=== PATIENT | female | born 1940 | race Caucasian/White ===

== ENCOUNTER 2020-02-15 17:56 | Inpatient (IN) | payer MEDICARE, MEDICAID, SELFPAY ==
[2020-02-15] VITALS (17 sets, daily range): BP systolic 116–162; BP diastolic 44–75; PULSE 77–97; RESP 18–40; TEMP 36.4–37.3; O2SAT 84–96; BMI 25.7
--- NOTE | 2020-02-15 18:12 | XRR_ITS ---
PROCEDURE INFORMATION: Exam: XR Chest, 1 View Exam date and time: 02/15/2020 7:41 PM Age: 79 years old Clinical indication: Dyspnea and shortness of breath; Additional info: Dyspnea, SOB TECHNIQUE: Imaging protocol: XR of the chest Views: 1 view. COMPARISON: CR Chest 1 [place] [id number] 04/18/2019 6:12 PM FINDINGS: Lungs: No pneumonia or pulmonary edema. Architectural changes in both lungs compatible with emphysema. Pleural space: No pleural effusion or pneumothorax. Heart/Mediastinum: The cardiac silhouette is not enlarged. The superior mediastinal contours are normal. Possible hiatal hernia. Bones/joints: Curvature of the thoracic spine convex to the right. Soft tissues: Bilateral epicardial fat pads. XR/XR chest 1V portable [id number] IMPRESSION: No acute abnormality.
--- NOTE | 2020-02-15 18:13 | ECG_ITS ---
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 Measurements Intervals [place] Rate: 81 P: 81 ID: [id number] QRS: -24 QRSD: 94 T: 50 QT: 367 QTc: 428 Interpretive Statements SINUS RHYTHM BORDERLINE LEFT AXIS DEVIATION [QRS AXIS < -20] Compared to ECG 04/18/2019 18:16:16 Right bundle-branch block no longer present Electronically Signed On 02-15-2020 22:38:02 CDT by Shea Garland M.D. [id number]
--- NOTE | 2020-02-15 18:21 | ED_ITS ---
HPI - SOB/Dyspnea General: Chief Complaint: Shortness of Breath/Dyspnea Stated Complaint: covid symptoms Time Seen by Provider: 02/15/20 18:05 Source: patient History of Present Illness: HPI Narrative: Mehnaz is a nice 79-year-old female brought in by EMS with report of worsening shortness of breath. Patient was recently seen at [facility] ER and told she had the flu. Patient states that she is having a productive cough, subjective fevers and has been chilled. In route EMS stated the patient had an 84% pulse ox on her typical 3-1/2 L nasal cannula oxygen. The patient was placed on a nonrebreather and arrives here with a pulse ox of 100%. She is tachypneic, wheezing and slightly tachycardic. She is alert and oriented but has a difficult time answering questions secondary to her shortness of breath. Review of Systems General: Reports: ROS unobtainable due to medical condition (Mild respiratory distress) [facility], [facility] PFSH: Medical History Atrial fibrillation Bifascicular block COPD (chronic obstructive pulmonary disease) Hyperlipidemia Hypothyroidism Status post placement of implantable loop recorder (~05/12/19) Family History Other Alzheimer disease Cancer Parkinson disease Social History Smoking and tobacco status: former smoker Quit status (tobacco): has quit using tobacco Year quit tobacco: 1994 Alcohol intake: never Physical Exam Const: COMMON NORMALS: no acute distress, patient oriented x3, no limitations, healthy appearing and well nourished GENERAL APPEARANCE: cooperative, well kempt and well developed HENMT: COMMON NORMALS: normocephalic, atraumatic, external ears normal, EAC's normal and Normal external nose present HEAD & SCALP: normal to inspection, normocephalic and atraumatic FACE & SINUS: normal facial exam and face symmetric NOSE: Normal external nose present and Normal nares present EXTERNAL EAR: Yes external ears normal EXTERNAL AUDITORY CANAL: EAC's normal MOUTH: Normal oral and palatal mucosa present, lip normal and tongue normal Eye: COMMON NORMALS: Equal, round and reactive pupils present and conjunctivae normal GENERAL EYE: appearance normal, both eyes and all related structures ALIGNMENT: Yes alignment normal PERIORBITAL: periorbital findings normal EYELID: eyelids normal CONJUNCTIVA: Yes conjunctivae normal SCLERA: sclerae normal PUPIL: Yes Equal, round and reactive pupils present Neck/C-Spine: COMMON NORMALS: full ROM, no lymphadenopathy, supple, no meningeal signs and no JVD GENERAL: Yes normal visual inspection and Yes trachea midline Chest: COMMONS NORMALS: normal inspection of the chest and normal palpation of entire chest wall Resp: EFFORT & INSPECTION: Yes able to speak in complete sentences, Yes sy mmetric chest movement, Yes Actively coughing, Yes retractions and Yes uses accessory muscles AUSCULTATION: no crackles, no rales, rhonchi, wheezes and diminished lung sounds Cardio: COMMON NORMALS: no JVD, regular rate, regular rhythm, S1 normal heart sound present and S2 normal heart sound present RATE: regular rate RHYTHM: regular rhythm HEART SOUNDS: S1 normal heart sound present, S2 normal heart sound present, no click, no gallops, no murmurs, no rubs and abnormal split S2 GI: COMMON NORMALS: Soft to palpation and No hepatosplenomegaly present PALPATION: Yes Soft to palpation, No Tenderness to palpation present (GI), No Guarding due to palpation present (GI), No Rigid due to palpation, Yes No hepatosplenomegaly present, No Hernia present, No Palpable mass present and No Pulsatile mass present : COMMON NORMALS: Yes no CVA tenderness BLADDER/KIDNEY EXAM: Yes no CVA tenderness EXTERNAL FEMALE EXAM: No Hernia present Back/Pelvis: COMMON NORMALS: no CVA tenderness, thoracic and lumbar spine normal to inspection, no thoracic nor lumbar tenderness and thoraco-lumbar ROM normal Extremity: COMMON NORMALS: normal to inspection, full ROM, capillary refill normal, no joint enlargement, no clubbing, cyanosis or edema and no calf tenderness Neuro: COMMON NORMALS: patient oriented x3, CN's II-XII intact bilaterally, moves all extremities, no focal motor deficits and no sensory deficits noted MENINGEAL SIGNS: Yes no meningeal signs SPEECH: speech normal Psych: COMMON NORMALS: mental status grossly normal, Normal thought process present, cooperative, normal affect, speech normal and activity/motor behavior normal APPEARANCE: Yes well kempt SPEECH: Yes normal speech THOUGHT PROCESS: Normal thought process present Skin: COMMON NORMALS: no rashes or lesions noted, turgor normal, no jaundice, no petechiae and no mottling GENERAL SKIN EXAM: no rashes or lesions noted and turgor normal Course Vital Signs: Vital signs: Vital Signs Temperature 97.6 F 02/15/20 18:08 Pulse Rate 85 02/15/20 20:04 Respiratory Rate 28 H 02/15/20 20:04 Blood Pressure 162/75 02/15/20 19:04 Pulse Oximetry 93 02/15/20 20:04 MDM - SOB/Dyspnea MDM Narrative: Medical decision making narrative: The case was reviewed with Dr. Ely. Patient is back to her baseline oxygen needs but is more tachypneic than normal. Vital signs are stable. She agrees to go ahead and keep the patient here as the patient does not want intubation or life-saving therapy. We will keep the patient here start regimen severe and continue Decadron. Lab Data: Labs: Lab Results 02/15/20 02/15/20 02/15/20 Range/Units 18:20 18:20 18:20 WBC 6.7 (4.0-10.0) 10^3/ uL RBC 4.35 (4.1-5.3) 10^6/u L Hgb 12.8 (11.5-15.3) g/dL Hct 39.9 (37.0-47.0) % MCV 91.7 (81-99) fL MCH 29.4 (28.0-34.0) pg MCHC 32.1 (30.0-36.0) g/dL RDW 13.0 (12.1-15.1) % Plt Count 260 (130-400) 10^3/c mm MPV 10.1 (7.4-10.4) fL Neut % (Auto) 85.2 % Lymph % (Auto) 5.7 % Chester % (Auto) 8.4 % Eos % (Auto) 0.0 % Baso % (Auto) 0.2 % Neut # (Auto) 5.68 (1.8-7.7) 10^3/u L Lymph # (Auto) 0.4 L (0.8-4.8) 10^3/u L Chester # (Auto) 0.6 (0.2-0.9) 10^3/u L Eos # (Auto) 0.0 (0.0-0.8) 10^3/u L Baso # (Auto) 0.0 (0.0-0.1) 10^3/u L Nucleated RBC % (a uto) 0 % Nucleated RBCs # 0.0 /100WBC PT 13.70 (12.1-14.9) SECO NDS INR 1.02 (0.8-1.2) Specimen Type Sample Site ABG pH (7.35-7.45) ABG pCO2 (35-45) mmHg ABG pO2 (80.0-100.0) mmH g ABG HCO3 (22-26) mmol/L ABG Base Excess (-2.0-2.0) mmol/ L Carlos Test Hematocrit (37-47) % O2 Delivery Device O2 Liters/Min % FiO2 % Color Blender ID Sodium 137 (136-145) mmol/L Potassium 3.0 L (3.5-5.1) mmol/L Chloride 95 L (98-107) mmol/L Carbon Dioxide 28 (22-29) mmol/L Anion Gap 17.0 (5-19) BUN 11 (8-23) mg/dL Creatinine 0.6 (0.5-0.9) mg/dL GFR Calculation Not Reportable Glucose 124 H (65-115) mg/dL Calculated Osmolal ity 281 L (285-295) mOsm/k g Lactic Acid (0.5-2.2) mmol/L Calcium 8.7 (8.5-10.5) mg/dL Magnesium 1.9 (1.7-2.3) mg/dL Total Bilirubin 0.5 (0.15-1.2) mg/dL AST 57 H (0-32) U/L ALT 40 H (0-33) U/L Alkaline Phosphata se 70 (35-105) IU/L Troponin T Baselin e (0-10) ng/L NT-Pro-B Natriuret Pep 156 (0-450) pg/mL Total Protein 6.6 (6.6-8.7) g/dL Albumin 3.4 L (3.5-5.2) g/dL Globulin 3.2 (1.3-4.6) g/dL Influenza Type A A g (Negative) Influenza Type B A g (Negative) SARS-CoV-2 Ag (Rap id) (Negative) 02/15/20 02/15/20 02/15/20 Range/Units 18:20 18:20 18:35 WBC (4.0-10.0) 10^3/ uL RBC (4.1-5.3) 10^6/u L Hgb (11.5-15.3) g/dL Hct (37.0-47.0) % MCV (81-99) fL MCH (28.0-34.0) pg MCHC (30.0-36.0) g/dL RDW (12.1-15.1) % Plt Count (130-400) 10^3/c mm MPV (7.4-10.4) fL Neut % (Auto) % Lymph % (Auto) % Chester % (Auto) % Eos % (Auto) % Baso % (Auto) % Neut # (Auto) (1.8-7.7) 10^3/u L Lymph # (Auto) (0.8-4.8) 10^3/u L Chester # (Auto) (0.2-0.9) 10^3/u L Eos # (Auto) (0.0-0.8) 10^3/u L Baso # (Auto) (0.0-0.1) 10^3/u L Nucleated RBC % (a uto) % Nucleated RBCs # /100WBC PT (12.1-14.9) SECO NDS INR (0.8-1.2) Specimen Type Arterial Sample Site Radial, left ABG pH 7.50 H (7.35-7.45) ABG pCO2 38.3 (35-45) mmHg ABG pO2 81.2 (80.0-100.0) mmH g ABG HCO3 29.9 H (22-26) mmol/L ABG Base Excess 6.3 H (-2.0-2.0) mmol/ L Carlos Test Pos Hematocrit 39.7 (37-47) % O2 Delivery Device Nc O2 Liters/Min 3.0 % FiO2 32.0 % Color Blender ID Cak Sodium (136-145) mmol/L Potassium (3.5-5.1) mmol/L Chloride (98-107) mmol/L Carbon Dioxide (22-29) mmol/L Anion Gap (5-19) BUN (8-23) mg/dL Creatinine (0.5-0.9) mg/dL GFR Calculation Glucose (65-115) mg/dL Calculated Osmolal ity (285-295) mOsm/k g Lactic Acid 1.4 (0.5-2.2) mmol/L Calcium (8.5-10.5) mg/dL Magnesium (1.7-2.3) mg/dL Total Bilirubin (0.15-1.2) mg/dL AST (0-32) U/L ALT (0-33) U/L Alkaline Phosphata se (35-105) IU/L Troponin T Baselin e 33 H (0-10) ng/L NT-Pro-B Natriuret Pep (0-450) pg/mL Total Protein (6.6-8.7) g/dL Albumin (3.5-5.2) g/dL Globulin (1.3-4.6) g/dL Influenza Type A A g (Negative) Influenza Type B A g (Negative) SARS-CoV-2 Ag (Rap id) (Negative) 02/15/20 02/15/20 Range/Units 18:40 18:40 WBC (4.0-10.0) 10^3/ uL RBC (4.1-5.3) 10^6/u L Hgb (11.5-15.3) g/dL Hct (37.0-47.0) % MCV (81-99) fL MCH (28.0-34.0) pg MCHC (30.0-36.0) g/dL RDW (12.1-15.1) % Plt Count (130-400) 10^3/c mm MPV (7.4-10.4) fL Neut % (Auto) % Lymph % (Auto) % Chester % (Auto) % Eos % (Auto) % Baso % (Auto) % Neut # (Auto) (1.8-7.7) 10^3/u L Lymph # (Auto) (0.8-4.8) 10^3/u L Chester # (Auto) (0.2-0.9) 10^3/u L Eos # (Auto) (0.0-0.8) 10^3/u L Baso # (Auto) (0.0-0.1) 10^3/u L Nucleated RBC % (a uto) % Nucleated RBCs # /100WBC PT (12.1-14.9) SECO NDS INR (0.8-1.2) Specimen Type Sample Site ABG pH (7.35-7.45) ABG pCO2 (35-45) mmHg ABG pO2 (80.0-100.0) mmH g ABG HCO3 (22-26) mmol/L ABG Base Excess (-2.0-2.0) mmol/ L Carlos Test Hematocrit (37-47) % O2 Delivery Device O2 Liters/Min % FiO2 % Color Blender ID Sodium (136-145) mmol/L Potassium (3.5-5.1) mmol/L Chloride (98-107) mmol/L Carbon Dioxide (22-29) mmol/L Anion Gap (5-19) BUN (8-23) mg/dL Creatinine (0.5-0.9) mg/dL GFR Calculation Glucose (65-115) mg/dL Calculated Osmolal ity (285-295) mOsm/k g Lactic Acid (0.5-2.2) mmol/L Calcium (8.5-10.5) mg/dL Magnesium (1.7-2.3) mg/dL Total Bilirubin (0.15-1.2) mg/dL AST (0-32) U/L ALT (0-33) U/L Alkaline Phosphata se (35-105) IU/L Troponin T Baselin e (0-10) ng/L NT-Pro-B Natriuret Pep (0-450) pg/mL Total Protein (6.6-8.7) g/dL Albumin (3.5-5.2) g/dL Globulin (1.3-4.6) g/dL Influenza Type A A g Negative (Negative) Influenza Type B A g Negative (Negative) SARS-CoV-2 Ag (Rap id) Positive H (Negative) EKG Data^: EKG 1: Attestation: I personally reviewed and interpreted this EKG as follows: EKG Interpretation Date: 02/15/20 EKG interpretation time: 18:55 Interpretation: Atrial fibrillation with a ventricular rate of 85 beats a minute, significant baseline artifact, no obvious acute ST segment changes. Discharge Plan Discharge Patient Disposition: Admitted As Inpatient Clinical Impression: Acute exacerbation of chronic obstructive airways disease, Viral pneumonitis, COVID-19 virus infection Condition: Stable Prescriptions: No Action docusate sodium [Colace] 100 mg capsule 100 mg PO DAILY RF: 0 aspirin [Adult Aspirin Regimen] 81 mg tablet,delayed release (DR/EC) 81 mg PO DAILY RF: 0 Eliquis 2.5 mg tablet 2.5 mg PO BID Qty: 90 RF: 3 albuterol sulfate 2.5 mg /3 mL (0.083 %) solution for nebulization 2.5 mg INHALATION Q6H RF: 0 alprazolam 0.5 mg tablet 0.5 mg PO DAILY RF: 0 budesonide 0.5 mg/2 mL suspension for nebulization 0.5 mg INHALATION BID RF: 0 ergocalciferol (vitamin D2) 1,250 mcg (50,000 unit) capsule 1,250 mcg PO DAILY RF: 0 fluticasone propionate [Flonase Allergy Relief] 50 mcg/actuation spray,suspension 2 spray INTRANASAL DAILY RF: 0 levothyroxine 25 mcg capsule 25 mcg PO DAILY RF: 0 lovastatin 20 mg tablet 20 mg PO DAILY RF: 0 montelukast 10 mg tablet 10 mg PO DAILY RF: 0 diltiazem HCl 300 mg capsule,extended release 24hr 300 mg PO DAILY Qty: 30 RF: 11 Bevespi Aerosphere 9-4.8 mcg HFA aerosol inhaler See Rx Instructions .ROUTE .COMPLEX RF: 0 Referrals: Rosie Barnes DO [Primary Care Provider] - Coding Level of Care Code ED Electrical And Instrumentation Mechanic for lilian Fwd Exam Comprehensive
[2020-02-15 18:27] LABS: Basophils % 0.2 %; Hematocrit 39.9 % (37.0-47.0); Hemoglobin 12.8 g/dL (11.5-15.3); Lymphocytes # 0.4 10^3/uL (0.8-4.8); Lymphocytes % 5.7 %; Mean Corpuscular HGB Conc 32.1 g/dL (30.0-36.0); Mean Corpuscular Hemoglobin 29.4 pg (28.0-34.0); Mean Corpuscular Volume 91.7 fL (81-99); Mean Platelet Volume 10.1 fL (7.4-10.4); Monocytes # 0.6 10^3/uL (0.2-0.9); Monocytes % 8.4 %; Neutrophils # 5.68 10^3/uL (1.8-7.7); Neutrophils % 85.2 %; Nucleated Red Blood Cells % 0 %; Platelet Count 260 10^3/cmm (130-400); Red Blood Count 4.35 10^6/uL (4.1-5.3); White Blood Count 6.7 10^3/uL (4.0-10.0)
[2020-02-15 18:40] LABS: INR 1.02 (0.8-1.2)
[2020-02-15 18:44] LABS: Lactic Sepsis W/Reflex 1.4 mmol/L (0.5-2.2)
[2020-02-15 18:47] LABS: ABG PCO2 38.3 mmHg (35-45); Arterial Blood Gas Hematocrit 39.7 % (37-47); Base Excess ABG 6.3 mmol/L (-2.0-2.0); Blood Gas Allen Test Pos; Blood Gas Operator Identificat CAK; Blood Gas Sample Site Radial, left; Blood Gas Sample Type Arterial; HCO3 ABG 29.9 mmol/L (22-26); Oxygen Device NC; PO2 ABG 81.2 mmHg (80.0-100.0)
[2020-02-15 18:49] LABS: Troponin(5th) Baseline 33 ng/L (0-10)
[2020-02-15 18:58] LABS: Alanine Aminotransferase 40 U/L (0-33); Albumin Level 3.4 g/dL (3.5-5.2); Alkaline Phosphatase 70 IU/L (35-105); Aspartate Amino Transferase 57 U/L (0-32); Blood Urea Nitrogen 11 mg/dL (8-23); Calcium 8.7 mg/dL (8.5-10.5); Carbon Dioxide 28 mmol/L (22-29); Chloride 95 mmol/L (98-107); Creatinine Clr Calc Pharmacy 52.2706; Globulin 3.2 g/dL (1.3-4.6); Glucose 124 mg/dL (65-115); Magnesium 1.9 mg/dL (1.7-2.3); NT Pro B Type Natriuretic Pept 156 pg/mL (0-450); Osmolality Calculated 281 mOsm/kg (285-295); Sodium 137 mmol/L (136-145); Total Bilirubin 0.5 mg/dL (0.15-1.2); Total Protein 6.6 g/dL (6.6-8.7)
[2020-02-15] MEDS: dexamethasone 10 mg/mL INJ IVP (19:03)
[2020-02-15 19:29] LABS: Influenza A by IFA Negative (Negative); Influenza B by IFA Negative (Negative)
[2020-02-15 19:30] LABS: SARS Covid-2 Antigen Positive (Negative)
[2020-02-15] MEDS: potassium chloride ER 10 mEq Tablet 40 MEQ PO (20:01)
[2020-02-15] MEDS: albuterol 8 gm MDI 6 PUFF INHALATION (20:04)
--- NOTE | 2020-02-15 20:13 | ECG_ITS ---
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 Measurements Intervals [place] Rate: 83 P: 97 AR: 141 QRS: -29 QRSD: 92 T: 66 QT: 382 QTc: 451 Interpretive Statements SINUS RHYTHM WITH OCCASIONAL SUPRAVENTRICULAR PREMATURE COMPLEXES BORDERLINE LEFT AXIS DEVIATION [QRS AXIS < -20] MODERATE ST DEPRESSION [0.05+ mV ST DEPRESSION] WARNING: DATA QUALITY MAY AFFECT INTERPRETATION Compared to ECG 04/18/2019 18:16:16 ST (T wave) deviation now present Right bundle-branch block no longer present Electronically Signed On 02-15-2020 22:51:30 CDT by Shea Garland M.D. [id number]
--- NOTE | 2020-02-15 20:19 | P.HP_ITS ---
Providers/Chief Complaint Admitting Physician: Miryam Ely MD Primary Care Provider: Rosie Barnes DO Chief Complaint: covid symptoms History of Present Illness Mehnaz Curiel is a 79 year old female with PMHx noted below including oxygen dependent COPD presents for evaluation of ongoing and progressive shortness of breath spite continued supplemental oxygen use, productive cough with yellow/clear sputum production, generally feeling unwell for the past several days, she states that she has been feeling unwell for about 2 weeks in total. She has good days and bad days as her symptoms seem to fluctuate. She thinks she may have been treated with steroids but is unsure. It seems that multiple family members that she has been close contact with have also had similar s ymptoms. She thinks she may have been tested for COVID-19 and may have been positive but thinks she may have been tested for the flu as well. Testing here for COVID-19 is positive. She is currently on 3.5 L nasal cannula, does not appear to be in any distress, very talkative and easy to engage with during my encounter in the ER. She is known to me from a previous admission approximately a year ago. She is quite concerned about potentially needing to be intubated and she states that she does not desire to have this done, repeats this multiple times during my evaluation. Vital signs are currently stable but she is intermittently tachycardic with heart rates going up into the 120s. Work-up so far shows a normal CBC including normal white count at 6.7, slight hypokalemia with a potassium of 3.0 which has been replaced orally, otherwise normal electrolytes and renal function, normal coags, magnesium of 1.9, ABG that is appropriate with a pH of 7.5, PCO2 of 38.3 and PO2 of 81.2. Chest x-ray is pending report. Slight elevation of LFTs noted with AST of 57. Baseline troponin is 33. Urinalysis is pending. Discussed finding of COVID-19 positive test and need for admission to the viral ICU which she is agreeable to. She has already received her first dose of Remdesevir in addition to steroids and inhaler treatment. Review of Systems Const: Reports: fever(s), chills and fatigue Eyes: Denies: change in vision ENMT: Reports: dry mouth Card: Denies: chest pain, swelling of feet/ankles or lightheadedness Resp: Reports: dyspnea and productive cough (yellow, clear sputum, thick) GI: Denies: abdominal pain, nausea, vomiting, hematemesis or hematochezia : Denies: difficulty voiding, dysuria or hematuria Musc: Denies: back pain Skin/Breast: Denies: rash Neuro: Denies: numbness in extremities or weakness in extremities Psych: Denies: anxiety Medications/Allergies Home Medications Medication Instructions Recorded Confirmed Last Taken Type albuterol sulfate 2.5 mg INHALATION Q6H 08/12/19 02/15/20 02/15/20 History alprazolam 0.5 mg tablet 0.5 mg PO DAILY 08/12/19 02/15/20 Unknown History budesonide 0.5 mg/2 mL suspension 0.5 mg INHALATION BID 08/12/19 02/15/20 Unknown History for nebulization ergocalciferol (vitamin D2) 1,250 1,250 mcg PO DAILY 08/12/19 02/15/20 Unknown History mcg (50,000 unit) capsule fluticasone propionate 50 2 spray INTRANASAL DAILY 08/12/19 02/15/20 Unknown History mcg/actuation nasal spray,suspension levothyroxine 25 mcg capsule 25 mcg PO DAILY 08/12/19 02/15/20 Unknown History lovastatin 20 mg tablet 20 mg PO DAILY 08/12/19 02/15/20 Unknown History montelukast 10 mg tablet 10 mg PO DAILY 08/12/19 02/15/20 Unknown History diltiazem HCl 300 mg 300 mg PO DAILY #30 cap 11/09/19 02/15/20 02/15/20 Rx capsule,extended release 24 hr apixaban 2.5 mg tablet 2.5 mg PO BID #90 tab 01/13/20 02/15/20 02/15/20 Rx aspirin 81 mg tablet,delayed 81 mg PO DAILY 01/13/20 02/15/20 Unknown History release docusate sodium 100 mg capsule 100 mg PO DAILY 01/13/20 02/15/20 Unknown History glycopyrrolate-formoterol [Bevespi See Rx Instructions .ROUTE .COMPLEX 02/15/20 02/15/20 Unknown History Aerosphere] Allergies Allergy/AdvReac Type Severity Reaction Status Date / Time Penicillins Allergy rash Verified 01/13/20 09:57 Sulfa (Sulfonamide AdvReac didn't Verified 01/13/20 09:57 Antibiotics) feel good PFSH Acute PFSH: Medical History Atrial fibrillation Bifascicular block COPD (chronic obstructive pulmonary disease) Hyperlipidemia Hypothyroidism Status post placement of implantable loop recorder (~05/12/19) Surgical History H/O bilateral salpingo-oophorectomy H/O foot surgery H/O: hysterectomy Family History Other Alzheimer disease Cancer Parkinson disease Social History (Updated 02/15/20 @ 21:23 by Miryam Ely MD) Smoking and tobacco status: former smoker Quit status (tobacco): has quit using tobacco Year quit tobacco: 1994 Alcohol intake: never Substance/Drug Use: never Vitals/I&O/Wt Last Vital Signs Temp 97.6 F 02/15/20 18:08 Pulse 85 02/15/20 20:04 Resp 28 H 02/15/20 20:04 BP 162/75 02/15/20 19:04 Pulse Ox 93 02/15/20 20:04 Weight last 48 hrs Weight 68.039 kg Physical Exam Const: COMMON NORMALS: no acute distress, patient oriented x3 and alert GENERAL APPEARANCE: cooperative and comfortable; not ill appearing ORIENTATION/CONSCIOUSNESS: Yes awake OTHER: -Looks yo andrew than stated age HENMT: COMMON NORMALS: normocephalic, atraumatic and moist oral mucous membranes HEAD & SCALP: normocephalic and atraumatic GENERAL EAR: hearing grossly impaired Laterality: bilateral Eye: COMMON NORMALS: Equal, round and reactive pupils present, EOMs intact bilaterally and conjunctivae normal CONJUNCTIVA: Yes conjunctivae normal PUPIL: Yes Equal, round and reactive pupils present Neck/C-Spine: COMMON NORMALS: full ROM GENERAL: Yes normal visual inspection and Yes trachea midline Resp: COMMON NORMALS: normal respiratory effort, No retractions and No use of accessory muscles EFFORT & INSPECTION: Yes able to speak in complete sentences, Yes symmetric chest movement and No tachypneic AUSCULTATION: diminished lung sounds bilateral OTHER: -on 3.5 L NC Cardio: COMMON NORMALS: regular rate, regular rhythm, S1 normal heart sound present, S2 normal heart sound present and No murmurs present (Cardio) RATE: regular rate and tachycardic (intermittently) RHYTHM: regular rhythm HEART SOUNDS: S1 normal heart sound present and S2 normal heart sound present GI: COMMON NORMALS: Normal to inspection, nondistended, normoactive bowel so unds present, Soft to palpation and non-tender PALPATION: Yes Soft to palpation Extremity: COMMON NORMALS: normal to inspection, full ROM and no clubbing, cyanosis or edema; negative for no pedal edema Neuro: COMMON NORMALS: patient oriented x3, moves all extremities, no focal motor deficits and no sensory deficits noted Psych: COMMON NORMALS: mental status grossly normal, Normal thought process present, cooperative, normal affect and speech normal SPEECH: Yes normal speech THOUGHT PROCESS: Normal thought process present Skin: COMMON NORMALS: no rashes or lesions noted, no jaundice, no petechiae and no mottling GENERAL SKIN EXAM: no rashes or lesions noted Data : 02/15/20 18:20 02/15/20 18:20 Micro: Microbiology 02/15/20 18:47 Blood Culture - Preliminary Blood SPECIMEN COLLECTED 02/15/20 18:20 Blood Culture - Preliminary Blood SPECIMEN COLLECTED A&P Assessment and plan (1) COVID-19 virus infection: -Found to be COVID-19 positive on rapid test -Currently requiring 3.5 L nasal cannula which is about her baseline -Follow-up chest x-ray report -Monitor respiratory status closely -Has already received her first dose of Remdesevir, continue this -Noted normal white count, normal lactic acid, normal coags -ABG appropriate -Order inflammatory markers -inhaler treatments -continue steroids Status: Acute (2) Acute exacerbation of chronic obstructive airways disease: -Baseline oxygen requirement is 3 to 4 L nasal cannula which she is c urrently on -Continue to monitor vital signs -Likely triggered by COVID-19 infection and viral pneumonitis -Received dose of IV steroids, continue this Status: Acute (3) Viral pneumonitis: -Secondary to COVID-19 infection Status: Acute (4) Atrial fibrillation: -Follows up with cardiology -Continue telemetry monitoring -Continue monitoring of vital signs -Resume Scar -Echo (2019): EF=58%, G3DD Status: Chronic Qualifiers: Atrial fibrillation type: paroxysmal Qualified Code(s): I48.0 - Paroxysmal atrial fibrillation (5) Hypothyroidism: -resume levothyroxine Status: Chronic Qualifiers: Hypothyroidism type: unspecified Qualified Code(s): E03.9 - Hypothyroidism, unspecified (6) Hyperlipidemia: -resume statin Status: Chronic Qualifiers: Hyperlipidemia type: unspecified Qualified Code(s): E78.5 - Hyperlipidemia, unspecified Additional A&P Information -Chronic diastolic CHF, no acute exacerbation -Advanced age -Anxiety; resume Xanax -mild hypokalemia; replaced PO in ED, repeat labs in AM -cardiac diet as tolerated -GI ppx with PPI -DVT ppx not needed as on Eliquis -Dispo: home -Code status: DNI per discussion with patient -Admit to [facility] Attestations Medical Necessity Statement*: Mehnaz Curiel's hospital stay will require greater than 2 midnights for treatment of COVID-19 pneumonitis, acute COPD exacerbation, currently on higher than baseline oxygen requirement. Time Spent in Patient Care: Greater than 35 minutes (>than 50% of time spent in counselling and/or direct pt care on unit) . 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
[2020-02-15 20:54] LABS: Troponin 5 2HR 33.87 ng/L (0-10); Troponin 5 2HR Delta 0.87 ABS# (0-10)
[2020-02-15 21:36] LABS: Glucose Urine UA Norm (Normal); Protein Urine 2+ (Negative); Specific Gravity, Urine 1.015 (1.005-1.030); Urine Appearance SL Hazy (CLEAR); Urine Color Yellow (Yellow); pH Urine 6 (5-7)
[2020-02-15 21:37] LABS: Add Urine Culture? Yes; Add Urine Microscopic? YES; Bacteria Urine 4+; Bilirubin Urine Neg (NEGATIVE); Blood Urine 3+ (Negative); Ketones Urine 1+ (Negative); Leukocyte Esterase Urine Negative (Negative); Nitrate Urine Positive (Negative); Squamous Epithelial Cell Urine 0-4 (0-5); Urobilinogen Urine Norm (Negative); WBC Urine 15-25 /hpf (0-5)
[2020-02-15] MEDS: dexamethasone 4 mg/mL INJ IVP (22:46)
[2020-02-16] VITALS (25 sets, daily range): BP systolic 100–144; BP diastolic 42–74; PULSE 60–109; RESP 16–31; TEMP 36.6–37.4; O2SAT 91–99
--- NOTE | 2020-02-16 00:13 | ECG_ITS ---
[facility] ED Test Date: 2020-02-16 Pat Name: Mehnaz Curiel Department: Room: ICU19 Gender: Female Greige Mender: : 1940 Requested By: Yamila Mckeon Order Number: [id number] Gege MD: Shea Garland M.D. Measurements Intervals [place] Rate: 70 P: 42 OR: 151 QRS: -21 QRSD: 93 T: 11 QT: 396 QTc: 429 Interpretive Statements SINUS RHYTHM INDETERMINATE AXIS LOW QRS VOLTAGE IN PRECORDIAL LEADS POSSIBLE ANTERIOR MYOCARDIAL INFARCTION, PROBABLY OLD INFERIOR MYOCARDIAL INFARCTION, PROBABLY OLD Compared to ECG 02/15/2020 20:23:56 Indeterminate axis now present Low QRS voltage now present Myocardial infarct finding now present ST (T wave) deviation no longer present Electronically Signed On 02-22-2020 22:43:15 CDT by Shea Garland M.D. [id number] f
[2020-02-16] MEDS: albuterol 8 gm MDI 2 PUFF INHALATION (01:00)
[2020-02-16 01:50] LABS: Hematocrit 36.8 % (37.0-47.0); Hemoglobin 11.8 g/dL (11.5-15.3); Lymphocytes # 0.2 10^3/uL (0.8-4.8); Lymphocytes % 3.9 %; Mean Corpuscular HGB Conc 32.1 g/dL (30.0-36.0); Mean Corpuscular Hemoglobin 29.8 pg (28.0-34.0); Mean Corpuscular Volume 92.9 fL (81-99); Mean Platelet Volume 10.5 fL (7.4-10.4); Monocytes # 0.1 10^3/uL (0.2-0.9); Monocytes % 1.6 %; Neutrophils # 4.58 10^3/uL (1.8-7.7); Neutrophils % 94.1 %; Nucleated Red Blood Cells % 0 %; Platelet Count 258 10^3/cmm (130-400); Red Blood Count 3.96 10^6/uL (4.1-5.3); White Blood Count 4.9 10^3/uL (4.0-10.0)
[2020-02-16 02:25] LABS: D Dimer 0.44 ug/mIFEU (0-0.59)
[2020-02-16 02:44] LABS: Anion Gap 14.1 (5-19); Blood Urea Nitrogen 11 mg/dL (8-23); Calcium 8.1 mg/dL (8.5-10.5); Carbon Dioxide 29 mmol/L (22-29); Chloride 99 mmol/L (98-107); Creatinine Clr Calc Pharmacy 52.2706; Glucose 211 mg/dL (65-115); Osmolality Calculated 288 mOsm/kg (285-295); Potassium 4.1 mmol/L (3.5-5.1); Sodium 138 mmol/L (136-145)
[2020-02-16 02:46] LABS: Troponin 5 6HR 36.15 ng/L (0-10); Troponin 5 6HR Delta 3.15 ng/L (0-12)
[2020-02-16 03:05] LABS: Alanine Aminotransferase 48 U/L (0-33); Albumin Level 3.3 g/dL (3.5-5.2); Alkaline Phosphatase 64 IU/L (35-105); Aspartate Amino Transferase 62 U/L (0-32); Ferritin 373 ng/mL (15-150); Lactate Dehydrogenase 366 U/L (135-214); Total Bilirubin 0.4 mg/dL (0.15-1.2); Total Protein 5.3 g/dL (6.6-8.7)
[2020-02-16 03:30] LABS: Creatine Phosphokinase 103 U/L (26-192)
[2020-02-16] MEDS: dexamethasone 4 mg/mL INJ IVP ×2 (04:29→09:08)
[2020-02-16] MEDS: apixaban 5 mg Tablet 2.5 MG PO ×2 (09:07→17:28)
[2020-02-16] MEDS: dilTIAZem ER (24HR) 300 mg Capsule PO (09:07)
[2020-02-16] MEDS: docusate sodium 100 mg Capsule PO (09:08)
[2020-02-16] MEDS: levothyroxine 25 mcg Tablet PO (09:08)
[2020-02-16] MEDS: aspirin 81 mg EC Tablet PO (09:10)
[2020-02-16] MEDS: atorvastatin 40 mg Tablet 20 MG PO (09:10)
[2020-02-16] MEDS: montelukast sodium 10 mg Tablet PO (09:35)
[2020-02-16] MEDS: doxycycline 100 mg Tablet PO ×2 (10:02→17:58)
[2020-02-16] MEDS: fluticasone nasal spray 16gm Btl 2 SPRAY INTRANASAL (11:02)
[2020-02-16] MEDS: budesonide 0.5 mg/2 mL Neb INHALATION (11:03)
--- NOTE | 2020-02-16 11:03 | PC.NURSE ---
Pulmicort and Fluticasone not on unit. Pharmacy notified of need. Administered when pharmacy brought meds.
[2020-02-16] MEDS: nitrofurantoin SR (BID) 100 mg Capsule PO ×2 (14:50→17:29)
--- NOTE | 2020-02-16 16:14 | PM.PN ---
Subjective Subjective: Interval history: This morning patient was examined, after she had walked from the commode to her bed, she is tachypneic, short of breath, actively wheezing, mild nasal flaring, intercostal retractions, but she got better after rest, continues to complain of cough, shortness of breath with exertion, no fevers, no chills, tells me that she quit smoking many years ago Vitals/I&O/Wt Last Vital Signs Temp 97.8 F 02/16/20 08:00 Pulse 73 02/16/20 15:00 Resp 19 H 02/16/20 15:00 BP 123/72 02/16/20 15:00 Pulse Ox 96 02/16/20 15:00 02/16/20 02/16/20 02/16/20 06:59 14:59 22:59 Intake Total 100 / 100 360 / 360 Balance 100 / 100 360 / 360 Weight last 48 hrs Weight 68.039 kg Physical Exam Const: COMMON NORMALS: no acute distress and patient oriented x3 HENMT: COMMON NORMALS: normocephalic HEAD & SCALP: normocephalic Neck/C-Spine: COMMON NORMALS: no JVD Resp: COMMON NORMALS: normal respiratory effort and No retractions EFFORT & INSPECTION: Yes able to speak in complete sentences, Yes tachypneic and Yes retractions AUSCULTATION: wheezes Cardio: COMMON NORMALS: no JVD, regular rate, regular rhythm, S1 normal heart sound present and S2 normal heart sound present RATE: regular rate RHYTHM: regular rhythm HEART SOUNDS: S1 normal heart sound present and S2 normal heart sound present GI: COMMON NORMALS: Normal to inspection, nondistended, normoactive bowel sounds present, Soft to palpation, non-tender, No hepatosplenomegaly present, no masses and no bruits PALPATION: Yes Soft to palpation and Yes No hepatosplenomegaly present Extremity: COMMON NORMALS: capillary refill normal, no clubbing, cyanosis or edema, no calf tenderness and no pedal edema Neuro: COMMON NORMALS: patient oriented x3 Psych: COMMON NORMALS: mental status grossly normal Data : 02/16/20 01:30 02/16/20 01:30 Micro: Microbiology 02/16/20 06:00 Gram Stain - Final Sputum - Expectorated Sputum 02/15/20 18:47 Blood Culture - Preliminary Blood SPECIMEN COLLECTED 02/15/20 18:20 Blood Culture - Preliminary Blood SPECIMEN COLLECTED A&P Assessment and plan (1) Acute and chronic respiratory failure with hypoxia: -Secondary to COPD exacerbation, COVID-19, viral pneumonitis -Became increasingly shortness of breath, actively wheezing with exertion -For COPD exacerbation, continue Decadron 6 mg IV push daily, continue Advair and Spiriva -For COVID-19, started on remdesvir, decadron, Advair and Spiriva, monitor respiratory status closely -Currently on 3 to 4 L oxygen -Does not clinically look fluid overloaded, hold off on Lasix -Patient does not want mechanical ventilation, does not want to be intubated -Eliquis for DVT prophylaxis Status: Acute (2) COVID-19 virus infection: -Found to be COVID-19 positive on rapid test -Currently requiring 3.5 L nasal cannula which is about her baseline -Chest x-ray no focal pneumonia -Monitor respiratory status closely -Has already received her first dose of Remdesevir, continue this -inhaler treatments -continue steroids Status: Acute (3) Acute exacerbation of chronic obstructive airways disease: -Baseline oxygen requirement is 3 to 4 L nasal cannula which she is currently on -Continue to monitor vital signs -Likely triggered by COVID-19 infection and viral pneumonitis -Received dose of IV steroids, continue this Status: Acute (4) Viral pneumonitis: -Secondary to COVID-19 infection Status: Acute (5) Atrial fibrillation: -Follows up with cardiology -Continue telemetry monitoring -Continue monitoring of vital signs -Resume Scar -Echo (2019): EF=58%, G3DD Status: Chronic Qualifiers: Atrial fibrillation type: paroxysmal Qualified Code(s): I48.0 - Paroxysmal atrial fibrillation (6) Hypothyroidism: -resume levothyroxine Status: Chronic Qualifiers: Hypothyroidism type: unspecified Qualified Code(s): E03.9 - Hypothyroidism, unspecified (7) Hyperlipidemia: -resume statin Status: Chronic Qualifiers: Hyperlipidemia type: unspecified Qualified Code(s): E78.5 - Hyperlipidemia, unspecified Additional A&P Information -Chronic diastolic CHF, no acute exacerbation -Advanced age -Anxiety; resume Xanax -mild hypokalemia; replaced PO in ED, repeat labs in AM -cardiac diet as tolerated -GI ppx with PPI -DVT ppx not needed as on Eliquis -Dispo: home -Code status: DNI per discussion with patient -Admit to [facility] Attestations Medical Necessity Statement*: Patient requires hospitalization, for acute respiratory failure secondary to COVID-19 Coding Level of Care Code 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
--- NOTE | 2020-02-16 19:00 | PC.NURSE ---
Report received, care assumed. Monitor alarms, previous orders et plan of care reviewed. Please see physical assessment et vital sign flowsheets for details.
[2020-02-17] VITALS (25 sets, daily range): BP systolic 110–157; BP diastolic 51–93; PULSE 57–116; RESP 14–33; TEMP 36.6–37.2; O2SAT 90–99
[2020-02-17] MEDS: albuterol 8 gm MDI 2 PUFF INHALATION (00:59)
[2020-02-17 07:09] LABS: Basophils % 0.1 %; Hematocrit 39.3 % (37.0-47.0); Hemoglobin 12.8 g/dL (11.5-15.3); Lymphocytes # 0.4 10^3/uL (0.8-4.8); Lymphocytes % 2.4 %; Mean Corpuscular HGB Conc 32.6 g/dL (30.0-36.0); Mean Corpuscular Hemoglobin 29.8 pg (28.0-34.0); Mean Corpuscular Volume 91.4 fL (81-99); Mean Platelet Volume 11.2 fL (7.4-10.4); Monocytes # 0.7 10^3/uL (0.2-0.9); Monocytes % 4.9 %; Neutrophils # 13.81 10^3/uL (1.8-7.7); Neutrophils % 91.5 %; Nucleated Red Blood Cells % 0 %; Platelet Count 386 10^3/cmm (130-400); Red Cell Distribution Width 13.2 % (12.1-15.1); White Blood Count 15.1 10^3/uL (4.0-10.0)
[2020-02-17 07:35] LABS: Alanine Aminotransferase 103 U/L (0-33); Albumin Level 3.5 g/dL (3.5-5.2); Alkaline Phosphatase 76 IU/L (35-105); Anion Gap 12.8 (5-19); Aspartate Amino Transferase 129 U/L (0-32); Blood Urea Nitrogen 22 mg/dL (8-23); C Reactive Protein 16.7 mg/L (0.0-4.9); Calcium 8.7 mg/dL (8.5-10.5); Carbon Dioxide 31 mmol/L (22-29); Chloride 100 mmol/L (98-107); Creatinine Clr Calc Pharmacy 52.2706; Globulin 3.1 g/dL (1.3-4.6); Glucose 192 mg/dL (65-115); Magnesium 2.2 mg/dL (1.7-2.3); Osmolality Calculated 292 mOsm/kg (285-295); Phosphorus 2.1 mg/dL (2.5-4.5); Potassium 3.8 mmol/L (3.5-5.1); Sodium 140 mmol/L (136-145); Total Bilirubin 0.6 mg/dL (0.15-1.2); Total Protein 6.6 g/dL (6.6-8.7)
[2020-02-17 07:47] LABS: Procalcitonin 0.08 ng/mL (0-0.5)
[2020-02-17] MEDS: apixaban 5 mg Tablet 2.5 MG PO ×2 (09:42→18:07)
[2020-02-17] MEDS: dexamethasone 4 mg/mL INJ 6 MG IVP (09:42)
[2020-02-17] MEDS: atorvastatin 40 mg Tablet 20 MG PO (09:43)
[2020-02-17] MEDS: aspirin 81 mg EC Tablet PO (09:43)
[2020-02-17] MEDS: doxycycline 100 mg Tablet PO ×2 (09:44→18:07)
[2020-02-17] MEDS: fluticasone nasal spray 16gm Btl 2 SPRAY INTRANASAL (09:44)
[2020-02-17] MEDS: dilTIAZem ER (24HR) 300 mg Capsule PO (09:44)
[2020-02-17] MEDS: levothyroxine 25 mcg Tablet PO (09:45)
[2020-02-17] MEDS: montelukast sodium 10 mg Tablet PO (09:45)
[2020-02-17] MEDS: nitrofurantoin SR (BID) 100 mg Capsule PO ×2 (09:45→18:07)
[2020-02-17] MEDS: docusate sodium 100 mg Capsule PO (10:00)
--- NOTE | 2020-02-17 12:40 | PM.PN ---
Subjective Subjective: Interval history: This morning patient was examined, overall doing better, still having shortness of breath with exertion, still having active wheezing, no fevers, still having a nonproductive cough Vitals/I&O/Wt Last Vital Signs Temp 98.8 F 02/17/20 08:00 Pulse 74 02/17/20 12:00 Resp 27 H 02/17/20 12:00 BP 127/69 02/17/20 12:00 Pulse Ox 92 02/17/20 12:00 02/16/20 02/17/20 02/17/20 22:59 06:59 14:59 Intake Total 450 / 810 600 / 600 Balance 450 / 810 600 / 600 Weight last 48 hrs Weight 68.039 kg Physical Exam Const: COMMON NORMALS: no acute distress and patient oriented x3 HENMT: COMMON NORMALS: normocephalic HEAD & SCALP: normocephalic Neck/C-Spine: COMMON NORMALS: no JVD Resp: COMMON NORMALS: normal respiratory effort, No retractions and No use of accessory muscles AUSCULTATION: wheezes Cardio: COMMON NORMALS: no JVD, regular rate, regular rhythm, S1 normal heart sound present and S2 normal heart sound present RATE: regular rate RHYTHM: regular rhythm HEART SOUNDS: S1 normal heart sound present and S2 normal heart sound present GI: COMMON NORMALS: Normal to inspection, nondistended, normoactive bowel sounds present, Soft to palpation, non-tender, No hepatosplenomegaly present, no masses and no bruits PALPATION: Yes Soft to palpation and Yes No hepatosplenomegaly present Extremity: COMMON NORMALS: capillary refill normal, no clubbing, cyanosis or edema, no calf tenderness and no pedal edema Neuro: COMMON NORMALS: patient oriented x3 Psych: COMMON NORMALS: mental status grossly normal Data : 02/17/20 06:45 02/17/20 06:45 Micro: Microbiology 02/15/20 19:51 Urine Culture - Preliminary Urine,Clean Catch Gram Negative Rods 02/15/20 18:47 Blood Culture - Preliminary Blood NEGATIVE TO DATE 02/15/20 18:20 Blood Culture - Preliminary Blood NEGATIVE TO DATE 02/16/20 06:00 Gram Stain - Final Sputum - Expectorated Sputum A&P Assessment and plan (1) Acute and chronic respiratory failure with hypoxia: -Secondary to COPD exacerbation, COVID-19, viral pneumonitis -Became increasingly shortness of breath, actively wheezing with exertion -For COPD exacerbation, continue Decadron 6 mg IV push daily, continue Advair and Spiriva -For COVID-19, started on remdesvir, decadron, Advair and Spiriva, monitor respiratory status closely -Currently on 3 to 4 L oxygen -Does not clinically look fluid overloaded, hold off on Lasix -Patient does not want mechanical ventilation, does not want to be intubated -Eliquis for DVT prophylaxis Status: Acute (2) COVID-19 virus infection: -Found to be COVID-19 positive on rapid test -Currently requiring 3.5 L nasal cannula which is about her baseline -Chest x-ray no focal pneumonia -Monitor respiratory status closely -Has already received her first dose of Remdesevir, continue this -inhaler treatments -continue steroids Status: Acute (3) Acute exacerbation of chronic obstructive airways disease: -Baseline oxygen requirement is 3 to 4 L nasal cannula which she is currently on -Continue to monitor vital signs -Likely triggered by COVID-19 infection and viral pneumonitis -Received dose of IV steroids, continue this Status: Acute (4) Viral pneumonitis: -Secondary to COVID-19 infection Status: Acute (5) Atrial fibrillation: -Follows up with cardiology -Continue telemetry monitoring -Continue monitoring of vital signs -Resume Scar -Echo (2019): EF=58%, G3DD Status: Chronic Qualifiers: Atrial fibrillation type: paroxysmal Qualified Code(s): I48.0 - Paroxysmal atrial fibrillation (6) Hypothyroidism: -resume levothyroxine Status: Chronic Qualifiers: Hypothyroidism type: unspecified Qualified Code(s): E03.9 - Hypothyroidism, unspecified (7) Hyperlipidemia: -resume statin Status: Chronic Qualifiers: Hyperlipidemia type: unspecified Qualified Code(s): E78.5 - Hyperlipidemia, unspecified Additional A&P Information -Chronic diastolic CHF, no acute exacerbation -Advanced age -Anxiety; resume Xanax -mild hypokalemia; replaced PO in ED, repeat labs in AM -cardiac diet as tolerated -GI ppx with PPI -DVT ppx not needed as on Eliquis -Dispo: home -Code status: DNI per discussion with patient -Admit to [facility] Attestations Medical Necessity Statement*: Patient requires hospitalization due to acute respiratory failure secondary COPD COVID-19 Coding Level of Care Code 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
--- NOTE | 2020-02-17 13:15 | PC.RESP ---
Pulmonary Rehab information sent to patient.
[2020-02-18] VITALS (26 sets, daily range): BP systolic 120–155; BP diastolic 56–96; PULSE 55–87; RESP 17–29; TEMP 36.1–37.1; O2SAT 91–99
[2020-02-18 04:47] LABS: Basophils % 0.1 %; Hematocrit 38.7 % (37.0-47.0); Hemoglobin 12.3 g/dL (11.5-15.3); Lymphocytes # 0.4 10^3/uL (0.8-4.8); Lymphocytes % 2.7 %; Mean Corpuscular HGB Conc 31.8 g/dL (30.0-36.0); Mean Corpuscular Hemoglobin 29.6 pg (28.0-34.0); Mean Platelet Volume 10.3 fL (7.4-10.4); Monocytes # 0.8 10^3/uL (0.2-0.9); Monocytes % 5.3 %; Neutrophils # 13.03 10^3/uL (1.8-7.7); Neutrophils % 90.4 %; Nucleated Red Blood Cells % 0 %; Platelet Count 477 10^3/cmm (130-400); Red Blood Count 4.16 10^6/uL (4.1-5.3); Red Cell Distribution Width 13.1 % (12.1-15.1); White Blood Count 14.4 10^3/uL (4.0-10.0)
[2020-02-18 05:15] LABS: Alanine Aminotransferase 113 U/L (0-33); Albumin Level 3.3 g/dL (3.5-5.2); Alkaline Phosphatase 76 IU/L (35-105); Aspartate Amino Transferase 109 U/L (0-32); Blood Urea Nitrogen 23 mg/dL (8-23); Calcium 8.7 mg/dL (8.5-10.5); Carbon Dioxide 31 mmol/L (22-29); Chloride 100 mmol/L (98-107); Creatinine Clr Calc Pharmacy 52.2706; Globulin 2.7 g/dL (1.3-4.6); Glucose 181 mg/dL (65-115); Magnesium 2.2 mg/dL (1.7-2.3); Osmolality Calculated 291 mOsm/kg (285-295); Phosphorus 3.1 mg/dL (2.5-4.5); Sodium 140 mmol/L (136-145); Total Bilirubin 0.7 mg/dL (0.15-1.2)
[2020-02-18 05:18] LABS: Procalcitonin 0.05 ng/mL (0-0.5)
[2020-02-18 05:29] LABS: C Reactive Protein 7.7 mg/L (0.0-4.9)
[2020-02-18] MEDS: dexamethasone 4 mg/mL INJ 6 MG IVP (06:16)
[2020-02-18] MEDS: montelukast sodium 10 mg Tablet PO (08:48)
[2020-02-18] MEDS: dilTIAZem ER (24HR) 300 mg Capsule PO (08:48)
[2020-02-18] MEDS: aspirin 81 mg EC Tablet PO (08:48)
[2020-02-18] MEDS: FUROsemide 10 mg/mL SDV 4mL 40 MG IVP (08:48)
[2020-02-18] MEDS: atorvastatin 40 mg Tablet 20 MG PO (08:48)
[2020-02-18] MEDS: doxycycline 100 mg Tablet PO ×2 (08:48→17:44)
[2020-02-18] MEDS: levothyroxine 25 mcg Tablet PO (08:48)
[2020-02-18] MEDS: nitrofurantoin SR (BID) 100 mg Capsule PO ×2 (08:48→17:44)
[2020-02-18] MEDS: fluticasone nasal spray 16gm Btl 2 SPRAY INTRANASAL (08:49)
[2020-02-18] MEDS: albuterol 8 gm MDI 2 PUFF INHALATION (08:49)
[2020-02-18] MEDS: apixaban 5 mg Tablet 2.5 MG PO ×2 (08:49→17:44)
[2020-02-18] MEDS: docusate sodium 100 mg Capsule PO (08:51)
--- NOTE | 2020-02-18 10:00 | ECG_ITS ---
[facility] ED Test Date: 2020-02-18 Pat Name: Mehnaz Curiel Department: Room: ICU19 Gender: Female Auditing Control Clerk: : 1940 Requested By: Master Ortiz Order Number: [id number] Gege MD: Shea Garland M.D. Measurements Intervals [place] Rate: 65 P: -14 HI: 159 QRS: 25 QRSD: 89 T: -2 QT: 404 QTc: 420 Interpretive Statements SINUS RHYTHM LOW QRS VOLTAGE IN PRECORDIAL LEADS [QRS DEFLECTION < 1.0 mV IN CHEST LEADS] POSSIBLE RIGHT VENTRICULAR CONDUCTION DELAY [RSR (QR) IN V1/V2] POSSIBLE ANTERIOR MYOCARDIAL INFARCTION [30 ms Q WAVE IN V3/V4, OR R < 0.2 mV IN V4], OF INDETERMINATE AGE POSSIBLE INFERIOR MYOCARDIAL INFARCTION,PROBABLY OLD Compared to ECG 02/16/2020 00:45:58 Indeterminate axis no longer present Myocardial infarct finding still present Electronically Signed On 02-22-2020 22:40:26 CDT by Shea Garland M.D. [id number] f
--- NOTE | 2020-02-18 14:55 | P.PN_ITS ---
Subjective Subjective: Interval history: Overall patient states that she is doing better, still has active wheezing and chest tightness with exertion, no fevers, chills, no nausea, vomiting, is concerned about going home too soon Vitals/I&O/Wt Last Vital Signs Temp 98.0 F 02/18/20 08:00 Pulse 57 L 02/18/20 10:00 Resp 20 H 02/18/20 10:00 BP 139/70 02/18/20 10:00 Pulse Ox 98 02/18/20 10:00 02/17/20 02/18/20 02/18/20 22:59 06:59 14:59 Intake Total 240 / 840 240 / 240 Balance 240 / 840 240 / 240 Physical Exam Const: COMMON NORMALS: no acute distress and patient oriented x3 HENMT: COMMON NORMALS: normocephalic HEAD & SCALP: normocephalic Neck/C-Spine: COMMON NORMALS: no JVD Resp: COMMON NORMALS: normal respiratory effort, No retractions and No use of accessory muscles AUSCULTATION: diminished lung sounds Cardio: COMMON NORMALS: no JVD, regular rate, regular rhythm, S1 normal heart sound present and S2 normal heart sound present RATE: regular rate RHYTHM: regular rhythm HEART SOUNDS: S1 normal heart sound present and S2 normal heart sound present GI: COMMON NORMALS: Normal to inspection, nondistended, normoactive bowel sounds present, Soft to palpation, non-tender, No hepatosplenomegaly present, no masses and no bruits PALPATION: Yes Soft to palpation and Yes No hepatosplenomegaly present Extremity: COMMON NORMALS: capillary refill normal, no clubbing, cyanosis or edema, no calf tenderness and no pedal edema Neuro: COMMON NORMALS: patient oriented x3 Psych: COMMON NORMALS: mental status grossly normal Data : 02/18/20 04:25 02/18/20 04:25 Micro: Microbiology 02/16/20 06:00 Gram Stain - Final Sputum - Expectorated Sputum Sputum Culture - Final 02/18/20 08:58 Blood Culture - Preliminary Blood SPECIMEN COLLECTED 02/18/20 09:00 Blood Culture - Preliminary Blood SPECIMEN COLLECTED 02/15/20 19:51 Urine Culture - Final Urine,Clean Catch Enterobacter aerogenes 02/15/20 18:47 Blood Culture - Preliminary Blood Gram positive bacillus 1 A&P Assessment and plan (1) Acute and chronic respiratory failure with hypoxia: -Secondary to COPD exacerbation, COVID-19, viral pneumonitis -Lungs still sound tight -For COPD exacerbation, continue Decadron 6 mg IV push daily, continue Advair and Spiriva -For COVID-19, started on remdesvir, decadron, Advair and Spiriva, monitor respiratory status closely -Currently on 3 to 4 L oxygen -We will give Lasix 40 mg IV once, given concerns for fluid overload, history of diastolic heart failure -QTC 420 ms -Patient does not want mechanical ventilation, does not want to be intubated -Eliquis for DVT prophylaxis Status: Acute (2) COVID-19 virus infection: -Found to be COVID-19 positive on rapid test -Currently requiring 3.5 L nasal cannula which is about her baseline -Chest x-ray no focal pneumonia -Monitor respiratory status closely -Has already received her first dose of Remdesevir, continue this -inhaler treatments -continue steroids Status: Acute (3) Acute exacerbation of chronic obstructive airways disease: -Baseline oxygen requirement is 3 to 4 L nasal cannula which she is cur rently on -Continue to monitor vital signs -Likely triggered by COVID-19 infection and viral pneumonitis -Received dose of IV steroids, continue this Status: Acute (4) Viral pneumonitis: -Secondary to COVID-19 infection Status: Acute (5) Atrial fibrillation: -Follows up with cardiology -Continue telemetry monitoring -Continue monitoring of vital signs -Resume Scar -Echo (2019): EF=58%, G3DD Status: Chronic Qualifiers: Atrial fibrillation type: paroxysmal Qualified Code(s): I48.0 - Paroxysmal atrial fibrillation (6) Hypothyroidism: -resume levothyroxine Status: Chronic Qualifiers: Hypothyroidism type: unspecified Qualified Code(s): E03.9 - H ypothyroidism, unspecified (7) Hyperlipidemia: -resume statin Status: Chronic Qualifiers: Hyperlipidemia type: unspecified Qualified Code(s): E78.5 - Hyperlipidemia, unspecified Additional A&P Information -Chronic diastolic CHF, no acute exacerbation -Advanced age -Anxiety; resume Xanax -cardiac diet as tolerated -GI ppx with PPI -DVT ppx not needed as on Eliquis -Dispo: home -Code status: DNI per discussion with patient -Admit to [facility]ICU Attestations Medical Necessity Statement*: Patient requires hospitalization for acute respiratory failure with hypoxia secondary to COVID-19 Coding Level of Care Code Acute Resident Services Coordinator for [facility] Fwd Diagnoses Acute and chronic respiratory failure with hypoxia J96.21 COVID-19 virus infection U07.1 Acute exacerbation of chronic obstructive airways disease J44.1 Viral pneumonitis J12.9 Atrial fibrillation I48.0 Atrial fibrillation type: paroxysmal Hypothyroidism E03.9 Hypothyroidism type: unspecified Hyperlipidemia E78.5 Hyperlipidemia type: unspecified
[2020-02-18 17:26] LABS: Glucose Point of Care 171 mg/dL (70-110)
[2020-02-19] VITALS (21 sets, daily range): BP systolic 122–158; BP diastolic 53–87; PULSE 54–97; RESP 18–27; TEMP 36.4–37; O2SAT 95–99
[2020-02-19 05:02] LABS: Basophils % 0.2 %; Hematocrit 38.7 % (37.0-47.0); Hemoglobin 12.3 g/dL (11.5-15.3); Lymphocytes # 0.4 10^3/uL (0.8-4.8); Lymphocytes % 2.7 %; Mean Corpuscular HGB Conc 31.8 g/dL (30.0-36.0); Mean Corpuscular Hemoglobin 29.1 pg (28.0-34.0); Mean Corpuscular Volume 91.5 fL (81-99); Mean Platelet Volume 10.1 fL (7.4-10.4); Monocytes # 1.1 10^3/uL (0.2-0.9); Monocytes % 8.6 %; Neutrophils # 11.39 10^3/uL (1.8-7.7); Neutrophils % 86.6 %; Nucleated Red Blood Cells % 0 %; Platelet Count 536 10^3/cmm (130-400); Red Blood Count 4.23 10^6/uL (4.1-5.3); Red Cell Distribution Width 13.1 % (12.1-15.1); White Blood Count 13.2 10^3/uL (4.0-10.0)
[2020-02-19 05:36] LABS: Alanine Aminotransferase 114 U/L (0-33); Albumin Level 3.4 g/dL (3.5-5.2); Alkaline Phosphatase 65 IU/L (35-105); Aspartate Amino Transferase 61 U/L (0-32); Blood Urea Nitrogen 25 mg/dL (8-23); C Reactive Protein 4.3 mg/L (0.0-4.9); Calcium 8.2 mg/dL (8.5-10.5); Carbon Dioxide 30 mmol/L (22-29); Chloride 103 mmol/L (98-107); Creatinine Clr Calc Pharmacy 52.2706; Globulin 1.9 g/dL (1.3-4.6); Glucose 176 mg/dL (65-115); Magnesium 2.3 mg/dL (1.7-2.3); Osmolality Calculated 295 mOsm/kg (285-295); Phosphorus 3.9 mg/dL (2.5-4.5); Sodium 142 mmol/L (136-145); Total Bilirubin 0.6 mg/dL (0.15-1.2); Total Protein 5.3 g/dL (6.6-8.7)
[2020-02-19 05:37] LABS: Anion Gap 13.3 (5-19); Potassium 4.3 mmol/L (3.5-5.1)
[2020-02-19 05:38] LABS: Procalcitonin 0.04 ng/mL (0-0.5)
[2020-02-19] MEDS: dexamethasone 10 mg/mL INJ 6 MG IVP (06:35)
--- NOTE | 2020-02-19 07:30 | PC.NURSE ---
Patient resting in bed with eyes closed at this time. Even, non-labored breathing. Expiratory wheezing on assessment. Patient O2 sats 98% on 3.5 L via NC. Nurse to continue to monitor.
[2020-02-19] MEDS: nitrofurantoin SR (BID) 100 mg Capsule PO ×2 (09:47→17:53)
[2020-02-19] MEDS: apixaban 5 mg Tablet 2.5 MG PO ×2 (09:47→17:54)
[2020-02-19] MEDS: doxycycline 100 mg Tablet PO ×2 (09:48→17:53)
[2020-02-19] MEDS: atorvastatin 40 mg Tablet 20 MG PO (09:48)
[2020-02-19] MEDS: aspirin 81 mg EC Tablet PO (09:48)
--- NOTE | 2020-02-19 10:00 | ECG_ITS ---
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 Measurements Intervals [place] Rate: 65 P: 89 NE: 152 QRS: 28 QRSD: 88 T: 87 QT: 382 QTc: 398 Interpretive Statements SINUS RHYTHM LOW QRS VOLTAGE IN EXTREMITY LEADS [QRS DEFLECTION < 0.5 mV IN LIMB LEADS] Artifact Compared to ECG 02/18/2020 08:26:59 Myocardial infarct finding no longer present Electronically Signed On 02-22-2020 22:37:34 CDT by Shea Garland M.D. [email or web address] [email or web address]/OM/[id number]
[2020-02-19] MEDS: fluticasone nasal spray 16gm Btl 2 SPRAY INTRANASAL (10:10)
[2020-02-19] MEDS: levothyroxine 25 mcg Tablet PO (10:11)
[2020-02-19] MEDS: montelukast sodium 10 mg Tablet PO (10:11)
[2020-02-19] MEDS: docusate sodium 100 mg Capsule PO (10:37)
[2020-02-19] MEDS: dilTIAZem ER (24HR) 300 mg Capsule PO (10:38)
--- NOTE | 2020-02-19 13:00 | PC.NURSE ---
Dr. Ortiz at bedside to discuss POC. Plan for dc tomorrow.
--- NOTE | 2020-02-19 14:26 | P.PN_ITS ---
Subjective Subjective: Interval history: This morning patient was examined, she sitting up to the side of the bed, has coarse expiratory wheezing, is a bit short of breath, no fevers, no chills, no nausea, vomiting, she states that she is doing better Vitals/I&O/Wt Last Vital Signs Temp 98.6 F 02/19/20 12:00 Pulse 83 02/19/20 12:00 Resp 26 H 02/19/20 12:00 BP 150/71 02/19/20 12:00 Pulse Ox 95 02/19/20 12:00 02/18/20 02/19/20 02/19/20 22:59 06:59 14:59 Intake Total 120 / 600 0 / 600 120 / 120 Balance 120 / 600 0 / 600 120 / 120 Physical Exam Const: COMMON NORMALS: no acute distress and patient oriented x3 HENMT: COMMON NORMALS: normocephalic HEAD & SCALP: normocephalic Neck/C-Spine: COMMON NORMALS: no JVD Resp: COMMON NORMALS: normal respiratory effort, No retractions and No use of accessory muscles AUSCULTATION: rhonchi and wheezes Cardio: COMMON NORMALS: no JVD, regular rate, regular rhythm, S1 normal heart sound present and S2 normal heart sound present RATE: regular rate RHYTHM: regular rhythm HEART SOUNDS: S1 normal heart sound present and S2 normal heart sound present GI: COMMON NORMALS: Normal to inspection, nondistended, normoactive bowel sounds present, Soft to palpation, non-tender, No hepatosplenomegaly present, no masses and no bruits PALPATION: Yes Soft to palpation and Yes No hepatosplenomegaly present Extremity: COMMON NORMALS: capillary refill normal, no clubbing, cyanosis or edema, no calf tenderness and no pedal edema Neuro: COMMON NORMALS: patient oriented x3 Psych: COMMON NORMALS: mental status grossly normal Data : 02/19/20 04:40 02/19/20 04:40 Micro: Microbiology 02/18/20 08:58 Blood Culture - Preliminary Blood NEGATIVE TO DATE 02/18/20 09:00 Blood Culture - Preliminary Blood NEGATIVE TO DATE 02/15/20 18:47 Blood Culture - Preliminary Blood Gram positive bacillus 1 02/16/20 06:00 Gram Stain - Final Sputum - Expectorated Sputum Sputum Culture - Final A&P Assessment and plan (1) Acute and chronic respiratory failure with hypoxia: -Secondary to COPD exacerbation, COVID-19, viral pneumonitis -Lungs still quite wheezy -For COPD exacerbation, continue Decadron 6 mg IV push daily, continue Advair and Spiriva -For COVID-19, started on remdesvir, decadron, Advair and Spiriva, monitor respiratory status closely -Currently on 3 to 4 L oxygen -Hold Lasix for today -QTC 398 ms -Patient does not want mechanical ventilation, does not want to be intubated -Eliquis for DVT prophylaxis Status: Acute (2) COVID-19 virus infection: -Found to be COVID-19 positive on rapid test -Currently requiring 3.5 L nasal cannula which is about her baseline -Chest x-ray no focal pneumonia -Monitor respiratory status closely -Has already received her first dose of Remdesevir, continue this -inhaler treatments -continue steroids Status: Acute (3) Acute exacerbation of chronic obstructive airways disease: -Baseline oxygen requirement is 3 to 4 L nasal cannula which she is currently on -Continue to monitor vital signs -Likely triggered by COVID-19 infection and viral pneumonitis -Received dose of IV steroids, continue this Status: Acute (4) Viral pneumonitis: -Secondary to COVID-19 infection Status: Acute (5) Atrial fibrillation: -Follows up with cardiology -Continue telemetry monitoring -Continue monitoring of vital signs -Resume Scar -Echo (2019): EF=58%, G3DD Status: Chronic Qualifiers: Atrial fibrillation type: paroxysmal Qualified Code(s): I48.0 - P aroxysmal atrial fibrillation (6) Hypothyroidism: -resume levothyroxine Status: Chronic Qualifiers: Hypothyroidism type: unspecified Qualified Code(s): E03.9 - Hypothyroidism, unspecified (7) Hyperlipidemia: -resume statin Status: Chronic Qualifiers: Hyperlipidemia type: unspecified Qualified Code(s): E78.5 - Hyperlipidemia, unspecified Additional A&P Information -Chronic diastolic CHF, no acute exacerbation -Advanced age -Anxiety; resume Xanax -cardiac diet as tolerated -GI ppx with PPI -DVT ppx not needed as on Eliquis -Dispo: home -Code status: DNI per discussion with patient -Admit to [facility] Medical Necessity Statement*: Patient requires hospitalization due to acute respiratory failure secondary to COVID-19 Coding Level of Care Code Acute 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
--- NOTE | 2020-02-19 18:52 | PC.NURSE ---
Patient ambulated in hallway on 4L O2, sats remained in the 90s with exertion. Patient tolerated activity well, did exhibit some SOB. Dr. Ortiz updated on patient condition.
[2020-02-20] VITALS (24 sets, daily range): BP systolic 115–159; BP diastolic 62–83; PULSE 55–119; RESP 17–26; TEMP 36.6–36.9; O2SAT 92–100
[2020-02-20 06:53] LABS: Basophils % 0.1 %; Hematocrit 39.4 % (37.0-47.0); Hemoglobin 12.5 g/dL (11.5-15.3); Lymphocytes # 0.5 10^3/uL (0.8-4.8); Lymphocytes % 3.8 %; Mean Corpuscular HGB Conc 31.7 g/dL (30.0-36.0); Mean Corpuscular Hemoglobin 29.4 pg (28.0-34.0); Mean Corpuscular Volume 92.7 fL (81-99); Mean Platelet Volume 10.4 fL (7.4-10.4); Monocytes # 1.2 10^3/uL (0.2-0.9); Monocytes % 9.2 %; Neutrophils # 11.31 10^3/uL (1.8-7.7); Neutrophils % 84.4 %; Nucleated Red Blood Cells % 0 %; Platelet Count 619 10^3/cmm (130-400); Red Blood Count 4.25 10^6/uL (4.1-5.3); Red Cell Distribution Width 12.8 % (12.1-15.1); White Blood Count 13.4 10^3/uL (4.0-10.0)
[2020-02-20 07:30] LABS: Alanine Aminotransferase 92 U/L (0-33); Albumin Level 3.3 g/dL (3.5-5.2); Alkaline Phosphatase 62 IU/L (35-105); Anion Gap 11.6 (5-19); Aspartate Amino Transferase 36 U/L (0-32); Blood Urea Nitrogen 25 mg/dL (8-23); C Reactive Protein 2.7 mg/L (0.0-4.9); Calcium 8.1 mg/dL (8.5-10.5); Carbon Dioxide 31 mmol/L (22-29); Chloride 100 mmol/L (98-107); Creatinine Clr Calc Pharmacy 52.2706; Globulin 2.5 g/dL (1.3-4.6); Glucose 165 mg/dL (65-115); Magnesium 2.3 mg/dL (1.7-2.3); Osmolality Calculated 289 mOsm/kg (285-295); Phosphorus 3.2 mg/dL (2.5-4.5); Potassium 3.6 mmol/L (3.5-5.1); Sodium 139 mmol/L (136-145); Total Bilirubin 0.6 mg/dL (0.15-1.2); Total Protein 5.8 g/dL (6.6-8.7)
[2020-02-20] MEDS: dexamethasone 10 mg/mL INJ 6 MG IVP (07:37)
[2020-02-20 07:39] LABS: Procalcitonin 0.05 ng/mL (0-0.5)
[2020-02-20] MEDS: potassium chloride ER 10 mEq Tablet 40 MEQ PO (09:08)
[2020-02-20] MEDS: FUROsemide 10 mg/mL SDV 4mL 40 MG IVP (09:08)
[2020-02-20] MEDS: atorvastatin 40 mg Tablet 20 MG PO (09:09)
[2020-02-20] MEDS: aspirin 81 mg EC Tablet PO (09:09)
[2020-02-20] MEDS: apixaban 5 mg Tablet 2.5 MG PO ×2 (09:09→17:53)
[2020-02-20] MEDS: montelukast sodium 10 mg Tablet PO (09:10)
[2020-02-20] MEDS: dilTIAZem ER (24HR) 300 mg Capsule PO (09:10)
[2020-02-20] MEDS: doxycycline 100 mg Tablet PO ×2 (09:10→17:53)
[2020-02-20] MEDS: docusate sodium 100 mg Capsule PO (09:10)
[2020-02-20] MEDS: fluticasone nasal spray 16gm Btl 2 SPRAY INTRANASAL (09:10)
[2020-02-20] MEDS: nitrofurantoin SR (BID) 100 mg Capsule PO ×2 (09:10→17:53)
[2020-02-20] MEDS: levothyroxine 25 mcg Tablet PO (09:10)
--- NOTE | 2020-02-20 09:16 | PC.SOCIAL ---
IMM Update Pg. 2 of IMM updated and reviewed with patient via phone. Verbalized understanding.
--- NOTE | 2020-02-20 10:00 | ECG_ITS ---
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 Measurements Intervals [place] Rate: 73 P: 88 CT: 159 QRS: 40 QRSD: 87 T: 83 QT: 387 QTc: 429 Interpretive Statements SINUS RHYTHM LOW QRS VOLTAGE IN EXTREMITY LEADS [QRS DEFLECTION < 0.5 mV IN LIMB LEADS] Compared to ECG 02/19/2020 11:01:09 No significant changes Electronically Signed On 02-22-2020 15:00:08 CDT by Shea Garland M.D. [id number]
--- NOTE | 2020-02-20 22:12 | PM.PN ---
Subjective Subjective: Interval history: This morning patient was seen in viral ICU, is overall doing better, no wheezing on exam, no tightness, a bit short of breath with exertion, still on her home oxygen, still having a nonproductive cough, Vitals/I&O/Wt Last Vital Signs Temp 98.2 F 02/20/20 20:01 Pulse 82 02/20/20 20:01 Resp 19 H 02/20/20 20:01 BP 159/76 02/20/20 19:00 Pulse Ox 97 02/20/20 20:01 02/20/20 02/20/20 02/20/20 06:59 14:59 22:59 Intake Total 120 / 920 450 / 450 200 / 650 Balance 120 / 920 450 / 450 200 / 650 Physical Exam Const: COMMON NORMALS: no acute distress and patient oriented x3 HENMT: COMMON NORMALS: normocephalic HEAD & SCALP: normocephalic Neck/C-Spine: COMMON NORMALS: no JVD Resp: COMMON NORMALS: normal respiratory effort, No retractions, No use of accessory muscles and clear to auscultation bilaterally AUSCULTATION: clear to auscultation bilaterally Cardio: COMMON NORMALS: no JVD, regular rate, regular rhythm, S1 normal heart sound present and S2 normal heart sound present RATE: regular rate RHYTHM: regular rhythm HEART SOUNDS: S1 normal heart sound present and S2 normal heart sound present GI: COMMON NORMALS: Normal to inspection, nondistended, normoactive bowel sounds present, Soft to palpation, non-tender, No hepatosplenomegaly present, no masses and no bruits PALPATION: Yes Soft to palpation and Yes No hepatosplenomegaly present Extremity: COMMON NORMALS: capillary refill normal, no clubbing, cyanosis or edema, no calf tenderness and no pedal edema Neuro: COMMON NORMALS: patient oriented x3 Psych: COMMON NORMALS: mental status grossly normal Data : 02/20/20 05:00 02/20/20 05:00 Micro: Microbiology 02/15/20 18:20 Blood Culture - Final Blood NO GROWTH AFTER 5 DAYS A&P Assessment and plan (1) Acute and chronic respiratory failure with hypoxia: -Secondary to COPD exacerbation, COVID-19, viral pneumonitis -Lungs sound significantly better, needs another day -For COPD exacerbation, continue Decadron 6 mg IV push daily, continue Advair and Spiriva -For COVID-19, finished remdesvir, decadron, Advair and Spiriva, monitor respiratory status closely -Currently on 3 to 4 L oxygen -40mg Lasix for today -QTC monitoring -Patient does not want mechanical ventilation, does not want to be intubated -Eliquis for DVT prophylaxis Status: Acute (2) COVID-19 virus infection: -Found to be COVID-19 positive on rapid test -Currently requiring 3.5 L nasal cannula which is about her baseline -Chest x-ray no focal pneumonia -Monitor respiratory status closely -Has already received her first dose of Remdesevir, continue this -inhaler treatments -continue steroids Status: Acute (3) Acute exacerbation of chronic obstructive airways disease: -Baseline oxygen requirement is 3 to 4 L nasal cannula which she is currently on -Continue to monitor vital signs -Likely triggered by COVID-19 infection and viral pneumonitis -Received dose of IV steroids, continue this Status: Acute (4) Viral pneumonitis: -Secondary to COVID-19 infection Status: Acute (5) Atrial fibrillation: -Follows up with cardiology -Continue telemetry monitoring -Continue monitoring of vital signs -Resume Daniella and Jacek -Echo (2019): EF=58%, G3DD Status: Chronic Qualifiers: Atrial fibrillation type: paroxysmal Qualified Code(s): I48.0 - Paroxysmal atrial fibrillation (6) Hypothyroidism: -resume levothyroxine Status: Chronic Qualifiers: Hypothyroidism type: unspecified Qualified Code(s): E03.9 - Hypothyroidism, unspecified (7) Hyperlipidemia: -resume statin Status: Chronic Qualifiers: Hyperlipidemia type: unspecified Qualified Code(s): E78.5 - Hyperlipidemia, unspecified Additional A&P Information -Chronic diastolic CHF, no acute exacerbation -Advanced age -Anxiety; resume Xanax -cardiac diet as tolerated -GI ppx with PPI -DVT ppx not needed as on Eliquis -Dispo: home -Code status: DNI per discussion with patient -Admit to [facility] Attestations Medical Necessity Statement*: Patient requires hospitalization for acute respiratory failure secondary COVID-19 Coding Level of Care 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
[2020-02-21] VITALS (30 sets, daily range): BP systolic 124–167; BP diastolic 62–89; PULSE 61–86; RESP 19–27; TEMP 35.9–37.2; O2SAT 97–100
--- NOTE | 2020-02-21 07:00 | PC.NURSE ---
Report given to next shift.
[2020-02-21 07:24] LABS: Basophils % 0.1 %; Hematocrit 39.8 % (37.0-47.0); Hemoglobin 12.8 g/dL (11.5-15.3); Lymphocytes # 0.4 10^3/uL (0.8-4.8); Lymphocytes % 2.5 %; Mean Corpuscular HGB Conc 32.2 g/dL (30.0-36.0); Mean Corpuscular Hemoglobin 29.4 pg (28.0-34.0); Mean Corpuscular Volume 91.3 fL (81-99); Mean Platelet Volume 10.8 fL (7.4-10.4); Monocytes # 1.6 10^3/uL (0.2-0.9); Monocytes % 9.6 %; Neutrophils % 85.6 %; Nucleated Red Blood Cells % 0 %; Platelet Count 678 10^3/cmm (130-400); Red Blood Count 4.36 10^6/uL (4.1-5.3); Red Cell Distribution Width 12.6 % (12.1-15.1); White Blood Count 16.2 10^3/uL (4.0-10.0)
[2020-02-21 07:36] LABS: Alanine Aminotransferase 75 U/L (0-33); Albumin Level 3.7 g/dL (3.5-5.2); Alkaline Phosphatase 62 IU/L (35-105); Anion Gap 13.4 (5-19); Aspartate Amino Transferase 28 U/L (0-32); Blood Urea Nitrogen 28 mg/dL (8-23); C Reactive Protein 1.7 mg/L (0.0-4.9); Calcium 8.3 mg/dL (8.5-10.5); Carbon Dioxide 32 mmol/L (22-29); Chloride 99 mmol/L (98-107); Creatinine Clr Calc Pharmacy 52.2706; Globulin 2.2 g/dL (1.3-4.6); Glucose 171 mg/dL (65-115); Magnesium 2.3 mg/dL (1.7-2.3); Osmolality Calculated 291 mOsm/kg (285-295); Phosphorus 3.5 mg/dL (2.5-4.5); Potassium 4.4 mmol/L (3.5-5.1); Sodium 140 mmol/L (136-145); Total Bilirubin 0.7 mg/dL (0.15-1.2); Total Protein 5.9 g/dL (6.6-8.7)
[2020-02-21 07:43] LABS: Procalcitonin 0.05 ng/mL (0-0.5)
[2020-02-21] MEDS: nitrofurantoin SR (BID) 100 mg Capsule PO ×2 (09:11→16:22)
[2020-02-21] MEDS: dilTIAZem ER (24HR) 300 mg Capsule PO (09:12)
[2020-02-21] MEDS: dexamethasone 10 mg/mL INJ 6 MG IVP (09:13)
[2020-02-21] MEDS: aspirin 81 mg EC Tablet PO (09:13)
[2020-02-21] MEDS: montelukast sodium 10 mg Tablet PO (09:14)
[2020-02-21] MEDS: atorvastatin 40 mg Tablet 20 MG PO (09:14)
[2020-02-21] MEDS: apixaban 5 mg Tablet 2.5 MG PO ×2 (09:15→16:22)
[2020-02-21] MEDS: doxycycline 100 mg Tablet PO ×2 (09:16→16:22)
[2020-02-21] MEDS: benzonatate 100 mg Capsule PO (09:17)
[2020-02-21] MEDS: docusate sodium 100 mg Capsule PO (09:17)
[2020-02-21] MEDS: fluticasone nasal spray 16gm Btl 2 SPRAY INTRANASAL (09:18)
[2020-02-21] MEDS: levothyroxine 25 mcg Tablet PO (10:31)
[2020-02-21] MEDS: ondansetron 2 mg/ML SDV 2 mL 4 MG IVP (11:59)
--- NOTE | 2020-02-21 13:56 | PC.NURSE ---
PATIENT IS REPETATIVE AND GAMBELL, WITH SOME BASELINE CONFUSION THAT GETS WORSE WHEN SHE FEELS ANY OF HER SYMPTOMS SUCH TIREDNESS AND NAUSEA. SHE WILL TALK TO YOU WITH HER EYES CLOSED AND CANNOT BE TRUSTED TO USE THE CALL LIGHT WHEN GETTING UP TO THE BATHROOM. WHEN OFFERED A TOOTHBRUSH AND ONE CUP TO SWISH AND ONE CUP TO SPIT IN SHE SWALLOWED HER TOOTHPASTE INSTEAD OF FOLLOWING DIRECTIONS. I AM QUITE WORRIED THAT SHE DOES NOT HAVE 24 HOUR CARE THAT SHE WILL FALL, TAKE TOO MANY OF HER MEDS, OR WANDER OFF. SHE IS ABLE TO WALK WITH ONE HAND ASSIST TO THE BATHROOM.
--- NOTE | 2020-02-21 14:31 | PM.PN ---
Subjective Subjective: Interval history: Patient is overall doing better, apart from complaining of nonproductive cough. She has denied any other complaint. On examination she has no wheezing, rhonchi or rales. Medications: Reviewed: Yes Vitals/I&O/Wt Last Vital Signs Temp 97.8 F 02/21/20 12:00 Pulse 74 02/21/20 13:00 Resp 25 H 02/21/20 13:00 BP 147/67 02/21/20 13:00 Pulse Ox 98 02/21/20 13:00 02/20/20 02/21/20 02/21/20 22:59 06:59 14:59 Intake Total 550 / 1000 250 / 250 Output Total 2 / 2 Balance 550 / 1000 -8 250 / 250 Physical Exam Const: COMMON NORMALS: patient oriented x3 HENMT: COMMON NORMALS: normocephalic, atraumatic, hearing grossly normal bilaterally and external ears normal HEAD & SCALP: normocephalic and atraumatic EXTERNAL EAR: Yes external ears normal Eye: COMMON NORMALS: no scleral icterus GENERAL EYE: appearance normal, both eyes and all related structures Chest: COMMONS NORMALS: normal inspection of the chest and normal palpation of entire chest wall CHEST: Yes Symmetrical chest wall rise Resp: COMMON NORMALS: normal respiratory effort, No retractions, No use of accessory muscles and clear to auscultation bilaterally EFFORT & INSPECTION: Yes symmetric chest movement AUSCULTATION: clear to auscultation bilaterally Cardio: COMMON NORMALS: regular rate, regular rhythm, S1 normal heart sound present, S2 normal heart sound present, No gallops present (Cardio), No murmurs present (Cardio), No rub (Cardio) and Peripheral pulses 2+ throughout RATE: regular rate RHYTHM: regular rhythm HEART SOUNDS: S1 normal heart sound present and S2 normal heart sound present PERIPHERAL PULSES: Peripheral pulses 2+ throughout GI: COMMON NORMALS: Normal to inspection, nondistended, normoactive bowel sounds present, Soft to palpation, non-tender, No hepatosplenomegaly present and no masses AUSCULTATION: Yes normoactive bowel sounds PALPATION: Yes Soft to palpation and Yes No hepatosplenomegaly present RECTAL EXAM: deferred Extremity: COMMON NORMALS: no clubbing, cyanosis or edema and no pedal edema Neuro: COMMON NORMALS: patient oriented x3 Data : 02/21/20 06:10 02/21/20 06:10 Micro: Microbiology 02/15/20 18:20 Blood Culture - Final Blood NO GROWTH AFTER 5 DAYS A&P Assessment and plan (1) Acute and chronic respiratory failure with hypoxia: -Secondary to COPD exacerbation, COVID-19, viral pneumonitis -Lungs sound significantly better, needs another day -For COPD exacerbation, continue Decadron 6 mg IV push daily, continue Advair and Spiriva -For COVID-19, finished remdesvir, decadron, Advair and Spiriva, monitor respiratory status closely -Currently she was off oxygen -Patient does not want mechanical ventilation, does not want to be intubated -on Eliquis Status: Acute (2) COVID-19 virus infection: -Found to be COVID-19 positive on rapid test -Currently Baseline oxygen requirement is 3 to 4 L nasal cannula which she is currently on. -Chest x-ray no focal pneumonia -Monitor respiratory status closely -Has already received her first dose of Remdesevir, continue this -inhaler treatments -continue steroids Status: Acute (3) Acute exacerbation of chronic obstructive airways disease: -Baseline oxygen requirement is 3 to 4 L nasal cannula which she is currently on -Continue to monitor vital signs -Likely triggered by COVID-19 infection and viral pneumonitis -Received dose of IV steroids, continue this Status: Acute (4) Viral pneumonitis: -Secondary to COVID-19 infection Status: Acute (5) Atrial fibrillation: -Follows up with cardiology -Continue telemetry monitoring -Continue monitoring of vital signs -Resume Scar -Echo (2019): EF=58%, G3DD Status: Chronic Qualifiers: Atrial fibrillation type: paroxysmal Qualified Code(s): I48.0 - Paroxysmal atrial fibrillation (6) Hypothyroidism: -resume levothyroxine Status: Chronic Qualifiers: Hypothyroidism type: unspecified Qualified Code(s): E03.9 - Hypothyroidism, unspecified (7) Hyperlipidemia: -resume statin Status: Chronic Qualifiers: Hyperlipidemia type: unspecified Qualified Code(s): E78.5 - Hyperlipidemia, unspecified Additional A&P Information -Chronic diastolic CHF, no acute exacerbation -Advanced age -Anxiety; resume Xanax -cardiac diet as tolerated -GI ppx with PPI -DVT ppx not needed as on Eliquis -Dispo: home -Code status: DNI per discussion with patient -Admit to [facility] Attestations Medical Necessity Statement*: Needs to stay in hospital for management of COVID pneumonia and related complications. 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
--- NOTE | 2020-02-21 19:00 | PC.NURSE ---
Report received, care assumed. Patient sitting on edge of bed watching TV in VICU-02. Awake et alert, ready to participate in exam. Physical assessment performed. Please see physical assessment et vital sign flow sheet for details.
--- NOTE | 2020-02-21 22:34 | PC.NURSE ---
Patient requires assistance with unhooking from the bedside monitor as well as someone to walk with et steady herself. Patient does have increase SOB with activity but does not require any increased O2 requirements.
--- NOTE | 2020-02-21 22:44 | PC.NURSE ---
Patient has increased SOB with activity but does not require increased O2 requirements.
[2020-02-22] VITALS (28 sets, daily range): BP systolic 115–149; BP diastolic 58–99; PULSE 55–112; RESP 14–25; TEMP 36.7–37.5; O2SAT 93–99
[2020-02-22 06:59] LABS: Basophils % 0.1 %; Hematocrit 40.2 % (37.0-47.0); Hemoglobin 12.9 g/dL (11.5-15.3); Lymphocytes # 0.4 10^3/uL (0.8-4.8); Lymphocytes % 2.1 %; Mean Corpuscular HGB Conc 32.1 g/dL (30.0-36.0); Mean Corpuscular Hemoglobin 29.4 pg (28.0-34.0); Mean Corpuscular Volume 91.6 fL (81-99); Mean Platelet Volume 10.4 fL (7.4-10.4); Monocytes # 1.4 10^3/uL (0.2-0.9); Monocytes % 8.3 %; Neutrophils # 14.69 10^3/uL (1.8-7.7); Neutrophils % 87.2 %; Nucleated Red Blood Cells % 0 %; Platelet Count 712 10^3/cmm (130-400); Red Blood Count 4.39 10^6/uL (4.1-5.3); Red Cell Distribution Width 12.4 % (12.1-15.1); White Blood Count 16.9 10^3/uL (4.0-10.0)
[2020-02-22 07:03] LABS: Alanine Aminotransferase 60 U/L (0-33); Albumin Level 3.7 g/dL (3.5-5.2); Alkaline Phosphatase 59 IU/L (35-105); Anion Gap 13.9 (5-19); Aspartate Amino Transferase 27 U/L (0-32); Blood Urea Nitrogen 21 mg/dL (8-23); C Reactive Protein 0.7 mg/L (0.0-4.9); Calcium 8.4 mg/dL (8.5-10.5); Carbon Dioxide 31 mmol/L (22-29); Chloride 96 mmol/L (98-107); Globulin 2.3 g/dL (1.3-4.6); Glucose 168 mg/dL (65-115); Magnesium 2.3 mg/dL (1.7-2.3); Osmolality Calculated 282 mOsm/kg (285-295); Phosphorus 3.7 mg/dL (2.5-4.5); Potassium 4.9 mmol/L (3.5-5.1); Sodium 136 mmol/L (136-145); Total Bilirubin 0.8 mg/dL (0.15-1.2)
[2020-02-22 07:10] LABS: Creatinine Clr Calc Pharmacy 52.2706
[2020-02-22 07:17] LABS: Procalcitonin 0.05 ng/mL (0-0.5)
[2020-02-22] MEDS: nitrofurantoin SR (BID) 100 mg Capsule PO ×2 (09:02→17:45)
[2020-02-22] MEDS: levothyroxine 25 mcg Tablet PO (09:03)
[2020-02-22] MEDS: dilTIAZem ER (24HR) 300 mg Capsule PO (09:03)
[2020-02-22] MEDS: docusate sodium 100 mg Capsule PO (09:08)
[2020-02-22] MEDS: atorvastatin 40 mg Tablet 20 MG PO (09:09)
[2020-02-22] MEDS: dexamethasone 10 mg/mL INJ 6 MG IVP (09:09)
[2020-02-22] MEDS: apixaban 5 mg Tablet 2.5 MG PO ×2 (09:10→17:45)
[2020-02-22] MEDS: aspirin 81 mg EC Tablet PO (09:10)
[2020-02-22] MEDS: doxycycline 100 mg Tablet PO ×2 (09:10→17:45)
[2020-02-22] MEDS: montelukast sodium 10 mg Tablet PO (09:10)
[2020-02-22] MEDS: fluticasone nasal spray 16gm Btl 2 SPRAY INTRANASAL (09:12)
[2020-02-22] MEDS: ondansetron 2 mg/ML SDV 2 mL 4 MG IVP (11:15)
--- NOTE | 2020-02-22 13:20 | PC.SOCIAL ---
IMM Updated Page 2 of IMM updated. Initialed, dated, and timed and will be sent to Medical Records upon d/c to be scanned into chart. Provided a copy to the VICU staff to give to the patient.
--- NOTE | 2020-02-22 14:55 | PC.SOCIAL ---
IM explained to daughter by phone. Daughter verbalized understanding of the IM. Copy provided to nurse in VICU to give to patient. Copy will be placed in chart at later date.
--- NOTE | 2020-02-22 17:53 | P.PN_ITS ---
Subjective Subjective: Interval history: Patient is overall doing better, though she was complaining of some nausea in the morning after taking oral medication.She has denied any other complaint. On examination she has no wheezing, rhonchi or rales. Vitals reviewed, labs reviewed. There was a detailed discussion with her daughter and likely she will go to a [place] [facility] facility once accepted. Medications: Reviewed: Yes Vitals/I&O/Wt Last Vital Signs Temp 98.1 F 02/22/20 16:00 Pulse 99 02/22/20 17:00 Resp 22 H 02/22/20 17:00 BP 149/90 02/22/20 17:00 Pulse Ox 96 02/22/20 17:00 02/22/20 02/22/20 02/22/20 06:59 14:59 22:59 Intake Total 580 / 580 325 / 905 Balance 580 / 580 325 / 905 Physical Exam Const: COMMON NORMALS: patient oriented x3 HENMT: COMMON NORMALS: normocephalic, atraumatic, hearing grossly normal bilaterally and external ears normal HEAD & SCALP: normocephalic and atraumatic EXTERNAL EAR: Yes external ears normal Eye: COMMON NORMALS: no scleral icterus GENERAL EYE: appearance normal, both eyes and all related structures Chest: COMMONS NORMALS: normal inspection of the chest and normal palpation of entire chest wall CHEST: Yes Symmetrical chest wall rise Resp: COMMON NORMALS: normal respiratory effort, No retractions, No use of accessory muscles and clear to auscultation bilaterally EFFORT & INSPECTION: Yes symmetric chest movement AUSCULTATION: clear to auscultation bilaterally Cardio: COMMON NORMALS: regular rate, regular rhythm, S1 normal heart sound present, S2 normal heart sound present, No gallops present (Cardio), No murmurs present (Cardio), No rub (Cardio) and Peripheral pulses 2+ throughout RATE: regular rate RHYTHM: regular rhythm HEART SOUNDS: S1 normal heart sound present and S2 normal heart sound present PERIPHERAL PULSES: Peripheral pulses 2+ throughout GI: COMMON NORMALS: Normal to inspection, nondistended, normoactive bowel sounds present, Soft to palpation, non-tender, No hepatosplenomegaly present and no masses AUSCULTATION: Yes normoactive bowel sounds PALPATION: Yes Soft to palpation and Yes No hepatosplenomegaly present RECTAL EXAM: deferred Extremity: COMMON NORMALS: no clubbing, cyanosis or edema and no pedal edema Neuro: COMMON NORMALS: patient oriented x3 Data : 02/22/20 06:00 02/22/20 06:00 A&P Assessment and plan (1) Acute and chronic respiratory failure with hypoxia: -Secondary to COPD exacerbation, COVID-19, viral pneumonitis -Lungs sound significantly better, needs another day -For COPD exacerbation, continue Decadron 6 mg IV push daily, continue Advair and Spiriva -For COVID-19, finished remdesvir, decadron, Advair and Spiriva, monitor respiratory status closely -Currently she was off oxygen -Patient does not want mechanical ventilation, does not want to be intubated -on Eliquis Status: Acute (2) COVID-19 virus infection: -Found to be COVID-19 positive on rapid test -Currently Baseline oxygen requirement is 3 to 4 L nasal cannula which she is currently on. -Chest x-ray no focal pneumonia -Monitor respiratory status closely -Has already received her first dose of Remdesevir, continue this -inhaler treatments -continue steroids Status: Acute (3) Acute exacerbation of chronic obstructive airways disease: -Baseline oxygen requirement is 3 to 4 L nasal cannula which she is currently on -Continue to monitor vital signs -Likely triggered by COVID-19 infection and viral pneumonitis -Received dose of IV steroids, continue this Status: Acute (4) Viral pneumonitis: -Secondary to COVID-19 infection Status: Acute (5) Atrial fibrillation: -Follows up with cardiology -Continue telemetry monitoring -Continue monitoring of vital signs -Resume Scar -Echo (2019): EF=58%, G3DD Status: Chronic Qualifiers: Atrial fibrillation type: paroxysmal Qualified Code(s): I48.0 - Paroxysmal atrial fibrillation (6) Hypothyroidism: -resume levothyroxine Status: Chronic Qualifiers: Hypothyroidism type: unspecified Qualified Code(s): E03.9 - Hypothyroidism, unspecified (7) Hyperlipidemia: -resume statin Status: Chronic Qualifiers: Hyperlipidemia type: unspecified Qualified Code(s): E78.5 - Hyperlipidemia, unspecified Additional A&P Information -Chronic diastolic CHF, no acute exacerbation -Advanced age -Anxiety; resume Xanax -cardiac diet as tolerated -GI ppx with PPI -DVT ppx not needed as on Eliquis -Dispo: home -Code status: DNI per discussion with patient -Admit to [facility] Attestations Medical Necessity Statement*: Patient needs to be in the hospital for continued management of COVID pneumonia 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
[2020-02-22] MEDS: FUROsemide 10 mg/mL SDV 4mL 40 MG IVP (19:29)
[2020-02-22] MEDS: levofloxacin-dextrose 5 % 750 MG/150 ML PREMIX 100 MG IV (19:53)
[2020-02-23] VITALS (28 sets, daily range): BP systolic 97–143; BP diastolic 48–75; PULSE 63–94; RESP 16–30; TEMP 36.3–36.9; O2SAT 92–100
[2020-02-23] MEDS: albuterol 8 gm MDI 2 PUFF INHALATION ×2 (08:00→14:31)
[2020-02-23] MEDS: atorvastatin 40 mg Tablet 20 MG PO (09:59)
[2020-02-23] MEDS: aspirin 81 mg EC Tablet PO (10:00)
[2020-02-23] MEDS: montelukast sodium 10 mg Tablet PO (10:00)
[2020-02-23] MEDS: apixaban 5 mg Tablet 2.5 MG PO ×2 (10:00→16:46)
[2020-02-23] MEDS: docusate sodium 100 mg Capsule PO (10:00)
[2020-02-23] MEDS: nitrofurantoin SR (BID) 100 mg Capsule PO (10:01)
[2020-02-23] MEDS: levothyroxine 25 mcg Tablet PO (10:01)
[2020-02-23] MEDS: dilTIAZem ER (24HR) 300 mg Capsule PO (10:01)
[2020-02-23] MEDS: fluticasone nasal spray 16gm Btl 2 SPRAY INTRANASAL (10:02)
[2020-02-23] MEDS: dexamethasone 4 mg/mL INJ 6 MG IVP (10:14)
[2020-02-23] MEDS: acetaminophen 325 mg Tablet 650 MG PO (11:39)
--- NOTE | 2020-02-23 13:27 | PC.NURSE ---
PATIENT IS STILL UP WITH ASSIST FOR STEADYING ON THE WAY TO THE BATHROOM. SHE OFTEN LOOSES THE CALL LIGHT ALTHOUGH ITS TIED TO THE RAIL. SHE FORGETS SOME INFORMATION GIVEN MOMENTS BEFORE BUT HANGS ON TO PARTIAL INFORMATION LIKE THAT SHE IS EXPECTING ROAST BEEF FOR LUNCH BUT IS UNSURE IF SHE ORDERED IT. MEDS TAKEN EASILY, UP TO VOID BEFORE EACH MEAL. COMPLAINED SHE CANT GET COMFORTABLE AND THERE WAS A CRICK IN HER NECK. TYLENOL GIVEN AND SHE SEEMS TO BE MORE COMFORTABLE. HER SNF EVAL WENT WELL WITH PT. HER MAIN ISSUE IS LACK OF STAMINA AND SOME BALANCE ISSUES. SHE WOULD SURELY FALL OR BURN HERSELF COOKING IN THE FIRST HOURS OF BEING HOME. SHE HERSELF KNOWS THAT SHE IS NOT BRIGHT USUAL.
--- NOTE | 2020-02-23 14:24 | PC.SOCIAL ---
PT eval was completed and thought OT is not needed. Patient is weaker than normal but if she would use her walker would be safer as far as ambulation. Verified with Dr Paiz and he gave order to cancel OT.
--- NOTE | 2020-02-23 16:20 | PC.OT ---
per discussion with Zoraida Jose, Dr. Paiz has cancelled OT evaluation orders.
--- NOTE | 2020-02-23 16:24 | PM.PN ---
Subjective Subjective: Interval history: Mehnaz reports she is doing okay. She denies any shortness of breath or cough. She is on her baseline oxygen requirement. Progress notes and history and physical are reviewed. Medications: Reviewed: Yes Vitals/I&O/Wt Last Vital Signs Temp 98.4 F 02/23/20 12:00 Pulse 85 02/23/20 14:22 Resp 16 02/23/20 14:22 BP 123/54 02/23/20 12:00 Pulse Ox 96 02/23/20 14:22 02/23/20 02/23/20 02/23/20 06:59 14:59 22:59 Intake Total 800 / 800 Balance 800 / 800 Physical Exam Narrative: EXAM NARRATIVE: General exam is no apparent distress Cardiovascular regular rate and rhythm without murmur Lungs clear with diminished breath sounds and no wheezing Abdomen is soft nontender with positive bowel sounds Extremities no cyanosis clubbing or edema Data : 02/22/20 06:00 02/22/20 06:00 Micro: Microbiology 02/18/20 08:58 Blood Culture - Final Blood NO GROWTH AFTER 5 DAYS 02/18/20 09:00 Blood Culture - Final Blood NO GROWTH AFTER 5 DAYS A&P Assessment and plan (1) Acute and chronic respiratory failure with hypoxia: Secondary to COPD exacerbation and Covid 19 pneumonia. Currently improved. Continue Advair and Spiriva She has finished remdesivir, Decadron 2 more days of Levaquin are anticipated Currently on Eliquis Status: Acute (2) COVID-19 virus infection: See notations above Status: Acute (3) Acute exacerbation of chronic obstructive airways disease: Currently at baseline Status: Acute (4) Viral pneumonitis: Secondary to COVID Status: Acute (5) Atrial fibrillation: Currently in sinus rhythm Continue Cardizem and Eliquis Last echocardiogram demonstrated grade 3 diastolic dysfunction, preserved EF in 2019 Status: Chronic Qualifiers: Atrial fibrillation type: paroxysmal Qualified Code(s): I48.0 - Paroxysmal atrial fibrillation (6) Hypothyroidism: Continue levothyroxine Status: Chronic Qualifiers: Hypothyroidism type: unspecified Qualified Code(s): E03.9 - Hypothyroidism, unspecified (7) Hyperlipidemia: Continue statin Status: Chronic Qualifiers: Hyperlipidemia type: unspecified Qualified Code(s): E78.5 - Hyperlipidemia, unspecified Additional A&P Information Chronic diastolic heart failure. 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
--- NOTE | 2020-02-23 16:42 | PC.NURSE ---
patient continues to wheeze and want her albuterol inhaler, sats remain good and patient is nearly independent on transfer.
[2020-02-23] MEDS: levofloxacin-dextrose 5 % 750 MG/150 ML PREMIX 100 MG IV (16:46)
[2020-02-23] MEDS: benzonatate 100 mg Capsule PO (16:46)
--- NOTE | 2020-02-23 19:00 | PC.NURSE ---
Received report on patient from Guzman GUZMAN. Assumed care at this time.
[2020-02-24] VITALS (23 sets, daily range): BP systolic 116–143; BP diastolic 59–67; PULSE 59–88; RESP 17–30; TEMP 36.6–37.3; O2SAT 95–100
[2020-02-24] MEDS: apixaban 5 mg Tablet 2.5 MG PO ×2 (08:56→17:34)
[2020-02-24] MEDS: atorvastatin 40 mg Tablet 20 MG PO (08:57)
[2020-02-24] MEDS: montelukast sodium 10 mg Tablet PO (08:57)
[2020-02-24] MEDS: aspirin 81 mg EC Tablet PO (08:57)
[2020-02-24] MEDS: levothyroxine 25 mcg Tablet PO (08:58)
[2020-02-24] MEDS: dexamethasone 4 mg/mL INJ 6 MG IVP (08:58)
[2020-02-24] MEDS: docusate sodium 100 mg Capsule PO (08:58)
[2020-02-24] MEDS: dilTIAZem ER (24HR) 300 mg Capsule PO (08:58)
[2020-02-24] MEDS: fluticasone nasal spray 16gm Btl 2 SPRAY INTRANASAL (09:11)
--- NOTE | 2020-02-24 12:03 | PM.PN ---
Subjective Subjective: Interval history: Mehnaz denies any concerns other than feeling weak, and tired. Denies being short of breath. Denies significant cough currently. Medications: Reviewed: Yes Vitals/I&O/Wt Last Vital Signs Temp 97.8 F 02/24/20 03:00 Pulse 71 02/24/20 10:00 Resp 23 H 02/24/20 10:00 BP 100/62 02/23/20 20:00 Pulse Ox 99 02/24/20 10:00 02/23/20 02/24/20 02/24/20 22:59 06:59 14:59 Intake Total 370 / 1170 120 / 1290 240 / 240 Balance 370 / 1170 120 / 1290 240 / 240 Physical Exam Narrative: EXAM NARRATIVE: General exam is no apparent distress Cardiovascular regular rate and rhythm without murmur Lungs clear with diminished breath sounds and no wheezing Abdomen is soft nontender with positive bowel sounds Extremities no cyanosis clubbing or edema Data : 02/22/20 06:00 02/22/20 06:00 Micro: Microbiology 02/18/20 08:58 Blood Culture - Final Blood NO GROWTH AFTER 5 DAYS 02/18/20 09:00 Blood Culture - Final Blood NO GROWTH AFTER 5 DAYS A&P Assessment and plan (1) Acute and chronic respiratory failure with hypoxia: Secondary to COPD exacerbation and Covid 19 pneumonia. Currently improved. Continue Advair and Spiriva She has finished remdesivir, Decadron 1 more day of Levaquin are anticipated Currently on Eliquis She is on her baseline oxygen requirement Status: Acute (2) COVID-19 virus infection: See notations above Status: Acute (3) Acute exacerbation of chronic obstructive airways disease: Currently at baseline Status: Acute (4) Viral pneumonitis: Secondary to COVID Status: Acute (5) Atrial fibrillation: Currently in sinus rhythm Continue Cardizem and Eliquis Last echocardiogram demonstrated grade 3 diastolic dysfunction, preserved EF in 2019 Status: Chronic Qualifiers: Atrial fibrillation type: paroxysmal Qualified Code(s): I48.0 - Paroxysmal atrial fibrillation (6) Hypothyroidism: Continue levothyroxine Status: Chronic Qualifiers: Hypothyroidism type: unspecified Qualified Code(s): E03.9 - Hypothyroidism, unspecified (7) Hyperlipidemia: Continue statin Status: Chronic Qualifiers: Hyperlipidemia type: unspecified Qualified Code(s): E78.5 - Hyperlipidemia, unspecified Additional A&P Information Chronic diastolic heart failure. Compensated DNR/DNI Eliquis will suffice for DVT prophylaxis No need for laboratory tomorrow. Attestations Medical Necessity Statement*: Currently at baseline, has completed treatment, awaiting placement. 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
--- NOTE | 2020-02-24 13:22 | PC.SOCIAL ---
IMM Update Pg.2 of IMM updated and reviewed with patient by phone, who verbalized understanding.
[2020-02-24] MEDS: ondansetron 2 mg/ML SDV 2 mL 4 MG IVP (13:51)
--- NOTE | 2020-02-24 15:50 | PC.NURSE ---
Received report from THOMAS Archer. Assuming care of the patient at this time.
[2020-02-24] MEDS: levofloxacin-dextrose 5 % 750 MG/150 ML PREMIX 100 MG IV (18:02)
[2020-02-25] VITALS (25 sets, daily range): BP systolic 98–136; BP diastolic 52–77; PULSE 57–119; RESP 16–30; TEMP 36.6–37.1; O2SAT 90–100
[2020-02-25] MEDS: albuterol 8 gm MDI 2 PUFF INHALATION (01:36)
--- NOTE | 2020-02-25 01:44 | PC.NURSE ---
Woke up confused, anxious, and short of breath. Turned lights on, sat patient up on side of bed, reoriented, snack given, ventolin inhaler given as ordered prn. Resting comfortably sitting on side of bed eating snack. No distress noted. O2 sats remained above 90%.
[2020-02-25] MEDS: acetaminophen 325 mg Tablet 650 MG PO (08:15)
[2020-02-25] MEDS: levothyroxine 25 mcg Tablet PO (08:16)
[2020-02-25] MEDS: dilTIAZem ER (24HR) 300 mg Capsule PO (08:16)
[2020-02-25] MEDS: aspirin 81 mg EC Tablet PO (08:17)
[2020-02-25] MEDS: montelukast sodium 10 mg Tablet PO (08:17)
[2020-02-25] MEDS: benzonatate 100 mg Capsule PO (08:17)
[2020-02-25] MEDS: docusate sodium 100 mg Capsule PO (08:17)
[2020-02-25] MEDS: apixaban 5 mg Tablet 2.5 MG PO ×2 (08:17→16:18)
[2020-02-25] MEDS: atorvastatin 40 mg Tablet 20 MG PO (08:18)
[2020-02-25] MEDS: dexamethasone 4 mg/mL INJ 6 MG IVP (08:19)
[2020-02-25] MEDS: fluticasone nasal spray 16gm Btl 2 SPRAY INTRANASAL (08:19)
--- NOTE | 2020-02-25 11:42 | PM.PN ---
Subjective Subjective: Interval history: Mehnaz reports she is doing fine. No concerns. Medications: Reviewed: Yes Vitals/I&O/Wt Last Vital Signs Temp 98.6 F 02/25/20 08:00 Pulse 94 02/25/20 10:00 Resp 30 H 02/25/20 10:00 BP 124/64 02/25/20 10:00 Pulse Ox 99 02/25/20 10:00 02/24/20 02/25/20 02/25/20 22:59 06:59 14:59 Intake Total 540 / 1020 450 / 1470 250 / 250 Balance 540 / 1020 450 / 1470 250 / 250 Physical Exam Narrative: EXAM NARRATIVE: General exam is no apparent distress Cardiovascular regular rate and rhythm without murmur Lungs diminished breath sounds bilaterally. Few expiratory wheezes. Abdomen is soft nontender with positive bowel sounds Extremities no cyanosis clubbing or edema Data : 02/22/20 06:00 02/22/20 06:00 A&P Assessment and plan (1) Acute and chronic respiratory failure with hypoxia: Secondary to COPD exacerbation and Covid 19 pneumonia. Currently improved. Continue Advair and Spiriva She has finished remdesivir, Decadron At this point Levaquin can be discontinued Currently on Eliquis She is on her baseline oxygen requirement Status: Acute (2) COVID-19 virus infection: See notations above Status: Acute (3) Acute exacerbation of chronic obstructive airways disease: Currently at baseline Status: Acute (4) Viral pneumonitis: Secondary to COVID Discontinue dexamethasone Status: Acute (5) Atrial fibrillation: Currently in sinus rhythm Continue Cardizem and Eliquis Last echocardiogram demonstrated grade 3 diastolic dysfunction, preserved EF in 2019 Status: Chronic Qualifiers: Atrial fibrillation type: paroxysmal Qualified Code(s): I48.0 - Paroxysmal atrial fibrillation (6) Hypothyroidism: Continue levothyroxine Status: Chronic Qualifiers: Hypothyroidism type: unspecified Qualified Code(s): E03.9 - Hypothyroidism, unspecified (7) Hyperlipidemia: Continue statin Status: Chronic Qualifiers: Hyperlipidemia type: unspecified Qualified Code(s): E78.5 - Hyperlipidemia, unspecified Additional A&P Information Chronic diastolic heart failure. Compensated DNR/DNI Eliquis will suffice for DVT prophylaxis Check laboratory tomorrow Attestations Medical Necessity Statement*: Needs continued hospitalization, pending placement at skilled care Coding Level of Care Code Acute Cell Stripper Final for [facility] Fwd Diagnoses Acute and chronic respiratory failure with hypoxia J96.21 COVID-19 virus infection U07.1 Acute exacerbation of chronic obstructive airways disease J44.1 Viral pneumonitis J12.9 Atrial fibrillation I48.0 Atrial fibrillation type: paroxysmal Hypothyroidism E03.9 Hypothyroidism type: unspecified Hyperlipidemia E78.5 Hyperlipidemia type: unspecified
--- NOTE | 2020-02-25 14:44 | PC.NURSE ---
daughter informed me that a decision had to made for [facility] . i told her that i was afraid for her safety if alone even if its her own home. so the snf bed may be available for her by friday or according to the daughter. lul[facility] and i walked the whole unit 2 laps wearing 4 liters nc. she had a sat of 92 once on the monitor again. her daughter sent a care package of treats and clothes and i helped her change to make her feel more normal. she ate a good lunch. more cheerful and hopeful today.
--- NOTE | 2020-02-25 15:19 | PC.NURSE ---
RIGHT UPPER ARM BRUISED AREA WITH SKIN TEAR PRESENT. OPTIFOAM SOILED, CHANGED . SITE CLEANED WITH BETADINE SWAB. WOULD BENEFIT FROM XERFORM GAUZE.
[2020-02-26] VITALS (16 sets, daily range): BP systolic 97–134; BP diastolic 48–77; PULSE 54–80; RESP 17–26; TEMP 36.3–37; O2SAT 95–99
[2020-02-26 05:25] LABS: Basophils % 0.1 %; Hematocrit 35.7 % (37.0-47.0); Hemoglobin 11.5 g/dL (11.5-15.3); Lymphocytes # 0.4 10^3/uL (0.8-4.8); Lymphocytes % 2.2 %; Mean Corpuscular HGB Conc 32.2 g/dL (30.0-36.0); Mean Corpuscular Hemoglobin 29.3 pg (28.0-34.0); Mean Corpuscular Volume 91.1 fL (81-99); Mean Platelet Volume 10.7 fL (7.4-10.4); Monocytes # 1.1 10^3/uL (0.2-0.9); Monocytes % 6.2 %; Neutrophils # 15.81 10^3/uL (1.8-7.7); Neutrophils % 89.2 %; Nucleated Red Blood Cells % 0 %; Platelet Count 610 10^3/cmm (130-400); Red Blood Count 3.92 10^6/uL (4.1-5.3); Red Cell Distribution Width 12.5 % (12.1-15.1); White Blood Count 17.7 10^3/uL (4.0-10.0)
[2020-02-26 05:56] LABS: Anion Gap 11.7 (5-19); Blood Urea Nitrogen 16 mg/dL (8-23); Calcium 8.3 mg/dL (8.5-10.5); Carbon Dioxide 32 mmol/L (22-29); Chloride 98 mmol/L (98-107); Creatinine Clr Calc Pharmacy 52.2706; Glucose 195 mg/dL (65-115); Osmolality Calculated 291 mOsm/kg (285-295); Potassium 4.7 mmol/L (3.5-5.1); Sodium 137 mmol/L (136-145)
[2020-02-26] MEDS: apixaban 5 mg Tablet 2.5 MG PO ×2 (08:57→17:08)
[2020-02-26] MEDS: aspirin 81 mg EC Tablet PO (08:57)
[2020-02-26] MEDS: atorvastatin 40 mg Tablet 20 MG PO (08:57)
[2020-02-26] MEDS: dilTIAZem ER (24HR) 300 mg Capsule PO (08:58)
[2020-02-26] MEDS: docusate sodium 100 mg Capsule PO (08:58)
[2020-02-26] MEDS: levothyroxine 25 mcg Tablet PO (08:59)
[2020-02-26] MEDS: fluticasone nasal spray 16gm Btl 2 SPRAY INTRANASAL (08:59)
[2020-02-26] MEDS: montelukast sodium 10 mg Tablet PO (08:59)
--- NOTE | 2020-02-26 12:22 | P.PN_ITS ---
Subjective Subjective: Interval history: Mehnaz reports she is doing well. No concerns. Medications: Reviewed: Yes Vitals/I&O/Wt Last Vital Signs Temp 97.3 F L 02/26/20 08:00 Pulse 80 02/26/20 12:00 Resp 21 H 02/26/20 10:00 BP 130/61 02/26/20 12:00 Pulse Ox 97 02/26/20 12:00 02/25/20 02/26/20 02/26/20 22:59 06:59 14:59 Intake Total 400 / 850 480 / 480 Balance 400 / 850 480 / 480 Physical Exam Narrative: EXAM NARRATIVE: General exam is no apparent distress Cardiovascular regular rate and rhythm without murmur Lungs diminished breath sounds bilaterally. No wheezing heard today Abdomen is soft nontender with positive bowel sounds Extremities no cyanosis clubbing or edema Data : 02/26/20 04:50 02/26/20 04:50 A&P Assessment and plan (1) Acute and chronic respiratory failure with hypoxia: Secondary to COPD exacerbation and Covid 19 pneumonia. Currently improved. Continue Advair and Spiriva She has finished remdesivir, Decadron At this point Levaquin can be discontinued Currently on Eliquis She is on her baseline oxygen requirement Laboratory appears stable although white blood cell count is still high. I believe this is a residual effect from the dexamethasone. Status: Acute (2) COVID-19 virus infection: See notations above Status: Acute (3) Acute exacerbation of chronic obstructive airways disease: Currently at baseline Status: Acute (4) Viral pneumonitis: Secondary to COVID Discontinue dexamethasone Status: Acute (5) Atrial fibrillation: Currently in sinus rhythm Continue Cardizem and Eliquis Last echocardiogram demonstrated grade 3 diastolic dysfunction, preserved EF in 2019 Status: Chronic Qualifiers: Atrial fibrillation type: paroxysmal Qualified Code(s): I48.0 - Paroxysmal atrial fibrillation (6) Hypothyroidism: Continue levothyroxine Status: Chronic Qualifiers: Hypothyroidism type: unspecified Qualified Code(s): E03.9 - Hypothyroidism, unspecified (7) Hyperlipidemia: Continue statin Status: Chronic Qualifiers: Hyperlipidemia type: unspecified Qualified Code(s): E78.5 - Hyperlipidemia, unspecified Additional A&P Information Chronic diastolic heart failure. Compensated DNR/DNI Eliquis will suffice for DVT prophylaxis No need for laboratory tomorrow Attestations Medical Necessity Statement*: Needs continued hospitalization pending placement for Covid 19 pneumonia associated with weakness Coding Level of Care Code Acute Locomotive Engineer Diesel for [facility] Fwd Diagnoses Acute and chronic respiratory failure with hypoxia J96.21 COVID-19 virus infection U07.1 Acute exacerbation of chronic obstructive airways disease J44.1 Viral pneumonitis J12.9 Atrial fibrillation I48.0 Atrial fibrillation type: paroxysmal Hypothyroidism E03.9 Hypothyroidism type: unspecified Hyperlipidemia E78.5 Hyperlipidemia type: unspecified
[2020-02-27] VITALS (11 sets, daily range): BP systolic 106–150; BP diastolic 54–81; PULSE 54–86; RESP 18–29; TEMP 36.7–37.1; O2SAT 95–98
[2020-02-27] MEDS: aspirin 81 mg EC Tablet PO (09:46)
[2020-02-27] MEDS: atorvastatin 40 mg Tablet 20 MG PO (09:46)
[2020-02-27] MEDS: montelukast sodium 10 mg Tablet PO (09:46)
[2020-02-27] MEDS: apixaban 5 mg Tablet 2.5 MG PO ×2 (09:47→14:56)
[2020-02-27] MEDS: docusate sodium 100 mg Capsule PO (09:48)
[2020-02-27] MEDS: dilTIAZem ER (24HR) 300 mg Capsule PO (09:48)
[2020-02-27] MEDS: fluticasone nasal spray 16gm Btl 2 SPRAY INTRANASAL (09:50)
[2020-02-27] MEDS: levothyroxine 25 mcg Tablet PO (09:51)
--- NOTE | 2020-02-27 12:28 | P.PN_ITS ---
Subjective Subjective: Interval history: Mehnaz reports she is doing fine. She is eager to go to rehabilitation when able. Medications: Reviewed: Yes Vitals/I&O/Wt Last Vital Signs Temp 98.4 F 02/27/20 05:12 Pulse 86 02/27/20 08:47 Resp 20 H 02/27/20 08:47 BP 122/69 02/27/20 06:16 Pulse Ox 95 02/27/20 08:47 02/26/20 02/27/20 02/27/20 22:59 06:59 14:59 Intake Total 480 / 1440 240 / 1680 Balance 480 / 1440 240 / 1680 Physical Exam Narrative: EXAM NARRATIVE: General exam is no apparent distress Cardiovascular regular rate and rhythm without murmur Lungs clear bilaterally Abdomen is soft nontender with positive bowel sounds Extremities no cyanosis clubbing or edema Data : 02/26/20 04:50 02/26/20 04:50 A&P Assessment and plan (1) Acute and chronic respiratory failure with hypoxia: Secondary to COPD exacerbation and Covid 19 pneumonia. Currently improved. Continue Advair and Spiriva She has finished remdesivir, Decadron Antibiotics have been discontinued Currently on Eliquis She is on her baseline oxygen requirement Laboratory appears stable although white blood cell count is still high. I believe this is a residual effect from the dexamethasone. Status: Acute (2) COVID-19 virus infection: See notations above Status: Acute (3) Acute exacerbation of chronic obstructive airways disease: Currently at baseline Status: Acute (4) Viral pneumonitis: Secondary to COVID Discontinue dexamethasone Status: Acute (5) Atrial fibrillation: Currently in sinus rhythm Continue Cardizem and Eliquis Last echocardiogram demonstrated grade 3 diastolic dysfunction, preserved EF in 2019 Status: Chronic Qualifiers: Atrial fibrillation type: paroxysmal Qualified Code(s): I48.0 - Paroxysmal atrial fibrillation (6) Hypothyroidism: Continue levothyroxine Status: Chronic Qualifiers: Hypothyroidism type: unspecified Qualified Code(s): E03.9 - Hypothyroidism, unspecified (7) Hyperlipidemia: Continue statin Status: Chronic Qualifiers: Hyperlipidemia type: unspecified Qualified Code(s): E78.5 - Hyperlipidemia, unspecified Additional A&P Information Chronic diastolic heart failure. Compensated DNR/DNI Eliquis will suffice for DVT prophylaxis No need for laboratory tomorrow Attestations Medical Necessity Statement*: Needs continued hospitalization pending placement. Coding Level of Care Code Acute Fuel Conversion Technician for [facility] Fwd Diagnoses Acute and chronic respiratory failure with hypoxia J96.21 COVID-19 virus infection U07.1 Acute exacerbation of chronic obstructive airways disease J44.1 Viral pneumonitis J12.9 Atrial fibrillation I48.0 Atrial fibrillation type: paroxysmal Hypothyroidism E03.9 Hypothyroidism type: unspecified Hyperlipidemia E78.5 Hyperlipidemia type: unspecified
--- NOTE | 2020-02-27 12:40 | PC.NURSE ---
miss oliver remains pleasantly forgetful. she often asks what she is supposted to be doing, asking if she should be sleeping or watching tv. we ambulated in the unit/[place] 2 laps and she walked to the bathroom 3x today. she seems more steady, eating better, a little less nervous. oral care done. pericare done.
[2020-02-27] MEDS: ondansetron 2 mg/ML SDV 2 mL 4 MG IVP (14:52)
[2020-02-27] MEDS: acetaminophen 325 mg Tablet 650 MG PO (14:57)
[2020-02-27] MEDS: HYDROcodone-acetaminophen 5-325 mg Tablet 1 TAB PO (17:15)
--- NOTE | 2020-02-27 18:05 | PC.NURSE ---
AROUND 4 PM PATIENT CO BACK PAIN. TYLENOL WAS GIVEN, PATIENT WAS WALKED AROUND UNIT, AND THEN ALLOWED TO REST. SHE CALLED OUT 10 MIN LATER AND SAID SHE JUST COULD NOT STAND THE PAIN. I ENCOURAGED HER TO STRETCH AND FIND OTHER POSITIONS BUT SHE SAID IT WAS TOO AWEFUL. DR RAMIREZ CONTACTED. RICHARD GIVEN AND ANOTHER WALK. SHE DID NOT HAVE ANY STRONG REACTION WHEN I TAPPED HER KIDNEY AREAS. SHE THINKS SHE IS CONSTIPATED. ONE DOSE OF TWO SENNA GIVEN. AWAITING RESULTS
[2020-02-27] MEDS: sennosides-docusate Tablet 2 TAB PO (18:13)
[2020-02-28] VITALS (16 sets, daily range): BP systolic 112–162; BP diastolic 59–88; PULSE 56–91; RESP 15–31; TEMP 36.8–37.3; O2SAT 93–100
[2020-02-28] MEDS: apixaban 5 mg Tablet 2.5 MG PO ×2 (08:50→15:50)
[2020-02-28] MEDS: dilTIAZem ER (24HR) 300 mg Capsule PO (08:51)
[2020-02-28] MEDS: fluticasone nasal spray 16gm Btl 2 SPRAY INTRANASAL (08:51)
[2020-02-28] MEDS: docusate sodium 100 mg Capsule PO (08:51)
[2020-02-28] MEDS: atorvastatin 40 mg Tablet 20 MG PO (08:51)
[2020-02-28] MEDS: aspirin 81 mg EC Tablet PO (08:51)
[2020-02-28] MEDS: montelukast sodium 10 mg Tablet PO (08:52)
[2020-02-28] MEDS: levothyroxine 25 mcg Tablet PO (08:52)
[2020-02-28] MEDS: benzonatate 100 mg Capsule PO (08:52)
[2020-02-28] MEDS: albuterol 8 gm MDI 2 PUFF INHALATION (08:53)
[2020-02-28] MEDS: HYDROcodone-acetaminophen 5-325 mg Tablet 1 TAB PO (08:54)
--- NOTE | 2020-02-28 11:20 | PC.SOCIAL ---
[facility] Updated Page 2 of IMM updated to patient's daughter Dari by phone. She verbalizes understanding. Initialed, dated, and timed and will send to Medical Records to be uploaded to patient's chart upon discharge.
--- NOTE | 2020-02-28 14:53 | PC.NURSE ---
covid retest taken per order. patient bathed and hair washed, walked the halls, and took a nap. discussed with dr seth that her confusion, nausea, back pain had all escalated and that i thought a ua may be in order. urine is dark orange, and she is voiding 50 cc at a time about ever 90 min. she is more cheerful and calmer since her bath walk and nap. [facility] the name of the snf unit she is intended to go to. she needs more brain stimulation than exercise but hopefully she can meet some people or have more to do .
[2020-02-28 15:31] LABS: Add Urine Microscopic? NO
[2020-02-28 15:48] LABS: Bilirubin Urine 1+ (Negative); Blood Urine Neg (Negative); Glucose Urine UA Norm (Normal); Ketones Urine Negative (Negative); Leukocyte Esterase Urine Negative (Negative); Nitrate Urine Negative (Negative); Protein Urine Neg (Negative); Urine Appearance Clear (CLEAR); Urine Color Yellow (Yellow); Urobilinogen Urine 1 mg/dL (Negative); pH Urine 5 (5-7)
[2020-02-28] MEDS: bisacodyl 10 mg Supp PR (15:50)
--- NOTE | 2020-02-28 17:30 | PC.NURSE ---
suppository produced several hard stools that required loosening to expell to the toilet. she eats well. maybe this constipation has been the source of her confusion
--- NOTE | 2020-02-28 19:17 | P.PN_ITS ---
Subjective Subjective: Interval history: She says she is doing pretty well. Her appetite has been coming back. She says she has finally been able to get some sleep. Her breathing has been better. She does feel very deconditioned, getting tired easily. Weak with exertion. Denies chest pain or pressure. Otherwise has been doing well. Vitals/I&O/Wt Last Vital Signs Temp 98.2 F 02/28/20 14:36 Pulse 68 02/28/20 17:05 Resp 31 H 02/28/20 17:05 BP 139/72 02/28/20 17:05 Pulse Ox 99 02/28/20 17:05 02/28/20 02/28/20 02/28/20 06:59 14:59 22:59 Intake Total 240 / 1190 500 / 500 400 / 900 Output Total 150 / 150 200 / 200 100 / 300 Balance 90 / 1040 300 / 300 300 / 600 Physical Exam Const: COMMON NORMALS: no acute distress and patient oriented x3 OTHER: Conversant. In good spirits. HENMT: COMMON NORMALS: oropharynx normal Neck/C-Spine: COMMON NORMALS: no JVD Resp: COMMON NORMALS: normal respiratory effort AUSCULTATION: diminished lung sounds (Slightly diminished air entry, but otherwise no adventitious sounds.) Cardio: COMMON NORMALS: no JVD, regular rhythm, S1 normal heart sound present, S2 normal heart sound present and No murmurs present (Cardio) RHYTHM: regular rhythm HEART SOUNDS: S1 normal heart sound present and S2 normal heart sound present GI: COMMON NORMALS: Normal to inspection, nondistended, normoactive bowel sounds present, Soft to palpation and non-tender PALPATION: Yes Soft to palpation Extremity: COMMON NORMALS: no joint enlargement and no pedal edema Neuro: COMMON NORMALS: patient oriented x3 and moves all extremities Skin: GENERAL SKIN EXAM: ecchymosis Data : 02/26/20 04:50 02/26/20 04:50 A&P Assessment and plan (1) Acute and chronic respiratory failure with hypoxia: She is gradually improving. Able to get some sleep. Deconditioned. Secondary to COPD exacerbation and Covid 19 pneumonia. Continue Advair and Spiriva She has finished remdesivir, Decadron Antibiotics have been discontinued Currently on Eliquis She is on her baseline oxygen requirement Laboratory appears stable although white blood cell count is still high. I believe this is a residual effect from the dexamethasone. Recheck. Very deconditioned. Repeat COVID-19 testing ordered as per discussion with case management. Attempts at placement to rehabilitation pending prior authorization. Status: Acute (2) COVID-19 virus infection: See notations above Status: Acute (3) Acute exacerbation of chronic obstructive airways disease: Currently at baseline Status: Acute (4) Viral pneumonitis: Secondary to COVID Discontinue dexamethasone Status: Acute (5) Atrial fibrillation: Currently in sinus rhythm Continue Cardizem and Eliquis Last echocardiogram demonstrated grade 3 diastolic dysfunction, preserved EF in 2019 Status: Chronic Qualifiers: Atrial fibrillation type: paroxysmal Qualified Code(s): I48.0 - Paroxysmal atrial fibrillation (6) Hypothyroidism: Continue levothyroxine Status: Chronic Qualifiers: Hypothyroidism type: unspecified Qualified Code(s): E03.9 - Hypothyroidism, unspecified (7) Hyperlipidemia: Continue statin Status: Chronic Qualifiers: Hyperlipidemia type: unspecified Qualified Code(s): E78.5 - Hyperli pidemia, unspecified Additional A&P Information Chronic diastolic heart failure. Compensated. DNR/DNI Eliquis for DVT prophylaxis Attestations Medical Necessity Statement*: Continue admission for assessment management of improving COVID-19 pneumonia, disposition arrangements for rehabilitation due to severe deconditioning. Coding Level of Care Code Acute Analyst Market Intelligence for [facility] Diagnoses Acute and chronic respiratory failure with hypoxia J96.21 COVID-19 virus infection U07.1 Acute exacerbation of chronic obstructive airways disease J44.1 Viral pneumonitis J12.9 Atrial fibrillation I48.0 Atrial fibrillation type: paroxysmal Hypothyroidism E03.9 Hypothyroidism type: unspecified Hyperlipidemia E78.5 Hyperlipidemia type: unspecified
[2020-02-28 21:00] LABS: Coronavirus Lab Test PTC Positive
[2020-02-28] MEDS: sennosides 8.6 mg Tablet PO (21:40)
[2020-02-29] VITALS (13 sets, daily range): BP systolic 126–140; BP diastolic 58–61; PULSE 56–90; RESP 17–23; TEMP 36.8–37.2; O2SAT 94–100
[2020-02-29 06:39] LABS: Basophils % 0.1 %; Eosinophils % 0.1 %; Hematocrit 36.4 % (37.0-47.0); Hemoglobin 11.5 g/dL (11.5-15.3); Lymphocytes # 0.6 10^3/uL (0.8-4.8); Lymphocytes % 4.1 %; Mean Corpuscular HGB Conc 31.6 g/dL (30.0-36.0); Mean Corpuscular Hemoglobin 29.7 pg (28.0-34.0); Mean Corpuscular Volume 94.1 fL (81-99); Mean Platelet Volume 11.2 fL (7.4-10.4); Monocytes # 1.3 10^3/uL (0.2-0.9); Monocytes % 8.5 %; Neutrophils # 12.71 10^3/uL (1.8-7.7); Neutrophils % 85.8 %; Nucleated Red Blood Cells % 0 %; Platelet Count 391 10^3/cmm (130-400); Red Blood Count 3.87 10^6/uL (4.1-5.3); Red Cell Distribution Width 12.8 % (12.1-15.1); White Blood Count 14.8 10^3/uL (4.0-10.0)
[2020-02-29 06:54] LABS: Blood Urea Nitrogen 13 mg/dL (8-23); Calcium 8.3 mg/dL (8.5-10.5); Carbon Dioxide 33 mmol/L (22-29); Chloride 98 mmol/L (98-107); Creatinine Clr Calc Pharmacy 52.2706; Glucose 119 mg/dL (65-115); Osmolality Calculated 289 mOsm/kg (285-295); Sodium 139 mmol/L (136-145)
[2020-02-29] MEDS: apixaban 5 mg Tablet 2.5 MG PO (08:11)
[2020-02-29] MEDS: dilTIAZem ER (24HR) 300 mg Capsule PO (08:11)
[2020-02-29] MEDS: aspirin 81 mg EC Tablet PO (08:11)
[2020-02-29] MEDS: atorvastatin 40 mg Tablet 20 MG PO (08:11)
[2020-02-29] MEDS: levothyroxine 25 mcg Tablet PO (08:12)
[2020-02-29] MEDS: polyethylene glycol 3350 Pkt 17 gm PO (08:12)
[2020-02-29] MEDS: fluticasone nasal spray 16gm Btl 2 SPRAY INTRANASAL (08:12)
[2020-02-29] MEDS: docusate sodium 100 mg Capsule PO (08:12)
[2020-02-29] MEDS: montelukast sodium 10 mg Tablet PO (08:12)
[2020-02-29] MEDS: benzonatate 100 mg Capsule PO (08:13)
[2020-02-29] MEDS: HYDROcodone-acetaminophen 5-325 mg Tablet 1 TAB PO (08:13)
--- NOTE | 2020-02-29 10:03 | PC.NURSE ---
patients menu was lost for her food choices had to get another tray with fruit and a muffin on it. she still had not had a significant stool since her hard impaction yesturday. miralax given and another dose of senna planned. she would like to avoid an enema
--- NOTE | 2020-02-29 14:44 | PM.DCS ---
Discharge Providers Date of Admission: 02/15/20 20:20 Date of Discharge: February 29, 2020 Attending Provider at Admission: Miryam Ely MD Attending Provider at Discharge: Olivier Singh Primary Care Provider: Rosie Barnes DO Diagnoses at Discharge Discharge Diagnosis (1) Acute and chronic respiratory failure with hypoxia: Status: Acute (2) COVID-19 virus infection: Status: Acute (3) Acute exacerbation of chronic obstructive airways disease: Status: Acute (4) Viral pneumonitis: Status: Acute (5) Atrial fibrillation: Status: Chronic Qualifiers: Atrial fibrillation type: paroxysmal Qualified Code(s): I48.0 - Paroxysmal atrial fibrillation (6) Hypothyroidism: Status: Chronic Qualifiers: Hypothyroidism type: unspecified Qualified Code(s): E03.9 - Hypothyroidism, unspecified (7) Hyperlipidemia: Status: Chronic Qualifiers: Hyperlipidemia type: unspecified Qualified Code(s): E78.5 - Hyperlipidemia, unspecified Reason for Visit Reason for Visit: covid symptoms Hospital Course Hospital Course: Pleasant 79-year-old lady with history of A. fib, COPD, heart block, HLD, hypothyroidism, was admitted after presenting on 02/14 with progressive shortness of breath, despite continued supplemental oxygen (she is at baseline on 3-4 L). With productive cough, yellow/clear sputum, malaise, for close to 2 weeks total, found positive for COVID-19 on admission, with intermittent A. fib with RVR on presentation. Received course of treatment with Remdesivir, dexamethasone. She was continued on Cardizem and Eliquis for atrial fibrillation, eventually with improvement in heart rates. Her respirations, lung exam and overall condition gradually improved. She is completed a course of empiric antibiotics as well for possible superimposed bacterial infection. She is down to her baseline oxygen requirement. She is significantly deconditioned and so has been currently accepted for additional rehabilitation at SNF prior to return home. Physical Exam Const: COMMON NORMALS: no acute distress and patient oriented x3 OTHER: Conversant. In good spirits. Sitting up in bed. Eating lunch which she says is enjoying very much. HENMT: COMMON NORMALS: oropharynx normal Neck/C-Spine: COMMON NORMALS: no JVD Resp: COMMON NORMALS: normal respiratory effort and clear to auscultation bilaterally AUSCULTATION: clear to auscultation bilaterally and wheezes (Minimal wheeze on the left.) Cardio: COMMON NORMALS: no JVD, regular rhythm, S1 normal heart sound present, S2 normal heart sound present and No murmurs present (Cardio) RHYTHM: regular rhythm HEART SOUNDS: S1 normal heart sound present and S2 normal heart sound present GI: COMMON NORMALS: Normal to inspection, nondistended, normoactive bowel sounds present, Soft to palpation and non-tender PALPATION: Yes Soft to palpation Extremity: COMMON NORMALS: no joint enlargement and no pedal edema Neuro: COMMON NORMALS: patient oriented x3 and moves all extremities Skin: GENERAL SKIN EXAM: ecchymosis Discharge Data Data Completed and Pending: Completed Studies During Hospitalization Category Date Time Status XR chest 1V johnathan ble [id number] Stat Exams 02/15/20 18:12 Completed Pending at discharge Category Date Time Status Blood Culture Sta t Lab 02/15/20 18:20 Results Labs from last 24 hours 02/29/20 02/29/20 02/28/20 04:40 04:40 13:22 WBC 14.8 H RBC 3.87 L Hgb 11.5 Hct 36.4 L MCV 94.1 MCH 29.7 MCHC 31.6 RDW 12.8 Plt Count 391 MPV 11.2 H Neut % (Auto) 85.8 Lymph % (Auto) 4.1 [place] % (Auto) 8.5 Eos % (Auto) 0.1 Baso % (Auto) 0.1 Neut # (Auto) 12.71 H Lymph # (Auto) 0.6 L [place] # (Auto) 1.3 H Eos # (Auto) 0.0 Baso # (Auto) 0.0 Nucleated RBC % (a uto) 0 Nucleated RBCs # 0.0 Sodium 139 Potassium 4.0 Chloride 98 Carbon Dioxide 33 H Anion Gap 12.0 BUN 13 Creatinine 0.5 GFR Calculation Not Reportable Glucose 119 H Calculated Osmolal ity 289 Calcium 8.3 L Urine Color Yellow Urine Appearance Clear Urine pH 5 Ur Specific Gravit y 1.020 Urine Protein Neg Urine Glucose (UA) Norm Urine Ketones Negative Urine Blood Neg Urine Nitrate Negative Urine Bilirubin 1+ H Urine Urobilinogen 1 H Ur Leukocyte Tika ase Negative Nasal/Oral COVID-1 9 PCR 02/28/20 08:46 WBC RBC Hgb Hct MCV MCH MCHC RDW Plt Count MPV Neut % (Auto) Lymph % (Auto) [place] % (Auto) Eos % (Auto) Baso % (Auto) Neut # (Auto) Lymph # (Auto) [place] # (Auto) Eos # (Auto) Baso # (Auto) Nucleated RBC % (a uto) Nucleated RBCs # Sodium Potassium Chloride Carbon Dioxide Anion Gap BUN Creatinine GFR Calculation Glucose Calculated Osmolal ity Calcium Urine Color Urine Appearance Urine pH Ur Specific Gravit y Urine Protein Urine Glucose (UA) Urine Ketones Urine Blood Urine Nitrate Urine Bilirubin Urine Urobilinogen Ur Leukocyte Itka ase Nasal/Oral COVID-1 9 PCR Positive Vitals: Last Vital Signs Temp 99 F 02/29/20 12:28 Pulse 90 02/29/20 07:40 Resp 22 H 02/29/20 07:40 BP 126/58 02/29/20 06:03 Pulse Ox 94 02/29/20 07:40 Discharge Plan Discharge Patient Disposition: Xfer SNF Condition: Stable Prescriptions: New Senna Lax 8.6 mg Tablet 8.6 mg PO BEDTIME Qty: 30 RF: 0 polyethylene glycol 3350 17 gram Powder In Packet 17 g PO BID Qty: 60 RF: 0 benzonatate 100 mg Capsule 100 mg PO TID PRN (Reason: Cough) Qty: 30 RF: 0 Continued docusate sodium [Colace] 100 mg capsule 100 mg PO DAILY RF: 0 aspirin [Adult Aspirin Regimen] 81 mg tablet,delayed release (DR/EC) 81 mg PO DAILY RF: 0 Eliquis 2.5 mg tablet 2.5 mg PO BID Qty: 90 RF: 3 albuterol sulfate 2.5 mg /3 mL (0.083 %) solution for nebulization 2.5 mg INHALATION Q6H RF: 0 alprazolam 0.5 mg tablet 0.5 mg PO DAILY RF: 0 budesonide 0.5 mg/2 mL suspension for nebulization 0.5 mg INHALATION BID RF: 0 ergocalciferol (vitamin D2) 1,250 mcg (50,000 unit) capsule 1,250 mcg PO DAILY RF: 0 fluticasone propionate [Flonase Allergy Relief] 50 mcg/actuation spray,suspension 2 spray INTRANASAL DAILY RF: 0 levothyroxine 25 mcg capsule 25 mcg PO DAILY RF: 0 lovastatin 20 mg tablet 20 mg PO DAILY RF: 0 montelukast 10 mg tablet 10 mg PO DAILY RF: 0 diltiazem HCl 300 mg capsule,extended release 24hr 300 mg PO DAILY Qty: 30 RF: 11 Bevespi Aerosphere 9-4.8 mcg HFA aerosol inhaler See Rx Instructions .ROUTE .COMPLEX RF: 0 Discharge Orders: Discharge Order (Routine); Ordered 02/29/20 Ordered By: Olivier Singh Referrals: [facility] [Other] [facility] [Outside] Rosie Barnes DO [Primary Care Provider] - 03/14/20 3:30 pm Discharge Diet: Cardiac Discharge Activity: Increase activity as tolerated, As per PT/OT instructions and Oxygen as instructed Patient Instructions: Benzonatate (By mouth), Laxative, Stimulant (By mouth), Polyethylene Glycol 3350 (By mouth), Heart Healthy Diet Activity Restrictions/Additional Instructions: Continue oxygen by nasal cannula 3 L, goal saturation 88-92%. Monitor heart rates and blood pressures twice daily, record values. Positive coronavirus test in the hospital on admission 02/14. Reported feeling unwell for about 2 weeks prior to that. Repeat testing 02/27 +ve. Consider continuation of isolation until 20 days from initial positive testing 02/14, subsequently if 24 hours afebrile and without symptoms consider possible discontinuation of isolation precautions. Otherwise more cautious approach may include repeating PCR testing in 1 week, and discontinuation of isolation upon to negative tests 24 hours apart. Discharge Attestations Time Spent in Discharge Care*: greater than 30 min Quality Metrics Clinical Quality Measures During this hospital stay, did patient experience: None Coding Level of Care Code Acute Wardrobe Specialist for [facility] Fwd Exam Comprehensive Diagnoses Acute and chronic respiratory failure with hypoxia J96.21 COVID-19 virus infection U07.1 Acute exacerbation of chronic obstructive airways disease J44.1 Viral pneumonitis J12.9 Atrial fibrillation I48.0 Atrial fibrillation type: paroxysmal Hypothyroidism E03.9 Hypothyroidism type: unspecified Hyperlipidemia E78.5 Hyperlipidemia type: unspecified
== END 2020-02-29 16:13 | disposition skilled nursing facility (03) | DRG 177 ==
LOC: ER 20:22 → ICU 20:45
PROVIDERS: Emergency Medicine; Family Medicine; Internal Medicine; Admitting Provider Family Medicine; PCP Family Medicine; Visit Provider Internal Medicine
DX: U07.1 COVID-19 (principal); J12.89 Other viral pneumonia; J96.21 Acute and chronic respiratory failure with hypoxia; J44.1 Chronic obstructive pulmonary disease with (acute) exacerbation; J44.0 Chronic obstructive pulmonary disease with (acute) lower respiratory infection; I50.32 Chronic diastolic (congestive) heart failure; I48.0 Paroxysmal atrial fibrillation; E03.9 Hypothyroidism, unspecified; E78.5 Hyperlipidemia, unspecified; Z66 Do not resuscitate; E87.6 Hypokalemia; Z79.01 Long term (current) use of anticoagulants; Z79.82 Long term (current) use of aspirin; Z87.891 Personal history of nicotine dependence; F41.9 Anxiety disorder, unspecified
CPT/HCPCS: 12345; 36415; 36416; 36600; 71045; 80048; 80053; 80076; 81001; 81003; 82550; 82728; 82803; 82962; 83605; 83615; 83735; 83880; 84100; 84145; 84484; 85025; 85378; 85610; 86140; 87040; 87070; 87077; 87086; 87186; 87205; 87426; 87635; 87804; 93005; 94640; 96375; 97110; 97161; 99284; J1100; J1940; J1956; J2405; J3535; J7626

== ENCOUNTER 2020-03-19 13:02 | Emergency (ER) | payer MEDICARE, MEDICAID, SELFPAY ==
[2020-03-19 13:11] VITALS: BP 167/70; PULSE 113; RESP 22; TEMP 36.9; O2SAT 94; BMI 24.1
--- NOTE | 2020-03-19 13:44 | ED_ITS ---
HPI - Extremity Problem General: Chief complaint: Extremity Injury, Upper Stated complaint: FALL, INJURY L ARM Time Seen by Provider: 03/19/20 13:28 History of Present Illness: HPI Narrative: Patient cut left arm on a cabinet yesterday and has large skin tear to her left forearm. Home health nurse put Steri-Strips and gauze on there which is dried to it and stop now she has some bleeding to her left hand patient is on blood thinner. Denies any pain in the extremity is able move extremity fully. no swelling MD Complaint: other (Left forearm skin tear) Onset (ago): day(s) Location: left and upper extremity Associated symptoms: Reports no associated symptoms; Deny fever(s) Context: other (Treated by home health nurse yesterday) Review of Systems Const: Reports: other (Patient said she tripped on the carpet and hit the cabinet yesterday and resultant skin tear on health nurse put Steri-Strips and dressing on it); Denies: fever(s), chills or body aches (Patient was recently discharged from the hospital Cobin positive) Skin/Breast: Reports: other (Skin tear left forearm left hand does have some bleeding down to top of left hand old dressings Steri-Strips were in place) PFSH ED PFSH: Medical History (Updated 03/19/20 @ 13:43 by KALINA Rodríguez) Atrial fibrillation Bifascicular block COPD (chronic obstructive pulmonary disease) Hyperlipidemia Hypothyroidism Status post placement of implantable loop recorder (~05/12/19) Surgical History H/O bilateral salpingo-oophorectomy H/O foot surgery H/O: hysterectomy Family History Other Alzheimer disease Cancer Parkinson disease Social History (Updated 02/15/20 @ 21:23 by Miryam Ely MD) Smoking and tobacco status: former smoker Quit status (tobacco): has quit using tobacco Year quit tobacco: 1994 Alcohol intake: never Physical Exam Const: COMMON NORMALS: no acute distress, average body habitus and patient oriented x3 HENMT: COMMON NORMALS: normocephalic HEAD & SCALP: normal to inspection and normocephalic FACE & SINUS: normal facial exam Eye: COMMON NORMALS: conjunctivae normal GENERAL EYE: appearance normal, both eyes and all related structures CONJUNCTIVA: Yes conjunctivae normal Neck/C-Spine: COMMON NORMALS: no JVD Chest: COMMONS NORMALS: normal inspection of the chest Resp: COMMON NORMALS: normal respiratory effort Cardio: COMMON NORMALS: no JVD and regular rhythm RATE: tachycardic RHYTHM: regular rhythm GI: COMMON NORMALS: Normal to inspection, nondistended, normoactive bowel sounds present Extremity: COMMON NORMALS: full ROM Neuro: COMMON NORMALS: patient oriented x3 Skin: OTHER: Large skin tear extending down from the elbow on the dorsal surface of the forearm all the way down to the dorsal surface of the hand does have slight bleeding on the dorsal surface of the hand no signs of infection no erythema noted skin tear is very irregular extending down the arm and hand Vaseline gauze was placed back on that with dressing Course Vital Signs: Vital signs: Vital Signs Temperature 98.5 F 03/19/20 13:11 Pulse Rate 113 H 03/19/20 13:11 Respiratory Rate 22 H 03/19/20 13:11 Blood Pressure 167/70 03/19/20 13:11 Pulse Oximetry 94 03/19/20 13:11 Discharge Plan Discharge Patient Disposition: Home Clinical Impression: Skin tear of forearm without complication Qualifiers: Encounter type: initial encounter Laterality: left Qualified Code(s): S51.812A - Laceration without foreign body of left forearm, initial encounter Condition: Stable Prescriptions: No Action docusate sodium [Colace] 100 mg capsule 100 mg PO DAILY RF: 0 aspirin [Adult Aspirin Regimen] 81 mg tablet,delayed release (DR/EC) 81 mg PO DAILY RF: 0 Eliquis 2.5 mg tablet 2.5 mg PO BID Qty: 90 RF: 3 albuterol sulfate 2.5 mg /3 mL (0.083 %) solution for nebulization 2.5 mg INHALATION Q6H RF: 0 alprazolam 0.5 mg tablet 0.5 mg PO DAILY RF: 0 budesonide 0.5 mg/2 mL suspension for nebulization 0.5 mg INHALATION BID RF: 0 ergocalciferol (vitamin D2) 1,250 mcg (50,000 unit) capsule 1,250 mcg PO DAILY RF: 0 fluticasone propionate [Flonase Allergy Relief] 50 mcg/actuation spray,suspension 2 spray INTRANASAL DAILY RF: 0 levothyroxine 25 mcg capsule 25 mcg PO DAILY RF: 0 lovastatin 20 mg tablet 20 mg PO DAILY RF: 0 montelukast 10 mg tablet 10 mg PO DAILY RF: 0 diltiazem HCl 300 mg capsule,extended release 24hr 300 mg PO DAILY Qty: 30 RF: 11 Bevespi Aerosphere 9-4.8 mcg HFA aerosol inhaler See Rx Instructions .ROUTE .COMPLEX RF: 0 Senna Lax 8.6 mg Tablet 8.6 mg PO BEDTIME Qty: 30 RF: 0 polyethylene glycol 3350 17 gram Powder In Packet 17 g PO BID Qty: 60 RF: 0 benzonatate 100 mg Capsule 100 mg PO TID PRN (Reason: Cough) Qty: 30 RF: 0 Discharge Orders: Discharge Order (Routine); Ordered 03/19/20 Ordered By: Lc Fofana Referrals: Rosie Barnes DO [Primary Care Provider] - Discharge Diet: Usual diet Discharge Activity: Increase activity as tolerated Patient Instructions: Skin Tear (ED) Activity Restrictions/Additional Instructions: Keep petroleum/Vaseline gauze on forearm. Make sure wound stays moist. Change dressing daily. Have home health nurse change Vaseline gauze on Friday. Follow-up with family medical provider if any signs and symptoms of infection develop. Coding Level of Care Code ED Real Estate Associate for Lance Cochran
== END 2020-03-19 14:02 | disposition home or self-care (01) ==
PROVIDERS: Emergency Provider Nurse Practitioner Family; PCP Family Medicine
DX: S51.812A Laceration without foreign body of left forearm, initial encounter (principal); Z79.82 Long term (current) use of aspirin; Z79.01 Long term (current) use of anticoagulants; I48.91 Unspecified atrial fibrillation; J44.9 Chronic obstructive pulmonary disease, unspecified; E78.5 Hyperlipidemia, unspecified; Z87.891 Personal history of nicotine dependence; W26.8XXA Contact with other sharp object(s), not elsewhere classified, initial encounter
CPT/HCPCS: 12345; 99281; 99282

== ENCOUNTER 2020-04-27 13:40 | Outpatient (CLI) | payer MEDICARE, MEDICAID, SELFPAY ==
--- NOTE | 2020-04-27 14:15 | USCV_ITS ---
Mehnaz Curiel Age: 79 Gender: F : 1940 Exam Date: 04/27/2020 14:13 Ordering Phys: Ximena Reynolds MD ([email or web address]) Technologist: Nicolas Panda Exam Location: [facility] – [place] Indication: MURMUR BP: 123 / 71 HR: 94 Rhythm: Sinus Technical Quality: Fair MEASUREMENTS (Male / Female) Normal Values 2D ECHO LV Diastolic Diameter PLAX 3.0 cm 4.2 - 5.9 / 3.9 - 5.3 cm LV Systolic Diameter PLAX 2.3 cm IVS Diastolic Thickness 1.0 cm 0.6 - 1.0 / 0.6 - 0.9 cm IVS Systolic Thickness 1.1 cm LVPW Diastolic Thickness 1.1 cm 0.6 - 1.0 / 0.6 - 0.9 cm LVPW Systolic Thickness 1.5 cm LVOT Diameter 2.0 cm LV Ejection Fraction 2D Teich 38.9 % LV Ejection Fraction MOD 2C 63.1 % LV Ejection Fraction 2C AL 62.3 % LA Diameter 3.3 cm LA Width 3.6 cm LA Height 3.9 cm RA Width 4.0 cm RA Height 4.2 cm Aorta at Sinotubular Diameter 2.2 cm M-MODE LV Diastolic Diameter MM 5.7 cm 4.2 - 5.9 / 3.9 - 5.3 cm LV Systolic Diameter MM 3.8 cm LV Ejection Fraction MM Teich 61.3 % IVS Diastolic Thickness MM 1.6 cm 0.6 - 1.0 / 0.6 - 0.9 cm IVS Systolic Thickness MM 1.9 cm LVPW Diastolic Thickness MM 1.3 cm 0.6 - 1.0 / 0.6 - 0.9 cm LVPW Systolic Thickness MM 1.8 cm RV Diastolic Diameter MM 0.2 cm Aortic Annulus Diameter 2.8 cm LA Ao Ratio MM 1.4 MV E Point Septal Separation 1.1 cm DOPPLER AV Peak Velocity 173.0 cm/s LVOT Peak Velocity 107.0 cm/s AV Area Cont Eq vti 2.0 cm squared AV Area Cont Eq pk 2.0 cm squared MV Area PHT 5.0 cm squared Mitral E to A Ratio 0.6 MV E' Velocity 41.5 cm/s Mitral E to MV E' Ratio 9.2 Mitral E to LV E' Lateral Ratio 8.4 Mitral E to LV E' Septal Ratio 10.0 TR Peak Velocity 145.7 cm/s TR Peak Gradient 8.5 mmHg TV Peak E Velocity 74.0 cm/s Right Atrial Pressure 3.0 mmHg Pulmonary Artery Systolic Pressu 11.5 mmHg PV Peak Velocity 123.0 cm/s FINDINGS Left Ventricle Normal left ventricular size and systolic function, EF 62 %. No regional wall motion abnormalities. Grade I/IV diastolic dysfunction (abnormal relaxation filling pattern), normal to mildly elevated filling pressures. Right Ventricle The right ventricle is normal in size and function. Right Atrium The right atrium is normal in size. Left Atrium The left atrium is normal in size. Mitral Valve Valve appears to be thickened Aortic Valve Aortic valve sclerosis. Tricuspid Valve Tricuspid valve not well visualized. Pulmonic Valve Pulmonic valve not well visualized. Pericardium Normal pericardium without effusion. Aorta Normal ascending aorta dimension. CONCLUSIONS Normal left ventricular size and systolic function, EF 62 %. No regional wall motion abnormalities. Grade I/IV diastolic dysfunction (abnormal relaxation filling pattern), normal to mildly elevated filling pressures. Aortic valve sclerosis. There is no pericardial effusion. There are no intracardiac masses. Technically difficult study because of the poor ultrasonic window. Dr Ximena Reynolds MD FACC (Electronically Signed) Final Date: 27 April 2020 21:57 S
== END 2020-04-27 13:41 | disposition home or self-care (01) ==
LOC: RAD 13:51
PROVIDERS: PCP Family Medicine; Visit Provider Internal Medicine Cardiovascular Disease
DX: R07.9 Chest pain, unspecified (principal); I35.8 Other nonrheumatic aortic valve disorders
CPT/HCPCS: 93306

== ENCOUNTER 2020-05-25 08:59 | Outpatient (CLI) | payer MEDICARE, MEDICAID, SELFPAY ==
--- NOTE | 2020-05-25 09:15 | ECG_ITS ---
[facility] Test Date: 2020-05-25 Pat Name: Mehnaz Curiel Department: Room: Gender: Female Feeder/Folder: : 1940 Requested By: Ximena Reynolds Order Number: [id number] Gege MD: Ximena Reynolds M.D. Interpretive Statements NAME OF STUDY: LEXISCAN SESTAMIBI STRESS TEST INDICATION: Chest Pain RESULTS TO MEGHNA DIAMANTE MOSELEY PROCEDURE: At the baseline, the EKG revealed possible sinus rhythm. Poor R wave progression. Because of the heavy artifacts, further interpretation is difficult. The baseline blood pressure was 122/64 mm Hg with a heart rate of 102 beats/min. Lexiscan was infused over a period of 20 seconds. A total of 0.4 milligrams of Lexiscan was infused. The stress phase was continued for a total of 5 minutes. Heart rate at the end of the stress phase was 82 with a blood pressure 129/65. The EKG at the peak infusion revealed no significant changes. Sestamibi was injected 20 seconds after the Lexiscan infusion. Blood pressure at the end of the recovery phase was 116/67 with a heart rate of 84 per minute. CONCLUSION: 1. No significant EKG changes with the LexiScan infusion 2. No LexiScan induced chest pain or cardiac arrhythmia 3. Normal blood pressure and heart rate response 4. Sestamibi/sestamibi perfusion scan pending; see separate report. Electronically Signed On 05-31-2020 20:37:49 HOSPICE RN by Ximena Reynolds M.D. [id number]
--- NOTE | 2020-05-25 09:15 | NMCV_ITS ---
NM jonathan perf SPECT r/s* [id number] Mehnaz Curiel Age: 80 Gender: F : 1940 Exam Date: 05/25/2020 10:26 Ordering Phys: Ximena Reynolds MD ([email or web address]) Technologist: GEORGE Andujar Exam Location: [facility] Indications: CHEST PAIN STRESS TEST Please see separate stress test report in [facility] for full findings IMAGE PROTOCOL Rest/Stress 1 Lexiscan Day Radiopharmaceutical Dose (mCi) Administration Site Administered by Rest: Tc-99m 10.6 IV Sestamibi Stress:Tc-99m 32.6 IV Sestamibi Rest: 25-May-2020 60 Discovery 630 Stress: 25-May-2020 30 Discovery 630 0.4mg Lexiscan. Images obtained in supine and prone position. SPECT RESULTS Technical Quality: Excellent Raw Data Analysis: Normal Image Corrections: No attenuation or motion correction applied Summed Stress Score: 1 Summed Rest Score: 5 Summed Difference Score: 0 PERFUSION FINDINGS myocardial perfusion imaging revealed slightly decreased tracer uptake in the apical inferior and LV apex with no significant reversibility. FUNCTIONAL RESULTS (calculated via Gated SPECT) Stress Image LV EF (%): 84 Stress EDV (mL):44 TID: 1 Stress ESV (mL):7 FUNCTIONAL FINDINGS: Segmental wall motion analysis revealing no gross wall motion abnormalities IMPRESSIONS 1. Myocardial perfusion imaging revealing a small area of slightly decreased persistent tracer uptake in the apical inferior and LV apex, suggestive of myocardial scarring versus attenuation artifact. 2. Normal LV ejection fraction of 84%. 3. LV wall motion analysis revealing no gross wall motion normalities. 4. Normal LV volume. No significant coronary ischemia, based on the above findings Dr Ximena Reynolds MD FACC (Electronically Signed) Final Date: 25 May 2020 18:06 S
[2020-05-25 09:16] VITALS: BMI 24.1
[2020-05-25] MEDS: regadenoson 0.4 Mg/5 ml Syringe IVP (11:18)
--- NOTE | 2020-05-25 11:18 | SUR.PREOP ---
Patient reports no pain or discomfort prior to the start of the procedure.
[2020-05-25 11:51] VITALS: BP 126/68; PULSE 78
== END 2020-05-25 09:00 | disposition home or self-care (01) ==
LOC: RAD 09:09 → CDL 09:15
PROVIDERS: PCP Family Medicine; Visit Provider Internal Medicine Cardiovascular Disease
DX: R07.9 Chest pain, unspecified (principal)
CPT/HCPCS: 78452; 93017; A9500; J2785

== ENCOUNTER 2020-12-20 14:15 | Emergency (ER) | payer MEDICARE, MEDICAID, SELFPAY ==
--- NOTE | 2020-12-20 14:39 | ECG_ITS ---
[facility] Test Date: 2020-12-20 Pat Name: Mehnaz Curiel Department: Room: Gender: Female Online Communications Manager: : 1940 Requested By: Redd Velazquez Order Number: [id number] Gege MD: Shea Garland M.D. Measurements Intervals [place] Rate: 72 P: 62 IN: 164 QRS: -19 QRSD: 100 T: 55 QT: 395 QTc: 435 Interpretive Statements SINUS RHYTHM LOW QRS VOLTAGE IN PRECORDIAL LEADS [QRS DEFLECTION < 1.0 mV IN CHEST LEADS] POSSIBLE ANTERIOR MYOCARDIAL INFARCTION [30 ms Q WAVE IN V3/V4, OR R < 0.2 mV IN V4], PROBABLY OLD Compared to ECG 02/20/2020 10:46:53 Myocardial infarct finding now present Electronically Signed On 12-20-2020 21:40:30 CDT by Shea Garland M.D. [id number]
--- NOTE | 2020-12-20 14:40 | XR_ITS ---
WS: [id number] Portable AP upright chest, 12/20/2020 Clinical Data: dyspnea/cough Comparison: Portable chest, 02/15/2020. Findings: No nodules, masses or effusions are seen. The heart is normal. The pulmonary vascularity is not increased. No pneumonia or pneumothorax is seen. The aortic arch and descending aorta show calci fication and tortuosity. There is a small recording device overlying the left cardiac border. XR/XR chest 1V portable [id number] Impression: Atherosclerosis.
[2020-12-20 14:48] VITALS: BP 165/77; PULSE 77; RESP 15; TEMP 37.5; O2SAT 95; BMI 24.0
--- NOTE | 2020-12-20 16:14 | W.ED.GENADLT ---
Documented by User: ZAC Azevedo 12/20/20 16:53 HPI - General Adult General: Chief complaint: General Medical Stated complaint: SENT BY DR DOMÍNGUEZ/IMPLANTED RECORDER GOING OFF Time Seen by Provider: 12/20/20 15:52 Source: patient Mode of arrival: ambulatory Limitations: no limitations History of Present Illness: HPI narrative: Patient is an 80-year-old female who presents to ED today for a complaint of a possible abnormality with her implantable threat monitoring analyst. She states approximately 5 days ago her implantable loop recorder triggered. She for some reason waited the [address] Domínguez's office today who recommended she come to the ED. During history she tells me that she is experiencing fatigue, chest pressure , dizziness, and shortness of breath that has been present since March 2020 when she was hospitalized with COVID. She states symptoms may have even been present before then. She saw Dr. Domínguez in 05/2020 and had all these same symptoms then. Associated symptoms: Reports chest pain ( pressure ; intermittent ); Deny dyspnea, headache(s), malaise, nausea, rash, palpitations, syncope or vomiting Review of Systems Const: Reports: fatigue; Denies: fever(s), chills, body aches, change in appetite, change in weight or malaise Eyes: Denies: change in vision, blurry vision, photophobia, floaters or seeing flashes Card: Reports: chest pain ( pressure ; intermittent ); Denies: palpitations, irregular heart rhythm, edema, swelling of feet/ankles, syncope, pre-syncope, dyspnea on exertion or orthopnea Resp: Denies: dyspnea, productive cough or chest congestion GI: Denies: abdominal pain, nausea or vomiting Musc: Denies: neck pain or back pain Skin/Breast: Denies: rash Neuro: Reports: dizziness (intermittent); Denies: headache(s), numbness in extremities, weakness in extremities, sensory changes, lack of coordination, difficulty walking or seizure-like activity [facility] ED PFSH: Medical History (Updated 12/20/20 @ 17:49 by KALINA López) Atrial fibrillation Atypical chest pain Bifascicular block Bradyarrhythmia Cellulitis Chest pain Chronic episodic atrial fibrillation COPD (chronic obstructive pulmonary disease) Hyperlipidemia Hypothyroidism SOB (shortness of breath) Status post placement of implantable loop recorder (~05/12/19) Status post placement of implantable loop recorder Surgical History H/O bilateral salpingo-oophorectomy H/O foot surgery H/O: hysterectomy Family History (Updated 05/31/20 @ 15:18 by Dottie Lu RN) Father CAD (coronary artery disease) Sister CAD (coronary artery disease) Dementia Son Diabetes Grandmother Diabetes Daughter Lung disease Other Alzheimer disease Cancer Parkinson disease Denies family history of Clotting disorder Chronic kidney disease (CKD) Suicide Anesthesia complication Bleeding disorder Stroke Social History Smoking and tobacco status: former smoker Quit status (tobacco): has quit using tobacco Year quit tobacco: 1994 Alcohol intake: never Physical Exam Const: COMMON NORMALS: no acute distress, average body habitus, patient oriented x3, no limitations, healthy appearing, alert and well nourished GENERAL APPEARANCE: cooperative ORIENTATION/CONSCIOUSNESS: Yes awake, Yes oriented to person, Yes oriented to place and Yes oriented to time HENMT: COMMON NORMALS: normocephalic and atraumatic HEAD & SCALP: normocephalic and atraumatic Resp: COMMON NORMALS: normal respiratory effort and clear to auscultation bilaterally AUSCULTATION: clear to auscultation bilaterally Cardio: COMMON NORMALS: regular rate and regular rhythm RATE: regular rate RHYTHM: regular rhythm Extremity: COMMON NORMALS: no clubbing, cyanosis or edema, no calf tenderness and no pedal edema Neuro: COMMON NORMALS: patient oriented x3 SENSORIUM/ORIENTATION: Yes alert, Yes oriented to person, Yes oriented to place and Yes oriented to time Skin: COMMON NORMALS: no rashes or lesions noted GENERAL SKIN EXAM: no rashes or lesions noted Course Consultations: Consultation #1: Spoke with Dr. Domínguez who was here in ED and he stated their office should have received a call if anything registered abnormally. Recommends contacting [employer] to see if they can generate a report. Vital Signs: Vital signs: Vital Signs Temperature 99.5 F 12/20/20 14:48 Pulse Rate 77 12/20/20 14:48 Respiratory Rate 15 12/20/20 14:48 Blood Pressure 165/77 12/20/20 14:48 Pulse Oximetry 95 12/20/20 14:48 MDM - General Adult Lab Data: Labs: Lab Results 12/20/20 12/20/20 12/20/20 Range/Units 16:05 16:05 16:05 WBC 7.1 (4.0-10.0) 10^3/ uL RBC 4.27 (4.1-5.3) 10^6/u L Hgb 11.2 L (11.5-15.3) g/dL Hct 37.4 (37.0-47.0) % MCV 87.6 (81-99) fL MCH 26.2 L (28.0-34.0) pg MCHC 29.9 L (30.0-36.0) g/dL RDW 15.4 H (12.1-15.1) % Plt Count 351 (130-400) 10^3/c mm MPV 10.2 (7.4-10.4) fL Neut % (Auto) 75.6 % Lymph % (Auto) 10.7 % [place] % (Auto) 9.6 % Eos % (Auto) 2.5 % Baso % (Auto) 1.3 % Neut # (Auto) 5.37 (1.8-7.7) 10^3/u L Lymph # (Auto) 0.8 (0.8-4.8) 10^3/u L [place] # (Auto) 0.7 (0.2-0.9) 10^3/u L Eos # (Auto) 0.2 (0.0-0.8) 10^3/u L Baso # (Auto) 0.1 (0.0-0.1) 10^3/u L Nucleated RBC % (a uto) 0 % Nucleated RBCs # 0.0 /100WBC PT (12.1-14.9) SECO NDS INR (0.8-1.2) Sodium 145 (136-145) mmol/L Potassium 3.7 (3.5-5.1) mmol/L Chloride 104 (98-107) mmol/L Carbon Dioxide 32 H (22-29) mmol/L Anion Gap 12.7 (5-19) BUN 8 (8-23) mg/dL Creatinine 0.5 (0.5-0.9) mg/dL GFR Calculation Not Reportable Glucose 99 (65-115) mg/dL Calculated Osmolal ity 298 H (285-295) mOsm/k g Calcium 8.7 (8.5-10.5) mg/dL Total Bilirubin 0.8 (0.15-1.2) mg/dL AST 15 (0-32) U/L ALT 11 (0-33) U/L Alkaline Phosphata se 80 (35-105) IU/L Troponin T Baselin e 31 H (0-10) ng/L Total Protein 6.2 L (6.6-8.7) g/dL Albumin 4.3 (3.5-5.2) g/dL Globulin 1.9 (1.3-4.6) g/dL 12/20/20 Range/Units 16:46 WBC (4.0-10.0) 10^3/ uL RBC (4.1-5.3) 10^6/u L Hgb (11.5-15.3) g/dL Hct (37.0-47.0) % MCV (81-99) fL MCH (28.0-34.0) pg MCHC (30.0-36.0) g/dL RDW (12.1-15.1) % Plt Count (130-400) 10^3/c mm MPV (7.4-10.4) fL Neut % (Auto) % Lymph % (Auto) % [place] % (Auto) % Eos % (Auto) % Baso % (Auto) % Neut # (Auto) (1.8-7.7) 10^3/u L Lymph # (Auto) (0.8-4.8) 10^3/u L [place] # (Auto) (0.2-0.9) 10^3/u L Eos # (Auto) (0.0-0.8) 10^3/u L Baso # (Auto) (0.0-0.1) 10^3/u L Nucleated RBC % (a uto) % Nucleated RBCs # /100WBC PT 13.10 (12.1-14.9) SECO NDS INR 0.97 (0.8-1.2) Sodium (136-145) mmol/L Potassium (3.5-5.1) mmol/L Chloride (98-107) mmol/L Carbon Dioxide (22-29) mmol/L Anion Gap (5-19) BUN (8-23) mg/dL Creatinine (0.5-0.9) mg/dL GFR Calculation Glucose (65-115) mg/dL Calculated Osmolal ity (285-295) mOsm/k g Calcium (8.5-10.5) mg/dL Total Bilirubin (0.15-1.2) mg/dL AST (0-32) U/L ALT (0-33) U/L Alkaline Phosphata se (35-105) IU/L Troponin T Baselin e (0-10) ng/L Total Protein (6.6-8.7) g/dL Albumin (3.5-5.2) g/dL Globulin (1.3-4.6) g/dL Imaging Data^: CXR: Radiologist's impression: [address] [id number] ReportSigned Patient: Mehnaz Curiel #: [id number]: 8Acct#:[id number]/Sex: 80 / FADM Date: 12/20/20Loc: ERRoom/Bed:Attending Dr: Ordering Provider/Ordering MD: Redd Charles DO Date of Service: 12/20/20 Procedure(s): XR chest 1V portable [id number] Accession Number(s): [id number] Report Number: [id number] WS: [id number] Portable AP upright chest, 12/20/2020 Clinical Data: dyspnea/cough Comparison: Portable chest, 02/15/2020. Findings: No nodules, masses or effusions are seen. The heart is normal. The pulmonary vascularity is not increased. No pneumonia or pneumothorax is seen. The aortic arch and descending aorta show calcification and tortuosity. There is a small recording device overlying the left cardiac border. XR/XR chest 1V portable [id number] Impression: Atherosclerosis. Dictated By:Gilma Hunt MDSigned By:Gilma Hunt MDSigned Date/Time:12/20/20 1627DD/ 1625 EKG Data^: EKG 1: EKG interpretation date: 12/20/20 EKG interpretation time: 15:02 Interpretation: Sinus rhythm Rate 72 No acute changes when compared to previous EKGs Also reviewed by Dr. Charles Computer generated interpretation: Chest X-Ray 12/20/20 14:40 Impression: Atherosclerosis. EKG 2: EKG interpretation date: 12/20/20 EKG interpretation time: 16:38 Interpretation: Sinus rhythm Rate 69 No acute changes compared to EKG performed earlier on same visit Computer generated interpretation: Chest X-Ray 12/20/20 14:40 Impression: Atherosclerosis. Discharge Plan Discharge Patient Disposition: Home Clinical Impression: Atrial fibrillation, chronic Condition: Stable Prescriptions: No Action docusate sodium [Colace] 100 mg capsule 100 mg PO DAILY RF: 0 Eliquis 2.5 mg tablet 2.5 mg PO BID Qty: 90 RF: 3 albuterol sulfate 2.5 mg /3 mL (0.083 %) solution for nebulization 2.5 mg INHALATION Q6H RF: 0 alprazolam 0.5 mg tablet 0.5 mg PO DAILY RF: 0 budesonide 0.5 mg/2 mL suspension for nebulization 0.5 mg INHALATION BID RF: 0 ergocalciferol (vitamin D2) 1,250 mcg (50,000 unit) capsule 1,250 mcg PO DAILY RF: 0 fluticasone propionate [Flonase Allergy Relief] 50 mcg/actuation spray,suspension 2 spray INTRANASAL DAILY RF: 0 levothyroxine 25 mcg capsule 25 mcg PO DAILY RF: 0 lovastatin 20 mg tablet 20 mg PO DAILY RF: 0 montelukast 10 mg tablet 10 mg PO DAILY RF: 0 diltiazem HCl 300 mg capsule,extended release 24hr 300 mg PO DAILY Qty: 30 RF: 11 Bevespi Aerosphere 9-4.8 mcg HFA aerosol inhaler See Rx Instructions .ROUTE .COMPLEX RF: 0 Senna Lax 8.6 mg Tablet 8.6 mg PO BEDTIME Qty: 30 RF: 0 polyethylene glycol 3350 17 gram Powder In Packet 17 g PO BID Qty: 60 RF: 0 benzonatate 100 mg Capsule 100 mg PO TID PRN (Reason: Cough) Qty: 30 RF: 0 Discharge Orders: Discharge ED (Routine); Ordered 12/20/20 Ordered By: Ezekiel Castanon Referrals: Rosie Barnes DO [Primary Care Provider] - Discharge Diet: Usual diet Discharge Activity: Increase activity as tolerated Patient Instructions: Opioid Safety Activity Restrictions/Additional Instructions: Continue with routine care. Follow-up with Dr. Domínguez's office for follow-up appointment. Return to the ER as needed. Sign Out Sign Out Data: Patient Sign Out occurred on 12/20/20 at 17:12. Patient's care was discussed, and care was transferred from to Ezekiel Castanon. Coding Level of Care Code ED Human Resources Benefits Manager for Chg Fwd Exam Detailed Documented by User: KALINA López 12/20/20 18:18 HPI - General Adult General: Chief complaint: General Medical Stated complaint: SENT BY DR DOMÍNGUEZ/IMPLANTED RECORDER GOING OFF Time Seen by Provider: 12/20/20 15:52 PFSH ED PFSH: Medical History (Updated 12/20/20 @ 17:49 by KALINA López) Atrial fibrillation Atypical chest pain Bifascicular block Bradyarrhythmia Cellulitis Chest pain Chronic episodic atrial fibrillation COPD (chronic obstructive pulmonary disease) Hyperlipidemia Hypothyroidism SOB (shortness of breath) Status post placement of implantable loop recorder (~05/12/19) Status post placement of implantable loop recorder Surgical History H/O bilateral salpingo-oophorectomy H/O foot surgery H/O: hysterectomy Family History (Updated 05/31/20 @ 15:18 by Dottie Lu, RN) Father CAD (coronary artery disease) Sister CAD (coronary artery disease) Dementia Son Diabetes Grandmother Diabetes Daughter Lung disease Other Alzheimer disease Cancer Parkinson disease Denies family history of Clotting disorder Chronic kidney disease (CKD) Suicide Anesthesia complication Bleeding disorder Stroke Social History Smoking and tobacco status: former smoker Quit status (tobacco): has quit using tobacco Year quit tobacco: 1994 Alcohol intake: never Course ED course: 1700, Received patient from Angeles Roblero PA-C, we are awaiting report from [employer] loop recorder on possible event 5 days ago. Patient is resting well without any distress. 1744, discussed with rAthur from [employer] he states that there has been no recorded events since October 20. Patient did have a clearing of her report this morning but no alerts were noted since 10/20/2020. Vital Signs: Vital signs: Vital Signs Temperature 99.5 F 12/20/20 14:48 Pulse Rate 77 12/20/20 14:48 Respiratory Rate 15 12/20/20 14:48 Blood Pressure 165/77 12/20/20 14:48 Pulse Oximetry 95 12/20/20 14:48 MDM - General Adult MDM Narrative: Medical decision making narrative: Patient came in for concern due to her alert by her loop recorder about 5 days ago. Patient reports generalized symptoms of occasional shortness of breath. Review of the record notes that patient has this complaint often. Patient appears stable. Lungs are decreased in the bases heart tones are normal. EKG shows a sinus rhythm. Differential diagnosis includes atrial fib, ACS, arrhythmia, worried well. Talk with [facility] read presented to and they could not locate any recent abnormalities or alerts on system. Patient did have a run of atrial fib on October 20, 2020 but nothing else has been recorded since then. Laboratory values were unremarkable. We recommended that patient follow back up with Dr. Domínguez in the office for further evaluation and treatment. Patient was agreeable with this plan with understanding to return as needed. Lab Data: Labs: Lab Results 12/20/20 12/20/20 12/20/20 Range/Units 16:05 16:05 16:05 WBC 7.1 (4.0-10.0) 10^3/ uL RBC 4.27 (4.1-5.3) 10^6/u L Hgb 11.2 L (11.5-15.3) g/dL Hct 37.4 (37.0-47.0) % MCV 87.6 (81-99) fL MCH 26.2 L (28.0-34.0) pg MCHC 29.9 L (30.0-36.0) g/dL RDW 15.4 H (12.1-15.1) % Plt Count 351 (130-400) 10^3/c mm MPV 10.2 (7.4-10.4) fL Neut % (Auto) 75.6 % Lymph % (Auto) 10.7 % [place] % (Auto) 9.6 % Eos % (Auto) 2.5 % Baso % (Auto) 1.3 % Neut # (Auto) 5.37 (1.8-7.7) 10^3/u L Lymph # (Auto) 0.8 (0.8-4.8) 10^3/u L [place] # (Auto) 0.7 (0.2-0.9) 10^3/u L Eos # (Auto) 0.2 (0.0-0.8) 10^3/u L Baso # (Auto) 0.1 (0.0-0.1) 10^3/u L Nucleated RBC % (a uto) 0 % Nucleated RBCs # 0.0 /100WBC PT (12.1-14.9) SECO NDS INR (0.8-1.2) Sodium 145 (136-145) mmol/L Potassium 3.7 (3.5-5.1) mmol/L Chloride 104 (98-107) mmol/L Carbon Dioxide 32 H (22-29) mmol/L Anion Gap 12.7 (5-19) BUN 8 (8-23) mg/dL Creatinine 0.5 (0.5-0.9) mg/dL GFR Calculation Not Reportable Glucose 99 (65-115) mg/dL Calculated Osmolal ity 298 H (285-295) mOsm/k g Calcium 8.7 (8.5-10.5) mg/dL Total Bilirubin 0.8 (0.15-1.2) mg/dL AST 15 (0-32) U/L ALT 11 (0-33) U/L Alkaline Phosphata se 80 (35-105) IU/L Troponin T Baselin e 31 H (0-10) ng/L Total Protein 6.2 L (6.6-8.7) g/dL Albumin 4.3 (3.5-5.2) g/dL Globulin 1.9 (1.3-4.6) g/dL 12/20/20 Range/Units 16:46 WBC (4.0-10.0) 10^3/ uL RBC (4.1-5.3) 10^6/u L Hgb (11.5-15.3) g/dL Hct (37.0-47.0) % MCV (81-99) fL MCH (28.0-34.0) pg MCHC (30.0-36.0) g/dL RDW (12.1-15.1) % Plt Count (130-400) 10^3/c mm MPV (7.4-10.4) fL Neut % (Auto) % Lymph % (Auto) % [place] % (Auto) % Eos % (Auto) % Baso % (Auto) % Neut # (Auto) (1.8-7.7) 10^3/u L Lymph # (Auto) (0.8-4.8) 10^3/u L [place] # (Auto) (0.2-0.9) 10^3/u L Eos # (Auto) (0.0-0.8) 10^3/u L Baso # (Auto) (0.0-0.1) 10^3/u L Nucleated RBC % (a uto) % Nucleated RBCs # /100WBC PT 13.10 (12.1-14.9) SECO NDS INR 0.97 (0.8-1.2) Sodium (136-145) mmol/L Potassium (3.5-5.1) mmol/L Chloride (98-107) mmol/L Carbon Dioxide (22-29) mmol/L Anion Gap (5-19) BUN (8-23) mg/dL Creatinine (0.5-0.9) mg/dL GFR Calculation Glucose (65-115) mg/dL Calculated Osmolal ity (285-295) mOsm/k g Calcium (8.5-10.5) mg/dL Total Bilirubin (0.15-1.2) mg/dL AST (0-32) U/L ALT (0-33) U/L Alkaline Phosphata se (35-105) IU/L Troponin T Baselin e (0-10) ng/L Total Protein (6.6-8.7) g/dL Albumin (3.5-5.2) g/dL Globulin (1.3-4.6) g/dL EKG Data^: EKG 1: Computer generated interpretation: Chest X-Ray 12/20/20 14:40 Impression: Atherosclerosis. EKG 2: Computer generated interpretation: Chest X-Ray 12/20/20 14:40 Impression: Atherosclerosis. Discharge Plan Discharge Patient Disposition: Home Clinical Impression: Atrial fibrillation, chronic Condition: Stable Prescriptions: No Action docusate sodium [Colace] 100 mg capsule 100 mg PO DAILY RF: 0 Eliquis 2.5 mg tablet 2.5 mg PO BID Qty: 90 RF: 3 albuterol sulfate 2.5 mg /3 mL (0.083 %) solution for nebulization 2.5 mg INHALATION Q6H RF: 0 alprazolam 0.5 mg tablet 0.5 mg PO DAILY RF: 0 budesonide 0.5 mg/2 mL suspension for nebulization 0.5 mg INHALATION BID RF: 0 ergocalciferol (vitamin D2) 1,250 mcg (50,000 unit) capsule 1,250 mcg PO DAILY RF: 0 fluticasone propionate [Flonase Allergy Relief] 50 mcg/actuation spray,suspension 2 spray INTRANASAL DAILY RF: 0 levothyroxine 25 mcg capsule 25 mcg PO DAILY RF: 0 lovastatin 20 mg tablet 20 mg PO DAILY RF: 0 montelukast 10 mg tablet 10 mg PO DAILY RF: 0 diltiazem HCl 300 mg capsule,extended release 24hr 300 mg PO DAILY Qty: 30 RF: 11 Bevespi Aerosphere 9-4.8 mcg HFA aerosol inhaler See Rx Instructions .ROUTE .COMPLEX RF: 0 Senna Lax 8.6 mg Tablet 8.6 mg PO BEDTIME Qty: 30 RF: 0 polyethylene glycol 3350 17 gram Powder In Packet 17 g PO BID Qty: 60 RF: 0 benzonatate 100 mg Capsule 100 mg PO TID PRN (Reason: Cough) Qty: 30 RF: 0 Discharge Orders: Discharge ED (Routine); Ordered 12/20/20 Ordered By: Ezekiel Castanon Referrals: Rosie Barnes DO [Primary Care Provider] - Discharge Diet: Usual diet Discharge Activity: Increase activity as tolerated Patient Instructions: Opioid Safety Activity Restrictions/Additional Instructions: Continue with routine care. Follow-up with Dr. Domínguez's office for follow-up appointment. Return to the ER as needed. Sign Out Sign Out Data: Patient Sign Out occurred on 12/20/20 at 17:12. Patient's care was discussed, and care was transferred from to Ezekiel Castanon. Coding Level of Care Code ED Human Resources Benefits Manager for Chg Fwd Exam Detailed
[2020-12-20 16:22] LABS: Basophils # 0.1 10^3/uL (0.0-0.1); Basophils % 1.3 %; Eosinophils # 0.2 10^3/uL (0.0-0.8); Eosinophils % 2.5 %; Hematocrit 37.4 % (37.0-47.0); Hemoglobin 11.2 g/dL (11.5-15.3); Lymphocytes # 0.8 10^3/uL (0.8-4.8); Lymphocytes % 10.7 %; Mean Corpuscular HGB Conc 29.9 g/dL (30.0-36.0); Mean Corpuscular Hemoglobin 26.2 pg (28.0-34.0); Mean Corpuscular Volume 87.6 fL (81-99); Mean Platelet Volume 10.2 fL (7.4-10.4); Monocytes # 0.7 10^3/uL (0.2-0.9); Monocytes % 9.6 %; Neutrophils # 5.37 10^3/uL (1.8-7.7); Neutrophils % 75.6 %; Nucleated Red Blood Cells % 0 %; Platelet Count 351 10^3/cmm (130-400); Red Blood Count 4.27 10^6/uL (4.1-5.3); Red Cell Distribution Width 15.4 % (12.1-15.1); White Blood Count 7.1 10^3/uL (4.0-10.0)
[2020-12-20 16:29] LABS: Alanine Aminotransferase 11 U/L (0-33); Albumin Level 4.3 g/dL (3.5-5.2); Alkaline Phosphatase 80 IU/L (35-105); Anion Gap 12.7 (5-19); Aspartate Amino Transferase 15 U/L (0-32); Blood Urea Nitrogen 8 mg/dL (8-23); Calcium 8.7 mg/dL (8.5-10.5); Carbon Dioxide 32 mmol/L (22-29); Chloride 104 mmol/L (98-107); Creatinine Clr Calc Pharmacy 49.8317; Globulin 1.9 g/dL (1.3-4.6); Glucose 99 mg/dL (65-115); Osmolality Calculated 298 mOsm/kg (285-295); Potassium 3.7 mmol/L (3.5-5.1); Sodium 145 mmol/L (136-145); Total Bilirubin 0.8 mg/dL (0.15-1.2); Total Protein 6.2 g/dL (6.6-8.7)
[2020-12-20 16:30] LABS: Troponin(5th) Baseline 31 ng/L (0-10)
--- NOTE | 2020-12-20 16:39 | ECG_ITS ---
[facility] Test Date: 2020-12-20 Pat Name: Mehnaz Curiel Department: Room: Gender: Female Software Quality Tester: : 1940 Requested By: Redd Velazquez Order Number: [id number] Gege MD: Marshall Cox M.D. Measurements Intervals [place] Rate: 78 P: AL: QRS: -25 QRSD: 91 T: 54 QT: 396 QTc: 453 Interpretive Statements SINUS RHYTHMLOW QRS VOLTAGE IN PRECORDIAL LEADS [QRS DEFLECTION < 1.0 mV IN CHEST LEADS] POSSIBLE ANTERIOR MYOCARDIAL INFARCTION [30 ms Q WAVE IN V3/V4, OR R < 0.2 mV IN V4], PROBABLY OLD ABNORMAL RHYTHM ECG Compared to ECG 12/20/2020 15:02:19 Ventricular premature complex(es) now present Aberrant conduction of supraventricular beat(s) now present Myocardial infarct finding still present Electronically Signed On 12-21-2020 23:53:38 CDT by Marshall Cox M.D. [id number]
[2020-12-20 17:18] LABS: INR 0.97 (0.8-1.2)
--- NOTE | 2020-12-20 17:36 | PC.NURSE ---
LOOP RECORDER WAS INTERROGATED AT THIS TIME USING THE [employer] DEVICE
[2020-12-20 18:15] VITALS: BP 159/76; PULSE 76; RESP 16; O2SAT 95
--- NOTE | 2020-12-20 20:39 | ECG_ITS ---
[facility] Test Date: 2020-12-20 Pat Name: Mehnaz Curiel Department: Room: Gender: Female Cap Sewer: : 1940 Requested By: Redd Velazquez Order Number: [id number] Gege MD: Shea Garland M.D. Measurements Intervals [place] Rate: 69 P: 58 HI: 160 QRS: -26 QRSD: 97 T: 48 QT: 403 QTc: 433 Interpretive Statements SINUS RHYTHM LOW QRS VOLTAGE IN PRECORDIAL LEADS [QRS DEFLECTION < 1.0 mV IN CHEST LEADS] POSSIBLE ANTERIOR MYOCARDIAL INFARCTION [30 ms Q WAVE IN V3/V4, OR R < 0.2 mV IN V4], PROBABLY OLD Compared to ECG 12/20/2020 16:37:07 Atrial fibrillation no longer present Ventricular premature complex(es) no longer present Aberrant conduction of supraventricular beat(s) no longer present Myocardial infarct finding still present Electronically Signed On 12-20-2020 21:55:22 CDT by Shea Garland M.D. [id number]
== END 2020-12-20 18:16 | disposition home or self-care (01) ==
PROVIDERS: Family Medicine; Physician Assistant; Emergency Provider Nurse Practitioner Family; PCP Family Medicine
DX: I48.20 Chronic atrial fibrillation, unspecified (principal); Z79.01 Long term (current) use of anticoagulants; J44.9 Chronic obstructive pulmonary disease, unspecified; E78.5 Hyperlipidemia, unspecified; Z95.818 Presence of other cardiac implants and grafts; Z87.891 Personal history of nicotine dependence
CPT/HCPCS: 71045; 80053; 84484; 85025; 85610; 93005; 99283

== ENCOUNTER → 2021-09-12 15:38 | Outpatient (BNVA) | payer MEDICARE, MEDICAID, SELFPAY | PROVIDERS: PCP Family Medicine; Visit Provider Internal Medicine Cardiovascular Disease | DX: I48.20 Chronic atrial fibrillation, unspecified (principal); I10 Essential (primary) hypertension; Z95.818 Presence of other cardiac implants and grafts | CPT/HCPCS: 99214 ==

== ENCOUNTER → 2021-10-11 13:58 | Outpatient (BNVA) | payer MEDICARE, MEDICAID, SELFPAY | PROVIDERS: PCP Family Medicine; Visit Provider Internal Medicine Critical Care Medicine | DX: J44.9 Chronic obstructive pulmonary disease, unspecified (principal); J96.11 Chronic respiratory failure with hypoxia; J84.9 Interstitial pulmonary disease, unspecified; Z87.891 Personal history of nicotine dependence; E78.5 Hyperlipidemia, unspecified; E03.9 Hypothyroidism, unspecified | CPT/HCPCS: 99204 ==

== ENCOUNTER 2021-11-07 12:38 | Outpatient (CLI) | payer MEDICARE, MEDICAID, SELFPAY ==
--- NOTE | 2021-11-07 13:01 | PFTS_ITS ---
Date of Study:11/07/21 Date of Dictation: 11/09/2021 MECHANICS: Postbronchodilator forced vital capacity (FVC) is reduced. Postbronchodilator forced expiratory volume in one second (FEV1) is severely reduced. FEV1/FVC is reduced. There is significant response to bronchodilators. FLOW VOLUME LOOP: Severe slanting of expiratory limb suggestive of severe airway obstruction. LUNG VOLUMES: Not measured DIFFUSING CAPACITY FOR CARBON MONOXIDE: Severely reduced . INTERPRETATION: The spirometry consistent with severe airflow obstruction. There is significant response to bronchodilators. Lung volumes not measured. There is severe gas transfer defect. Constellation of findings consistent with severe emphysema and possible coexisting pulmonary vascular disease. Correlate clinically. MTDD
== END 2021-11-07 12:39 | disposition home or self-care (01) ==
LOC: RT 12:41
PROVIDERS: PCP Family Medicine; Visit Provider Internal Medicine Critical Care Medicine
DX: R06.02 Shortness of breath (principal); R94.2 Abnormal results of pulmonary function studies
CPT/HCPCS: 94060; 94729; J7611

== ENCOUNTER → 2021-11-15 17:23 | Outpatient (BNVA) | payer MEDICARE, MEDICAID, SELFPAY | PROVIDERS: PCP Family Medicine; Visit Provider Internal Medicine Cardiovascular Disease | DX: Z45.09 Encounter for adjustment and management of other cardiac device (principal) ==

== ENCOUNTER 2021-11-16 21:04 | Emergency (ER) | payer MEDICARE, MEDICAID, SELFPAY ==
[2021-11-16 21:10] VITALS: BP 154/82; PULSE 75; RESP 17; TEMP 37.1; O2SAT 90; BMI 27.4
[2021-11-16 21:34] VITALS: BP 147/68; PULSE 73; RESP 18; O2SAT 96
--- NOTE | 2021-11-16 21:38 | CTR_ITS ---
PROCEDURE INFORMATION: Exam: CT Head Without Contrast Exam date and time: 11/16/2021 9:54 PM Age: 81 years old Clinical indication: Altered mental status/memory loss and speech disturbance; Patient HX: Family states patient has been acting confused with episodes of abnormal speech. ; Additional info: Symptoms of acute stroke TECHNIQUE: Imaging protocol: Computed tomography of the head without contrast. Sagittal and coronal reformatted images were created and reviewed. Radiation optimization: All CT scans at this facility use at least one of these dose optimization techniques: automated exposure control; mA and/or kV adjustment per patient size (includes targeted exams where dose is matched to clinical indication); or iterative reconstruction. COMPARISON: No relevant prior studies available. RADIATION DOSE METRICS: Total DLP (mGy-cm): 1936.68 FINDINGS: Brain: No acute intracranial hemorrhage. No acute infarct. No intra-axial or extra-axial masses. Murray-white matter differentiation is preserved. No cerebral edema. No extra-axial fluid collections. No midline shift. No evidence for Chiari 1 malformation. Mild atrophy of the brain parenchyma. Moderately decreased attenuation in the deep white matter, consistent with moderate chronic microangiopathic change. Cerebral ventricles: No hydrocephalus. Paranasal sinuses: Paranasal sinuses are clear. Mastoid air cells: Mastoid air cells are clear bilaterally. Orbital cavities: Globes and lenses, extraocular muscles, and optic nerves are intact bilaterally. No acute intraorbital abnormality. Nasal cavity: Mild left nasal septal deviation. Bones/joints: No acute fracture. Soft tissues: No acute abnormality of the extracranial soft tissues. Vasculature: Atherosclerotic changes in the visualized arteries. CT/CT head wo con* [id number] IMPRESSION: 1. No acute abnormality of the brain. 2. Mild atrophy of the brain parenchyma. 3. Moderate chronic white matter microangiopathic change. 4. Incidental/nonacute findings are listed in the report.
--- NOTE | 2021-11-16 21:38 | XRR_ITS ---
PROCEDURE INFORMATION: Exam: XR Chest Exam date and time: 11/16/2021 9:45 PM Age: 81 years old Clinical indication: Other: Confusion; Prior surgery; Surgery date: 6+ months; Surgery type: Recorder; Additional info: AMS TECHNIQUE: Imaging protocol: XR of the chest. Views: 1 view. COMPARISON: CR XR chest 1V portable [id number] 12/20/2020 4:10 PM FINDINGS: Tubes, catheters and devices: An implanted cardiac monitoring device over the left chest is stable in position. Lungs: Lungs are clear bilaterally. Pleural spaces: No pleural effusion. No pneumothorax. Heart/Mediastinum: Stable mild enlargement of the cardiac silhouette. Mediastinal contours are unremarkable. Vasculature: Stable vascular calcifications in the aorta. Bones/joints: Unremarkable for age. XR/XR chest 1V portable [id number] IMPRESSION: 1. No acute cardiopulmonary process. 2. Incidental/nonacute findings are listed in the report.
--- NOTE | 2021-11-16 21:39 | ED_ITS ---
Documented by User: Edson Lucio DO 11/16/21 23:09 HPI - Altered Mental Status General: Chief Complaint: Altered Mental Status Stated Complaint: confusion, possible stroke Time Seen by Provider: 11/16/21 21:38 Source: patient and family (Daughter and grandson) Mode of arrival: ambulatory Limitations: no limitations History of Present Illness: This patient was transported to the emergency by her family. They state that somewhere between 530 and 630 they noted that she seemed to be talking in a fashion that was abnormal for her and somewhat unintelligible. They describe it as sounding Maltese and character. The patient denies any specific complaints other than having a dry mouth at this time. 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 There is no history of trauma or recent illness. Her great-grandson has stayed with her most of the day but he was gone from approximately 12:00 till 530 when he noted what seemed to be the changes. Family report that she rarely drinks alcohol. No history of falls trauma etc. MD complaint: confusion Consistency of symptoms: Waxing and Waning Associated symptoms: Reports no associated symptoms; Deny depression Review of Systems Const: Denies: fever(s), chills or body aches Eyes: Denies: change in vision or blurry vision ENMT: Denies: throat pain or odynophagia Card: Denies: chest pain, palpitations, irregular heart rhythm, edema or syncope Resp: Denies: productive cough, non-productive cough or wheezing GI: Denies: abdominal pain, nausea, vomiting or diarrhea : Denies: flank pain, difficulty voiding, dysuria or urinary frequency Musc: Denies: neck pain, back pain, extremity pain or extremity swelling Skin/Breast: Denies: rash Neuro: Reports: confusion and behavioral changes; Denies: headache(s), numbness in extremities, weakness in extremities or frequent falls Psych: Denies: anxiety, depression or mood swings Endo: Denies: polyuria or polydipsia Av/Lymph: Denies: easy bruising or easy bleeding PFS ED PFSH: Medical History Atrial fibrillation Bifascicular block Bradyarrhythmia Cellulitis Cholelithiasis Chronic episodic atrial fibrillation COPD (chronic obstructive pulmonary disease) Hyperlipidemia Hypothyroidism Surgical History H/O bilateral salpingo-oophorectomy H/O foot surgery H/O: hysterectomy Status post placement of implantable loop recorder (~05/12/19) Family History Father CAD (coronary artery disease) Sister CAD (coronary artery disease) Dementia Son Diabetes Grandmother Diabetes Daughter Lung disease Other Alzheimer disease Cancer Parkinson disease Denies family history of Clotting disorder Chronic kidney disease (CKD) Suicide Anesthesia complication Bleeding disorder Stroke Social History Smoking and tobacco status: former smoker Quit status (tobacco): has quit using tobacco Year quit tobacco: 1994 Former quit date comment: 1 ppd X 37 years, started at age 13 Alcohol intake: never Physical Exam Narrative: The patient is alert. She makes good eye contact. She complains of having a dry mouth and her speech seems to be affected by this subjective complaint however she generally enunciates well. Const: COMMON NORMALS: patient oriented x3 and alert GENERAL APPEARANCE: cooperative ORIENTATION/CONSCIOUSNESS: Yes oriented to person HENMT: COMMON NORMALS: normocephalic, atraumatic, Normal external nose present and Normal nasal mucous membranes and turbinates present (Dry membranes) HEAD & SCALP: normocephalic and atraumatic FACE & SINUS: normal facial exam, sinuses nontender and face symmetric NOSE: Normal external nose present and Normal nasal mucous membranes and turbinates present (Dry membranes) Eye: COMMON NORMALS: Equal, round and reactive pupils present, EOMs intact bilaterally and conjunctivae normal CONJUNCTIVA: Yes conjunctivae normal PUPIL: Yes Equal, round and reactive pupils present Neck/C-Spine: COMMON NORMALS: full ROM, no lymphadenopathy, supple, Thyroid normal and No carotid bruits THYROID: Thyroid normal Lymph: LYMPHATIC: no lymphadenopathy noted Chest: COMMONS NORMALS: normal inspection of the chest and normal palpation of entire chest wall Resp: COMMON NORMALS: normal respiratory effort and No use of accessory muscles EFFORT & INSPECTION: Yes able to speak in complete sentences AUSCULTATION: rhonchi (Scattered faint) Cardio: COMMON NORMALS: regular rate, regular rhythm, No murmurs present (Cardio) and Peripheral pulses 2+ throughout RATE: regular rate RHYTHM: regular rhythm PERIPHERAL PULSES: Peripheral pulses 2+ throughout GI: COMMON NORMALS: Normal to inspection, nondistended, normoactive bowel sounds present, Soft to palpation, non-tender and no bruits PALPATION: Yes Soft to palpation : COMMON NORMALS: Yes no CVA tenderness BLADDER/KIDNEY EXAM: Yes no CVA tenderness Back/Pelvis: COMMON NORMALS: no CVA tenderness, thoracic and lumbar spine normal to inspection, no thoracic nor lumbar tenderness and straight leg raise negative bilaterally Extremity: COMMON NORMALS: normal to inspection, full ROM, capillary refill normal, no calf tenderness and no pedal edema Neuro: COMMON NORMALS: patient oriented x3, moves all extremities and no focal motor deficits SENSORIUM/ORIENTATION: Yes alert and Yes oriented to person CRANIAL NERVES: Yes CN normal except as noted COORDINATION/BALANCE: finger -to-nose test normal (She has a little slowness to perform on the left but it is accurate when sh) and [id number] test normal COORDINATION: xkgiao-cu-hejd test normal (She has a little slowness to perform on the left but it is accurate when sh) and nyfk-oh-cwyi test normal Psych: COMMON NORMALS: mental status grossly normal Skin: COMMON NORMALS: no rashes or lesions noted, no wounds and turgor normal GENERAL SKIN EXAM: no rashes or lesions noted and turgor normal Course Reevaluation(s): Reevaluation #1: NIH at arrival is 0 Time: 21:39 Reevaluation #2: CT head noncontrast reassuring. Chest x-ray at this point does not reveal any acute process. We will wait on labs but certainly infection could also be a cause of her current presentation #1 most likely would be urinary tract infection given lack of any significant physical exam findings at this time. She is alert, interacting appropriately and is much more understandable after taking oral fluids (her initial complaint being a dry mouth on presentation). No other focal findings at this time. Time: 22:35 Reevaluation #3: Patient turned over to Dr. Gonzalez for disposition. Time: 23:09 Vital Signs: Vital signs: Vital Signs Temperature 98.7 F 11/16/21 21:10 Pulse Rate 76 11/17/21 00:40 Respiratory Rate 18 11/17/21 00:40 Blood Pressure 125/55 11/17/21 00:40 Pulse Oximetry 98 11/17/21 00:40 MDM - Altered Mental Status Medical Decision Making Patient who presents to the emergency department with a history of some confusion and confabulation. Her initial evaluation was reassuring and that she had no focal findings and her NIH was 0. Her initial CT and chest x-ray were reassuring. Lab Data I reviewed the patient's lab results. : 11/16/21 22:25 11/16/21 22: Radiology Impressions Chest X-Ray 11/16/21: IMPRESSION: 1. No acute cardiopulmonary process. 2. Incidental/nonacute findings are listed in the report. Head CT 11/16/21:38 IMPRESSION: 1. No acute abnormality of the brain. 2. Mild atrophy of the brain parenchyma. 3. Moderate chronic white matter microangiopathic change. 4. Incidental/nonacute findings are listed in the report. Laboratory Results WBC 7.6 10^3/uL (4.0-10.0) 11/16/21: RBC 4.06 10^6/uL (4.1-5.3) L 11/16/21: Hgb 10.0 g/dL (11.5-15.3) L 11/16/21: Hct 32.6 % (37.0-47.0) L 11/16/21: MCV 80.3 fl (81-99) L 11/16/21: MCH 24.6 pg (28.0-34.0) L 11/16/21: MCHC 30.7 g/dL (30.0-36.0) 11/16/21: RDW 15.0 % (12.1-15.1) 11/16/21: Plt Count 394 10^3/cmm (130-400) 11/16/21: MPV 10.3 fL (7.4-10.4) 11/16/21: Neut % (Auto) 79.4 % 11/16/21: Lymph % (Auto) 9.0 % 11/16/21: [place] % (Auto) 8.4 % 11/16/21: Eos % (Auto) 2.0 % 11/16/21: Baso % (Auto) 0.9 % 11/16/21: Neut # (Auto) 6.06 10^3/uL (1.8-7.7) 11/16/21 22:25 Lymph # (Auto) 0.7 10^3/uL (0.8-4.8) L 11/16/21 22:25 [place] # (Auto) 0.6 10^3/uL (0.2-0.9) 11/16/21 22:25 Eos # (Auto) 0.2 10^3/uL (0.0-0.8) 11/16/21 22:25 Baso # (Auto) 0.1 10^3/uL (0.0-0.1) 11/16/21 22:25 Nucleated RBC % (auto) 0 % 11/16/21: Nucleated RBCs # 0.0 /100WBC 11/16/21 22:25 PT 15.70 SECONDS (12.1-14.9) H 11/16/21 22:25 INR 1.21 (0.8-1.2) H 11/16/21 22:25 APTT 31.7 SECONDS (23.9-36.7) 11/16/21 22:25 Sodium 140 mmol/L (136-145) 11/16/21 22:25 Potassium 3.4 mmol/L (3.5-5.1) L 11/16/21 22:25 Chloride 98 mmol/L (98-107) 11/16/21 22:25 Carbon Dioxide 31 mmol/L (22-29) H 11/16/21 22:25 Anion Gap 14.4 (5-19) 11/16/21 22:25 BUN 8 mg/dL (8-23) 11/16/21 22:25 Creatinine 0.5 mg/dL (0.5-0.9) 11/16/21 22:25 GFR Calculation Not Reportable 11/16/21 22:25 Glucose 129 mg/dL (65-115) H 11/16/21 22:25 POC Glucose 138 mg/dL (70-110) H 11/16/21 23:20 Calculated Osmolality 290 mOsm/kg (285-295) 11/16/21 22:25 Calcium 9.1 mg/dL (8.5-10.5) 11/16/21 22:25 Total Bilirubin 0.8 mg/dL (0.15-1.2) 11/16/21 22:25 AST 20 U/L (0-32) 11/16/21 22:25 ALT 8 U/L (0-33) 11/16/21 22: Alkaline Phosphatase 94 IU/L (35-105) 11/16/21 22:25 Total Protein 7.1 g/dL (6.6-8.7) 11/16/21: Albumin 4.4 g/dL (3.5-5.2) 11/16/21: Globulin 2.7 g/dL (1.3-4.6) 11/16/21: Urine Color Yellow (Yellow) 11/16/21 23:30 Urine Appearance Clear (CLEAR) 11/16/21: Urine pH 7 (5-7) 11/16/21:30 Ur Specific [place] 1.010 (1.005-1.030) 11/16/21 23:30 Urine Protein Neg (Negative) 11/16/21 23:30 Urine Glucose (UA) Norm (Normal) 11/16/21 23:30 Urine Ketones 1+ (Negative) H 11/16/21 23:30 Urine Blood Trace (Negative) H 11/16/21 23:30 Urine Nitrate Negative (Negative) 11/16/21:30 Urine Bilirubin Neg (Negative) 11/16/21: Urine Urobilinogen 1 mg/dL (Negative) H 11/16/21 23:30 Ur Leukocyte Esterase Negative (Negative) 11/16/21 23:30 Urine RBC 0-4 /hpf (0-2) H 11/16/21 23:30 Urine WBC 0-4 /hpf (0-5) H 11/16/21 23:30 Ur Squamous Epith Cells 0-4 /hpf (0-5) H 11/16/21 23:30 Amorphous Sediment Trace /hpf 11/16/21 23:30 Urine Bacteria Trace /hpf (NONE) 11/16/21: Urine Mucus Trace /hpf 11/16/21 23:30 EKG Data EKG 1: EKG interpretation time: 21:39 Interpretation: Review of this EKG reveals normal sinus rhythm. She has low voltage notable limb leads. She has normal DC interval. Normal QRS duration. Normal axis. Normal QTC. No acute ST T wave changes noted. Discharge Plan Discharge Patient Disposition: Home Clinical Impression: Altered mental status Qualifiers: Altered mental status type: unspecified Qualified Code(s): R41.82 - Altered mental status, unspecified Condition: Stable Prescriptions: No Action docusate sodium [Colace] 100 mg capsule 100 mg PO DAILY 0RF Rx Instructions: PT STATES SHE HAS BEEN TOO SICK TO TAKE MOST OF HER MEDICATIONS FOR A FEW DAYS. Eliquis 2.5 mg tablet 2.5 mg PO BID Qty: 90 3RF alprazolam 0.5 mg tablet 0.5 mg PO DAILY 0RF Rx Instructions: PT STATES SHE HAS BEEN TOO SICK TO TAKE MOST OF HER MEDICATIONS FOR A FEW DAYS. ergocalciferol (vitamin D2) 1,250 mcg (50,000 unit) capsule 1,250 mcg PO DAILY 0RF Rx Instructions: PT STATES SHE HAS BEEN TOO SICK TO TAKE MOST OF HER MEDICATIONS FOR A FEW DAYS. fluticasone propionate [Flonase Allergy Relief] 50 mcg/actuation spray,suspens ion 2 spray INTRANASAL DAILY 0RF Rx Instructions: PT STATES SHE HAS BEEN TOO SICK TO TAKE MOST OF HER MEDICATIONS FOR A FEW DAYS. levothyroxine 25 mcg capsule 25 mcg PO DAILY 0RF Rx Instructions: PT STATES SHE HAS BEEN TOO SICK TO TAKE MOST OF HER MEDICATIONS FOR A FEW DAYS. lovastatin 20 mg tablet 20 mg PO DAILY 0RF Rx Instructions: PT STATES SHE HAS BEEN TOO SICK TO TAKE MOST OF HER MEDICATIONS FOR A FEW DAYS. montelukast 10 mg tablet 10 mg PO DAILY 0RF Rx Instructions: PT STATES SHE HAS BEEN TOO SICK TO TAKE MOST OF HER MEDICATIONS FOR A FEW DAYS. furosemide 20 mg tablet 20 mg PO DAILY 0RF potassium chloride 10 mEq tablet extended release 10 meq PO DAILY 0RF citalopram 10 mg tablet 10 mg PO DAILY 0RF diltiazem HCl 300 mg capsule,extended release 24hr 300 mg PO DAILY Qty: 90 3RF budesonide 0.5 mg/2 mL suspension for nebulization 0.5 mg INHALATION BID 30 Days Qty: 120 4RF ipratropium-albuterol 0.5 mg-3 mg(2.5 mg base)/3 mL solution for nebulization 3 ml inhalation Q6H PRN (Reason: wheezing) Qty: 180 5RF albuterol sulfate 90 mcg/actuation HFA aerosol inhaler 2 puff inhalation Q6H PRN (Reason: shortness of breath or wheezing) Qty: 8.5 5RF Senna Lax 8.6 mg Tablet 8.6 mg PO BEDTIME Qty: 30 0RF polyethylene glycol 3350 17 gram Powder In Packet 17 g PO BID Qty: 60 0RF Discharge Orders: Discharge ED (Routine); Ordered 11/16/21 Ordered By: Hilda Gonzalez Referrals: Rosie Barnes DO [Primary Care Provider] - 1-3 days Discharge Diet: Advance as tolerated Discharge Activity: Resume usual activity Patient Instructions: Altered Mental Status (ED) Coding Level of Care Code ED Marketing Technologist for Chg Fwd Exam Comprehensive Documented by User: Hilda Gonzalez MD 11/17/21 00:46 HPI - Altered Mental Status General: Chief Complaint: Altered Mental Status Stated Complaint: confusion, possible stroke Time Seen by Provider: 11/16/21 21:38 PFSH ED PFSH: Medical History Atrial fibrillation Bifascicular block Bradyarrhythmia Cellulitis Cholelithiasis Chronic episodic atrial fibrillation COPD (chronic obstructive pulmonary disease) Hyperlipidemia Hypothyroidism Surgical History H/O bilateral salpingo-oophorectomy H/O foot surgery H/O: hysterectomy Status post placement of implantable loop recorder (~05/12/19) Family History Father CAD (coronary artery disease) Sister CAD (coronary artery disease) Dementia Son Diabetes Grandmother Diabetes Daughter Lung disease Other Alzheimer disease Cancer Parkinson disease Denies family history of Clotting disorder Chronic kidney disease (CKD) Suicide Anesthesia complication Bleeding disorder Stroke Social History Smoking and tobacco status: former smoker Quit status (tobacco): has quit using tobacco Year quit tobacco: 1994 Former quit date comment: 1 ppd X 37 years, started at age 13 Alcohol intake: never Course Vital Signs: Vital signs: Vital Signs Temperature 98.7 F 11/16/21 21:10 Pulse Rate 76 11/17/21 00:40 Respiratory Rate 18 11/17/21 00:40 Blood Pressure 125/55 11/17/21 00:40 Pulse Oximetry 98 11/17/21 00:40 MDM - Altered Mental Status Medical Decision Making Patient who presents to the emergency department with a history of some confusion and confabulation. Her initial evaluation was reassuring and that she had no focal findings and her NIH was 0. Her initial CT and chest x-ray were reassuring. Took patient over from Dr. Lucio to follow-up urinalysis which was normal. I went and spoke to patient and she is able answer all my questions appropriately she did have altered mental status earlier I did offer her admission which she refuses she states she like to go home. We will discharge at her request her blood work urinalysis CT head were all normal she is to follow-up with her PCP and return if worsening. Lab Data : 11/16/21 22:25 11/16/21 22:25 Radiology Impressions Chest X-Ray 11/16/21 21:38 IMPRESSION: 1. No acute cardiopulmonary process. 2. Incidental/nonacute findings are listed in the report. Head CT 11/16/21:38 IMPRESSION: 1. No acute abnormality of the brain. 2. Mild atrophy of the brain parenchyma. 3. Moderate chronic white matter microangiopathic change. 4. Incidental/nonacute findings are listed in the report. Laboratory Results WBC 7.6 10^3/uL (4.0-10.0) 11/16/21 22: RBC 4.06 10^6/uL (4.1-5.3) L 11/16/21 22:25 Hgb 10.0 g/dL (11.5-15.3) L 11/16/21: Hct 32.6 % (37.0-47.0) L 11/16/21: MCV 80.3 fl (81-99) L 11/16/21:25 MCH 24.6 pg (28.0-34.0) L 11/16/21: MCHC 30.7 g/dL (30.0-36.0) 11/16/21: RDW 15.0 % (12.1-15.1) 11/16/21: Plt Count 394 10^3/cmm (130-400) 11/16/21: MPV 10.3 fL (7.4-10.4) 11/16/21: Neut % (Auto) 79.4 % 11/16/21: Lymph % (Auto) 9.0 % 11/16/21: [place] % (Auto) 8.4 % 11/16/21: Eos % (Auto) 2.0 % 11/16/21: Baso % (Auto) 0.9 % 11/16/21: Neut # (Auto) 6.06 10^3/uL (1.8-7.7) 11/16/21: Lymph # (Auto) 0.7 10^3/uL (0.8-4.8) L 11/16/21: [place] # (Auto) 0.6 10^3/uL (0.2-0.9) 11/16/21: Eos # (Auto) 0.2 10^3/uL (0.0-0.8) 11/16/21: Baso # (Auto) 0.1 10^3/uL (0.0-0.1) 11/16/21: Nucleated RBC % (auto) 0 % 11/16/21: Nucleated RBCs # 0.0 /100WBC 11/16/21: PT 15.70 SECONDS (12.1-14.9) H 11/16/21: INR 1.21 (0.8-1.2) H 11/16/21: APTT 31.7 SECONDS (23.9-36.7) 11/16/21: Sodium 140 mmol/L (136-145) 11/16/21: Potassium 3.4 mmol/L (3.5-5.1) L 11/16/21: Chloride 98 mmol/L (98-107) 11/16/21: Carbon Dioxide 31 mmol/L (22-29) H 11/16/21: Anion Gap 14.4 (5-19) 06/10/22 22:25 BUN 8 mg/dL (8-23) 11/16/21 22:25 Creatinine 0.5 mg/dL (0.5-0.9) 11/16/21 22: GFR Calculation Not Reportable 11/16/21 22:25 Glucose 129 mg/dL (65-115) H 11/16/21 22:25 POC Glucose 138 mg/dL (70-110) H 11/16/21 23:20 Calculated Osmolality 290 mOsm/kg (285-295) 11/16/21 22: Calcium 9.1 mg/dL (8.5-10.5) 11/16/21 22:25 Total Bilirubin 0.8 mg/dL (0.15-1.2) 11/16/21 22: AST 20 U/L (0-32) 11/16/21 22: ALT 8 U/L (0-33) 11/16/21 22:25 Alkaline Phosphatase 94 IU/L (35-105) 11/16/21 22:25 Total Protein 7.1 g/dL (6.6-8.7) 11/16/21 22: Albumin 4.4 g/dL (3.5-5.2) 11/16/21 22: Globulin 2.7 g/dL (1.3-4.6) 11/16/21 22:25 Urine Color Yellow (Yellow) 11/16/21 23:30 Urine Appearance Clear (CLEAR) 11/16/21 23:30 Urine pH 7 (5-7) 11/16/21 23:30 Ur Specific [place] 1.010 (1.005-1.030) 11/16/21 23:30 Urine Protein Neg (Negative) 11/16/21 23:30 Urine Glucose (UA) Norm (Normal) 11/16/21 23:30 Urine Ketones 1+ (Negative) H 11/16/21 23:30 Urine Blood Trace (Negative) H 11/16/21 23:30 Urine Nitrate Negative (Negative) 11/16/21 23:30 Urine Bilirubin Neg (Negative) 11/16/21 23:30 Urine Urobilinogen 1 mg/dL (Negative) H 11/16/21 23:30 Ur Leukocyte Esterase Negative (Negative) 11/16/21 23: Urine RBC 0-4 /hpf (0-2) H 11/16/21 23:30 Urine WBC 0-4 /hpf (0-5) H 11/16/21 23:30 Ur Squamous Epith Cells 0-4 /hpf (0-5) H 11/16/21 23:30 Amorphous Sediment Trace /hpf 11/16/21 23:30 Urine Bacteria Trace /hpf (NONE) 11/16/21 23:30 Urine Mucus Trace /hpf 11/16/21 23:30 Discharge Plan Discharge Patient Disposition: Home Clinical Impression: Altered mental status Qualifiers: Altered mental status type: unspecified Qualified Code(s): R41.82 - Altered mental status, unspecified Condition: Stable Prescriptions: No Action docusate sodium [Colace] 100 mg capsule 100 mg PO DAILY 0RF Rx Instructions: PT STATES SHE HAS BEEN TOO SICK TO TAKE MOST OF HER MEDICATIONS FOR A FEW DAYS. Eliquis 2.5 mg tablet 2.5 mg PO BID Qty: 90 3RF alprazolam 0.5 mg tablet 0.5 mg PO DAILY 0RF Rx Instructions: PT STATES SHE HAS BEEN TOO SICK TO TAKE MOST OF HER MEDICATIONS FOR A FEW DAYS. ergocalciferol (vitamin D2) 1,250 mcg (50,000 unit) capsule 1,250 mcg PO DAILY 0RF Rx Instructions: PT STATES SHE HAS BEEN TOO SICK TO TAKE MOST OF HER MEDICATIONS FOR A FEW DAYS. fluticasone propionate [Flonase Allergy Relief] 50 mcg/actuation spray,suspen donny 2 spray INTRANASAL DAILY 0RF Rx Instructions: PT STATES SHE HAS BEEN TOO SICK TO TAKE MOST OF HER MEDICATIONS FOR A FEW DAYS. levothyroxine 25 mcg capsule 25 mcg PO DAILY 0RF Rx Instructions: PT STATES SHE HAS BEEN TOO SICK TO TAKE MOST OF HER MEDICATIONS FOR A FEW DAYS. lovastatin 20 mg tablet 20 mg PO DAILY 0RF Rx Instructions: PT STATES SHE HAS BEEN TOO SICK TO TAKE MOST OF HER MEDICATIONS FOR A FEW DAYS. montelukast 10 mg tablet 10 mg PO DAILY 0RF Rx Instructions: PT STATES SHE HAS BEEN TOO SICK TO TAKE MOST OF HER MEDICATIONS FOR A FEW DAYS. furosemide 20 mg tablet 20 mg PO DAILY 0RF potassium chloride 10 mEq tablet extended release 10 meq PO DAILY 0RF citalopram 10 mg tablet 10 mg PO DAILY 0RF diltiazem HCl 300 mg capsule,extended release 24hr 300 mg PO DAILY Qty: 90 3RF budesonide 0.5 mg/2 mL suspension for nebulization 0.5 mg INHALATION BID 30 Days Qty: 120 4RF ipratropium-albuterol 0.5 mg-3 mg(2.5 mg base)/3 mL solution for nebulization 3 ml inhalation Q6H PRN (Reason: wheezing) Qty: 180 5RF albuterol sulfate 90 mcg/actuation HFA aerosol inhaler 2 puff inhalation Q6H PRN (Reason: shortness of breath or wheezing) Qty: 8.5 5RF Senna Lax 8.6 mg Tablet 8.6 mg PO BEDTIME Qty: 30 0RF polyethylene glycol 3350 17 gram Powder In Packet 17 g PO BID Qty: 60 0RF Discharge Orders: Discharge ED (Routine); Ordered 11/16/21 Ordered By: Hilda Gonzalez Referrals: Rosie Barnes DO [Primary Care Provider] - 1-3 days Discharge Diet: Advance as tolerated Discharge Activity: Resume usual activity Patient Instructions: Altered Mental Status (ED) Coding Level of Care Code ED Marketing Technologist for Chg Fwd Exam Comprehensive
[2021-11-16 22:25] VITALS: BP 157/66; PULSE 79; RESP 18; O2SAT 100
[2021-11-16 22:39] LABS: Basophils # 0.1 10^3/uL (0.0-0.1); Basophils % 0.9 %; Eosinophils # 0.2 10^3/uL (0.0-0.8); Hematocrit 32.6 % (37.0-47.0); Lymphocytes # 0.7 10^3/uL (0.8-4.8); Mean Corpuscular HGB Conc 30.7 g/dL (30.0-36.0); Mean Corpuscular Hemoglobin 24.6 pg (28.0-34.0); Mean Corpuscular Volume 80.3 fl (81-99); Mean Platelet Volume 10.3 fL (7.4-10.4); Monocytes # 0.6 10^3/uL (0.2-0.9); Monocytes % 8.4 %; Neutrophils # 6.06 10^3/uL (1.8-7.7); Neutrophils % 79.4 %; Nucleated Red Blood Cells % 0 %; Platelet Count 394 10^3/cmm (130-400); Red Blood Count 4.06 10^6/uL (4.1-5.3); White Blood Count 7.6 10^3/uL (4.0-10.0)
[2021-11-16 22:50] LABS: INR 1.21 (0.8-1.2)
[2021-11-16 22:51] LABS: Partial Thromboplastin Time 31.7 SECONDS (23.9-36.7)
[2021-11-16] MEDS: aspirin 325 mg EC Tablet PO (22:56)
[2021-11-16] MEDS: ondansetron 2 mg/ML SDV 2 mL 4 MG IVP (22:56)
[2021-11-16 22:59] LABS: Alanine Aminotransferase 8 U/L (0-33); Albumin Level 4.4 g/dL (3.5-5.2); Alkaline Phosphatase 94 IU/L (35-105); Anion Gap 14.4 (5-19); Aspartate Amino Transferase 20 U/L (0-32); Blood Urea Nitrogen 8 mg/dL (8-23); Calcium 9.1 mg/dL (8.5-10.5); Carbon Dioxide 31 mmol/L (22-29); Chloride 98 mmol/L (98-107); Creatinine Clr Calc Pharmacy 52.0249; Globulin 2.7 g/dL (1.3-4.6); Glucose 129 mg/dL (65-115); Osmolality Calculated 290 mOsm/kg (285-295); Potassium 3.4 mmol/L (3.5-5.1); Sodium 140 mmol/L (136-145); Total Bilirubin 0.8 mg/dL (0.15-1.2); Total Protein 7.1 g/dL (6.6-8.7)
[2021-11-16 23:23] LABS: Glucose Point of Care 138 mg/dL (70-110)
[2021-11-16 23:30] VITALS: BP 145/58; PULSE 78; RESP 18; O2SAT 97
[2021-11-16 23:44] LABS: Blood Urine Trace (Negative); Glucose Urine UA Norm (Normal); Ketones Urine 1+ (Negative); Protein Urine Neg (Negative); Urine Appearance Clear (CLEAR); Urine Color Yellow (Yellow); pH Urine 7 (5-7)
[2021-11-16 23:45] LABS: Add Urine Microscopic? YES; Bilirubin Urine Neg (Negative); Leukocyte Esterase Urine Negative (Negative); Nitrate Urine Negative (Negative); Urobilinogen Urine 1 mg/dL (Negative)
[2021-11-16 23:46] LABS: Add Urine Culture? No; Amorphous Sediment Urine TRACE /hpf; Bacteria Urine TRACE /hpf; Mucus Urine TRACE /hpf; RBC Urine 0-4 /hpf (0-2); Squamous Epithelial Cell Urine 0-4 /hpf (0-5); WBC Urine 0-4 /hpf (0-5)
[2021-11-17 00:39] VITALS: BP 125/55; PULSE 76; RESP 18; O2SAT 98
[2021-11-17 00:40] VITALS: BP 125/55; PULSE 76; RESP 18; O2SAT 98
== END 2021-11-17 00:25 | disposition home or self-care (01) ==
PROVIDERS: Emergency Medicine; Emergency Provider Emergency Medicine; PCP Family Medicine
DX: R41.82 Altered mental status, unspecified (principal); I48.20 Chronic atrial fibrillation, unspecified; Z79.01 Long term (current) use of anticoagulants
CPT/HCPCS: 36416; 70450; 71045; 80053; 81001; 82962; 85025; 85610; 85730; 96374; 99285; J2405

== ENCOUNTER 2021-11-19 10:52 | Outpatient (CLI) | payer MEDICARE, MEDICAID, SELFPAY ==
--- NOTE | 2021-11-19 11:00 | CT_ITS ---
WS: [id number] CT CHEST CT-HIGH RESOLUTION, NONCONTRAST. HISTORY: Interstitial lung disease. Technique: High-resolution chest CT is performed in inspiration, expiration, supine and prone positio kristyn. All CT scans at [facility] use at least one of these dose optimization techniques: automated exposure control; mA and/or kV adjustment per patient size (includes targeted exams where dose is mat ched to clinical indication); or iterative reconstruction. DLP: 1917.38 mGy.cm COMPARISON: 04/25/2010 Findings: Moderate pulmonary hyperinflation. Mild pleural thickening and very mild interstitial thick ening throughout both lungs. Very mild septal thickening. There is no significant air trapping identi fied. No honeycombing. No mass or nodule. Very mild bronchial wall thickening and possible early miller ges of bronchiectasis in the RIGHT middle lobe. Linear atelectasis at the LEFT lung base. No pleural effusions. Moderate atherosclerosis within the thoracic aorta. Heart size is top limits no rmal. There are scattered coronary artery calcifications. No adenopathy. High density material in the stomach of uncertain etiology. May be something ingested. Cholelithiasis. Fatty atrophy of the pancreas. No adrenal mass. Stable T11 compression fracture. Very slight anterior wedging of T8. CT/CT chest wo con [id number] Impression: 1. Chronic emphysema with no pneumonia or air trapping. 2. No honeycombing. Indeterminate but suspicious for very early changes of mil d cylindrical bronchiectasis in the RIGHT middle lobe. 3. Mild pleural thickening. 4. No adenopathy. 5. Moderate atherosclerosis aorta. 6. Cholelithiasis.
== END 2021-11-19 10:53 | disposition home or self-care (01) ==
LOC: RAD 10:53
PROVIDERS: PCP Family Medicine; Visit Provider Internal Medicine Critical Care Medicine
DX: J84.9 Interstitial pulmonary disease, unspecified (principal); J43.9 Emphysema, unspecified; K80.20 Calculus of gallbladder without cholecystitis without obstruction; I70.0 Atherosclerosis of aorta; J92.9 Pleural plaque without asbestos
CPT/HCPCS: 71250

== ENCOUNTER → 2021-11-22 09:23 | Outpatient (BNVA) | payer MEDICARE, MEDICAID, SELFPAY | PROVIDERS: PCP Family Medicine; Visit Provider Internal Medicine Critical Care Medicine | DX: J44.9 Chronic obstructive pulmonary disease, unspecified (principal); J96.11 Chronic respiratory failure with hypoxia; J84.9 Interstitial pulmonary disease, unspecified; Z87.891 Personal history of nicotine dependence; E78.5 Hyperlipidemia, unspecified; E03.9 Hypothyroidism, unspecified | CPT/HCPCS: 99214 ==

== ENCOUNTER 2022-03-28 12:16 | Outpatient (CLI) | payer MEDICARE, MEDICAID, SELFPAY ==
[2022-03-28 13:07] LABS: Basophils # 0.1 10^3/uL (0.0-0.1); Basophils % 1.3 %; Eosinophils # 0.2 10^3/uL (0.0-0.8); Hematocrit 35.1 % (37.0-47.0); Hemoglobin 10.3 g/dL (11.5-15.3); Lymphocytes # 0.8 10^3/uL (0.8-4.8); Lymphocytes % 13.1 %; Mean Corpuscular HGB Conc 29.3 g/dL (30.0-36.0); Mean Corpuscular Hemoglobin 24.8 pg (28.0-34.0); Mean Corpuscular Volume 84.4 fl (81-99); Mean Platelet Volume 10.4 fL (7.4-10.4); Monocytes # 0.7 10^3/uL (0.2-0.9); Monocytes % 10.9 %; Neutrophils # 4.26 10^3/uL (1.8-7.7); Neutrophils % 70.4 %; Nucleated Red Blood Cells % 0 %; Platelet Count 458 10^3/cmm (130-400); Red Blood Count 4.16 10^6/uL (4.1-5.3); Red Cell Distribution Width 16.3 % (12.1-15.1); White Blood Count 6.1 10^3/uL (4.0-10.0)
[2022-03-28 13:17] LABS: INR 1.05 (0.83-1.21)
[2022-03-28 13:37] LABS: Anion Gap 13.4 (5-19); Blood Urea Nitrogen 7 mg/dL (8-23); Calcium 9.5 mg/dL (8.5-10.5); Carbon Dioxide 31 mmol/L (22-29); Chloride 101 mmol/L (98-107); Glucose 101 mg/dL (65-115); Osmolality Calculated 292 mOsm/kg (285-295); Potassium 3.4 mmol/L (3.5-5.1); Sodium 142 mmol/L (136-145)
== END 2022-03-28 12:17 | disposition home or self-care (01) ==
LOC: LAB 12:18
PROVIDERS: PCP Family Medicine; Visit Provider Internal Medicine Cardiovascular Disease
DX: I49.8 Other specified cardiac arrhythmias (principal); R06.02 Shortness of breath; R07.89 Other chest pain
CPT/HCPCS: 80048; 85025; 85610; 86850; 86900

== ENCOUNTER 2022-04-01 11:06 | Outpatient (CLI) | payer MEDICARE, MEDICAID, SELFPAY ==
[2022-04-01 11:30] VITALS: BP 146/68; PULSE 87; RESP 16; TEMP 36.3; O2SAT 92
--- NOTE | 2022-04-01 11:32 | SUR.PREOP ---
Dr. Reynolds called to notify that the patient was ready for procedure. He stated that he was still seeing patients in the clinic. When this nurse asked if Dr. Reynolds could give a timeframe he stated I'm not sure . The patient and her daughter were updated that there would be just a bit of a delay and they verbalized their understanding.
--- NOTE | 2022-04-01 12:18 | PM.HP ---
Providers/Chief Complaint Primary Care Provider: Rosie Barnes DO Chief Complaint: encounter for adjustment and management of other History of Present Illness Mehnaz Curiel is a 81 year old female with CAD and ICM placement in May 2019. The device reached end-of-life. Patient is wanting to have it explanted. This patient is known to have atrial fibrillation, bradycardia, COPD and heart failure. Currently she denies any chest pain or shortness of breath. No fever, chills or cough. No other specific complaints. Review of Systems Narrative: CONSTITUTIONAL: No fever or chills. EYES: No blurring of vision or other visual disturbances lately. ENT: No hoarseness of voice, auditory disturbances or sore throat. CARDIOVASCULAR: As mentioned above. RESPIRATORY: No significant cough. GASTROINTESTINAL: No hematemesis or melena. GENITOURINARY: No dysuria or hematuria. INTEGUMENTARY: No skin rashes or history of skin cancer. NEURO: No transient ischemic attacks or amaurosis. PSYCHIATRIC: No history of psychosis or major depression. HEMATOLOGIC: No bleeding disorders or significant anemia. ENDOCRINE: No history of polyuria or polydipsia. MUSCULOSKELETAL: No recent joint pain or swelling. ALLERGY/IMMUNOLOGY: As mentioned above. Medications/Allergies Home Medications Medication Instructions Recorded Confirmed Last Taken Type alprazolam 0.5 mg tablet 0.5 mg PO DAILY 08/12/19 11/22/21 Unknown History ergocalciferol (vitamin D2) 1,250 1,250 mcg PO DAILY 08/12/19 11/22/21 Unknown History mcg (50,000 unit) capsule fluticasone propionate 50 2 spray intranasal DAILY 08/12/19 11/22/21 Unknown History mcg/actuation nasal spray,suspension (Flonase Allergy Relief) levothyroxine 25 mcg capsule 25 mcg PO DAILY 08/12/19 11/22/21 Unknown History lovastatin 20 mg tablet 20 mg PO DAILY 08/12/19 11/22/21 Unknown History montelukast 10 mg tablet 10 mg PO DAILY 08/12/19 11/22/21 Unknown History apixaban 2.5 mg tablet (Eliquis) 2.5 mg PO BID #90 tabs 01/13/20 11/22/21 02/15/20 Rx docusate sodium 100 mg capsule 100 mg PO DAILY 01/13/20 11/22/21 Unknown History (Colace) polyethylene glycol 3350 17 gram 17 g PO BID #60 ea 02/29/20 11/22/21 Unknown Rx oral powder packet sennosides 8.6 mg tablet (Senna 8.6 mg PO BEDTIME #30 tabs 02/29/20 11/22/21 Unknown Rx Lax) furosemide 20 mg tablet 20 mg PO DAILY 07/02/21 11/22/21 Unknown History potassium chloride 10 mEq 10 meq PO DAILY 07/02/21 11/22/21 Unknown History tablet,extended release diltiazem HCl 300 mg 300 mg PO DAILY #90 caps 08/21/21 11/22/21 Unknown Rx capsule,extended release 24 hr citalopram 10 mg tablet 10 mg PO DAILY 09/12/21 11/22/21 Unknown History albuterol sulfate 90 mcg/actuation 2 puff inhalation Q6H PRN 10/30/21 11/22/21 Unknown Rx aerosol inhaler shortness of breath or wheezing #8.5 grams budesonide 0.5 mg/2 mL suspension 0.5 mg (2 mL) inhalation BID 30 10/30/21 11/22/21 Unknown Rx for nebulization days #120 mL cetirizine 10 mg capsule (Zyrtec) 10 mg PO DAILY PRN 11/22/21 11/22/21 Unknown History ipratropium 0.5 mg-albuterol 3 mg 3 ml inhalation Q6H PRN wheezing 03/05/22 Unknown Rx (2.5 mg base)/3 mL nebulization #180 mL soln Allergies Allergy/AdvReac Type Severity Reaction Status Date / Time Penicillins Allergy rash Verified 03/29/22 11:19 Sulfa (Sulfonamide AdvReac didn't Verified 03/29/22 11:19 Antibiotics) feel good PFSH Acute PFSH: Medical History Atrial fibrillation Bifascicular block Bradyarrhythmia Cellulitis Cholelithiasis Chronic episodic atrial fibrillation COPD (chronic obstructive pulmonary disease) Hyperlipidemia Hypothyroidism Surgical History H/O bilateral salpingo-oophorectomy H/O foot surgery H/O: hysterectomy Status post placement of implantable loop recorder (~05/12/19) Family History Father CAD (coronary artery disease) Sister CAD (coronary artery disease) Dementia Son Diabetes Grandmother Diabetes Daughter Lung disease Other Alzheimer disease Cancer Parkinson disease Denies family history of Clotting disorder Chronic kidney disease (CKD) Suicide Anesthesia complication Bleeding disorder Stroke Social History Smoking and tobacco status: former smoker Quit status (tobacco): has quit using tobacco Year quit tobacco: 1994 Former quit date comment: 1 ppd X 37 years, started at age 13 Alcohol intake: never Vitals/I&O/Wt Last Vital Signs Temp 97.4 F L 04/01/22 11:30 Pulse 87 04/01/22 11:30 Resp 16 04/01/22 11:30 BP 146/68 04/01/22 11:30 Pulse Ox 92 04/01/22 11:30 O2 Del Method 04/01/22 11:30 O2 Flow Rate 2 04/01/22 11:30 Physical Exam Narrative: GENERAL: The patient is alert and oriented times three. Not in any acute distress. HEENT: No significant pallor, icterus or lymphadenopathy.Oral cavity: There are no mucous membrane lesions. NECK: Trachea appears to be central. No masses noted. No JVD or thyromegaly appreciated. RESPIRATORY: Chest is symmetrical. No intercostals muscle retraction or any accessory muscle activation. There is no chest wall tenderness. Breath sounds are heard bilaterally. Occasional coarse crackles. No evidence of any consolidation. BREASTS: Deferred. HEART: The heart sounds are normal. No S3 or S4. Short systolic murmur in the mitral area. No pericardial rub ABDOMEN: No vessel pulsations or distention. No tenderness. No organomegaly appreciated. Bowel sounds are normally heard. : Deferred. RECTAL: Deferred. LYMPHATIC: No lymphadenopathy noted in the neck. EXTREMITIES: No edema or cyanosis. No clubbing. MUSCULOSKELETAL: No acute joint deformities or swelling SKIN: There are no significant rashes or ecchymosis NEUROPSYCHIATRIC: The patient is alert and oriented x3. Appears to be in a good mood. No tremors or rigidity noted. A&P Assessment and plan (1) Implantable loop recorder present: Since the device is end-of-life, the patient wants the device to be explanted. (2) Chronic episodic atrial fibrillation: Patient is on long-term oral anticoagulation. She is off the Eliquis now for 2 days (3) COPD (chronic obstructive pulmonary disease): Stable. We will continue on the current management Qualifiers: COPD type: unspecified COPD Qualified Code(s): J44.9 - Chronic obstructive pulmonary disease, unspecified (4) Benign essential HTN: stage II Plan ICM explant today . The risk of bleeding, infection and other complications explained to the patient patient understood this well. Attestations Medical Necessity Statement*: Possible discharge home, after the procedure Coding Level of Care Code Acute Public Housing Manager for Chg Fwd History Expanded Problem Focused Exam Expanded Problem Focused Medical Decision Making Low Complexity Diagnoses Implantable loop recorder present Z95.818 Chronic episodic atrial fibrillation I48.20 COPD (chronic obstructive pulmonary disease) J44.9 COPD type: unspecified COPD Benign essential HTN I10
--- NOTE | 2022-04-01 12:31 | W.PM.OPSUD ---
Surgery/Procedure H&P Update DATE OF PROCEDURE: April 01, 2022 DATE H&P PERFORMED: 04/01/22 H&P UPDATE INFORMATION: I have reviewed H&P completed within last 30 days, I have examined patient prior to procedure and No changes to prior documentation PREOP DIAGNOSIS: ICM End of life PRIMARY INDICATION FOR PROCEDURE: As above PLANNED PROCEDURE: Operation Date: 04/01/22 12:00 Proposed Procedures p 45583 Loop recorder explantation Z45.09(Not Applicable) - Ximena Reynolds MD
--- NOTE | 2022-04-01 12:53 | SUR.PREOP ---
Dr. Reynolds here at 1235. Consent obtained and H & P completed. Time out performed in room. Procedure completed at 1245. Patient tolerated well. Will monitor for one hour then DC Home.
[2022-04-01 12:55] VITALS: BP 119/73; PULSE 77; RESP 20; O2SAT 100
--- NOTE | 2022-04-17 08:44 | PM.OP ---
Operative Report Date of procedure: April 17, 2022 Pre-op diagnosis: Preop Diagnosis ICM End of life Procedure: LOCATION: [facility] REFERRING PROVIDER: MEGHNA ORTEGA PREOPERATIVE DIAGNOSIS: Recurrent syncope. POSTOPERATIVE DIAGNOSIS: same ESTIMATED BLOOD LOSS: None COMPLICATIONS: None. BRIEF HISTORY: This is a 81-year-old white [female] with a history of cardiac arrhythmia, had an ICM placement in 2019, [facility]. This patient is diagnosed with atrial fibrillation. Device has reached end-of-life. So it was decided to explant the device PROCEDURE: The procedure was explained to the patient in detail with the risks and benefits. The patient understood this well and consented to proceed. The patient was brought to the Cardiac Publications Designer. The left side of the neck and the precordial region were cleaned and draped in a sterile fashion. 1% Xylocaine was used as local anesthetic agent. A 1/3 inch long incision was made at the previous implantation scar. By sharp and blunt dissection, the potline monitor pocket was accessed. The device was delivered from the pocket. Complete hemostasis was achieved. The skin was approximated with Steri-Strips EXPLANTED DEVICE: Reveal LINQ Make: [employer] Pressure dressing was applied over the insertion site. The patient was transferred to the medical floor in stable condition.
== END 2022-04-01 11:07 | disposition home or self-care (01) ==
PROVIDERS: PCP Family Medicine; Visit Provider Internal Medicine Cardiovascular Disease
PROC: (CPT 33286; principal; 2022-04-01 12:00)
DX: Z95.818 Presence of other cardiac implants and grafts (principal); I48.20 Chronic atrial fibrillation, unspecified; J44.9 Chronic obstructive pulmonary disease, unspecified; I11.0 Hypertensive heart disease with heart failure; I50.9 Heart failure, unspecified; E78.5 Hyperlipidemia, unspecified; E03.9 Hypothyroidism, unspecified; Z87.891 Personal history of nicotine dependence
CPT/HCPCS: 33286

== ENCOUNTER → 2022-06-04 14:33 | Outpatient (BNVA) | payer MEDICARE, MEDICAID, SELFPAY | PROVIDERS: PCP Family Medicine; Visit Provider Internal Medicine Pulmonary Disease | DX: J44.9 Chronic obstructive pulmonary disease, unspecified (principal); J96.11 Chronic respiratory failure with hypoxia; J84.9 Interstitial pulmonary disease, unspecified; Z87.891 Personal history of nicotine dependence | CPT/HCPCS: 99213; 99214 ==

== ENCOUNTER → 2022-07-29 13:42 | Outpatient (BNVA) | payer MEDICARE, MEDICAID, SELFPAY | PROVIDERS: PCP Family Medicine; Visit Provider Nurse Practitioner Family | DX: I48.20 Chronic atrial fibrillation, unspecified (principal); Z95.818 Presence of other cardiac implants and grafts; I10 Essential (primary) hypertension; Z79.01 Long term (current) use of anticoagulants; Z87.891 Personal history of nicotine dependence | CPT/HCPCS: 99214 ==

== ENCOUNTER 2022-10-24 16:24 | Emergency (ER) | payer MEDICARE, MEDICAID, SELFPAY ==
[2022-10-24 16:23] VITALS: BP 139/91; PULSE 96; RESP 16; TEMP 36.7; O2SAT 97
--- NOTE | 2022-10-24 16:28 | ED_ITS ---
HPI - General Adult General: Stated complaint: Anxiety Attack Time Seen by Provider: 10/24/22 16:28 [facility] ED PFS: Medical History (Updated 07/29/22 @ 14:18 by KALINA Acharya) Atrial fibrillation Bifascicular block Bradyarrhythmia Cellulitis Cholelithiasis Chronic episodic atrial fibrillation COPD (chronic obstructive pulmonary disease) Hyperlipidemia Hypothyroidism Surgical History (Updated 07/29/22 @ 14:17 by KALINA Acharya) H/O bilateral salpingo-oophorectomy H/O foot surgery H/O: hysterectomy Family History Father CAD (coronary artery disease) Sister CAD (coronary artery disease) Dementia Son Diabetes Grandmother Diabetes Daughter Lung disease Other Alzheimer disease Cancer Parkinson disease Denies family history of Clotting disorder Chronic kidney disease (CKD) Suicide Anesthesia complication Bleeding disorder Stroke Social History Smoking and tobacco status: former smoker Quit status (tobacco): has quit using tobacco Year quit tobacco: 1994 Former quit date comment: 1 ppd X 37 years, started at age 13 Alcohol intake: never Substance/Drug Use: never Discharge Plan Discharge Condition: Stable Prescriptions: No Action docusate sodium [Colace] 100 mg capsule 100 mg PO DAILY Rx Instructions: PT STATES SHE HAS BEEN TOO SICK TO TAKE MOST OF HER MEDICATIONS FOR A FEW DAYS. Eliquis 2.5 mg tablet 2.5 mg PO BID Qty: 90 3RF Hold Instructions: Resume on 04/02/22. May start taking it tomorrow alprazolam 0.5 mg tablet 0.5 mg PO DAILY Rx Instructions: PT STATES SHE HAS BEEN TOO SICK TO TAKE MOST OF HER MEDICATIONS FOR A FEW DAYS. ergocalciferol (vitamin D2) 1,250 mcg (50,000 unit) capsule 1,250 mcg PO DAILY Rx Instructions: PT STATES SHE HAS BEEN TOO SICK TO TAKE MOST OF HER MEDICATIONS FOR A FEW DAYS. fluticasone propionate [Flonase Allergy Relief] 50 mcg/actuation spray,suspension 2 spray INTRANASAL DAILY Rx Instructions: PT STATES SHE HAS BEEN TOO SICK TO TAKE MOST OF HER MEDICATIONS FOR A FEW DAYS. levothyroxine 25 mcg capsule 25 mcg PO DAILY Rx Instructions: PT STATES SHE HAS BEEN TOO SICK TO TAKE MOST OF HER MEDICATIONS FOR A FEW DAYS. lovastatin 20 mg tablet 20 mg PO DAILY Rx Instructions: PT STATES SHE HAS BEEN TOO SICK TO TAKE MOST OF HER MEDICATIONS FOR A FEW DAYS. montelukast 10 mg tablet 10 mg PO DAILY Rx Instructions: PT STATES SHE HAS BEEN TOO SICK TO TAKE MOST OF HER MEDICATIONS FOR A FEW DAYS. furosemide 20 mg tablet 20 mg PO DAILY potassium chloride 10 mEq tablet extended release 10 meq PO DAILY citalopram 10 mg tablet 10 mg PO DAILY Zyrtec 10 mg capsule 10 mg PO DAILY PRN rivastigmine 4.6 mg/24 hour patch 24 hour 4.6 mg transdermal DAILY budesonide 0.5 mg/2 mL suspension for nebulization 0.5 mg INHALATION BID 30 Days Qty: 120 4RF albuterol sulfate 90 mcg/actuation HFA aerosol inhaler 2 puff inhalation Q6H PRN (Reason: shortness of breath or wheezing) Qty: 8.5 5RF ipratropium-albuterol 0.5 mg-3 mg(2.5 mg base)/3 mL solution for nebulization 3 ml inhalation Q6H PRN (Reason: wheezing) Qty: 180 5RF diltiazem HCl 300 mg capsule,extended release 24hr 300 mg PO DAILY Qty: 90 3RF Senna Lax 8.6 mg Tablet 8.6 mg PO BEDTIME Qty: 30 0RF polyethylene glycol 3350 17 gram Powder In Packet 17 g PO BID Qty: 60 0RF Referrals: Rosie Barnes DO [Primary Care Provider] - Coding Level of Care Code ED Photovoltaic Subcontractor for Lance Cochran
--- NOTE | 2022-10-24 16:41 | XRR_ITS ---
PROCEDURE INFORMATION: Exam: XR Soft Tissue Neck Exam date and time: 10/24/2022 4:56 PM Age: 82 years old Clinical indication: Throat pain; Additional info: Globus sensation after swallowing pill TECHNIQUE: Imaging protocol: Radiologic exam of the soft tissues of the neck. COMPARISON: CT chest wo con [id number] 11/19/2021 11:10 AM FINDINGS: Airway: Normal. No abnormal narrowing. Soft tissues: Normal. Normal epiglottis. No prevertebra soft tissue swelling. No radiopaque foreign body detected. Bones/joints: Unremarkable. XR/XR soft tissue neck [id number] IMPRESSION: No acute findings.
--- NOTE | 2022-10-24 16:50 | ED_ITS ---
HPI - Anxiety General: Chief Complaint: Anxiety Stated Complaint: Anxiety Attack Time Seen by Provider: 10/24/22 16:28 History of Present Illness: Ms. Curiel is a 82-year-old lady with history of anxiety presenting to the emergency department for increased anxiety and concern over inability to take medication. She reports worsening anxiety starting over the weekend when she was out of town and had problem with her oxygen regulator. Subsequently she returned home and had an episode of choking on her anxiety medication which made her scared to take it. She has had increasing anxiety which is moderate in intensity. She has been able to tolerate scrambled eggs, yogurt, and water since choking event, denies worsening oxygen requirement. No other specific changes in health, exacerbating, or alleviating factors identified. Onset (ago): day(s) Symptoms: palpitations, extremity numbness/tingling and sense of impending doom Severity: moderate History of similar episodes: Yes Provoking factors: emotional stress and other Relieving factors: nothing Exacerbating factors: nothing Review of Systems General: Reports: 10 or more systems reviewed and unremarkable except in HPI and below PFSH ED PFSH: Medical History Atrial fibrillation Bifascicular block Bradyarrhythmia Cellulitis Cholelithiasis Chronic episodic atrial fibrillation COPD (chronic obstructive pulmonary disease) Hyperlipidemia Hypothyroidism Surgical History H/O bilateral salpingo-oophorectomy H/O foot surgery H/O: hysterectomy Family History Father CAD (coronary artery disease) Sister CAD (coronary artery disease) Dementia Son Diabetes Grandmother Diabetes Daughter Lung disease Other Alzheimer disease Cancer Parkinson disease Denies family history of Clotting disorder Chronic kidney disease (CKD) Suicide Anesthesia complication Bleeding disorder Stroke Social History Smoking and tobacco status: former smoker Quit status (tobacco): has quit using tobacco Year quit tobacco: 1994 Former quit date comment: 1 ppd X 37 years, started at age 13 Alcohol intake: never Substance/Drug Use: never Physical Exam Const: COMMON NORMALS: alert GENERAL APPEARANCE: cooperative and well developed HENMT: COMMON NORMALS: normocephalic and atraumatic HEAD & SCALP: normocephalic and atraumatic Eye: COMMON NORMALS: conjunctivae normal CONJUNCTIVA: Yes conjunctivae normal SCLERA: sclerae normal Neck/C-Spine: COMMON NORMALS: supple GENERAL: Yes trachea midline Resp: COMMON NORMALS: clear to auscultation bilaterally EFFORT & INSPECTION: Yes able to speak in complete sentences AUSCULTATION: clear to a uscultation bilaterally Cardio: COMMON NORMALS: regular rate and regular rhythm RATE: regular rate RHYTHM: regular rhythm GI: COMMON NORMALS: Soft to palpation PALPATION: Yes Soft to palpation and No Tenderness to palpation present (GI) PERCUSSION: normal to percussion Extremity: GENERAL: Yes normal exam except as noted and No edema Neuro: COMMON NORMALS: moves all extremities SENSORIUM/ORIENTATION: Yes alert and No Orientation impaired Psych: COMMON NORMALS: mental status grossly normal and Normal thought process present MOOD & AFFECT: Yes anxious and Yes tearful THOUGHT PROCESS: Normal thought process present Course Vital Signs: Vital signs: Vital Signs Temperature 98.1 F 10/24/22 16:23 Pulse Rate 96 10/24/22 16:23 Respiratory Rate 16 10/24/22 16:23 Blood Pressure 139/91 10/24/22 16:23 Pulse Oximetry 97 10/24/22 16:23 Oxygen Delivery Me thod Nasal Cannula 10/24/22 16:23 Oxygen Flow Rate 2 10/24/22 16:23 MDM - Anxiety Medical Decision Making 82-year-old lady presenting with anxiety in the context of choking event the oth er day on medications and fear of medications. She is nontoxic on exam. No evidence of respiratory distress and lung sounds are clear. Posterior oropharynx is normal. EKG demonstrates sinus rhythm with normal axis and intervals, no STEMI. Hematologic and metabolic panel without significant derangement. Neck x-ray negative for radiopaque foreign body or other abnormality. Most likely cause of patient's symptoms is anxiety secondary to underlying anxiety disorder and likely mild esophageal abrasion secondary to choking episode resulting in globus sensation. I will switch patient's pill antianxiety to liquid. The results of ED evaluation were discussed with the patient including pres criptions and/or symptomatic cares (if applicable) including appropriate and responsible use, followup plan, and return precautions. The patient verbalized understanding and felt safe for discharge. Medical Records I reviewed the patient's medical records. Lab Data I reviewed the patient's lab results. 10/24/22 17:00 10/24/22 17:00 Radiology Impressions Soft Tissue Neck X-Ray 10/24/22 16:41 IMPRESSION: No acute findings. Laboratory Results WBC 9.4 10^3/uL (4.0-10.0) 10/24/22 17:00 RBC 4.44 10^6/uL (4.1-5.3) 10/24/22 17:00 Hgb 11.8 g/dL (11.5-15.3) 10/24/22 17:00 Hct 39.0 % (37.0-47.0) 10/24/22 17:00 MCV 87.8 fl (81-99) 10/24/22 17:00 MCH 26.6 pg (28.0-34.0) L 10/24/22 17:00 MCHC 30.3 g/dL (30.0-36.0) 10/24/22 17:00 RDW 15.0 % (12.1-15.1) 10/24/22 17:00 Plt Count 375 10^3/cmm (130-400) 10/24/22 17:00 MPV 10.1 fL (7.4-10.4) 10/24/22 17:00 Neut % (Auto) 78.1 % 10/24/22 17:00 Lymph % (Auto) 11.1 % 10/24/22 17:00 Cooke % (Auto) 9.0 % 10/24/22 17:00 Eos % (Auto) 1.0 % 10/24/22 17:00 Baso % (Auto) 0.6 % 10/24/22 17:00 Neut # (Auto) 7.33 10^3/uL (1.8-7.7) 10/24/22 17:00 Lymph # (Auto) 1.0 10^3/uL (0.8-4.8) 10/24/22 17:00 Cooke # (Auto) 0.8 10^3/uL (0.2-0.9) 10/24/22 17:00 Eos # (Auto) 0.1 10^3/uL (0.0-0.8) 10/24/22 17:00 Baso # (Auto) 0.1 10^3/uL (0.0-0.1) 10/24/22 17:00 Nucleated RBC % (auto) 0 % 10/24/22 17:00 Nucleated RBCs # 0.0 /100WBC 10/24/22 17:00 Sodium 141 mmol/L (136-145) 10/24/22 17:00 Potassium 4.1 mmol/L (3.5-5.1) 10/24/22 17:00 Chloride 99 mmol/L (98-107) 10/24/22 17:00 Carbon Dioxide 32 mmol/L (22-29) H 10/24/22 17:00 Anion Gap 14.1 (5-19) 10/24/22 17:00 BUN 6 mg/dL (8-23) L 10/24/22 17:00 Creatinine 0.4 mg/dL (0.5-0.9) L 10/24/22 17:00 GFR Calculation Not Reportable 10/24/22 17:00 Glucose 109 mg/dL (65-115) 10/24/22 17:00 Calculated Osmolality 290 mOsm/kg (285-295) 10/24/22 17:00 Calcium 9.4 mg/dL (8.5-10.5) 10/24/22 17:00 Total Bilirubin 0.9 mg/dL (0.15-1.2) 10/24/22 17:00 AST 23 U/L (0-32) 10/24/22 17:00 ALT 30 U/L (0-33) 10/24/22 17:00 Alkaline Phosphatase 70 U/L (35-105) 10/24/22 17:00 Total Protein 6.6 g/dL (6.6-8.7) 10/24/22 17:00 Albumin 4.4 g/dL (3.5-5.2) 10/24/22 17:00 Globulin 2.2 g/dL (1.3-4.6) 10/24/22 17:00 TSH 1.54 uIU/mL (0.27-4.20) 10/24/22 17:00 Discharge Plan Discharge Patient Disposition: Home Clinical Impression: Anxiety, Globus sensation Condition: Stable Prescriptions: New alprazolam 1 mg/mL concentrate 0.5 mg PO DAILY PRN (Reason: anxiety) Qty: 30 0RF Discontinued alprazolam 0.5 mg tablet 0.5 mg PO DAILY Rx Instructions: PT STATES SHE HAS BEEN TOO SICK TO TAKE MOST OF HER MEDICATIONS FOR A FEW DAYS. No Action docusate sodium [Colace] 100 mg capsule 100 mg PO DAILY Rx Instructions: PT STATES SHE HAS BEEN TOO SICK TO TAKE MOST OF HER MEDICATIONS FOR A FEW DAYS. Eliquis 2.5 mg tablet 2.5 mg PO BID Qty: 90 3RF Hold Instructions: Resume on 04/02/22. May start taking it tomorrow ergocalciferol (vitamin D2) 1,250 mcg (50,000 unit) capsule 1,250 mcg PO DAILY Rx Instructions: PT STATES SHE HAS BEEN TOO SICK TO TAKE MOST OF HER MEDICATIONS FOR A FEW DAYS. fluticasone propionate [Flonase Allergy Relief] 50 mcg/actuation spray,suspension 2 spray INTRANASAL DAILY Rx Instructions: PT STATES SHE HAS BEEN TOO SICK TO TAKE MOST OF HER MEDICATIONS FOR A FEW DAYS. levothyroxine 25 mcg capsule 25 mcg PO DAILY Rx Instructions: PT STATES SHE HAS BEEN TOO SICK TO TAKE MOST OF HER MEDICATIONS FOR A FEW DAYS. lovastatin 20 mg tablet 20 mg PO DAILY Rx Instructions: PT STATES SHE HAS BEEN TOO SICK TO TAKE MOST OF HER MEDICATIONS FOR A FEW DAYS. montelukast 10 mg tablet 10 mg PO DAILY Rx Instructions: PT STATES SHE HAS BEEN TOO SICK TO TAKE MOST OF HER MEDICATIONS FOR A FEW DAYS. furosemide 20 mg tablet 20 mg PO DAILY potassium chloride 10 mEq tablet extended release 10 meq PO DAILY citalopram 10 mg tablet 10 mg PO DAILY Zyrtec 10 mg capsule 10 mg PO DAILY PRN rivastigmine 4.6 mg/24 hour patch 24 hour 4.6 mg transdermal DAILY budesonide 0.5 mg/2 mL suspension for nebulization 0.5 mg INHALATION BID 30 Days Qty: 120 4RF albuterol sulfate 90 mcg/actuation HFA aerosol inhaler 2 puff inhalation Q6H PRN (Reason: shortness of breath or wheezing) Qty: 8.5 5RF ipratropium-albuterol 0.5 mg-3 mg(2.5 mg base)/3 mL solution for nebulization 3 ml inhalation Q6H PRN (Reason: wheezing) Qty: 180 5RF diltiazem HCl 300 mg capsule,extended release 24hr 300 mg PO DAILY Qty: 90 3RF Senna Lax 8.6 mg Tablet 8.6 mg PO BEDTIME Qty: 30 0RF polyethylene glycol 3350 17 gram Powder In Packet 17 g PO BID Qty: 60 0RF Discharge Orders: Discharge ED (Routine); Ordered 10/24/22 Ordered By: Aquilino Prasad Referrals: Rosie Barnes, [Primary Care Provider] - Discharge Diet: Usual diet Discharge Activity: Increase activity as tolerated Patient Instructions: Anxiety (ED) Activity Restrictions/Additional Instructions: Thank you for visiting the emergency department. You were seen and evaluated f or anxiety and sensation of foreign body in her throat. The exact cause of your symptoms is unclear though likely related to underlying anxiety disorder end mild esophageal abrasion which should improve without treatment. I will prescribe liquid alprazolam instead of your pills. Use this only as directed and cautiously given possible side effects. Please follow-up with your primary care provider. Return to the emergency department for anything that you are concerned about and feel needs emergency department evaluation. Coding Level of Care Code ED Vulnerability Assessment Analyst for Lance Cochran
[2022-10-24] MEDS: LORazepam 2 mg/mL INJ 1 mL 0.5 MG IVP (17:00)
--- NOTE | 2022-10-24 17:14 | PC.NURSE ---
ASSUMED CARE AT 1714
[2022-10-24 17:20] LABS: Basophils # 0.1 10^3/uL (0.0-0.1); Basophils % 0.6 %; Eosinophils # 0.1 10^3/uL (0.0-0.8); Hemoglobin 11.8 g/dL (11.5-15.3); Lymphocytes % 11.1 %; Mean Corpuscular HGB Conc 30.3 g/dL (30.0-36.0); Mean Corpuscular Hemoglobin 26.6 pg (28.0-34.0); Mean Corpuscular Volume 87.8 fl (81-99); Mean Platelet Volume 10.1 fL (7.4-10.4); Monocytes # 0.8 10^3/uL (0.2-0.9); Neutrophils # 7.33 10^3/uL (1.8-7.7); Neutrophils % 78.1 %; Nucleated Red Blood Cells % 0 %; Platelet Count 375 10^3/cmm (130-400); Red Blood Count 4.44 10^6/uL (4.1-5.3); White Blood Count 9.4 10^3/uL (4.0-10.0)
--- NOTE | 2022-10-24 17:33 | ECG_ITS ---
[facility] Test Date: 2022-10-24 Pat Name: Mehnaz Curiel Department: Room: Gender: Female Blending Line Attendant: : 1940 Requested By: Aquilino Prasad Order Number: [id number] De Guzman MD: Shea Garland M.D. Measurements Intervals Douglas Rate: 91 P: 99 VT: 149 QRS: -53 QRSD: 92 T: 56 QT: 353 QTc: 435 Interpretive Statements SINUS RHYTHM WITH OCCASIONAL VENTRICULAR PREMATURE COMPLEXES LOW QRS VOLTAGE IN PRECORDIAL LEADS [QRS DEFLECTION < 1.0 mV IN CHEST LEADS] PATTERN CONSISTENT WITH PULMONARY DISEASE INCOMPLETE RIGHT BUNDLE BRANCH BLOCK [90+ ms QRS DURATION, TERMINAL R IN V1/V2, 40+ ms S IN I/aVL/V4/V5/V6] LEFT ANTERIOR FASCICULAR BLOCK [QRS AXIS <= -45, QR IN I, RS IN II] Compared to ECG 12/20/2020 16:38:25 Ventricular premature complex(es) now present Incomplete right bundle-branch block now present Left anterior fascicular block now present Myocardial infarct finding no longer present Electronically Signed On 10-26-2022 6:04:01 CDT by Shea Garland M.D. [id number]
[2022-10-24 17:52] LABS: Alanine Aminotransferase 30 U/L (0-33); Albumin Level 4.4 g/dL (3.5-5.2); Alkaline Phosphatase 70 U/L (35-105); Blood Urea Nitrogen 6 mg/dL (8-23); Calcium 9.4 mg/dL (8.5-10.5); Carbon Dioxide 32 mmol/L (22-29); Chloride 99 mmol/L (98-107); Globulin 2.2 g/dL (1.3-4.6); Glucose 109 mg/dL (65-115); Osmolality Calculated 290 mOsm/kg (285-295); Sodium 141 mmol/L (136-145); Thyroid Stimulating Hormone 1.54 uIU/mL (0.27-4.20); Total Bilirubin 0.9 mg/dL (0.15-1.2); Total Protein 6.6 g/dL (6.6-8.7)
[2022-10-24 18:12] LABS: Anion Gap 14.1 (5-19); Aspartate Amino Transferase 23 U/L (0-32); Potassium 4.1 mmol/L (3.5-5.1)
== END 2022-10-24 19:08 | disposition home or self-care (01) ==
PROVIDERS: Emergency Provider Emergency Medicine; PCP Family Medicine
DX: F41.9 Anxiety disorder, unspecified (principal); F45.8 Other somatoform disorders; Z79.01 Long term (current) use of anticoagulants; Z87.891 Personal history of nicotine dependence; J44.9 Chronic obstructive pulmonary disease, unspecified; E78.5 Hyperlipidemia, unspecified
CPT/HCPCS: 70360; 80053; 84443; 85025; 93005; 96374; 99285; J2060

== ENCOUNTER 2022-11-01 08:20 | Emergency (ER) | payer MEDICARE, MEDICAID, SELFPAY ==
[2022-11-01] VITALS (9 sets, daily range): BP systolic 116–139; BP diastolic 52–77; PULSE 91–104; RESP 16–18; TEMP 37.1; O2SAT 93–98; BMI 25.7
--- NOTE | 2022-11-01 08:36 | XR_ITS ---
WS: [id number] Portable AP upright chest, 11/01/2022 Clinical Data: increased SOB Comparison: Portable chest, 11/16/2021 Findings: There is a minimal patchy opacity in the right lower lobe which may represent atelectasis a nd/or pneumonia. There is minimal patchy atelectasis in the retrocardiac region which could also repr esent atelectasis and/or pneumonia. The upper lobes are clear. There are no nodules, masses or effusi ons. The heart is normal. There is no pneumothorax. The aortic arch and descending thoracic aorta oneyda w calcification and tortuosity. There is a dextroscoliosis of the mid thoracic spine. XR/XR chest 1V portable [id number] Impression: 1. Minimal patchy bilateral opacities in the lower lobes with more in the right than the left which could represent atelectasis and/or pneumonia. 2. Atherosclerosis.
--- NOTE | 2022-11-01 08:45 | ECG_ITS ---
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 Measurements Intervals [place] Rate: 99 P: 60 [place]: 143 QRS: -55 QRSD: 100 T: 65 QT: 350 QTc: 450 Interpretive Statements SINUS RHYTHM INCOMPLETE RIGHT BUNDLE BRANCH BLOCK [90+ ms QRS DURATION, TERMINAL R IN V1/V2, 40+ ms S IN I/aVL/V4/V5/V6] LEFT ANTERIOR FASCICULAR BLOCK [QRS AXIS <= -45, QR IN I, RS IN II] Compared to ECG 10/24/2022 17:33:51 Ventricular premature complex(es) no longer present Electronically Signed On 11-01-2022 9:15:21 CDT by Shea Garland M.D. [id number]
--- NOTE | 2022-11-01 08:54 | ED_ITS ---
Documented by User: Aracelis Chavez PA-C 11/01/22 11:58 HPI - SOB/Dyspnea General: Chief Complaint: Shortness of Breath/Dyspnea Stated Complaint: weakness Time Seen by Provider: 11/01/22 08:35 Source: patient and family Mode of arrival: EMS Limitations: no limitations History of Present Illness: HPI Narrative: 82-year-old female presents to the ER via EMS with a history of COPD, A-fib, hyperlipidemia, and hypothyroidism. Patient and family report over the last week or so patient has been having increasing issues with shortness of breath. Patient is on 3-1/2 L of oxygen at home. She does live with daughter and son-in-law. They report that yesterday they noticed increased production of patient's cough in addition to increased shortness of breath. Patient does daily breathing treatments however those did not seem to be helping. They not iced increased wheezing and lethargy. Patient did start running a fever yesterday and fever was up to almost 101. Last night fever got up to 102. They report they have noticed patient having retractions and struggling to breathe. Patient reports she is also been nauseous and had a lack of appetite. They have noticed she is eating less over the last several days. Patient reports she feels overall weak and not well. Denies any known sick contacts. Denies any chest pain. Patient reports she had some diarrhea a couple of days ago but has not had a bowel movement since. Review of Systems General: Reports: 10 or more systems reviewed and unremarkable except in HPI and below PFSH ED PFSH: Medical History Atrial fibrillation Bifascicular block Bradyarrhythmia Cellulitis Cholelithiasis Chronic episodic atrial fibrillation COPD (chronic obstructive pulmonary disease) Hyperlipidemia Hypothyroidism Surgical History H/O bilateral salpingo-oophorectomy H/O foot surgery H/O: hysterectomy Family History Father CAD (coronary artery disease) Sister CAD (coronary artery disease) Dementia Son Diabetes Grandmother Diabetes Daughter Lung disease Other Alzheimer disease Cancer Parkinson disease Denies family history of Clotting disorder Chronic kidney disease (CKD) Suicide Anesthesia complication Bleeding disorder Stroke Social History Smoking and tobacco status: former smoker Quit status (tobacco): has quit using tobacco Year quit tobacco: 1994 Former quit date comment: 1 ppd X 37 years, started at age 13 Alcohol intake: never Substance/Drug Use: never Physical Exam Const: COMMON NORMALS: average body habitus, no limitations and alert HENMT: COMMON NORMALS: normocephalic, atraumatic, external ears normal, TM's normal bilaterally, Normal nasal mucous membranes and turbinates present and moist oral mucous membranes HEAD & SCALP: normocephalic and atraumatic NOSE: Normal nasal mucous membranes and turbinates present EXTERNAL EAR: Yes external ears normal TYMPANIC MEMBRANE: TM's normal bilaterally Eye: COMMON NORMALS: conjunctivae normal CONJUNCTIVA: Yes conjunctivae normal Neck/C-Spine: COMMON NORMALS: full ROM and no lymphadenopathy Resp: EFFORT & INSPECTION: Yes able to speak in complete sentences, Yes labored, Yes Actively coughing and Yes audible wheezes AUSCULTATION: wheezes and diminished lung sounds bilateral Cardio: COMMON NORMALS: regular rate, regular rhythm and No murmurs present (Cardio) RATE: regular rate RHYTHM: regular rhythm GI: COMMON NORMALS: Normal to inspection, nondistended, normoactive bowel sounds present, Soft to palpation and non-tender PALPATION: Yes Soft to palpation Extremity: COMMON NORMALS: normal to inspection and no pedal edema Neuro: SENSORIUM/ORIENTATION: Yes alert Psych: COMMON NORMALS: mental status grossly normal, Normal thought process present and cooperative THOUGHT PROCESS: Normal thought process present Skin: COMMON NORMALS: no rashes or lesions noted and no wounds GENERAL SKIN EXAM: no rashes or lesions noted Course ED course: Patient presents to the ER with increased shortness of breath and fevers. Upon arrival, patient is satting 95% on 3-1/2 L. Patient does have significant wheezing and decreased breath sounds throughout bilateral lobes. We will start patient on Rocephin and steroids. I suspect COPD versus pneumonia or both. We will get an ABG as family reports patient's O2 has been low at home. We will also get lab work and a UA. Chest x-ray ordered at this time. Patient overall has stable vitals. Vital Signs: Vital signs: Vital Signs Temperature 98.8 F 11/01/22 08:24 Pulse Rate 96 11/01/22 12:07 Respiratory Rate 18 11/01/22 09:10 Blood Pressure 125/52 11/01/22 12:07 Pulse Oximetry 98 11/01/22 12:07 Oxygen Delivery Me thod Nasal Cannula 11/01/22 09:10 Oxygen Flow Rate 3 11/01/22 09:10 MDM - SOB/Dyspnea Medical Decision Making Patient has a slightly elevated white count at 13,000 however that is likely consistent for the right lower lobe pneumonia noted on patient's chest x-ray and CT. We did complete an abdominal CT given the nausea however that is mostly unremarkable. Patient was started on Rocephin and given dexamethasone in the ER today. Patient's O2 sats have ranged from 95 to 98% on 3.5 L which is what she uses at home. Discussed findings with family and the fact that patient has not failed outpatient therapy I would recommend we try that first. We will start patient on Levaquin and also a burst of prednisone. Patient was also given Mucinex in liquid form as she cannot swallow pills. Recommended pushing fluids. Patient should follow-up with PCP in 3 to 5 days. If patient becomes more short of breath or is requiring more oxygen please follow-up with the ER. Family verbalized understanding and was in agreement with the treatment plan. Lab Data 11/01/22 09:00 11/01/22 09:00 Labs/Radiology: Radiology Impressions Chest X-Ray 11/01/22 08:36 Impression: 1. Minimal patchy bilateral opacities in the lower lobes with more in the right than the left which could represent atelectasis and/or pneumonia. 2. Atherosclerosis. Abdomen/Pelvis CT 11/01/22 10:20 IMPRESSION: 1. Patchy areas of consolidation in the right lower lobe concerning for possible pneumonia. 2. Cholelithiasis without evidence of acute cholecystitis. No intra or extrahepatic biliary dilatation. 3. 9 mm solid appearing nodule in the pancreatic tail, unchanged from prior exam. Consider nonemergent MRI for further evaluation. 4. Colonic diverticulosis without signs of acute diverticulitis. Laboratory Results WBC 13.0 10^3/uL (4.0-10.0) H 11/01/22 09:00 RBC 4.23 10^6/uL (4.1-5.3) 11/01/22 09:00 Hgb 11.4 g/dL (11.5-15.3) L 11/01/22 09:00 Hct 38.1 % (37.0-47.0) 11/01/22 09:00 MCV 90.1 fl (81-99) 11/01/22 09:00 MCH 27.0 pg (28.0-34.0) L 11/01/22 09:00 MCHC 29.9 g/dL (30.0-36.0) L 11/01/22 09:00 RDW 14.8 % (12.1-15.1) 11/01/22 09:00 Plt Count 339 10^3/cmm (130-400) 11/01/22 09:00 MPV 10.9 fL (7.4-10.4) H 11/01/22 09:00 Neut % (Auto) 84.7 % 11/01/22 09:00 Lymph % (Auto) 4.2 % 11/01/22 09:00 [place] % (Auto) 10.2 % 11/01/22 09:00 Eos % (Auto) 0.2 % 11/01/22 09:00 Baso % (Auto) 0.4 % 11/01/22 09:00 Neut # (Auto) 11.01 10^3/uL (1.8-7.7) H 11/01/22 09:00 Lymph # (Auto) 0.6 10^3/uL (0.8-4.8) L 11/01/22 09:00 [place] # (Auto) 1.3 10^3/uL (0.2-0.9) H 11/01/22 09:00 Eos # (Auto) 0.0 10^3/uL (0.0-0.8) 11/01/22 09:00 Baso # (Auto) 0.1 10^3/uL (0.0-0.1) 11/01/22 09:00 Nucleated RBC % (auto) 0 % 11/01/22 09:00 Nucleated RBCs # 0.0 /100WBC 11/01/22 09:00 Specimen Type Arterial 11/01/22 08:47 Sample Site Radial, right 11/01/22 08:47 ABG pH 7.44 (7.35-7.45) 11/01/22 08:47 ABG pCO2 60.2 mmHg (35-45) H* 11/01/22 08:47 ABG pO2 82.2 mmHg (80.0-100.0) 11/01/22 08:47 ABG HCO3 40.3 mmol/L (22-26) H 11/01/22 08:47 ABG O2 Saturation 97.9 11/01/22 08:47 ABG Base Excess 13.6 mmol/L (-2.0-2.0) H 11/01/22 08:47 Carlos Test Pos 11/01/22 08:47 A-a O2 Gradient Not Reportable 11/01/22 08:47 Hematocrit 36.7 % (37-47) L 11/01/22 08:47 Hgb O2 Saturation 96.2 % (95-100) 11/01/22 08:47 Carboxyhemoglobin 1.5 %THgb (0.4-20.1) 11/01/22 08:47 Methemoglobin 0.3 % (0.4-1.5) L 11/01/22 08:47 Total Hemoglobin 12.0 g/dL (12-16) 11/01/22 08:47 Sodium 141.0 mmol/L (131-143) 11/01/22 08:47 Potassium 3.4 mmol/L (3.5-5.0) L 11/01/22 08:47 Glucose 151.0 mg/dL (70-115) H 11/01/22 08:47 Ionized Calcium 1.2 mmol/L (1.1-1.4) 11/01/22 08:47 O2 Delivery Device Nc 11/01/22 08:47 O2 Liters/Min 3.0 % 11/01/22 08:47 Natural Gas Plant Supervisor ID [place] 11/01/22 08:47 Sodium 140 mmol/L (136-145) 11/01/22 09:00 Potassium 3.4 mmol/L (3.5-5.1) L 11/01/22 09:00 Chloride 94 mmol/L (98-107) L 11/01/22 09:00 Carbon Dioxide 36 mmol/L (22-29) H 11/01/22 09:00 Anion Gap 13.4 (5-19) 11/01/22 09:00 BUN 14 mg/dL (8-23) 11/01/22 09:00 Creatinine 0.5 mg/dL (0.5-0.9) 11/01/22 09: GFR Calculation Not Reportable 11/01/22 09:00 Glucose 144 mg/dL (65-115) H 11/01/22 09:00 Calculated Osmolality 293 mOsm/kg (285-295) 11/01/22 09:00 Lactic Acid 1.7 mmol/L (0.5-2.2) 11/01/22 09:07 Calcium 8.7 mg/dL (8.5-10.5) 11/01/22 09:00 Total Bilirubin 1.3 mg/dL (0.15-1.2) H 11/01/22 09:00 AST 12 U/L (0-32) 11/01/22 09:00 ALT 14 U/L (0-33) 11/01/22 09:00 Alkaline Phosphatase 71 U/L (35-105) 11/01/22 09:00 Total Protein 6.6 g/dL (6.6-8.7) 11/01/22 09:00 Albumin 3.7 g/dL (3.5-5.2) 11/01/22 09:00 Globulin 2.9 g/dL (1.3-4.6) 11/01/22 09:00 Urine Color Yellow (Yellow) 11/01/22:30 Urine Appearance Clear (CLEAR) 11/01/22 09:30 Urine pH 5 (5-7) 11/01/22 09:30 Ur Specific [place] 1.015 (1.005-1.030) 11/01/22 09:30 Urine Protein Trace (Negative) 11/01/22 09: Urine Glucose (UA) Norm (Normal) 11/01/22 09:30 Urine Ketones Negative (Negative) 11/01/22 09:30 Urine Blood 2+ (Negative) H 11/01/22 09:30 Urine Nitrate Negative (Negative) 11/01/22: Urine Bilirubin Neg (Negative) 11/01/22 09:30 Urine Urobilinogen Norm mg/dL (Negative) 11/01/22 09:30 Ur Leukocyte Esterase Negative (Negative) 11/01/22 09:30 Urine RBC 5-10 /hpf (0-2) H 11/01/22 09:30 Urine WBC 0-4 /hpf (0-5) H 11/01/22 09:30 Ur Squamous Epith Cells 0-4 /hpf (0-5) H 11/01/22 09:30 Amorphous Sediment Not Reportable 11/01/22 09:30 Urine Bacteria 1+ /hpf (NONE) H 11/01/22 09:30 Urine Mucus 2+ /hpf 11/01/22 09:30 SARS-CoV-2 Ag (Rapid) negative (Negative) 11/01/22 09:10 Critical Care Time Critical Care Time: Critical Care Time: No Discharge Plan Discharge Patient Disposition: Home Clinical Impression: Community acquired pneumonia of right lower lobe of lung Condition: Stable Prescriptions: New Child Mucinex Stuffy Nose-Chst 2.5-100 mg/5 mL liquid 20 ml PO Q4H PRN (Reason: cough) Qty: 118 0RF No Action Eliquis 2.5 mg tablet 2.5 mg PO BID Qty: 90 3RF Hold Instructions: Resume on 04/02/22. May start taking it tomorrow ergocalciferol (vitamin D2) 1,250 mcg (50,000 unit) capsule See Rx Instructions .ROUTE .COMPLEX Rx Instructions: 50,000 units twice a month on the and the fluticasone propionate [Flonase Allergy Relief] 50 mcg/actuation spray,suspension 2 spray INTRANASAL DAILY lovastatin 20 mg tablet 20 mg PO QAM montelukast 10 mg tablet 10 mg PO DAILY furosemide 20 mg tablet 20 mg PO QAM potassium chloride 10 mEq tablet extended release 10 meq PO QAM rivastigmine 4.6 mg/24 hour patch 24 hour 1 patch transdermal DAILY@2029 budesonide 0.5 mg/2 mL suspension for nebulization 0.5 mg INHALATION BID 30 Days Qty: 120 4RF albuterol sulfate 90 mcg/actuation HFA aerosol inhaler 2 puff inhalation Q6H PRN (Reason: shortness of breath or wheezing) Qty: 8.5 5RF ipratropium-albuterol 0.5 mg-3 mg(2.5 mg base)/3 mL solution for nebulization 3 ml inhalation Q6H PRN (Reason: wheezing) Qty: 180 5RF sennosides [Senna Lax] 8.6 mg Tablet 8.6 mg PO BEDTIME Qty: 30 0RF Tiadylt ER 300 mg capsule,extended release 24 hr 300 mg PO QAM alprazolam 0.5 mg tablet 0.5 mg PO BID PRN (Reason: Anxiety) Zyrtec 10 mg Tablet 10 mg PO QAM levothyroxine 25 mcg tablet 25 mcg PO QAM ondansetron 4 mg tablet,disintegrating 4 mg PO TID PRN (Reason: Nausea And Vomiting) ezetimibe 10 mg tablet 10 mg PO QAM Myrbetriq 25 mg tablet extended release 24 hr 25 mg PO DAILY albuterol sulfate 2.5 mg /3 mL (0.083 %) solution for nebulization 2.5 mg inhalation DAILY Discharge Orders: Discharge ED (Routine); Ordered 11/01/22 Ordered By: Aracelis Chavez Referrals: Rosie Barnes DO [Primary Care Provider] - Discharge Diet: Usual diet Discharge Activity: Increase activity as tolerated Patient Instructions: Opioid Safety, Pain Management Activity Restrictions/Additional Instructions: Take levofloxacin, Mucinex, and prednisone as prescribed. Take Zofran as prescribed. Continue home nebulizer treatments. Wear home oxygen as previously prescribed. Push fluids. Recommend doing Ensure drinks at least 2-3 times a day. Follow-up with PCP in 3 to 5 days. Return to the ER with new or worsening symptoms. Coding Level of Care Code ED Oracle Database Architect for Chg Fwd Documented by User: Redd Charles DO 11/11/22 07:16 HPI - SOB/Dyspnea General: Chief Complaint: Shortness of Breath/Dyspnea Stated Complaint: weakness Time Seen by Provider: 11/01/22 08:35 PFSH ED PFSH: Medical History Atrial fibrillation Bifascicular block Bradyarrhythmia Cellulitis Cholelithiasis Chronic episodic atrial fibrillation COPD (chronic obstructive pulmonary disease) Hyperlipidemia Hypothyroidism Surgical History H/O bilateral salpingo-oophorectomy H/O foot surgery H/O: hysterectomy Family History Father CAD (coronary artery disease) Sister CAD (coronary artery disease) Dementia Son Diabetes Grandmother Diabetes Daughter Lung disease Other Alzheimer disease Cancer Parkinson disease Denies family history of Clotting disorder Chronic kidney disease (CKD) Suicide Anesthesia complication Bleeding disorder Stroke Social History Smoking and tobacco status: former smoker Quit status (tobacco): has quit using tobacco Year quit tobacco: 1994 Former quit date comment: 1 ppd X 37 years, started at age 13 Alcohol intake: never Substance/Drug Use: never Course Vital Signs: Vital signs: Vital Signs Temperature 98.8 F 11/01/22 08:24 Pulse Rate 96 11/01/22 12:07 Respiratory Rate 18 11/01/22 09:10 Blood Pressure 125/52 11/01/22 12:07 Pulse Oximetry 98 11/01/22 12:07 Oxygen Delivery Me thod Nasal Cannula 11/01/22 09:10 Oxygen Flow Rate 3 11/01/22 09:10 MDM - SOB/Dyspnea Medical Decision Making Patient has a slightly elevated white count at 13,000 however that is likely consistent for the right lower lobe pneumonia noted on patient's chest x-ray and CT. We did complete an abdominal CT given the nausea however that is mostly unremarkable. Patient was started on Rocephin and given dexamethasone in the ER today. Patient's O2 sats have ranged from 95 to 98% on 3.5 L which is what she uses at home. Discussed findings with family and the fact that patient has not failed outpatient therapy I would recommend we try that first. We will start patient on Levaquin and also a burst of prednisone. Patient was also given Mucinex in liquid form as she cannot swallow pills. Recommended pushing fluids. Patient should follow-up with PCP in 3 to 5 days. If patient becomes more short of breath or is requiring more oxygen please follow-up with the ER. Family verbalized understanding and was in agreement with the treatment plan. Chart reviewed and patient discussed with midlevel. Agree with assessment and plan. Lab Data 11/01/22 09:00 11/01/22 09:00 Labs/Radiology: Radiology Impressions Chest X-Ray 11/01/22 08:36 Impression: 1. Minimal patchy bilateral opacities in the lower lobes with more in the right than the left which could represent atelectasis and/or pneumonia. 2. Atherosclerosis. Abdomen/Pelvis CT 11/01/22 10:20 IMPRESSION: 1. Patchy areas of consolidation in the right lower lobe concerning for possible pneumonia. 2. Cholelithiasis without evidence of acute cholecystitis. No intra or extrahepatic biliary dilatation. 3. 9 mm solid appearing nodule in the pancreatic tail, unchanged from prior exam. Consider nonemergent MRI for further evaluation. 4. Colonic diverticulosis without signs of acute diverticulitis. Laboratory Results WBC 13.0 10^3/uL (4.0-10.0) H 11/01/22 09:00 RBC 4.23 10^6/uL (4.1-5.3) 11/01/22 09:00 Hgb 11.4 g/dL (11.5-15.3) L 11/01/22 09:00 Hct 38.1 % (37.0-47.0) 11/01/22 09:00 MCV 90.1 fl (81-99) 11/01/22 09:00 MCH 27.0 pg (28.0-34.0) L 11/01/22 09:00 MCHC 29.9 g/dL (30.0-36.0) L 11/01/22 09:00 RDW 14.8 % (12.1-15.1) 11/01/22 09:00 Plt Count 339 10^3/cmm (130-400) 11/01/22 09:00 MPV 10.9 fL (7.4-10.4) H 11/01/22 09:00 Neut % (Auto) 84.7 % 11/01/22 09:00 Lymph % (Auto) 4.2 % 11/01/22 09:00 [place] % (Auto) 10.2 % 11/01/22 09:00 Eos % (Auto) 0.2 % 11/01/22 09:00 Baso % (Auto) 0.4 % 11/01/22 09:00 Neut # (Auto) 11.01 10^3/uL (1.8-7.7) H 11/01/22 09:00 Lymph # (Auto) 0.6 10^3/uL (0.8-4.8) L 11/01/22 09:00 [place] # (Auto) 1.3 10^3/uL (0.2-0.9) H 11/01/22 09:00 Eos # (Auto) 0.0 10^3/uL (0.0-0.8) 11/01/22 09:00 Baso # (Auto) 0.1 10^3/uL (0.0-0.1) 11/01/22 09:00 Nucleated RBC % (auto) 0 % 11/01/22 09:00 Nucleated RBCs # 0.0 /100WBC 11/01/22 09:00 Specimen Type Arterial 11/01/22 08:47 Sample Site Radial, right 11/01/22 08:47 ABG pH 7.44 (7.35-7.45) 11/01/22 08:47 ABG pCO2 60.2 mmHg (35-45) H* 11/01/22 08:47 ABG pO2 82.2 mmHg (80.0-100.0) 11/01/22 08:47 ABG HCO3 40.3 mmol/L (22-26) H 11/01/22 08:47 ABG O2 Saturation 97.9 11/01/22 08:47 ABG Base Excess 13.6 mmol/L (-2.0-2.0) H 11/01/22 08:47 Carlos Test Pos 11/01/22 08:47 A-a O2 Gradient Not Reportable 11/01/22 08:47 Hematocrit 36.7 % (37-47) L 11/01/22 08:47 Hgb O2 Saturation 96.2 % (95-100) 11/01/22 08:47 Carboxyhemoglobin 1.5 %THgb (0.4-20.1) 11/01/22 08:47 Methemoglobin 0.3 % (0.4-1.5) L 11/01/22 08:47 Total Hemoglobin 12.0 g/dL (12-16) 11/01/22 08:47 Sodium 141.0 mmol/L (131-143) 11/01/22 08:47 Potassium 3.4 mmol/L (3.5-5.0) L 11/01/22 08:47 Glucose 151.0 mg/dL (70-115) H 11/01/22 08:47 Ionized Calcium 1.2 mmol/L (1.1-1.4) 11/01/22 08:47 O2 Delivery Device Nc 11/01/22 08:47 O2 Liters/Min 3.0 % 11/01/22 08:47 [employer] Plant Supervisor ID Maurizio 11/01/22 08:47 Sodium 140 mmol/L (136-145) 11/01/22 09:00 Potassium 3.4 mmol/L (3.5-5.1) L 11/01/22 09:00 Chloride 94 mmol/L (98-107) L 11/01/22 09:00 Carbon Dioxide 36 mmol/L (22-29) H 11/01/22 09:00 Anion Gap 13.4 (5-19) 11/01/22 09:00 BUN 14 mg/dL (8-23) 11/01/22 09:00 Creatinine 0.5 mg/dL (0.5-0.9) 11/01/22 09:00 GFR Calculation Not Reportable 11/01/22 09:00 Glucose 144 mg/dL (65-115) H 11/01/22 09:00 Calculated Osmolality 293 mOsm/kg (285-295) 11/01/22 09:00 Lactic Acid 1.7 mmol/L (0.5-2.2) 11/01/22 09:07 Calcium 8.7 mg/dL (8.5-10.5) 11/01/22 09:00 Total Bilirubin 1.3 mg/dL (0.15-1.2) H 11/01/22 09:00 AST 12 U/L (0-32) 11/01/22 09:00 ALT 14 U/L (0-33) 11/01/22 09:00 Alkaline Phosphatase 71 U/L (35-105) 11/01/22 09:00 Total Protein 6.6 g/dL (6.6-8.7) 11/01/22 09:00 Albumin 3.7 g/dL (3.5-5.2) 11/01/22 09:00 Globulin 2.9 g/dL (1.3-4.6) 11/01/22 09:00 Urine Color Yellow (Yellow) 11/01/22 09:30 Urine Appearance Clear (CLEAR) 11/01/22 09:30 Urine pH 5 (5-7) 11/01/22 09:30 Ur Specific [place] 1.015 (1.005-1.030) 11/01/22 09:30 Urine Protein Trace (Negative) 11/01/22 09:30 Urine Glucose (UA) Norm (Normal) 11/01/22 09:30 Urine Ketones Negative (Negative) 11/01/22 09:30 Urine Blood 2+ (Negative) H 11/01/22 09:30 Urine Nitrate Negative (Negative) 11/01/22 09:30 Urine Bilirubin Neg (Negative) 11/01/22 09:30 Urine Urobilinogen Norm mg/dL (Negative) 11/01/22 09:30 Ur Leukocyte Esterase Negative (Negative) 11/01/22 09:30 Urine RBC 5-10 /hpf (0-2) H 11/01/22 09:30 Urine WBC 0-4 /hpf (0-5) H 11/01/22 09:30 Ur Squamous Epith Cells 0-4 /hpf (0-5) H 11/01/22 09:30 Amorphous Sediment Not Reportable 11/01/22 09:30 Urine Bacteria 1+ /hpf (NONE) H 11/01/22 09:30 Urine Mucus 2+ /hpf 11/01/22 09:30 SARS-CoV-2 Ag (Rapid) negative (Negative) 11/01/22 09:10 Discharge Plan Discharge Patient Disposition: Home Clinical Impression: Community acquired pneumonia of right lower lobe of lung Condition: Stable Prescriptions: New Child Mucinex Stuffy Nose-Chst 2.5-100 mg/5 mL liquid 20 ml PO Q4H PRN (Reason: cough) Qty: 118 0RF No Action Eliquis 2.5 mg tablet 2.5 mg PO BID Qty: 90 3RF Hold Instructions: Resume on 04/02/22. May start taking it tomorrow ergocalciferol (vitamin D2) 1,250 mcg (50,000 unit) capsule See Rx Instructions .ROUTE .COMPLEX Rx Instructions: 50,000 units twice a month on the and the fluticasone propionate [Flonase Allergy Relief] 50 mcg/actuation spray,suspension 2 spray INTRANASAL DAILY lovastatin 20 mg tablet 20 mg PO QAM montelukast 10 mg tablet 10 mg PO DAILY furosemide 20 mg tablet 20 mg PO QAM potassium chloride 10 mEq tablet extended release 10 meq PO QAM rivastigmine 4.6 mg/24 hour patch 24 hour 1 patch transdermal DAILY@2029 budesonide 0.5 mg/2 mL suspension for nebulization 0.5 mg INHALATION BID 30 Days Qty: 120 4RF albuterol sulfate 90 mcg/actuation HFA aerosol inhaler 2 puff inhalation Q6H PRN (Reason: shortness of breath or wheezing) Qty: 8.5 5RF ipratropium-albuterol 0.5 mg-3 mg(2.5 mg base)/3 mL solution for nebulization 3 ml inhalation Q6H PRN (Reason: wheezing) Qty: 180 5RF sennosides [Senna Lax] 8.6 mg Tablet 8.6 mg PO BEDTIME Qty: 30 0RF Tiadylt ER 300 mg capsule,extended release 24 hr 300 mg PO QAM alprazolam 0.5 mg tablet 0.5 mg PO BID PRN (Reason: Anxiety) Zyrtec 10 mg Tablet 10 mg PO QAM levothyroxine 25 mcg tablet 25 mcg PO QAM ondansetron 4 mg tablet,disintegrating 4 mg PO TID PRN (Reason: Nausea And Vomiting) ezetimibe 10 mg tablet 10 mg PO QAM Myrbetriq 25 mg tablet extended release 24 hr 25 mg PO DAILY albuterol sulfate 2.5 mg /3 mL (0.083 %) solution for nebulization 2.5 mg inhalation DAILY Discharge Orders: Discharge ED (Routine); Ordered 11/01/22 Ordered By: Aracelis Chavez Referrals: Rosie Barnes DO [Primary Care Provider] - Discharge Diet: Usual diet Discharge Activity: Increase activity as tolerated Patient Instructions: Opioid Safety, Pain Management Activity Restrictions/Additional Instructions: Take levofloxacin, Mucinex, and prednisone as prescribed. Take Zofran as prescribed. Continue home nebulizer treatments. Wear home oxygen as previously prescribed. Push fluids. Recommend doing Ensure drinks at least 2-3 times a day. Follow-up with PCP in 3 to 5 days. Return to the ER with new or worsening symptoms. Coding Level of Care Code ED Oracle Database Architect for Lance Cochran
[2022-11-01 08:58] LABS: ABG PH Result 7.44 (7.35-7.45); Arterial Blood Gas Hematocrit 36.7 % (37-47); Base Excess ABG 13.6 mmol/L (-2.0-2.0); Blood Gas Allen Test Pos; Blood Gas Operator Identificat WALCI; Blood Gas Sample Site Radial, right; Blood Gas Sample Type Arterial; Carboxyhemoglobin 1.5 %THgb (0.4-20.1); HCO3 ABG 40.3 mmol/L (22-26); HGB O2 Sat 96.2 % (95-100); Ionized Calcium Level - ABG 1.2 mmol/L (1.1-1.4); Methemoglobin 0.3 % (0.4-1.5); Oxygen Device NC; Oxygen Saturation ABG 97.9; PO2 ABG 82.2 mmHg (80.0-100.0); Potassium Level - ABG 3.4 mmol/L (3.5-5.0)
[2022-11-01 08:59] LABS: ABG PCO2 60.2 mmHg (35-45)
[2022-11-01] MEDS: dexamethasone 10 mg/mL INJ 6 MG IVP (09:01)
[2022-11-01] MEDS: ipratropium-albuterol 3 mL Neb INHALATION (09:16)
[2022-11-01] MEDS: cefTRIAXone 1,000 MG in sodium chloride 0.9% (plus) 50 ML 100 MG IV (09:25)
[2022-11-01 09:32] LABS: Basophils # 0.1 10^3/uL (0.0-0.1); Basophils % 0.4 %; Eosinophils % 0.2 %; Hematocrit 38.1 % (37.0-47.0); Hemoglobin 11.4 g/dL (11.5-15.3); Lymphocytes # 0.6 10^3/uL (0.8-4.8); Lymphocytes % 4.2 %; Mean Corpuscular HGB Conc 29.9 g/dL (30.0-36.0); Mean Corpuscular Volume 90.1 fl (81-99); Mean Platelet Volume 10.9 fL (7.4-10.4); Monocytes # 1.3 10^3/uL (0.2-0.9); Monocytes % 10.2 %; Neutrophils # 11.01 10^3/uL (1.8-7.7); Neutrophils % 84.7 %; Nucleated Red Blood Cells % 0 %; Platelet Count 339 10^3/cmm (130-400); Red Blood Count 4.23 10^6/uL (4.1-5.3); Red Cell Distribution Width 14.8 % (12.1-15.1)
[2022-11-01 09:39] LABS: SARS Covid-2 Antigen negative (Negative)
[2022-11-01 09:44] LABS: Alanine Aminotransferase 14 U/L (0-33); Albumin Level 3.7 g/dL (3.5-5.2); Alkaline Phosphatase 71 U/L (35-105); Anion Gap 13.4 (5-19); Aspartate Amino Transferase 12 U/L (0-32); Blood Urea Nitrogen 14 mg/dL (8-23); Calcium 8.7 mg/dL (8.5-10.5); Carbon Dioxide 36 mmol/L (22-29); Chloride 94 mmol/L (98-107); Globulin 2.9 g/dL (1.3-4.6); Glucose 144 mg/dL (65-115); Osmolality Calculated 293 mOsm/kg (285-295); Potassium 3.4 mmol/L (3.5-5.1); Sodium 140 mmol/L (136-145); Total Bilirubin 1.3 mg/dL (0.15-1.2); Total Protein 6.6 g/dL (6.6-8.7)
[2022-11-01 09:44] LABS: Lactic Sepsis W/Reflex 1.7 mmol/L (0.5-2.2)
[2022-11-01 10:07] LABS: Add Urine Microscopic? YES; Bilirubin Urine Neg (Negative); Blood Urine 2+ (Negative); Glucose Urine UA Norm (Normal); Ketones Urine Negative (Negative); Leukocyte Esterase Urine Negative (Negative); Nitrate Urine Negative (Negative); Protein Urine Trace (Negative); Specific Gravity, Urine 1.015 (1.005-1.030); Urine Appearance Clear (CLEAR); Urine Color Yellow (Yellow); Urobilinogen Urine Norm (Negative); pH Urine 5 (5-7)
[2022-11-01 10:08] LABS: Add Urine Culture? No; Bacteria Urine 1+ /hpf; Mucus Urine 2+ /hpf; Squamous Epithelial Cell Urine 0-4 /hpf (0-5); WBC Urine 0-4 /hpf (0-5)
[2022-11-01] MEDS: sodium chloride 0.9% 500 ML 250 ML IV (10:12)
--- NOTE | 2022-11-01 10:20 | CTR_ITS ---
PROCEDURE INFORMATION: Exam: CT Abdomen And Pelvis With Contrast Exam date and time: 11/01/2022 10:37 AM Age: 82 years old Clinical indication: Nausea; Additional info: Nausea, elevated bili TECHNIQUE: Imaging protocol: Computed tomography of the abdomen and pelvis with contrast. Radiation optimization: All CT scans at this facility use at least one of these dose optimization techniques: automated exposure control; mA and/or kV adjustment per patient size (includes targeted exams where dose is matched to clinical indication); or iterative reconstruction. Contrast material: OMNI 350; Contrast volume: 100 ml; Contrast route: INTRAVENOUS (IV); REPORTING DATA: Count of CT and Cardiac NM exams in prior 12 months: This patient has received 2 known CTs and 0 known cardiac nuclear medicine studies in the 12 months prior to the current study. COMPARISON: CT chest wo con [id number] 11/19/2021 11:10 AM RADIATION DOSE METRICS: Total DLP (mGy-cm): 463.21 FINDINGS: Lungs: Patchy areas of consolidation in the right lower lobe concerning for possible pneumonia. Liver: The liver is normal in size and contour. Gallbladder and bile ducts: Multiple calcified gallstones noted. No gallbladder wall thickening or pericholecystic fat stranding or fluid. No intra or extrahepatic biliary dilatation. Pancreas: Mild fatty atrophy of the pancreas. 9 mm solid appearing nodule in the pancreatic tail (axial series 3, image 22), unchanged from prior exam. No pancreatic duct dilatation identified. Spleen: The spleen appears normal. Adrenal glands: The adrenals appear normal. Kidneys and ureters: The kidneys enhance symmetrically and empty into non-dilated ureters. Stomach and bowel: Calcification in the stomach lumen similar to prior exam. The stomach otherwise appears unremarkable. The small bowel loops are not abnormally dilated. The large bowel loops are not abnormally dilated. Colonic diverticulosis without signs of acute diverticulitis. Appendix: No signs of appendicitis. Intraperitoneal space: No ascites or significant fluid collection. Vasculature: The aorta is nonaneurysmal. The IVC appears normal. Lymph nodes: Oli hepatis lymph node measuring up to 10 mm in the short axis (axial series 3, image 16), increased compared to prior exam when it measured up to 7 mm. Urinary bladder: The bladder is distended and demonstrates no focal contour abnormality. Reproductive: The uterus is surgically absent. Bones/joints: Chronic mild compression deformity at T11. Soft tissues: 8 mm fat containing umbilical hernia. CT/CT abdomen pelvis w con* [id number] IMPRESSION: 1. Patchy areas of consolidation in the right lower lobe concerning for possible pneumonia. 2. Cholelithiasis without evidence of acute cholecystitis. No intra or extrahepatic biliary dilatation. 3. 9 mm solid appearing nodule in the pancreatic tail, unchanged from prior exam. Consider nonemergent MRI for further evaluation. 4. Colonic diverticulosis without signs of acute diverticulitis.
[2022-11-01] MEDS: iohexol 350 mg/mL 500 mL Btl (per mL) IV (10:41)
== END 2022-11-01 12:08 | disposition home or self-care (01) ==
PROVIDERS: Emergency Provider Physician Assistant; PCP Family Medicine
DX: J18.9 Pneumonia, unspecified organism (principal); Z20.822 Contact with and (suspected) exposure to COVID-19; K80.20 Calculus of gallbladder without cholecystitis without obstruction; Z87.891 Personal history of nicotine dependence; J44.9 Chronic obstructive pulmonary disease, unspecified; E78.5 Hyperlipidemia, unspecified
CPT/HCPCS: 36415; 36600; 71045; 74177; 80051; 80053; 81001; 82330; 82805; 83605; 85025; 87040; 87426; 93005; 94640; 96365; 96375; 99285; J0696; J1100; J7040; Q9967

== ENCOUNTER → 2023-02-03 14:06 | Outpatient (BNVA) | payer MEDICARE, MEDICAID, SELFPAY | PROVIDERS: PCP Family Medicine; Visit Provider Internal Medicine Cardiovascular Disease | DX: I10 Essential (primary) hypertension (principal); R06.02 Shortness of breath; R07.89 Other chest pain; J96.11 Chronic respiratory failure with hypoxia; J84.9 Interstitial pulmonary disease, unspecified; Z87.891 Personal history of nicotine dependence; Z79.01 Long term (current) use of anticoagulants | CPT/HCPCS: 36415; 80048; 83880; 99214 ==

== ENCOUNTER → 2023-02-05 14:00 | Outpatient (BNVA) | payer MEDICARE, MEDICAID, SELFPAY | PROVIDERS: PCP Family Medicine; Visit Provider Internal Medicine Pulmonary Disease | DX: J43.9 Emphysema, unspecified (principal); J96.11 Chronic respiratory failure with hypoxia; J84.9 Interstitial pulmonary disease, unspecified; R42 Dizziness and giddiness; Z87.891 Personal history of nicotine dependence | CPT/HCPCS: 99214 ==

== ENCOUNTER 2023-03-09 11:59 | Emergency (ER) | payer MEDICARE, MEDICAID, SELFPAY ==
[2023-03-09 12:02] VITALS: BP 132/80; PULSE 115; RESP 22; O2SAT 93
--- NOTE | 2023-03-09 12:14 | XRR_ITS ---
PROCEDURE INFORMATION: Exam: XR Chest Exam date and time: 03/09/2023 12:24 PM Age: 82 years old Clinical indication: Cough and wheezing and other: Weakness; Patient HX: Generalized weakness; Recent pneumonia; HX copd and dementia; Cough TECHNIQUE: Imaging protocol: Radiologic exam of the chest. Views: 1 view. COMPARISON: CR XR chest 1V portable [id number] 11/01/2022 9:17 AM FINDINGS: Lungs: Hyperinflated lungs. Mild chronic lung markings in the bilateral lung bases. No focal consolidation. Pleural spaces: No large pleural effusion. No significant pneumothorax. Heart/Mediastinum: Cardiomediastinal silhouette is midline and normal in size. Vasculature: Calcifications of the aortic knob. Bones/joints: No acute osseous findings. XR/XR chest 1V [id number] IMPRESSION: No focal consolidation.
--- NOTE | 2023-03-09 12:18 | ED_ITS ---
HPI - Weakness General: Chief complaint: Weakness Stated complaint: UNABLE TO CONTROL BOWELS Time Seen by Provider: 03/09/23 12:05 Source: patient Mode of arrival: EMS History of Present Illness: This patient was transported by EMS from her home. The history is limited to that which we can obtained from EMS as well as the patient. There is no other family members available currently. She apparently was hospitalized at [facility] recently for alleged pneumonia. She states that she was discharged to home and since coming home she continues to have what is described as foul-smelling stools which at times are to the extent that she has accidents. She states she has been eating and drinking normally. She denies any nausea fevers. She is unclear of what medication she is taking but thinks that she may have been given an antibiotic. She does not denies abdominal pain. She denies any blood in her stools that she knows. She is normally ambulatory. 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 Associated symptoms: Denies chest pain, chills, melena, dysuria, fever(s), headache(s), nausea, syncope or vomiting Review of Systems Const: Denies: fever(s) or chills Eyes: Denies: change in vision ENMT: Denies: throat pain, odynophagia, nasal discharge or nasal congestion Card: Denies: chest pain, palpitations, irregular heart rhythm, lightheadedness or syncope Resp: Reports: wheezing GI: Reports: diarrhea and change in stool character; Denies: abdominal pain, nausea, vomiting, hematochezia or melena : Denies: flank pain, difficulty voiding or dysuria Musc: Denies: neck pain, back pain, extremity pain or extremity swelling Skin/Breast: Denies: rash Neuro: Denies: headache(s), numbness in extremities or weakness in extremities PFSH ED PFSH: Medical History Atrial fibrillation Bifascicular block Bradyarrhythmia Cellulitis Cholelithiasis Chronic episodic atrial fibrillation COPD (chronic obstructive pulmonary disease) Hyperlipidemia Hypothyroidism Surgical History H/O bilateral salpingo-oophorectomy H/O foot surgery H/O: hysterectomy Family History Father CAD (coronary artery disease) Sister CAD (coronary artery disease) Dementia Son Diabetes Grandmother Diabetes Daughter Lung disease Other Alzheimer disease Cancer Parkinson disease Denies family history of Clotting disorder Chronic kidney disease (CKD) Suicide Anesthesia complication Bleeding disorder Stroke Social History Smoking and tobacco status: former smoker Quit status (tobacco): has quit using tobacco Year quit tobacco: 1994 Former quit date comment: 1 ppd X 37 years, started at age 13 Alcohol intake: never Substance/Drug Use: never Physical Exam Narrative: EXAM NARRATIVE: She is alert and answers questions in a reasonably goal-directed fashion. She appears to be comfortable. Const: COMMON NORMALS: no acute distress and average body habitus ORIENTATION/CONSCIOUSNESS: Yes awake, Yes oriented to person and Yes oriented to place HENMT: COMMON NORMALS: normocephalic, Normal nasal mucous membranes and turbinates present, moist oral mucous membranes and oropharynx normal HEAD & SCALP: normocephalic NOSE: Normal nasal mucous membranes and turbinates present Eye: COMMON NORMALS: Equal, round and reactive pupils present, EOMs intact bilaterally and conjunctivae normal CONJUNCTIVA: Yes conjunctivae normal PUPIL: Yes Equal, round and reactive pupils present Neck/C-Spine: COMMON NORMALS: full ROM, no JVD and No carotid bruits Chest: COMMONS NORMALS: normal inspection of the chest Resp: COMMON NORMALS: normal respiratory effort, No retractions and No use of accessory muscles AUSCULTATION: wheezes Cardio: COMMON NORMALS: no JVD, regular rate, regular rhythm, No murmurs present (Cardio) and Peripheral pulses 2+ throughout RATE: regular rate RHYTHM: regular rhythm PERIPHERAL PULSES: Peripheral pulses 2+ throughout GI: COMMON NORMALS: Normal to inspection, nondistended, normoactive bowel s ounds present, Soft to palpation, non-tender and no masses INSPECTION: Yes central obesity PALPATION: Yes Soft to palpation : COMMON NORMALS: Yes no CVA tenderness BLADDER/KIDNEY EXAM: Yes no CVA tenderness Back/Pelvis: COMMON NORMALS: no CVA tenderness, thoracic and lumbar spine normal to inspection, thoraco-lumbar ROM normal and straight leg raise negative bilaterally Extremity: COMMON NORMALS: normal to inspection, full ROM, no calf tenderness and no pedal edema Neuro: COMMON NORMALS: moves all extremities, no focal motor deficits and no sensory deficits noted SENSORIUM/ORIENTATION: Yes oriented to person and Yes oriented to place CRANIAL NERVES: Yes CN normal except as noted Psych: COMMON NORMALS: mental status grossly normal Skin: COMMON NORMALS: no rashes or lesions noted and turgor normal GENERAL SKIN EXAM: no rashes or lesions noted and turgor normal Course Reevaluation(s): Reevaluation #1: Daughter is now present who adds additional illuminating history. She states that her mother has had drink decreased activity at home for the last several days both prior to her 2-day hospitalization at [facility] in [place] as well as the last few days but states that she seems miraculously better here in the emergency department. She states she is not having any issues with foul-sm elling stools fevers or other constitutional complaints other than being less engaged as usual. Time: 13:31 Reevaluation #2: Since arrival to the emergency department the patient has been very interactive and acting appropriate. She has had no wheezing or other respiratory issues since her DuoNeb treatment. She has a full regimen at home and uses home oxygen for her COPD. Daughter states that she is much better today than she has been over the past 2 days. Her clinical examination does not reveal any stigmata of serious disease other than her chronic obstructive pulmonary disease as well as a slightly low potassium. Daughter relates that she has not been taking her medicine up until today and that may be a contributing factor to her potassium being low. She has not had any arrhythmias or other concerns while in the emergency department. She is having formed stool and with no odor suggestive of C. difficile etc. She may have had decreased oral intake while in the hospital and subsequently while at home that may have contributed to some delayed stooling she has now improved with improved hydration. Certainly no evidence to suggest bowel obstruction as she has a soft nontender belly and no other worrisome findings today. . Time: 15:51 Vital Signs: Vital signs: Vital Signs Pulse Rate 102 H 03/09/23 12:34 Respiratory Rate 18 03/09/23 12:27 Blood Pressure 132/80 03/09/23 12:02 Pulse Oximetry 95 03/09/23 12:27 Oxygen Delivery Me thod Nasal Cannula 03/09/23 12:27 Oxygen Flow Rate 4.5 03/09/23 12:27 MDM - Weakness Medical Decision Making Since arrival to the emergency department the patient has been very interactive and acting appropriate. She has had no wheezing or other respiratory issues since her DuoNeb treatment. She has a full regimen at home and uses home oxygen for her COPD. Daughter states that she is much better today than she has been over the past 2 days. Her clinical examination does not reveal any stigmata of serious disease other than her chronic obstructive pulmonary disease as well as a slightly low potassium. Daughter relates that she has not been taking her medicine up until today and that may be a contributing factor to her potassium being low. She has not had any arrhythmias or other concerns while in the emergency department. She is having formed stool and with no odor suggestive of C. difficile etc. She may have had decreased oral intake while in the hospital and subsequently while at home that may have contributed to some delayed stooling she has now improved with improved hydration. Certainly no evidence to suggest bowel obstruction as she has a soft nontender belly and no other worr isome findings today. Certainly suitable to be discharged home with family with close follow-up. She is to continue all her usual medication, increase fluid intake, follow-up with her primary care doctor as scheduled. Lab Data I reviewed the patient's lab results. 03/09/23 12:25 03/09/23 12:25 Radiology Impressions Chest X-Ray 03/09/23 12:14 IMPRESSION: No focal consolidation. Laboratory Results WBC 8.37 10^3/uL (3.29-11.43) 03/09/23 12:25 RBC 4.35 10^6/uL (3.85-5.65) 03/09/23 12:25 Hgb 11.80 g/dL (11.27-16.99) 03/09/23 12:25 Hct 40.4 % (36-47) 03/09/23 12:25 MCV 92.9 fl (85-98) 03/09/23 12:25 MCH 27.1 pg (27-33) 03/09/23 12:25 MCHC 29.2 g/dL (30-55) L 03/09/23 12:25 RDW 14.7 % (12.1-15.1) 03/09/23 12:25 Plt Count 316 10^3/cmm (157-399) 03/09/23 12:25 MPV 9.1 fL (7.4-10.4) 03/09/23 12:25 Neut % (Auto) 78.8 % 03/09/23 12:25 Lymph % (Auto) 5.6 % 03/09/23 12:25 [place] % (Auto) 11.4 % 03/09/23 12:25 Eos % (Auto) 2.6 % 03/09/23 12:25 Baso % (Auto) 0.8 % 03/09/23 12:25 Neut # (Auto) 6.59 10^3/uL (1.8-7.7) 03/09/23 12:25 Lymph # (Auto) 0.5 10^3/uL (0.8-4.8) L 03/09/23 12:25 [place] # (Auto) 1.0 10^3/uL (0.2-0.9) H 03/09/23 12:25 Eos # (Auto) 0.2 10^3/uL (0.0-0.8) 03/09/23 12:25 Baso # (Auto) 0.1 10^3/uL (0.0-0.1) 03/09/23 12:25 Nucleated RBC % (auto) 0 % 03/09/23 12:25 Nucleated RBCs # 0.0 /100WBC 03/09/23 12:25 Sodium 138 mmol/L (136-145) 03/09/23 12:25 Potassium 3.2 mmol/L (3.5-5.1) L 03/09/23 12:25 Chloride 97 mmol/L (98-107) L 03/09/23 12:25 Carbon Dioxide 31 mmol/L (22-29) H 03/09/23 12:25 Anion Gap 13.2 (5-19) 03/09/23 12:25 BUN 8 mg/dL (8-23) 03/09/23 12:25 Creatinine 0.5 mg/dL (0.5-0.9) 03/09/23 12:25 GFR Calculation Not Reportable 03/09/23 12:25 Glucose 118 mg/dL (65-115) H 03/09/23 12:25 Calculated Osmolality 285 mOsm/kg (285-295) 03/09/23 12:25 Calcium 9.0 mg/dL (8.5-10.5) 03/09/23 12:25 Total Bilirubin 0.4 mg/dL (0.15-1.2) 03/09/23 12:25 AST 20 U/L (0-32) 03/09/23 12:25 ALT 23 U/L (0-33) 03/09/23 12:25 Alkaline Phosphatase 67 U/L (35-105) 03/09/23 12:25 Total Protein 6.3 g/dL (6.6-8.7) L 03/09/23 12:25 Albumin 3.2 g/dL (3.5-5.2) L 03/09/23 12:25 Globulin 3.1 g/dL (1.3-4.6) 03/09/23 12:25 All radiology interpretation(s) finalized by discharge Discharge Plan Discharge Patient Disposition: Home Clinical Impression: COPD (chronic obstructive pulmonary disease), Hypokalemia Condition: Stable Prescriptions: No Action Eliquis 2.5 mg tablet 2.5 mg PO BID Qty: 90 3RF Hold Instructions: Resume on 04/02/22. May start taking it tomorrow ergocalciferol (vitamin D2) 1,250 mcg (50,000 unit) capsule See Rx Instructions .ROUTE .COMPLEX Rx Instructions: 50,000 units twice a month on the and the furosemide 20 mg tablet 20 mg PO QAM potassium chloride 10 mEq tablet extended release 10 meq PO QAM rivastigmine 4.6 mg/24 hour patch 24 hour 1 patch transdermal DAILY@2029 tramadol 50 mg tablet 50 mg PO DAILY PRN (Reason: Pain) budesonide 0.5 mg/2 mL suspension for nebulization 0.5 mg INHALATION BID 30 Days Qty: 120 4RF albuterol sulfate 90 mcg/actuation HFA aerosol inhaler 2 puff inhalation Q6H PRN (Reason: shortness of breath or wheezing) Qty: 8.5 5RF Colace 100 mg Capsule 100 mg PO BID diltiazem HCl [Tiadylt ER] 300 mg capsule,extended release 24 hr 300 mg PO QAM alprazolam 0.5 mg tablet 0.5 mg PO BID cetirizine [Zyrtec] 10 mg Tablet 10 mg PO QAM levothyroxine 25 mcg tablet 25 mcg PO QAM ezetimibe 10 mg tablet 10 mg PO QAM Myrbetriq 25 mg tablet extended release 24 hr 25 mg PO DAILY albuterol sulfate 2.5 mg /3 mL (0.083 %) solution for nebulization 2.5 mg inhalation DAILY Discharge Orders: Discharge ED (Routine); Ordered 03/09/23 Ordered By: Edson Lucio Referrals: Rosie Barnes, [Primary Care Provider] - Discharge Diet: Usual diet Discharge Activity: Increase activity as tolerated Patient Instructions: Opioid Safety, Pain Management Activity Restrictions/Additional Instructions: As we discussed based upon the findings there were obtained in the emergency department today other than your chronic lung disease as well as a slightly low potassium we did not find any other serious conditions today. You should endeavor to drink at least a quart of water in addition to your other fluids benja ly. You should resume taking all your other medications. If it anytime you have worsening symptoms or develop new symptoms of concern return to the emergency department for reevaluation. 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
[2023-03-09 12:27] VITALS: PULSE 106; RESP 18; O2SAT 95
[2023-03-09] MEDS: ipratropium-albuterol 3 mL Neb INHALATION (12:27)
[2023-03-09 12:31] LABS: Basophils # 0.1 10^3/uL (0.0-0.1); Basophils % 0.8 %; Eosinophils # 0.2 10^3/uL (0.0-0.8); Eosinophils % 2.6 %; Hematocrit 40.4 % (36-47); Lymphocytes # 0.5 10^3/uL (0.8-4.8); Lymphocytes % 5.6 %; Mean Corpuscular HGB Conc 29.2 g/dL (30-55); Mean Corpuscular Hemoglobin 27.1 pg (27-33); Mean Corpuscular Volume 92.9 fl (85-98); Mean Platelet Volume 9.1 fL (7.4-10.4); Monocytes % 11.4 %; Neutrophils # 6.59 10^3/uL (1.8-7.7); Neutrophils % 78.8 %; Nucleated Red Blood Cells % 0 %; Platelet Count 316 10^3/cmm (157-399); Red Blood Count 4.35 10^6/uL (3.85-5.65); Red Cell Distribution Width 14.7 % (12.1-15.1); White Blood Count 8.37 10^3/uL (3.29-11.43)
[2023-03-09] MEDS: sodium chloride 0.9% 500 ML 999 ML IV (12:31)
[2023-03-09 12:34] VITALS: PULSE 102
[2023-03-09 12:57] LABS: Alanine Aminotransferase 23 U/L (0-33); Albumin Level 3.2 g/dL (3.5-5.2); Alkaline Phosphatase 67 U/L (35-105); Aspartate Amino Transferase 20 U/L (0-32); Blood Urea Nitrogen 8 mg/dL (8-23); Carbon Dioxide 31 mmol/L (22-29); Chloride 97 mmol/L (98-107); Globulin 3.1 g/dL (1.3-4.6); Glucose 118 mg/dL (65-115); Osmolality Calculated 285 mOsm/kg (285-295); Sodium 138 mmol/L (136-145); Total Bilirubin 0.4 mg/dL (0.15-1.2); Total Protein 6.3 g/dL (6.6-8.7)
[2023-03-09 13:07] LABS: Anion Gap 13.2 (5-19); Potassium 3.2 mmol/L (3.5-5.1)
[2023-03-09] MEDS: potassium chloride ER 20 mEq Tablet 40 MEQ PO (15:30)
--- NOTE | 2023-03-09 17:20 | PC.NURSE ---
Patient could not take potassium pills. I crushed the 2 potassium pills and mixed them with applesauce then feed it to the patient to ensure that she received all of the medicine.
== END 2023-03-09 16:15 | disposition home or self-care (01) ==
PROVIDERS: Emergency Provider Emergency Medicine; PCP Family Medicine
DX: J44.9 Chronic obstructive pulmonary disease, unspecified (principal); E87.6 Hypokalemia; Z79.01 Long term (current) use of anticoagulants; Z87.891 Personal history of nicotine dependence; E78.5 Hyperlipidemia, unspecified
CPT/HCPCS: 36415; 71045; 80053; 85025; 94640; 96360; 99285; J7040

== ENCOUNTER 2023-03-24 11:01 | Inpatient (IN) | payer MEDICARE, MEDICAID, SELFPAY ==
[2023-03-24] VITALS (50 sets, daily range): BP systolic 90–137; BP diastolic 45–95; PULSE 66–166; RESP 17–39; TEMP 37.5; O2SAT 89–100; BMI 25.7
--- NOTE | 2023-03-24 11:09 | XRR_ITS ---
PROCEDURE INFORMATION: Exam: XR Chest Exam date and time: 03/24/2023 11:18 AM Age: 82 years old Clinical indication: Shortness of breath; Prior surgery; Surgery date: 6+ months; Surgery type: Loop recorder; Patient HX: Flu like symptoms; Additional info: SOB TECHNIQUE: Imaging protocol: Radiologic exam of the chest. Views: 1 view. COMPARISON: CR (CHEST, ) 03/09/2023 12:24 PM FINDINGS: Lungs: Hyperinflated lungs. Linear scarring/atelectasis left lung base. Pleural spaces: Unremarkable. No pleural effusion. No pneumothorax. Heart/Mediastinum: Unremarkable. No cardiomegaly. Bones/joints: Unremarkable. XR/XR chest 1V portable [id number] IMPRESSION: Hyperinflated lungs linear scarring/atelectasis left lung base.
--- NOTE | 2023-03-24 11:20 | ED_ITS ---
HPI - General Adult General: Chief complaint: General Medical Stated complaint: flu like symptoms Time Seen by Provider: 03/24/23 11:07 History of Present Illness: 82-year-old female brought to the emergency room by EMS with change in mentation within the past few days. According to EMS patient was diagnosed with pneumonia about a week ago and was hospitalized at a different hospital. According to the family patient became more confused within the past few days. Patient with h istory of COPD and wears about 2 or 3 L every day past medical history including COPD, atrial fibrillation, hypertension, hyperlipidemia and thyroid disorder. Associated symptoms: Reports dyspnea and malaise; Deny chest pain or palpitations Review of Systems General: Reports: 10 or more systems reviewed and unremarkable except in HPI and below and ROS unobtainable due to mental status Const: Reports: fatigue and malaise; Denies: fever(s) or chills Card: Denies: chest pain, palpitations, irregular heart rhythm, edema or sw elling of feet/ankles Resp: Reports: dyspnea and wheezing PFSH ED PFSH: Medical History Atrial fibrillation Bifascicular block Bradyarrhythmia Cellulitis Cholelithiasis Chronic episodic atrial fibrillation COPD (chronic obstructive pulmonary disease) Hyperlipidemia Hypothyroidism Surgical History H/O bilateral salpingo-oophorectomy H/O foot surgery H/O: hysterectomy Family History Father CAD (coronary artery disease) Sister CAD (coronary artery disease) Dementia Son Diabetes Grandmother Diabetes Daughter Lung disease Other Alzheimer disease Cancer Parkinson disease Denies family history of Clotting disorder Chronic kidney disease (CKD) Suicide Anesthesia complication Bleeding disorder Stroke Social History Smoking and tobacco/nicotine status: former use of tobacco/nicotine Quit status (tobacco/nicotine): has quit using Year quit tobacco: 1994 Former quit date comment: 1 ppd X 37 years, started at age 13 Alcohol intake: never Substance/Drug Use: never Physical Exam Const: COMMON NORMALS: no acute distress and alert EXAM LIMITATIONS: altered mental status GENERAL APPEARANCE: lethargic, ill appearing and frail appearing; not combative ORIENTATION/CONSCIOUSNESS: Yes lethargic Neck/C-Spine: COMMON NORMALS: no meningeal signs Chest: COMMONS NORMALS: normal inspection of the chest, normal palpation of entire chest wall, normal inspection of the breasts and normal palpation of the breasts Breast/axilla inspection: Yes normal inspection of the breasts BREAST/AXILLA PALPATION: Yes normal palpation of the breasts Resp: COMMON NORMALS: percussion normal EFFORT & INSPECTION: Yes decreased respiratory effort, No labored, No grunting, No retractions and No uses accessory muscles AUSCULTATION: wheezes and diminished lung sounds PERCUSSION: percussion normal Cardio: COMMON NORMALS: regular rhythm, S1 normal heart sound present and S2 normal heart sound present JUGULAR VENOUS DISTENTION: no JVD PALPATION: normal PMI RATE: tachycardic RHYTHM: regular rhythm HEART SOUNDS: S1 normal heart sound present and S2 normal heart sound present GI: COMMON NORMALS: Normal to inspection, nondistended, normoactive bowel sounds present, Soft to palpation, non-tender, No hepatosplenomegaly present, no masses and no bruits PALPATION: Yes Soft to palpation and Yes No hepatos plenomegaly present Extremity: COMMON NORMALS: normal to inspection, full ROM, capillary refill normal, no joint enlargement, no clubbing, cyanosis or edema, no calf tenderness and no pedal edema Neuro: SENSORIUM/ORIENTATION: Yes alert and Yes lethargic MENINGEAL SIGNS: Yes no meningeal signs CRANIAL NERVES: Yes CN normal except as noted SPEECH: speech normal MOTOR EXAM: Motor fasciculations not present, Normal motor muscle tone present throughout and Tremors during motor activity present PUPIL EXAM: Normal pupillary reactivity/response: right, left and bilateral Skin: COMMON NORMALS: no rashes or lesions noted, no wounds, turgor normal, no jaundice, no petechiae and no mottling GENERAL SKIN EXAM: no rashes or lesions noted and turgor normal Course Reevaluation(s): Reevaluation #2: While waiting for bed patient had runs of V. tach and atrial fibrillation arrhythmia. He was started on amiodarone. Please notify the admitting physician. Consultations: Consultation #1: Discussed patient with hospitalist. Patient will be admitted for further evaluation and treatment. Vital Signs: Vital signs: Vital Signs Temperature 99.5 F 03/24/23 11:04 Pulse Rate 86 03/24/23 22:25 Respiratory Rate 26 H 03/24/23 22:25 Blood Pressure 129/67 03/24/23 22:15 Pulse Oximetry 100 03/24/23 22:25 Oxygen Delivery Me thod Nasal Cannula 03/24/23 21:08 Oxygen Flow Rate 4 03/24/23 20:04 MDM - General Adult Medical Decision Making Patient made comfortable emergency room and had extensive work-up done including CBC, CMP, UA and chest x-ray. Differential Diagnosis Sepsis, UTI, pneumonia, COPD exacerbation, viral syndrome, electrolyte abnormalities Lab Data 03/24/23 11:25 03/24/23 11:25 Radiology Impressions Chest X-Ray 03/24/23 11:09 IMPRESSION: Hyperinflated lungs linear scarring/atelectasis left lung base. Laboratory Results WBC 13.44 10^3/uL (3.29-11.43) H 03/24/23 11:25 RBC 4.47 10^6/uL (3.85-5.65) 03/24/23 11:25 Hgb 11.70 g/dL (11.27-16.99) 03/24/23 11:25 Hct 39.7 % (36-47) 03/24/23 11:25 MCV 88.8 fl (85-98) 03/24/23 11:25 MCH 26.2 pg (27-33) L 03/24/23 11:25 MCHC 29.5 g/dL (30-55) L 03/24/23 11:25 RDW 14.7 % (12.1-15.1) 03/24/23 11:25 Plt Count 549 10^3/cmm (157-399) H 03/24/23 11:25 MPV 9.4 fL (7.4-10.4) 03/24/23 11:25 Neut % (Auto) 80.1 % 03/24/23 11:25 Lymph % (Auto) 3.6 % 03/24/23 11:25 [place] % (Auto) 13.2 % 03/24/23 11:25 Eos % (Auto) 1.3 % 03/24/23 11:25 Baso % (Auto) 0.7 % 03/24/23 11:25 Neut # (Auto) 10.76 10^3/uL (1.8-7.7) H 03/24/23 11:25 Lymph # (Auto) 0.5 10^3/uL (0.8-4.8) L 03/24/23 11:25 [place] # (Auto) 1.8 10^3/uL (0.2-0.9) H 03/24/23 11:25 Eos # (Auto) 0.2 10^3/uL (0.0-0.8) 03/24/23 11:25 Baso # (Auto) 0.1 10^3/uL (0.0-0.1) 03/24/23 11:25 Nucleated RBC % (auto) 0 % 03/24/23 11:25 Nucleated RBCs # 0.0 /100WBC 03/24/23 11:25 Specimen Type Arterial 03/24/23 11:18 Sample Site Radial, left 03/24/23 11:18 ABG pH 7.45 (7.35-7.45) 03/24/23 11:18 ABG pCO2 50.7 mmHg (35-45) H 03/24/23 11:18 ABG pO2 61.3 mmHg (80.0-100.0) L 03/24/23 11:18 ABG HCO3 35.2 mmol/L (22-26) H 03/24/23 11:18 ABG Base Excess 9.7 mmol/L (-2.0-2.0) H 03/24/23 11:18 Carlos Test Pos 03/24/23 11:18 Hematocrit 35.4 % (37-47) L 03/24/23 11:18 Hgb O2 Saturation 92.3 % (95-100) L 03/24/23 11:18 Carboxyhemoglobin 1.5 %THgb (0.4-20.1) 03/24/23 11:18 Methemoglobin 0.5 % (0.4-1.5) 03/24/23 11:18 Total Hemoglobin 11.5 g/dL (12-16) L 03/24/23 11:18 O2 Delivery Device Nc 03/24/23 11:18 FiO2 28.0 % 03/24/23 11:18 Street Supervisor ID Cak 03/24/23 11:18 Sodium 140 mmol/L (136-145) 03/24/23 11:25 Potassium 4.0 mmol/L (3.5-5.1) 03/24/23 11:25 Chloride 99 mmol/L (98-107) 03/24/23 11:25 Carbon Dioxide 34 mmol/L (22-29) H 03/24/23 11:25 Anion Gap 11.0 (5-19) 03/24/23 11:25 BUN 8 mg/dL (8-23) 03/24/23 11:25 Creatinine 0.6 mg/dL (0.5-0.9) 03/24/23 11:25 GFR Calculation Not Reportable 03/24/23 11:25 Glucose 124 mg/dL (65-115) H 03/24/23 11:25 Calculated Osmolality 290 mOsm/kg (285-295) 03/24/23 11:25 Lactic Acid 1.1 mmol/L (0.5-2.2) 03/24/23 11:25 Calcium 9.2 mg/dL (8.5-10.5) 03/24/23 11:25 Total Bilirubin 0.5 mg/dL (0.15-1.2) 03/24/23 11:25 AST 21 U/L (0-32) 03/24/23 11:25 ALT 15 U/L (0-33) 03/24/23 11:25 Alkaline Phosphatase 65 U/L (35-105) 03/24/23 11:25 Troponin T Baseline 43 ng/L (0-10) H 03/24/23 11:25 Troponin T 120 Minute 43.08 ng/L (0-10) H 03/24/23 13:24 Delta Troponin T 0.08 ABS# (0-10) 03/24/23 13:24 NT-Pro-B Natriuret Pep 413 pg/mL (0-450) 03/24/23 11:25 Total Protein 6.6 g/dL (6.6-8.7) 03/24/23 11:25 Albumin 4.0 g/dL (3.5-5.2) 03/24/23 11:25 Globulin 2.6 g/dL (1.3-4.6) 03/24/23 11:25 Procalcitonin 0.12 ng/mL (0-0.5) 03/24/23 13:24 TSH 1.64 uIU/mL (0.27-4.20) 03/24/23 13:24 Urine Color Straw (Yellow) 03/24/23 13:26 Urine Appearance Clear (CLEAR) 03/24/23 13:26 Urine pH 9 (5-7) H 03/24/23 13:26 Ur Specific [place] 1.015 (1.005-1.030) 03/24/23 13:26 Urine Protein Neg (Negative) 03/24/23 13:26 Urine Glucose (UA) Norm (Normal) 03/24/23 13:26 Urine Ketones Negative (Negative) 03/24/23 13:26 Urine Blood Neg (Negative) 03/24/23 13:26 Urine Nitrate Negative (Negative) 03/24/23 13:26 Urine Bilirubin Neg (Negative) 03/24/23 13:26 Prot Sulfosalicylic Acd Negative (Negative) 03/24/23 13:26 Urine Urobilinogen Norm mg/dL (Negative) 03/24/23 13:26 Ur Leukocyte Esterase Negative (Negative) 03/24/23 13:26 XR interpretation done by ED provider, pending radiology final review EKG Data EKG 1: Interpretation: Sinus tachycardic rate of [address] changes. TX interval 129 QRS duration [address] elevation or ST changes. Computer generated interpretation: Chest X-Ray 03/24/23 11:09 IMPRESSION: Hyperinflated lungs linear scarring/atelectasis left lung base. Critical Care Time Critical Care Time: Critical Care Time: Yes Total Critical Care Time: 45 Attestation: Time spent was reviewing past medical history time spent discussing patient with family and the hospitalist. Time spent initiating amiodarone bolus and drip. Discharge Plan Discharge Patient Disposition: Admitted As Inpatient Admit Provider: Adriana Isbell Clinical Impression: COPD (chronic obstructive pulmonary disease), Encephalopathy, Leukocytosis, Atrial fibrillation, COVID Condition: Stable Coding Level of Care Code ED Refrigerated Cargo Clerk for Lance Cochran
--- NOTE | 2023-03-24 11:23 | ECG_ITS ---
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 Measurements Intervals [place] Rate: 112 P: 107 LA: 128 QRS: -66 QRSD: 93 T: 61 QT: 311 QTc: 425 Interpretive Statements SINUS TACHYCARDIA LEFT ANTERIOR FASCICULAR BLOCK [QRS AXIS <= -45, QR IN I, RS IN II] Compared to ECG 11/01/2022 08:50:10 Sinus rhythm no longer present Incomplete right bundle-branch block no longer present Electronically Signed On 03-24-2023 23:16:31 CDT by Ximena Reynolds M.D. [id number]
[2023-03-24 11:29] LABS: ABG PCO2 50.7 mmHg (35-45); ABG PH Result 7.45 (7.35-7.45); Arterial Blood Gas Hematocrit 35.4 % (37-47); Base Excess ABG 9.7 mmol/L (-2.0-2.0); Blood Gas Allen Test Pos; Blood Gas Operator Identificat CAK; Blood Gas Sample Site Radial, left; Blood Gas Sample Type Arterial; Carboxyhemoglobin 1.5 %THgb (0.4-20.1); HCO3 ABG 35.2 mmol/L (22-26); HGB O2 Sat 92.3 % (95-100); Methemoglobin 0.5 % (0.4-1.5); Oxygen Device NC; PO2 ABG 61.3 mmHg (80.0-100.0); Total Hemoglobin 11.5 g/dL (12-16)
[2023-03-24 11:37] LABS: Basophils # 0.1 10^3/uL (0.0-0.1); Basophils % 0.7 %; Eosinophils # 0.2 10^3/uL (0.0-0.8); Eosinophils % 1.3 %; Hematocrit 39.7 % (36-47); Lymphocytes # 0.5 10^3/uL (0.8-4.8); Lymphocytes % 3.6 %; Mean Corpuscular HGB Conc 29.5 g/dL (30-55); Mean Corpuscular Hemoglobin 26.2 pg (27-33); Mean Corpuscular Volume 88.8 fl (85-98); Mean Platelet Volume 9.4 fL (7.4-10.4); Monocytes # 1.8 10^3/uL (0.2-0.9); Monocytes % 13.2 %; Neutrophils # 10.76 10^3/uL (1.8-7.7); Neutrophils % 80.1 %; Nucleated Red Blood Cells % 0 %; Platelet Count 549 10^3/cmm (157-399); Red Blood Count 4.47 10^6/uL (3.85-5.65); Red Cell Distribution Width 14.7 % (12.1-15.1); White Blood Count 13.44 10^3/uL (3.29-11.43)
[2023-03-24 11:59] LABS: Lactic Sepsis W/Reflex 1.1 mmol/L (0.5-2.2)
[2023-03-24 12:15] LABS: Alanine Aminotransferase 15 U/L (0-33); Alkaline Phosphatase 65 U/L (35-105); Aspartate Amino Transferase 21 U/L (0-32); Blood Urea Nitrogen 8 mg/dL (8-23); Calcium 9.2 mg/dL (8.5-10.5); Carbon Dioxide 34 mmol/L (22-29); Chloride 99 mmol/L (98-107); Globulin 2.6 g/dL (1.3-4.6); Glucose 124 mg/dL (65-115); NT Pro B Type Natriuretic Pept 413 pg/mL (0-450); Osmolality Calculated 290 mOsm/kg (285-295); Sodium 140 mmol/L (136-145); Total Bilirubin 0.5 mg/dL (0.15-1.2); Total Protein 6.6 g/dL (6.6-8.7)
[2023-03-24] MEDS: meropenem 1,000 MG in sodium chloride 0.9% (plus) 50 ML 100 MG IV (12:22)
[2023-03-24 12:26] LABS: Troponin(5th) Baseline 43 ng/L (0-10)
[2023-03-24 13:42] LABS: Add Urine Microscopic? NO; Charge for UA Resulting for Rev
[2023-03-24 13:51] LABS: Troponin 5 2HR 43.08 ng/L (0-10)
[2023-03-24 14:05] LABS: Troponin 5 2HR Delta 0.08 ABS# (0-10)
[2023-03-24 14:08] LABS: Urine Color Straw (Yellow)
[2023-03-24 14:09] LABS: Bilirubin Urine Neg (Negative); Blood Urine Neg (Negative); Glucose Urine UA Norm (Normal); Ketones Urine Negative (Negative); Leukocyte Esterase Urine Negative (Negative); Nitrate Urine Negative (Negative); Protein Urine Neg (Negative); Specific Gravity, Urine 1.015 (1.005-1.030); Sulfosalicylic Acid Urine Negative (Negative); Urine Appearance Clear (CLEAR); Urobilinogen Urine Norm (Negative); pH Urine 9 (5-7)
--- NOTE | 2023-03-24 14:46 | CT_ITS ---
WS: [id number] CT HEAD TECHNIQUE: Noncontrast CT of the head obtained from the skullbase to the vertex. CLINICAL INFORMATION: ams COMPARISON: 2021 DLP: 1169.[address] scans at [facility] use at least one of these dose optimization techniques: automated e xposure control; mA and/or kV adjustment per patient size (includes targeted exams where dose is matc hed to clinical indication); or iterative reconstruction. FINDINGS: No evidence of intracranial hemorrhage or mass effect. Ventricular system and basal cisterns are perdomo nt. Moderate small vessel changes with moderate parenchymal volume loss. Intracranial vascular calcif ication. Small amount of fluid in the LEFT sphenoid sinus compatible with sinusitis. Mastoid air cells are wel l aerated. Normal posterior nasopharynx. IMPRESSION: 1. No evidence of intracranial hemorrhage or mass effect. 2. Moderate small vessel changes. Moderate parenchymal volume loss. 3. Intracranial vascular calcification. 4. Mild sphenoid sinusitis. 5. No acute intracranial findings.
[2023-03-24] MEDS: ipratropium-albuterol 3 mL Neb INHALATION (15:50)
[2023-03-24 17:54] LABS: SARS Covid-2 Antigen positive (Negative)
--- NOTE | 2023-03-24 18:17 | ECG_ITS ---
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 Measurements Intervals [place] Rate: 169 P: 0 MT: 0 QRS: -76 QRSD: 104 T: 66 QT: 252 QTc: 422 Interpretive Statements ATRIAL FIBRILLATION WITH RAPID VENTRICULAR RESPONSE LEFT ANTERIOR FASCICULAR BLOCK [QRS AXIS <= -45, QR IN I, RS IN II] SEPTAL MYOCARDIAL INFARCTION , PROBABLY OLD [40+ ms Q WAVE IN V1/V2] CRITICAL TEST RESULT Compared to ECG 03/24/2023 11:23:07 Myocardial infarct finding now present Sinus tachycardia no longer present Electronically Signed On 03-24-2023 23:23:42 CDT by Ximena Reynolds M.D. [id number]
--- NOTE | 2023-03-24 19:03 | P.HP_ITS ---
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 She presents to the hospital today with 2 to 3 days of increasing generalized weakness, altered mental status with confusion, low-grade fevers at home. In the ER today she is found to be COVID-positive. Patient is confused, she is able to correctly tell me her name however does not tell me her date of or her whereabouts. She starts to cry saying that she has no family members left when in fact she does live with her daughter. Her daughter has been sick with COVID at home. Reveals that Ms. Curiel has a history of dementia and about 1 week ago she was thought to have a UTI for which she completed a course of antibiotics. She was admitted at [facility] in [place] about 1 month ago for a pneumonia, however it appears she was discharged within about 24 hours. Review of Systems General: Reports: ROS unobtainable due to medical condition and ROS unobtainable due to mental status Medications/Allergies Home Medications Medication Instructions Recorded Confirmed Last Taken Type ergocalciferol (vitamin D2) 1,250 See Rx Instructions .Route .COMPLEX 08/12/19 03/24/23 03/03/23 History mcg (50,000 unit) capsule apixaban 2.5 mg tablet (Eliquis) 2.5 mg PO BID #90 tabs 01/13/20 03/24/23 03/09/23 Rx furosemide 20 mg tablet 20 mg PO QAM 07/02/21 03/24/23 03/09/23 History potassium chloride 10 mEq 10 meq PO QAM 07/02/21 03/24/23 03/09/23 History tablet,extended release albuterol sulfate 90 mcg/actuation 2 puff inhalation Q6H PRN 10/30/21 03/24/23 Unknown Rx aerosol inhaler shortness of breath or wheezing #8.5 grams rivastigmine 4.6 mg/24 hour 1 patch transdermal DAILY@202906/04/22 03/24/2323 History transdermal patch albuterol sulfate 2.5 mg/3 mL 2.5 mg inhalation DAILY PRN 11/01/22 03/24/23 03/08/23 History (0.083 %) solution for nebulization Shortness Of Breath alprazolam 0.5 mg tablet 0.5 mg PO BID 11/01/22 03/24/23 03/24/23 History cetirizine 10 mg tablet (Zyrtec) 10 mg PO QAM 11/01/22 03/24/23 03/09/23 History ezetimibe 10 mg tablet 10 mg PO QAM 11/01/22 03/24/23 03/09/23 History levothyroxine 25 mcg tablet 25 mcg PO QAM 11/01/22 03/24/23 03/09/23 History mirabegron 25 mg tablet,extended 25 mg PO DAILY 11/01/22 03/24/23 03/09/23 History release 24 hr (Myrbetriq) tramadol 50 mg tablet 50 mg PO DAILY PRN Pain 02/03/23 03/24/23 Unknown History docusate sodium 100 mg capsule 100 mg PO BID 03/09/23 03/24/23 03/08/23 History (Colace) budesonide 0.5 mg/2 mL suspension 0.5 mg inhalation BID PRN 03/24/23 03/24/23 Unknown History for nebulization Shortness Of Breath diltiazem HCl 300 mg capsule,24 300 mg PO DAILY 03/24/23 03/24/23 Unknown History hr,extended release (Tiadylt ER) oxybutynin chloride 5 mg tablet 5 mg PO BID 03/24/23 03/24/23 Unknown History Allergies Allergy/AdvReac Type Severity Reaction Status Date / Time Penicillins Allergy rash Verified 03/09/23 12:20 Sulfa (Sulfonamide AdvReac didn't Verified 03/09/23 12:20 Antibiotics) feel good PFSH Acute PFSH: Medical History Atrial fibrillation Bifascicular block Bradyarrhythmia Cellulitis Cholelithiasis Chronic episodic atrial fibrillation COPD (chronic obstructive pulmonary disease) Hyperlipidemia Hypothyroidism Surgical History H/O bilateral salpingo-oophorectomy H/O foot surgery H/O: hysterectomy Family History Father CAD (coronary artery disease) Sister CAD (coronary artery disease) Dementia Son Diabetes Grandmother Diabetes Daughter Lung disease Other Alzheimer disease Cancer Parkinson disease Denies family history of Clotting disorder Chronic kidney disease (CKD) Suicide Anesthesia complication Bleeding disorder Stroke Social History Smoking and tobacco/nicotine status: former use of tobacco/nicotine Quit status (tobacco/nicotine): has quit using Year quit tobacco: 1994 Former quit date comment: 1 ppd X 37 years, started at age 13 Alcohol intake: never Substance/Drug Use: never Vitals/I&O/Wt Last Vital Signs Temp 99.5 F 03/24/23 11:04 Pulse 112 H 03/24/23 17:22 Resp 22 H 03/24/23 15:50 BP 109/55 03/24/23 17:22 Pulse Ox 92 03/24/23 17:22 O2 Del Method Room Air 03/24/23 17:22 O2 Flow Rate 4 03/24/23 16:04 03/24/23 03/24/23 03/24/23 06:59 14:59 22:59 Intake Total 50 / 50 Balance 50 / 50 Weight last 48 hrs Weight 68.039 kg Physical Exam Narrative: General: No acute distress, AO x1-2 HEENT: PERRLA, pupils bilaterally equal and reactive, pallors not present Chest: Normal vesicular breath sounds, no added sounds, equal good air entry bilaterally CVS: S1-S2 regular, no murmurs, no tachycardia, no gallops, no rubs Abdomen: Soft, nontender, no organomegaly, bowel sounds present Neuro: No focal deficits, no facial deformity, AO x3, power 5/5 in all limbs Data 03/24/23 11:25 03/24/23 11:25 Micro: Microbiology 03/24/23 11:28 Blood Culture - Preliminary Blood SPECIMEN COLLECTED 03/24/23 11:25 Blood Culture - Preliminary Blood SPECIMEN COLLECTED Other data: Launch?Image [email or web address] [address] [address] Scan Report Signed Patient: Mehnaz Curiel Unit #: [id number] : 1940 Age/Sex: 82 / F ADM Date: 03/24/23 Loc: ER Room/Bed: Attending Dr: Ordering Provider/Ordering MD: Eric Vargas MD Date of Service: 03/24/23 Procedure(s): CT head wo con* [id number] Accession Number(s): [id number] Report Number: [id number] WS: [id number] CT HEAD TECHNIQUE: Noncontrast CT of the head obtained from the skullbase to the vertex. CLINICAL INFORMATION: ams COMPARISON: 2021 DLP: 1169.[address] scans at [facility] use at least one of these dose optimization techniques: automated exposure control; mA and/or kV adjustment per patient size (includes targeted exams where dose is matched to clinical indication); or iterative reconstruction. FINDINGS: No evidence of intracranial hemorrhage or mass effect. Ventricular system and basal cisterns are patent. Moderate small vessel changes with moderate parenchymal volume loss. Intracranial vascular calcification. Small amount of fluid in the LEFT sphenoid sinus compatible with sinusitis. Mastoid air cells are well aerated. Normal posterior nasopharynx. IMPRESSION: 1.? No evidence of intracranial hemorrhage or mass effect. 2.? Moderate small vessel changes. Moderate parenchymal volume loss. 3.? Intracranial vascular calcification. 4.? Mild sphenoid sinusitis. 5.? No acute intracranial findings. XR/XR chest 1V portable [id number] IMPRESSION: Hyperinflated lungs linear scarring/atelectasis left lung base. A&P Assessment and plan (1) Pneumonia due to COVID-19 virus: Patient presenting to the hospital with acute encephalopathy, altered mental status, fever A-fib with RVR and found to have COVID-19 infection Remdisivir 200mg iv x 1 followed by 100mg iv daily dexamethasone 6mg IVP daily duoneb q6h, budesonide q12h empiric CTX and azithromycin Flutter valve/spirometer at bedside trend inflammatory markers including CRP Low suspicion for PE given patient is on anticoagulation with Eliquis at a [facility] (formerly [facility])[3] Typically patient wears 3.5 L supplemental O2 at baseline. Currently she is on 6 L/min supplemental O2. Charting In the computer stating she is on room air is incorrect (2) Encephalopathy: Suspected to be metabolic encephalopathy related to pneumonia, worsening hypoxia ABG showing acute on chronic hypoxic hypercapnic respiratory failure. PCO2 currently at 50.7 which is at patient's baseline. Normal pH at the CO2 with elevated chronic bicarb suggesting compensated respiratory status. Unlikely to be a contributor to her acute encephalopathy at this time. (3) Atrial fibrillation: A-fib with rapid ventricular rate. At time of my assessment heart rate between 1 60-1 90 Systolic blood pressure soft ranging between 90-1 09. Patient has been started on amiodarone infusion after receiving the 150 mg bolus in the emergency room. She will be admitted to the CSU for close monitoring. Once blood pressure allows will overlap with oral Cardizem. Typically on anticoagulation with Eliquis, while she is in the hospital and acutely encephalopathic will prefer to use full dose Lovenox instead Troponin series with a baseline troponin of 43, no significant delta at 2 hours. Qualifiers: Atrial fibrillation type: paroxysmal Qualified Code(s): I48.0 - Paroxysmal atrial fibrillation (4) Chronic respiratory failure with hypoxia: With acute worsening precipitated by COVID-19 infection (5) Interstitial lung disease: Plan DVT prophylaxis: Currently transition to full dose Lovenox as patient cannot reliably take p.o. intake, high risk of aspiration N.p.o. except sips and chips to minimize risk for aspiration with altered mental status. DNR/DNI, CODE STATUS confirmed with patient's daughter Attestations Medical Necessity Statement*: Greater than 2 midnight admission is anticipated for management of COVID-19 infection, A-fib with RVR, acute on chronic hypoxic respiratory failure Coding Level of Care Code Acute Code for Chg Fwd High MDM includes number and complexity of problems actively addressed during encounter, amount and/or complexity of data reviewed/ordered and described risk of complication, morbidity or mortality of management as documented Diagnoses Pneumonia due to COVID-19 virus U07.1; J12.82 Encephalopathy G93.40 Atrial fibrillation I48.0 Atrial fibrillation type: paroxysmal Chronic respiratory failure with hypoxia J96.11 Interstitial lung disease J84.9
[2023-03-24] MEDS: amiodarone 50 mg/mL SDV 3 mL 150 MG IVP (19:41)
[2023-03-24] MEDS: enoxaparin 80 mg/0.8 mL Syringe 70 MG SUBCUT (19:45)
[2023-03-24] MEDS: LORazepam 2 mg/mL INJ 1 mL 0.5 MG IM (21:35)
[2023-03-24] MEDS: azithromycin 500 MG in sodium chloride 0.9% 250 ML 250 MG IV (21:36)
[2023-03-24] MEDS: dexamethasone 4 mg/mL INJ 6 MG IVP (21:38)
[2023-03-24] MEDS: cefTRIAXone 1,000 MG in sodium chloride 0.9% (plus) 50 ML 100 MG IV (21:38)
[2023-03-24] MEDS: acetaminophen 325 mg Tablet 650 MG PO (21:40)
[2023-03-24 22:06] LABS: Procalcitonin 0.12 ng/mL (0-0.5); Thyroid Stimulating Hormone 1.64 uIU/mL (0.27-4.20)
[2023-03-24] MEDS: remdesivir 200 MG in sodium chloride 0.9% (100 ml) 100 ML 100 MG IV (23:23)
[2023-03-25] VITALS (73 sets, daily range): BP systolic 99–132; BP diastolic 54–93; PULSE 65–130; RESP 12–34; TEMP 37.3; O2SAT 87–100
--- NOTE | 2023-03-25 03:19 | PC.NURSE ---
Addendum entered by Kt Lomax RN 03/25/23 03:22: Dr. Delatorre notified. Original Note: Patient refused heredia catheter
[2023-03-25] MEDS: haloperidol inj 5 mg/mL INJ 1 mL IM (03:56)
[2023-03-25 04:56] LABS: Basophils # 0.1 10^3/uL (0.0-0.1); Basophils % 0.7 %; Hematocrit 39.3 % (36-47); Lymphocytes # 0.5 10^3/uL (0.8-4.8); Lymphocytes % 5.3 %; Mean Corpuscular HGB Conc 28.8 g/dL (30-55); Mean Corpuscular Hemoglobin 26.2 pg (27-33); Mean Corpuscular Volume 91.2 fl (85-98); Mean Platelet Volume 9.6 fL (7.4-10.4); Monocytes # 0.2 10^3/uL (0.2-0.9); Monocytes % 2.4 %; Neutrophils # 8.66 10^3/uL (1.8-7.7); Neutrophils % 90.2 %; Nucleated Red Blood Cells % 0 %; Platelet Count 454 10^3/cmm (157-399); Red Blood Count 4.31 10^6/uL (3.85-5.65); Red Cell Distribution Width 14.7 % (12.1-15.1)
[2023-03-25 05:19] LABS: C Reactive Protein 55.2 mg/L (0.0-4.9)
[2023-03-25 05:21] LABS: Alanine Aminotransferase 15 U/L (0-33); Albumin Level 3.3 g/dL (3.5-5.2); Alkaline Phosphatase 58 U/L (35-105); Anion Gap 13.7 (5-19); Aspartate Amino Transferase 26 U/L (0-32); Blood Urea Nitrogen 11 mg/dL (8-23); Calcium 8.9 mg/dL (8.5-10.5); Carbon Dioxide 28 mmol/L (22-29); Chloride 101 mmol/L (98-107); Globulin 2.7 g/dL (1.3-4.6); Glucose 171 mg/dL (65-115); Magnesium 2.2 mg/dL (1.7-2.3); Osmolality Calculated 291 mOsm/kg (285-295); Potassium 3.7 mmol/L (3.5-5.1); Sodium 139 mmol/L (136-145); Total Bilirubin 0.4 mg/dL (0.15-1.2)
[2023-03-25 05:45] LABS: D Dimer 0.31 ug/mLFEU (0-0.59)
[2023-03-25] MEDS: enoxaparin 80 mg/0.8 mL Syringe 70 MG SUBCUT ×2 (06:24→17:35)
[2023-03-25] MEDS: pantoprazole DR 40 mg Tablet PO (08:37)
[2023-03-25] MEDS: budesonide 0.5 mg/2 mL Neb INHALATION ×2 (10:10→20:19)
[2023-03-25] MEDS: ipratropium-albuterol 3 mL Neb INHALATION ×3 (10:10→20:19)
--- NOTE | 2023-03-25 16:27 | P.PN_ITS ---
Subjective Subjective: Heart rate is better controlled today. Systolic blood pressure soft ranging 99- 1 1 7. Heart rate between 87-100. Patient is more alert and awake. Patient is more alert and awake. Able to hold a conversation. Currently on 3 L/min supplemental O2. Medications: Reviewed: Yes Vitals/I&O/Wt Last Vital Signs Temp 99.1 F 03/25/23 10:10 Pulse 100 03/25/23 15:08 Resp 20 H 03/25/23 15:08 BP 117/62 03/25/23 12:00 Pulse Ox 95 03/25/23 15:08 O2 Del Method Nasal Cannula 03/25/23 15:08 O2 Flow Rate 3 03/25/23 15:08 03/25/23 03/25/23 03/25/23 06:59 14:59 22:59 Intake Total 555.454 / 855.454 Balance 555.454 / 855.454 Weight last 48 hrs Weight 68.039 kg Physical Exam Narrative: General: No acute distress, AO x2 HEENT: PERRLA, pupils bilaterally equal and reactive, pallors not present Chest: Normal vesicular breath sounds, no added sounds, equal good air entry bilaterally CVS: S1-S2 regular, no murmurs, no tachycardia, no gallops, no rubs Abdomen: Soft, nontender, no organomegaly, bowel sounds present Neuro: No focal deficits, no facial deformity, AO x2, power 5/5 in all limbs Urinary Catheter Management: Milton: Cath Placed During This Visit: yes Reason for Continuing Indwelling Catheter: Accurate Measurement of Urinary Output in Critically Ill Patients Urinary Catheter Date of Insertion: 03/25/23 Urinary Catheter Time of Insertion: 04:45 Data 03/25/23 04:27 03/25/23 04:27 Micro: Microbiology 03/24/23 11:28 Blood Culture - Preliminary Blood NEGATIVE TO DATE 03/24/23 11:25 Blood Culture - Preliminary Blood NEGATIVE TO DATE A&P Assessment and plan (1) Pneumonia due to COVID-19 virus: Patient presenting to the hospital with acute encephalopathy, altered mental status, fever A-fib with RVR and found to have COVID-19 infection Remdisivir 200mg iv x 1 followed by 100mg iv daily x 5 days dexamethasone 6mg IVP daily duoneb q6h, budesonide q12h empiric CTX and azithromycin Flutter valve/spirometer at bedside trend inflammatory markers including CRP Low suspicion for PE given patient is on anticoagulation with Eliquis at a baseline Typically patient wears 3.5 L supplemental O2 at baseline. today down from 6lpm to 3lpm close to baseline (2) Encephalopathy: Suspected to be metabolic encephalopathy related to pneumonia,hypoxia ABG showing acute on chronic hypoxic hypercapnic respiratory failure. (3) Atrial fibrillation: A-fib with rapid ventricular rate. Better controlled today D/c amio gtt , start amiodaron 400mg BID given soft BP, will resume diltiazem once BP allows Typically on anticoagulation with Eliquis, while she is in the hospital will prefer to use full dose Lovenox instead Troponin series with a baseline troponin of 43, no significant delta at 2 hours. Qualifiers: Atrial fibrillation type: paroxysmal Qualified Code(s): I48.0 - Paroxysmal atrial fibrillation (4) Chronic respiratory failure with hypoxia: With acute worsening precipitated by COVID-19 infection (5) Interstitial lung disease: Plan DVT prophylaxis: Currently transition to full dose Lovenox as patient cannot reliably take p.o. intake, high risk of aspiration start regular diet today as mentation improving DNR/DNI, CODE STATUS confirmed with patient's daughter Attestations Medical Necessity Statement*: continued admission for COVID 19 , monitor resp and mental status, iv anx and antivirals Coding Level of Care Code Acute Code for [facility] Fwd Moderate MDM includes number and complexity of problems actively addressed dur ing encounter, amount and/or complexity of data reviewed/ordered and described risk of complication, morbidity or mortality of management as documented Diagnoses Pneumonia due to COVID-19 virus U07.1; J12.82 Encephalopathy G93.40 Atrial fibrillation I48.0 Atrial fibrillation type: paroxysmal Chronic respiratory failure with hypoxia J96.11 Interstitial lung disease J84.9
[2023-03-25] MEDS: amiodarone 200 mg Tablet 400 MG PO (17:35)
[2023-03-25] MEDS: ALPRAZolam 0.5 mg Tablet PO (17:35)
[2023-03-25] MEDS: haloperidol inj 5 mg/mL INJ 1 mL 1 MG IM (20:11)
[2023-03-25] MEDS: LORazepam 2 mg/mL INJ 1 mL 0.5 MG IM (22:03)
[2023-03-25] MEDS: azithromycin 500 MG in sodium chloride 0.9% 250 ML 250 MG IV (22:04)
[2023-03-25] MEDS: cefTRIAXone 1,000 MG in sodium chloride 0.9% (plus) 50 ML 100 MG IV (22:05)
[2023-03-25] MEDS: dexamethasone 4 mg/mL INJ 6 MG IVP (22:05)
[2023-03-25] MEDS: remdesivir 100 MG in sodium chloride 0.9% (100 ml) 80 ML IV (22:14)
[2023-03-25] MEDS: temazepam 15 mg Capsule PO (23:35)
[2023-03-26] VITALS (26 sets, daily range): BP systolic 110–145; BP diastolic 46–97; PULSE 67–98; RESP 13–28; TEMP 36.8–36.9; O2SAT 90–100
[2023-03-26] MEDS: benzonatate 100 mg Capsule PO (00:30)
[2023-03-26] MEDS: ipratropium-albuterol 3 mL Neb INHALATION ×4 (01:29→19:37)
[2023-03-26 04:57] LABS: Basophils % 0.2 %; Hematocrit 34.3 % (36-47); Lymphocytes # 0.6 10^3/uL (0.8-4.8); Lymphocytes % 5.4 %; Mean Corpuscular Hemoglobin 26.1 pg (27-33); Mean Corpuscular Volume 86.8 fl (85-98); Mean Platelet Volume 9.5 fL (7.4-10.4); Monocytes # 0.4 10^3/uL (0.2-0.9); Monocytes % 3.4 %; Neutrophils # 9.79 10^3/uL (1.8-7.7); Neutrophils % 90.4 %; Nucleated Red Blood Cells % 0 %; Platelet Count 450 10^3/cmm (157-399); Red Blood Count 3.95 10^6/uL (3.85-5.65); Red Cell Distribution Width 14.6 % (12.1-15.1); White Blood Count 10.82 10^3/uL (3.29-11.43)
[2023-03-26 05:15] LABS: Alanine Aminotransferase 15 U/L (0-33); Albumin Level 3.3 g/dL (3.5-5.2); Alkaline Phosphatase 49 U/L (35-105); Anion Gap 10.4 (5-19); Aspartate Amino Transferase 25 U/L (0-32); Blood Urea Nitrogen 14 mg/dL (8-23); C Reactive Protein 31.9 mg/L (0.0-4.9); Calcium 8.8 mg/dL (8.5-10.5); Carbon Dioxide 34 mmol/L (22-29); Chloride 101 mmol/L (98-107); Globulin 2.4 g/dL (1.3-4.6); Glucose 226 mg/dL (65-115); Osmolality Calculated 300 mOsm/kg (285-295); Potassium 4.4 mmol/L (3.5-5.1); Sodium 141 mmol/L (136-145); Total Bilirubin 0.2 mg/dL (0.15-1.2); Total Protein 5.7 g/dL (6.6-8.7)
[2023-03-26] MEDS: budesonide 0.5 mg/2 mL Neb INHALATION ×2 (08:06→19:37)
[2023-03-26] MEDS: amiodarone 200 mg Tablet 400 MG PO ×2 (08:27→17:40)
[2023-03-26] MEDS: pantoprazole DR 40 mg Tablet PO (08:28)
[2023-03-26] MEDS: enoxaparin 80 mg/0.8 mL Syringe 70 MG SUBCUT ×2 (08:28→19:31)
--- NOTE | 2023-03-26 17:34 | PM.PN ---
Subjective Subjective: Currently improving. Patient is however showing some confusion still. She is much more alert, however does not recognize her daughter who came to visit her today. She thinks she is an impostor, she is asking for her mother who years ago. States she lives with her son while in fact she lives with her daughter Radha. Per extensive discussion with patient's daughter, patient has had worsening dementia over the past year and has been exhibiting some behavior disturbances even at home though not as bad as current delirium. Medications: Reviewed: Yes Vitals/I&O/Wt Last Vital Signs Temp 98.5 F 03/26/23 13:00 Pulse 94 03/26/23 14:59 Resp 20 H 03/26/23 14:47 BP 136/69 03/26/23 13:00 Pulse Ox 96 03/26/23 14:47 O2 Del Method Nasal Cannula 03/26/23 14:47 O2 Flow Rate 2 03/26/23 14:47 03/26/23 03/26/23 03/26/23 06:59 14:59 22:59 Intake Total 350 / 750 400 / 400 Output Total 600 / 600 Balance 350 / 750 -200 / -200 Physical Exam Narrative: General: No acute distress, AO x2-3 HEENT: PERRLA, pupils bilaterally equal and reactive, pallors not present Chest: Crackles to auscultation bilaterally CVS: S1-S2 regular, no murmurs, no tachycardia, no gallops, no rubs Abdomen: Soft, nontender, no organomegaly, bowel sounds present Neuro: No focal deficits, no facial deformity, AO x3, power 5/5 in all limbs Extremities: No edema clubbing or cyanosis Urinary Catheter Management: Milton: Cath Placed During This Visit: yes Reason for Continuing Indwelling Catheter: Accurate Measurement of Urinary Output in Critically Ill Patients Urinary Catheter Date of Insertion: 03/25/23 Urinary Catheter Time of Insertion: 04:45 Data 03/26/23 04:48 03/26/23 04:48 A&P Assessment and plan (1) Pneumonia due to COVID-19 virus: Patient presenting to the hospital with acute encephalopathy, altered mental status, fever A-fib with RVR and found to have COVID-19 infection Remdisivir 200mg iv x 1 followed by 100mg iv daily x 5 days dexamethasone 6mg IVP daily duoneb q6h, budesonide q12h empiric CTX and azithromycin Flutter valve/spirometer at bedside trend inflammatory markers including CRP Low suspicion for PE given patient is on anticoagulation with Eliquis at a baseline CRP is downtrending We will complete 5 days of remdesivir as inpatient. Would not want to discharge her on Paxlovid as patient is also currently on amiodarone the use of both together is contraindicated. Keep head of bed elevated to more than 30 degrees due to chronic pulmonary disease. Patient will likely benefit from having a hospital bed at home which can allow for continued elevation of her HOB. This will additionally minimize risk of aspiration. (2) Encephalopathy: Suspected to be metabolic encephalopathy related to pneumonia,hypoxia ABG showing acute on chronic hypoxic hypercapnic respiratory failure. This is currently improving, however patient continues to be confused. Suspect hospital-acquired delirium on top of underlying known dementia. Agitated overnight, trial of Zyprexa today. (3) Atrial fibrillation: A-fib with rapid ventricular rate. Better controlled today Continue amiodaron 400mg BID blood pressure improving today Continue full dose Lovenox Troponin series with a baseline troponin of 43, no significant delta at 2 hours. Qualifiers: Atrial fibrillation type: paroxysmal Qualified Code(s): I48.0 - Paroxysmal atrial fibrillation (4) Chronic respiratory failure with hypoxia: With acute worsening precipitated by COVID-19 infection (5) Interstitial lung disease: Plan DVT prophylaxis: Currently transition to full dose Lovenox as patient cannot reliably take p.o. intake, high risk of aspiration start regular diet today as mentation improving DNR/DNI, CODE STATUS confirmed with patient's daughter Attestations Medical Necessity Statement*: Continued admission for treatment of COVID-19 pneumonia, need to continue IV antibiotics and IV remdesivir Coding Level of Care Code Acute Code for [facility] Fwd Diagnoses Pneumonia due to COVID-19 virus U07.1; J12.82 Encephalopathy G93.40 Atrial fibrillation I48.0 Atrial fibrillation type: paroxysmal Chronic respiratory failure with hypoxia J96.11 Interstitial lung disease J84.9
--- NOTE | 2023-03-26 18:13 | PC.NURSE ---
Patient arrived in ICU from [facility] at approximately 1620. BP: 96/46 (map 62), HR: 95, SPO2: 93% on room air, Temp: 97.8. PAtient can answer person, place, and time questions, but is lethargic and seems to have trouble finding the correct answer. Belongings that came with patient included pajamas, phone ore charger, and phone.
[2023-03-26] MEDS: ALPRAZolam 0.5 mg Tablet PO ×2 (19:45→19:47)
--- NOTE | 2023-03-26 19:45 | PC.NURSE ---
Tesha summary: Uneventful shift. patient p to a chair for about 8 hours today. Continues to be confused, thinks her mother just yesterday (it was 30 years ago), and is frequently crying inconsolably because of it. Also thinks that her grandchildren have been kidnapped, and that strangers are posing as family members. SHe has been frequently by crying and yelling because of these delusions. Family expressed concern about her safety at home, especially with her access to a vehicle which she drives, they are considering custodial placement.
[2023-03-26] MEDS: temazepam 15 mg Capsule PO (21:41)
[2023-03-26] MEDS: cefTRIAXone 1,000 MG in sodium chloride 0.9% (plus) 50 ML 100 MG IV (21:41)
[2023-03-26] MEDS: remdesivir 100 MG in sodium chloride 0.9% (100 ml) 80 ML IV (21:42)
[2023-03-26] MEDS: dexamethasone 4 mg/mL INJ 6 MG IVP (21:42)
[2023-03-26] MEDS: azithromycin 500 MG in sodium chloride 0.9% 250 ML 250 MG IV (21:43)
[2023-03-27] VITALS (25 sets, daily range): BP systolic 111–160; BP diastolic 54–84; PULSE 71–130; RESP 16–33; TEMP 36.6–37.4; O2SAT 93–100
[2023-03-27] MEDS: LORazepam 2 mg/mL INJ 1 mL 0.5 MG IVP (05:48)
[2023-03-27] MEDS: enoxaparin 80 mg/0.8 mL Syringe 70 MG SUBCUT (06:31)
[2023-03-27] MEDS: budesonide 0.5 mg/2 mL Neb INHALATION ×2 (08:39→21:21)
[2023-03-27] MEDS: ipratropium-albuterol 3 mL Neb INHALATION ×3 (08:39→21:21)
[2023-03-27] MEDS: amiodarone 200 mg Tablet 400 MG PO ×2 (09:11→18:05)
[2023-03-27] MEDS: pantoprazole DR 40 mg Tablet PO (09:11)
[2023-03-27] MEDS: FUROsemide 10 mg/mL SDV 4mL 40 MG IVP (10:22)
[2023-03-27] MEDS: OLANZapine 5 mg TABLET 2.5 MG PO (10:23)
--- NOTE | 2023-03-27 15:03 | PC.NURSE ---
Report called to [facility], Patient transferred to second floor room 275. 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 Chart left with staff at nurses desk. Patient on 1L NC ambulated from ICU bed to MS bed with 1 assist. Patient keeps stating, don't forget I cant have anesthesia confident she was going to have surgery today despite nurse explaining she was transferring to second floor, and not having surgery. Belongings at bedside including patient cellphone.
[2023-03-27] MEDS: ALPRAZolam 0.5 mg Tablet PO (18:05)
[2023-03-27] MEDS: apixaban 5 mg Tablet 2.5 MG PO (18:05)
[2023-03-27] MEDS: benzonatate 100 mg Capsule PO (18:05)
[2023-03-27] MEDS: docusate sodium 100 mg Capsule PO (18:06)
--- NOTE | 2023-03-27 18:39 | PM.PN ---
Subjective Subjective: Confused and agitated overnight. Otherwise no new complaints. Trending towards hypertension at 150s today. Medications: Reviewed: Yes Vitals/I&O/Wt Last Vital Signs Temp 99.3 F 03/27/23 15:53 Pulse 91 03/27/23 15:53 Resp 16 03/27/23 15:53 BP 139/74 03/27/23 15:53 Pulse Ox 95 03/27/23 15:53 O2 Del Method Nasal Cannula 03/27/23 14:05 O2 Flow Rate 2 03/27/23 14:05 03/27/23 03/27/23 03/27/23 06:59 14:59 22:59 Intake Total 640 / 1480 360 / 360 240 / 600 Output Total 150 / 925 250 / 250 Balance 490 / 555 110 / 110 240 / 350 Physical Exam Narrative: General: No acute distress, AO x3 HEENT: PERRLA, pupils bilaterally equal and reactive, pallors not present Chest: Crackles to auscultation bilaterally CVS: S1-S2 regular, no murmurs, no tachycardia, no gallops, no rubs Abdomen: Soft, nontender, no organomegaly, bowel sounds present Neuro: No focal deficits, no facial deformity, AO x3, power 5/5 in all limbs Extremities: No edema clubbing or cyanosis Urinary Catheter Management: Milton: Cath Placed During This Visit: yes Reason for Continuing Indwelling Catheter: Accurate Measurement of Urinary Output in Critically Ill Patients Urinary Catheter Date of Insertion: 03/25/23 Urinary Catheter Time of Insertion: 04:45 Data 03/26/23 04:48 03/26/23 04:48 A&P Assessment and plan (1) Pneumonia due to COVID-19 virus: Patient presenting to the hospital with acute encephalopathy, altered mental status, fever A-fib with RVR and found to have COVID-19 infection Remdisivir 200mg iv x 1 followed by 100mg iv daily x 5 days dexamethasone 6mg IVP daily duoneb q6h, budesonide q12h empiric CTX and azithromycin Flutter valve/spirometer at bedside trend inflammatory markers including CRP Low suspicion for PE given patient is on anticoagulation with Eliquis at a baseline Typically patient wears 3.5 L supplemental O2 at baseline. today down from 6lpm to 2lpm close to baseline CRP is downtrending We will complete 5 days of remdesivir as inpatient. Would not want to discharge her on Paxlovid as patient is also currently on amiodarone the use of both together is contraindicated. (2) Encephalopathy: Suspected to be metabolic encephalopathy related to pneumonia,hypoxia ABG showing acute on chronic hypoxic hypercapnic respiratory failure. This is currently improving, however patient continues to be confused. Suspect hospital-acquired delirium on top of underlying known dementia. Agitated overnight, trial of Zyprexa today. (3) Atrial fibrillation: A-fib with rapid ventricular rate. Better controlled today Continue amiodaron 400mg BID blood pressure improving today, will resume Cardizem, currently however at 30 mg every 6 hours and monitor heart rate. Typically on anticoagulation with Eliquis, will restart home medication today and discontinue full dose Lovenox. Troponin series with a baseline troponin of 43, no significant delta at 2 hours. Qualifiers: Atrial fibrillation type: paroxysmal Qualified Code(s): I48.0 - Paroxysmal atrial fibrillation (4) Chronic respiratory failure with hypoxia: With acute worsening precipitated by COVID-19 infection (5) Interstitial lung disease: Plan DVT prophylaxis: Currently transition to full dose Lovenox as patient cannot reliably take p.o. intake, high risk of aspiration start regular diet today as mentation improving DNR/DNI, CODE STATUS confirmed with patient's daughter Attestations Medical Necessity Statement*: Trial of Zyprexa for agitation,resume cardizem and monitor HR, resume home doses of medications Coding Level of Care Code Acute Code for [facility] Fwd Diagnoses Pneumonia due to COVID-19 virus U07.1; J12.82 Encephalopathy G93.40 Atrial fibrillation I48.0 Atrial fibrillation type: paroxysmal Chronic respiratory failure with hypoxia J96.11 Interstitial lung disease J84.9
[2023-03-27] MEDS: dilTIAZem 30 mg Tablet PO (20:25)
[2023-03-27] MEDS: cefTRIAXone 1,000 MG in sodium chloride 0.9% (plus) 50 ML 100 MG IV (20:26)
[2023-03-27] MEDS: dexamethasone 4 mg/mL INJ 6 MG IVP (20:27)
[2023-03-27] MEDS: remdesivir 100 MG in sodium chloride 0.9% (100 ml) 80 ML IV (22:01)
[2023-03-28] VITALS (8 sets, daily range): BP systolic 111–136; BP diastolic 57–73; PULSE 68–78; RESP 16–22; TEMP 36.5–36.9; O2SAT 95–97
[2023-03-28] MEDS: dilTIAZem 30 mg Tablet PO ×2 (01:57→08:15)
[2023-03-28] MEDS: levothyroxine 25 mcg Tablet PO (05:28)
[2023-03-28] MEDS: ezetimibe 10 mg Tablet PO (05:28)
[2023-03-28] MEDS: FUROsemide 20 mg Tablet PO (05:28)
[2023-03-28 05:42] LABS: Hematocrit 34.1 % (36-47); Lymphocytes # 0.4 10^3/uL (0.8-4.8); Mean Corpuscular HGB Conc 29.9 g/dL (30-55); Mean Corpuscular Hemoglobin 25.5 pg (27-33); Mean Corpuscular Volume 85.3 fl (85-98); Mean Platelet Volume 10.3 fL (7.4-10.4); Monocytes # 0.3 10^3/uL (0.2-0.9); Monocytes % 3.2 %; Neutrophils # 8.46 10^3/uL (1.8-7.7); Neutrophils % 92.3 %; Nucleated Red Blood Cells % 0 %; Platelet Count 382 10^3/cmm (157-399); Red Cell Distribution Width 14.9 % (12.1-15.1); White Blood Count 9.17 10^3/uL (3.29-11.43)
[2023-03-28 06:12] LABS: Alanine Aminotransferase 17 U/L (0-33); Albumin Level 3.5 g/dL (3.5-5.2); Alkaline Phosphatase 48 U/L (35-105); Anion Gap 13.1 (5-19); Aspartate Amino Transferase 22 U/L (0-32); Blood Urea Nitrogen 13 mg/dL (8-23); C Reactive Protein 9.9 mg/L (0.0-4.9); Calcium 8.5 mg/dL (8.5-10.5); Carbon Dioxide 34 mmol/L (22-29); Chloride 101 mmol/L (98-107); Globulin 2.1 g/dL (1.3-4.6); Glucose 186 mg/dL (65-115); Osmolality Calculated 305 mOsm/kg (285-295); Potassium 3.1 mmol/L (3.5-5.1); Sodium 145 mmol/L (136-145); Total Bilirubin 0.3 mg/dL (0.15-1.2); Total Protein 5.6 g/dL (6.6-8.7)
[2023-03-28] MEDS: amiodarone 200 mg Tablet 400 MG PO (08:15)
[2023-03-28] MEDS: docusate sodium 100 mg Capsule PO (08:15)
[2023-03-28] MEDS: pantoprazole DR 40 mg Tablet PO (08:15)
[2023-03-28] MEDS: ALPRAZolam 0.5 mg Tablet PO (08:15)
[2023-03-28] MEDS: apixaban 5 mg Tablet 2.5 MG PO (08:16)
[2023-03-28] MEDS: budesonide 0.5 mg/2 mL Neb INHALATION (09:09)
[2023-03-28] MEDS: ipratropium-albuterol 3 mL Neb INHALATION (09:09)
--- NOTE | 2023-03-28 10:30 | P.DS_ITS ---
Discharge Providers Date of Admission: 03/24/23 21:21 Date of Discharge: March 28, 2023 Attending Provider at Admission: Adriana Isbell MD Attending Provider at Discharge: Adriana Isbell MD Primary Care Provider: Rosie Barnes DO Diagnoses at Discharge Discharge Diagnosis (1) Pneumonia due to COVID-19 virus: Status: Acute (2) Encephalopathy: Status: Acute (3) Atrial fibrillation: Status: Acute Qualifiers: Atrial fibrillation type: paroxysmal Qualified Code(s): I48.0 - Paroxysmal atrial fibrillation (4) Chronic respiratory failure with hypoxia: Status: Acute (5) Interstitial lung disease: Status: Acute Reason for Visit Reason for Visit: flu like symptoms Brief History: Mehnaz Curiel is a 82 year old female with a past medical history of COPD, chronic hypoxic respiratory failure typically on 3.5 L supplemental O2 at all times,? atrial fibrillation, on anticoagulation with Eliquis, tachybradycardia syndrome .She presents to the hospital today with 2 to 3 days of increasing g eneralized weakness, altered mental status with confusion, low-grade fevers at home. In the ER today she was found to be COVID-positive. Please note change in documentation that patient had an implantable loop recorder which was explanted in 04/2022, i do not see a pacemaker on her CXR. Hospital course as below: Hospital Course Hospital Course (1) Pneumonia due to COVID-19 virus: Patient presenting to the hospital with acute encephalopathy, altered mental status, fever A-fib with RVR and found to have COVID-19 infection She was treated with Remdisivir 200mg iv x 1 followed by 100mg iv daily for total 5 days Received dexamethasone 6mg IVP daily----> transition to oral steroid taper at home scheduled duoneb q6h, budesonide q12h---> recommend to continue scheduled nebulization as outpatient empiric CTX and azithromycin CRP trended down during admission from 55 --> 9 Low suspicion for PE given patient is on anticoagulation with Eliquis at a baseline Typically patient wears 3.5 L supplemental O2 at baseline.On arrival on 6lpm supplemental 02---> trended down to 2lpm at time of discharge (2) Encephalopathy: Suspected to be metabolic encephalopathy related to pneumonia,hypoxia ABG showing acute on chronic hypoxic hypercapnic respiratory failure. This is currently improving, however patient continues to be confused.? On arrival she was lethargic, somnolent, unable to complete conversation. Now she is alert, awake , plesant, smiles, completes conversations however content is confused. She thinks her mother is alive,thinks that her son will take her home, thinsk she is in the hospital for some surgery, etc. Suspect componenet of steroid induced and critical illness delirium on top of known worsening dementia. Zyprexa added at discharge, tolerated trial in the hospital. (3) Atrial fibrillation: A-fib with rapid ventricular rate. Needed initiation of amiodarone infusion as hypotensive on arrival. Now transitioned to po amiodarone and also resumed home dose of diltiazem however changed from extended release to short acting q6h dosing for now due to propensity for bradycardia. Follow with cardiology in one week. Change in documentation to update that patient does not have a pacemaker, she had an implantable loop recorder explanted in 2021. Continue eliquis Troponin series with a baseline troponin of 43, no significant delta at 2 hours. ? (4) Chronic respiratory failure with hypoxia: With acute worsening precipitated by COVID-19 infection now improved (5) Interstitial lung disease: DNR/DNI Physical Exam Narrative: General: No acute distress, AO x3 HEENT: PERRLA, pupils bilaterally equal and reactive, pallors not present Chest: Normal vesicular breath sounds, no added sounds, equal good air entry bilaterally CVS: S1-S2 regular, no murmurs, no tachycardia, no gallops, no rubs Abdomen: Soft, nontender, no organomegaly, bowel sounds present Neuro: No focal deficits, no facial deformity, AO x3, power 5/5 in all limbs Urinary Catheter Management: [place]: Cath Placed During This Visit: yes Reason for Continuing Indwelling Catheter: Accurate Measurement of Urinary Output in Critically Ill Patients Urinary Catheter Date of Insertion: 03/25/23 Urinary Catheter Time of Insertion: 04:45 Discharge Data Studies Completed and Pending Completed Studies During Hospitalization Category Date Time Status CT head wo con* [id number] Stat Cat Scan 03/24/23 14:46 Completed XR chest 1V portable [id number] Stat Exams 03/24/23 11:09 Completed Pending at discharge Category Date Time Status Blood Culture Stat Lab 03/24/23 11:28 Results Radiology Impressions Chest X-Ray 03/24/23 11:09 IMPRESSION: Hyperinflated lungs linear scarring/atelectasis left lung base. Laboratory Results WBC 9.17 10^3/uL (3.29-11.43) 03/28/23 04:55 RBC 4.00 10^6/uL (3.85-5.65) 03/28/23 04:55 Hgb 10.20 g/dL (11.27-16.99) L 03/28/23 04:55 Hct 34.1 % (36-47) L 03/28/23 04:55 MCV 85.3 fl (85-98) 03/28/23 04:55 MCH 25.5 pg (27-33) L 03/28/23 04:55 MCHC 29.9 g/dL (30-55) L 03/28/23 04:55 RDW 14.9 % (12.1-15.1) 03/28/23 04:55 Plt Count 382 10^3/cmm (157-399) 03/28/23 04:55 MPV 10.3 fL (7.4-10.4) 03/28/23 04:55 Neut % (Auto) 92.3 % 03/28/23 04:55 Lymph % (Auto) 4.0 % 03/28/23 04:55 [place] % (Auto) 3.2 % 03/28/23 04:55 Eos % (Auto) 0.0 % 03/28/23 04:55 Baso % (Auto) 0.0 % 03/28/23 04:55 Neut # (Auto) 8.46 10^3/uL (1.8-7.7) H 03/28/23 04:55 Lymph # (Auto) 0.4 10^3/uL (0.8-4.8) L 03/28/23 04:55 [place] # (Auto) 0.3 10^3/uL (0.2-0.9) 03/28/23 04:55 Eos # (Auto) 0.0 10^3/uL (0.0-0.8) 03/28/23 04:55 Baso # (Auto) 0.0 10^3/uL (0.0-0.1) 03/28/23 04:55 Nucleated RBC % (auto) 0 % 03/28/23 04:55 Nucleated RBCs # 0.0 /100WBC 03/28/23 04:55 D-Dimer 0.31 ug/mLFEU (0-0.59) 03/25/23 05:10 Specimen Type Arterial 03/24/23 11:18 Sample Site Radial, left 03/24/23 11:18 ABG pH 7.45 (7.35-7.45) 03/24/23 11:18 ABG pCO2 50.7 mmHg (35-45) H 03/24/23 11:18 ABG pO2 61.3 mmHg (80.0-100.0) L 03/24/23 11:18 ABG HCO3 35.2 mmol/L (22-26) H 03/24/23 11:18 ABG Base Excess 9.7 mmol/L (-2.0-2.0) H 03/24/23 11:18 Carlos Test Pos 03/24/23 11:18 Hematocrit 35.4 % (37-47) L 03/24/23 11:18 Hgb O2 Saturation 92.3 % (95-100) L 03/24/23 11:18 Carboxyhemoglobin 1.5 %THgb (0.4-20.1) 03/24/23 11:18 Methemoglobin 0.5 % (0.4-1.5) 03/24/23 11:18 Total Hemoglobin 11.5 g/dL (12-16) L 03/24/23 11:18 O2 Delivery Device Nc 03/24/23 11:18 FiO2 28.0 % 03/24/23 11:18 Firestop/Containment Worker ID Cak 03/24/23 11:18 Sodium 145 mmol/L (136-145) 03/28/23 04:55 Potassium 3.1 mmol/L (3.5-5.1) L 03/28/23 04:55 Chloride 101 mmol/L (98-107) 03/28/23 04:55 Carbon Dioxide 34 mmol/L (22-29) H 03/28/23 04:55 Anion Gap 13.1 (5-19) 03/28/23 04:55 BUN 13 mg/dL (8-23) 03/28/23 04:55 Creatinine 0.5 mg/dL (0.5-0.9) 03/28/23 04:55 GFR Calculation Not Reportable 03/28/23 04:55 Glucose 186 mg/dL (65-115) H 03/28/23 04:55 Calculated Osmolality 305 mOsm/kg (285-295) H 03/28/23 04:55 Lactic Acid 1.1 mmol/L (0.5-2.2) 03/24/23 11:25 Calcium 8.5 mg/dL (8.5-10.5) 03/28/23 04:55 Magnesium 2.2 mg/dL (1.7-2.3) 03/25/23 04:27 Total Bilirubin 0.3 mg/dL (0.15-1.2) 03/28/23 04:55 AST 22 U/L (0-32) 03/28/23 04:55 ALT 17 U/L (0-33) 03/28/23 04:55 Alkaline Phosphatase 48 U/L (35-105) 03/28/23 04:55 Troponin T Baseline 43 ng/L (0-10) H 03/24/23 11:25 Troponin T 120 Minute 43.08 ng/L (0-10) H 03/24/23 13:24 Delta Troponin T 0.08 ABS# (0-10) 03/24/23 13:24 C-Reactive Protein 9.9 mg/L (0.0-4.9) H 03/28/23 04:55 NT-Pro-B Natriuret Pep 413 pg/mL (0-450) 03/24/23 11:25 Total Protein 5.6 g/dL (6.6-8.7) L 03/28/23 04:55 Albumin 3.5 g/dL (3.5-5.2) 03/28/23 04:55 Globulin 2.1 g/dL (1.3-4.6) 03/28/23 04:55 Procalcitonin 0.12 ng/mL (0-0.5) 03/24/23 13:24 TSH 1.64 uIU/mL (0.27-4.20) 03/24/23 13:24 Urine Color Straw (Yellow) 03/24/23 13:26 Urine Appearance Clear (CLEAR) 03/24/23 13:26 Urine pH 9 (5-7) H 03/24/23 13:26 Ur Specific [place] 1.015 (1.005-1.030) 03/24/23 13:26 Urine Protein Neg (Negative) 03/24/23 13:26 Urine Glucose (UA) Norm (Normal) 03/24/23 13:26 Urine Ketones Negative (Negative) 03/24/23 13:26 Urine Blood Neg (Negative) 03/24/23 13:26 Urine Nitrate Negative (Negative) 03/24/23 13:26 Urine Bilirubin Neg (Negative) 03/24/23 13:26 Prot Sulfosalicylic Acd Negative (Negative) 03/24/23 13:26 Urine Urobilinogen Norm mg/dL (Negative) 03/24/23 13:26 Ur Leukocyte Esterase Negative (Negative) 03/24/23 13:26 SARS-CoV-2 Ag (Rapid) positive (Negative) H 03/24/23 16:52 Vitals Last Vital Signs Temp 97.7 F 03/28/23 07:45 Pulse 78 03/28/23 09:18 Resp 20 H 03/28/23 09:18 BP 130/73 03/28/23 07:45 Pulse Ox 96 03/28/23 09:18 O2 Del Method Nasal Cannula 03/28/23 09:18 O2 Flow Rate 2 03/28/23 09:18 Discharge Plan Discharge Patient Disposition: Home Condition: Stable Prescriptions: New amiodarone [Pacerone] 200 mg Tablet 200 mg PO BID 30 Days Qty: 60 0RF diltiazem HCl 30 mg Tablet 30 mg PO Q6H 30 Days Qty: 120 0RF Rx Instructions: do not give for heart rate less than 60 prednisone 10 mg tablet See Taper PO BID Qty: 42 0RF Taper: predniSONE 60-10 60 mg Daily for 2 Days and 0 Hour 50 mg Daily for 2 Days and 0 Hour 40 mg Daily for 2 Days and 0 Hour 30 mg Daily for 2 Days and 0 Hour 20 mg Daily for 2 Days and 0 Hour 10 mg Daily for 2 Days and 0 Hour pantoprazole 40 mg Tablet,Delayed Release (Dr/Ec) 40 mg PO DAILY 30 Days Qty: 30 0RF ipratropium-albuterol 0.5 mg-3 mg(2.5 mg base)/3 mL Solution For Nebulization 3 ml inhalation Q6H.RESP 30 Days Qty: 30 0RF Continued Eliquis 2.5 mg tablet 2.5 mg PO BID Qty: 90 3RF Hold Instructions: Resume on 04/02/22. May start taking it tomorrow ergocalciferol (vitamin D2) 1,250 mcg (50,000 unit) capsule See Rx Instructions .ROUTE .COMPLEX Rx Instructions: 50,000 unit orally twice monthly on the and furosemide 20 mg tablet 20 mg PO QAM potassium chloride 10 mEq tablet extended release 10 meq PO QAM rivastigmine 4.6 mg/24 hour patch 24 hour 1 patch transdermal DAILY@2029 tramadol 50 mg tablet 50 mg PO DAILY PRN (Reason: Pain) albuterol sulfate 90 mcg/actuation HFA aerosol inhaler 2 puff inhalation Q6H PRN (Reason: shortness of breath or wheezing) Qty: 8.5 5RF docusate sodium [Colace] 100 mg Capsule 100 mg PO BID cetirizine [Zyrtec] 10 mg Tablet 10 mg PO QAM levothyroxine 25 mcg tablet 25 mcg PO QAM ezetimibe 10 mg tablet 10 mg PO QAM Myrbetriq 25 mg tablet extended release 24 hr 25 mg PO DAILY budesonide 0.5 mg/2 mL suspension for nebulization 0.5 mg INHALATION BID PRN (Reason: Shortness Of Breath) oxybutynin chloride 5 mg tablet 5 mg PO BID Held Tiadylt ER 300 mg capsule,extended release 24 hr 300 mg PO DAILY Hold Instructions: Resume on 04/11/23. hold until cardiology follow up Discontinued albuterol sulfate 2.5 mg /3 mL (0.083 %) solution for nebulization 2.5 mg inhalation DAILY PRN (Reason: Shortness Of Breath) No Action alprazolam 0.5 mg tablet 0.5 mg PO BID Discharge Orders: Discharge Order (Routine); Ordered 03/28/23 Ordered By: Adriana Isbell Other Ambulatory Orders: DME: Hospital Bed (Order) Location: None Selected Ordered By: Adriana Isbell Referrals: [facility] [Outside] Rosie Barnes DO [Primary Care Provider] - Patient Instructions: Opioid Safety Discharge Attestations Time Spent in Discharge Care*: greater than 30 min Quality Metrics Clinical Quality Measures [ No reported AMI, CVA or VTE this stay] Coding Level of Care Code Acute Code for Chg Fwd Diagnoses Pneumonia due to COVID-19 virus U07.1; J12.82 Encephalopathy G93.40 Atrial fibrillation I48.0 Atrial fibrillation type: paroxysmal Chronic respiratory failure with hypoxia J96.11 Interstitial lung disease J84.9
--- NOTE | 2023-03-28 11:16 | PC.SOCIAL ---
Pg 2 IMM Explained to pt's daughter pg 2 IMM. No questions voiced. Provided pt a copy. Initialed, dated, & timed a copy & placed in chart.
[2023-03-28] MEDS: potassium chloride ER 20 mEq Tablet 40 MEQ PO (11:22)
[2023-03-28] MEDS: remdesivir 100 MG in sodium chloride 0.9% (100 ml) 80 ML IV (11:23)
[2023-03-28] MEDS: FUROsemide 10 mg/mL SDV 4mL 40 MG IVP (11:23)
--- NOTE | 2023-03-28 12:10 | PC.NURSE ---
prednisone prescription called into pharmacy by nurse.
== END 2023-03-28 13:47 | disposition home or self-care (01) | DRG 177 ==
LOC: ER 15:35 → ICU 23:02 → MEDSURG 03-27 14:51
PROVIDERS: Admitting Provider Student in an Organized Health Care Education/Training Program; Emergency Provider Family Medicine; PCP Family Medicine; Visit Provider Student in an Organized Health Care Education/Training Program
DX: U07.1 COVID-19 (principal); G93.41 Metabolic encephalopathy; J12.82 Pneumonia due to coronavirus disease 2019; J96.22 Acute and chronic respiratory failure with hypercapnia; J96.21 Acute and chronic respiratory failure with hypoxia; I48.0 Paroxysmal atrial fibrillation; J44.9 Chronic obstructive pulmonary disease, unspecified; I49.5 Sick sinus syndrome; F03.90 Unspecified dementia, unspecified severity, without behavioral disturbance, psychotic disturbance, mood disturbance, and anxiety; Z79.01 Long term (current) use of anticoagulants; Z79.891 Long term (current) use of opiate analgesic; Z87.01 Personal history of pneumonia (recurrent); E03.9 Hypothyroidism, unspecified; E78.5 Hyperlipidemia, unspecified; Z87.891 Personal history of nicotine dependence; Z66 Do not resuscitate
CPT/HCPCS: 36415; 36600; 51701; 51702; 70450; 71045; 80053; 81003; 82805; 83605; 83735; 83880; 84145; 84443; 84484; 85025; 85378; 86140; 87040; 87426; 93005; 94640; 96365; 96372; 96375; 96376; 99285; J0248; J0282; J0456; J0696; J1100; J1630; J1650; J1940; J2060; J2185; J7050; J7060; J7626

== ENCOUNTER 2023-08-05 08:59 | Outpatient (CLI) | payer OTHER, MEDICAID, SELFPAY ==
--- NOTE | 2023-08-05 09:02 | FL_ITS ---
WS: [id number] Exam: FL barium swallow modifd [id number] Date/Time of Exam: 08/05/2023 9:34 AM Reason For Exam: Oropharyngeal dysphagia Fluoroscopy time: 4min [id number] minutes # of spot films: Modified barium swallow was performed in conjunction with the speech therapy service. The patient experienced minimal penetration into the laryngeal inlet when ingesting thin liquid bariu m solutions. The patient tolerated the remaining barium mixture foodstuffs without penetration or asp iration. The patient swallowed a barium tablet without difficulty however there was retention of the tablet in the midesophagus due to reverse esophageal peristalsis and spasm. IMPRESSION: 1. Mild penetration into the laryngeal inlet when the patient ingested thin liquid barium. The patien t tolerated the remaining consistencies of barium without aspiration or penetration. 2. Esophageal spasm and reverse peristalsis observed during the exam. A detail barium esophagram stud y might be considered for further work-up. A report and recommendations will also follow from the speech therapy service.
== END 2023-08-05 09:00 | disposition home or self-care (01) ==
LOC: RAD 09:00
PROVIDERS: PCP Family Medicine; Visit Provider Family Medicine
DX: R13.12 Dysphagia, oropharyngeal phase (principal)
CPT/HCPCS: 74230; 92611

== ENCOUNTER → 2023-09-18 14:50 | Outpatient (BNVA) | payer OTHER, MEDICAID, SELFPAY | PROVIDERS: PCP Family Medicine; Visit Provider Orthopaedic Surgery | DX: S22.000A Wedge compression fracture of unspecified thoracic vertebra, initial encounter for closed fracture (principal); X58.XXXA Exposure to other specified factors, initial encounter; Z46.89 Encounter for fitting and adjustment of other specified devices; S22.000D Wedge compression fracture of unspecified thoracic vertebra, subsequent encounter for fracture with routine healing; X58.XXXD Exposure to other specified factors, subsequent encounter | CPT/HCPCS: 72070; 97760; 99204; L0456 ==

== ENCOUNTER 2023-09-18 15:54 | Outpatient (CLI) | payer OTHER, MEDICAID, SELFPAY | END 2023-09-18 15:55 | disposition home or self-care (01) | LOC: SPT 15:55 | PROVIDERS: PCP Family Medicine; Visit Provider Orthopaedic Surgery | DX: Z46.89 Encounter for fitting and adjustment of other specified devices (principal); S22.000D Wedge compression fracture of unspecified thoracic vertebra, subsequent encounter for fracture with routine healing; X58.XXXD Exposure to other specified factors, subsequent encounter | CPT/HCPCS: 97760; 99204; L0456 ==

== ENCOUNTER → 2023-10-16 13:38 | Outpatient (BNVA) | payer OTHER, MEDICAID, SELFPAY | PROVIDERS: PCP Family Medicine; Visit Provider Orthopaedic Surgery | DX: S22.000A Wedge compression fracture of unspecified thoracic vertebra, initial encounter for closed fracture (principal); X58.XXXA Exposure to other specified factors, initial encounter | CPT/HCPCS: 72072; 99213 ==

== ENCOUNTER 2023-11-07 10:00 | Outpatient (CLI) | payer OTHER, MEDICAID, SELFPAY ==
--- NOTE | 2023-11-07 | FL_ITS ---
WS: [id number] Exam: FL barium swallow [id number] Date/Time of Exam: 11/07/2023 10:50 AM Reason For Exam: DYSPHAGIA; PHARYNGOESOPHAGEAL PHASE R13.14 R09.89 Fluoroscopy time: 1min [id number] minutes # of spot films: 4 Oral pharyngeal phase of swallowing was normal. No sign of intrinsic esophageal mass or stricture. Th ere is extrinsic compression along the posterior cervical esophagus at about the level of the C4. No obvious ossified bone spurs or ligamentous ossifications can be identified at this level. The remaini ng esophagus is widely patent. Mild spasm of the esophagus. Motility was normal. No hiatal hernia or gastroesophageal reflux. No aspiration. FL/FL barium swallow [id number] IMPRESSION: 1. Mild to moderate extrinsic compression of the posterior cervical esophagus a t about the level of C4. No obvious osteophyte or ligamentous ossification can be seen. 2. Mild esophageal spasm. No intrinsic esophageal mass or other stricture.
--- NOTE | 2023-11-07 10:06 | CT_ITS ---
WS: [id number] CT NECK TECHNIQUE: Contrast-enhanced CT of the neck with coronal and sagittal reformatted images. CLINICAL INFORMATION: DYSPHAGIA,PHARYNGOESOPHAGEAL PHASE COMPARISON: None. DLP: 144.[address] scans at [facility] use at least one of these dose optimization techniques: automated e xposure control; mA and/or kV adjustment per patient size (includes targeted exams where dose is matc hed to clinical indication); or iterative reconstruction. FINDINGS: Normal paranasal sinuses. Mastoid air cells are well aerated. Cavernous carotid calcification. Normal posterior nasopharynx. Normal parapharyngeal fat. Normal submandibular glands. Parotid glands are no rmal. No evidence of supraglottic mass. Apposition of the vocal cords with narrowing of the glottis. This m ay be due to phonation during the study but is unchanged in appearance since 09/01/2023. Recommend cor relation with endoscopy. Normal subglottic airway. Thyroid gland appears grossly normal. Aortic calcification. Advanced emphysematous changes in the lung apices. A few patchy [place] likely inflammatory. Moderate to advanced spondylitic changes cervical spine. Cervical curve. RIGHT carotid bulb calcification. CT/CT neck w con* [id number] IMPRESSION: 1. Complete apposition of the vocal cords. This is unchanged in appearance sin ce 09/01/2023. This can be seen with phonation during the examination or bilater al vocal cord paralysis. Recommend further evaluation with endoscopy. 2. Salivary glands are normal. 3. Paranasal sinuses and mastoid air cells are well aerated. 4. No cervical lymphadenopathy.
[2023-11-07 10:37] LABS: Blood Urea Nitrogen 6 mg/dL (8-23)
== END 2023-11-07 10:01 | disposition home or self-care (01) ==
LOC: RAD 10:00
PROVIDERS: PCP Family Medicine; Visit Provider Otolaryngology
DX: R13.14 Dysphagia, pharyngoesophageal phase (principal); R09.89 Other specified symptoms and signs involving the circulatory and respiratory systems
CPT/HCPCS: 70491; 74220; 82565; 84520; Q9967

== ENCOUNTER 2023-11-11 10:12 | Emergency (ER) | payer OTHER, MEDICAID, SELFPAY ==
[2023-11-11 10:16] VITALS: BP 113/72; PULSE 65; RESP 20; TEMP 36.9; O2SAT 99; BMI 23.1
--- NOTE | 2023-11-11 10:17 | XRR_ITS ---
PROCEDURE INFORMATION: Exam: XR Pelvis Exam date and time: 11/11/2023 10:20 AM Age: 83 years old Clinical indication: Injury or trauma; Fall; Blunt trauma (contusions or hematomas); Bilateral; Pelvic region TECHNIQUE: Imaging protocol: Radiologic exam of the pelvis. Views: 1 or 2 view. COMPARISON: CT abdomen pelvis w con* [id number] 11/01/2022 10:37 AM FINDINGS: Bones/joints: The partially visualized pelvis is grossly intact on this single AP view. The hip joints appear unremarkable. Soft tissues: Unremarkable. Intraperitoneal space: Prominent pelvic calcifications. XR/XR pelvis 1-2V* [id number] IMPRESSION: The partially visualized pelvis is grossly intact on this single AP view. Recommend additional views if concerned for fracture.
--- NOTE | 2023-11-11 10:17 | XRR_ITS ---
PROCEDURE INFORMATION: Exam: XR Left Femur Exam date and time: 11/11/2023 10:20 AM Age: 83 years old Clinical indication: Injury or trauma; Fall; Blunt trauma; Thigh or upper leg; Left TECHNIQUE: Imaging protocol: Radiologic exam of the left femur. Views: 2 views. COMPARISON: CR XR pelvis 1-2V* [id number] 11/11/2023 10:20 AM FINDINGS: Bones/joints: No left femoral fracture identified. Soft tissues: Unremarkable. Intraperitoneal space: Prominent pelvic calcifications noted. XR/XR femur LT min 2V* [id number] IMPRESSION: No left femoral fracture identified.
--- NOTE | 2023-11-11 10:18 | ED_ITS ---
HPI - Fall General: Chief Complaint: Extremity Injury, Lower Stated Complaint: Fall Time Seen by Provider: 11/11/23 10:13 Source: patient Mode of arrival: EMS Limitations: no limitations History of Present Illness: This patient presents to the emergency department because of a fall injury. She states that she was bending over to pick something off a coffee table yesterday and continue to fall forward landing on her left hip and also striking her right hand. She states it hurts to bear weight on her left leg. She denies any other injury. She did not hit her head or suffer a loss of consciousness. complaint: fall Fall from: standing Fall witnessed: no Place fall occurred: home Loss of consciousness: None Location of injury - extremities: Left: thigh and Right: hand Associated symptoms-after fall: Denies abdominal pain, chest pain, headache(s) or neck pain Review of Systems Const: Denies: fever(s) or chills Eyes: Denies: change in vision ENMT: Denies: odynophagia or nasal discharge Card: Denies: chest pain, syncope or pre-syncope Resp: Reports: dyspnea (Chronic); Denies: productive cough or non-productive cough GI: Denies: abdominal pain, nausea or vomiting : Denies: flank pain, difficulty voiding or dysuria Musc: Reports: extremity pain; Denies: neck pain or back pain Neuro: Denies: headache(s), numbness in extremities or weakness in extremities Psych: Denies: anxiety or depression Av/Lymph: Reports: easy bruising PFSH ED PFSH: Medical History Cholelithiasis Cellulitis Bradyarrhythmia Chronic episodic atrial fibrillation Bifascicular block Atrial fibrillation Hyperlipidemia COPD (chronic obstructive pulmonary disease) Hypothyroidism Surgical History H/O foot surgery H/O bilateral salpingo-oophorectomy H/O: hysterectomy Family History Father CAD (coronary artery disease) Sister CAD (coronary artery disease) Dementia Son Diabetes Grandmother Diabetes Daughter Lung disease Other Alzheimer disease Cancer Parkinson disease Denies family history of Clotting disorder Chronic kidney disease (CKD) Suicide Anesthesia complication Bleeding disorder Stroke Social History Smoking and tobacco/nicotine status: former use of tobacco/nicotine Quit status (tobacco/nicotine): has quit using Year quit tobacco: 1994 Former quit date comment: 1 ppd X 37 years, started at age 13 Alcohol intake: never Substance/Drug Use: never Physical Exam Narrative: EXAM NARRATIVE: She is alert very talkative and answers questions appropriately. Const: COMMON NORMALS: no acute distress and patient oriented x3 GENERAL APPEARANCE: cooperative NUTRITIONAL APPEARANCE: thin ORIENTATION/CONSCIOUSNESS: Yes awake HENMT: COMMON NORMALS: normocephalic, atraumatic, Normal nasal mucous membranes and turbinates present and moist oral mucous membranes HEAD & SCALP: normocephalic and atraumatic FACE & SINUS: normal facial exam NOSE: Normal nasal mucous membranes and turbinates present Eye: COMMON NORMALS: Equal, round and reactive pupils present, EOMs intact bilaterally and conjunctivae normal CONJUNCTIVA: Yes conjunctivae normal PUPIL: Yes Equal, round and reactive pupils present Neck/C-Spine: CERVICAL SPINE: Yes cervical ROM normal, No step off deformity, No Paracervical muscle tenderness, No Paracervical spasm and No Trapezius muscle tenderness OTHER: She is able to actively bend her head forward 15 degrees extend 15 degrees rotate and side bend to the left and right and normal range of motion without any restriction. No midline tenderness or step-off. Chest: COMMONS NORMALS: normal inspection of the chest Resp: COMMON NORMALS: normal respiratory effort, No retractions and No use of accessory muscles Cardio: COMMON NORMALS: regular rate, regular rhythm, No murmurs present (Card io) and Peripheral pulses 2+ throughout RATE: regular rate RHYTHM: regular rhythm PERIPHERAL PULSES: Peripheral pulses 2+ throughout : COMMON NORMALS: Yes no CVA tenderness BLADDER/KIDNEY EXAM: Yes no CVA tenderness Back/Pelvis: COMMON NORMALS: no CVA tenderness, thoracic and lumbar spine normal to inspection, no thoracic nor lumbar tenderness, thoraco-lumbar ROM normal and straight leg raise negative bilaterally Extremity: COMMON NORMALS: capillary refill normal, no calf tenderness and no pedal edema OTHER: She has a small superficial skin tear to the right fifth finger. He has normal range of motion no deformity. Neuro: COMMON NORMALS: patient oriented x3, no focal motor deficits and no sensory deficits noted CRANIAL NERVES: Yes CN normal except as noted Course Reevaluation(s): Reevaluation #1: Plain films of hip and pelvis were reviewed as well as CT of lumbar and thoracic spine. No evidence of fracture noted on any of these images. However the patient was unable to bear weight on her left hip we will go ahead and proceed with a CT of the left hip. Time: 12:54 Reevaluation #2: Ultimately we are able to discover that she has a nondisplaced pelvic ramus fracture in the inferior left pelvic ramus which is responsible for her symptoms. Discussed expected course and that no surgical or other orthopedic interventions indicated at this time and using her walker with analgesic and giving it some time to heal it. She does live with her family and so has assistance for ADLs. Time: 15:32 Vital Signs: Vital signs: Vital Signs Temperature 98.5 F 11/11/23 10:16 Pulse Rate 69 11/11/23 11:54 Respiratory Rate 20 H 11/11/23 10:16 Blood Pressure 114/84 11/11/23 13:21 Pulse Oximetry 91 11/11/23 13:21 Oxygen Delivery Me thod Room Air 11/11/23 11:54 Oxygen Flow Rate 4 11/11/23 10:16 MDM - Fall Medical Decision Making This patient was transported emergently to our emergency department by EMS because of a fall that occurred yesterday at home. She apparently was bending forward and lost her balance and fell striking her hip and right hand. She complains of pain with bearing weight. There is no other subsequent injury from her fall and to include head trauma loss conscious etc. She had some localized tenderness in the left hip and workup ensued to evaluate that area. Initial plain films were unrevealing CT scan of spine was then obtained to ensure she did not have an occult compression fracture with referred pain which was also negative and eventually a CT of her hip and pelvis revealed a pelvic rami fracture. She does not have any other injury at this time requires emergency care and is being discharged home with outpatient follow-up and analgesics. Lab Data I reviewed the patient's lab results. Radiology Impressions Femur X-Ray 11/11/23 10:17 IMPRESSION: No left femoral fracture identified. Pelvis X-Ray 11/11/23 10:17 IMPRESSION: The partially visualized pelvis is grossly intact on this single AP view. Recommend additional views if concerned for fracture. Lumbar Spine CT 11/11/23 10:47 IMPRESSION: 1. No acute lumbar spine fracture. 2. L4-5: Severe central and bilateral subarticular recess stenosis with mild foraminal stenosis. There is significant encroachment upon the traversing L5 nerve roots. 3. L3-4: Mild central and bilateral subarticular recess stenosis. Shallow RIGHT foraminal disc protrusion. 4. Extensive chronic diverticulosis. 5. Bones are osteopenic. No sacral fracture identified. Thoracic Spine CT 11/11/23 10:47 IMPRESSION: 1. No acute thoracic spine fracture. 2. Moderate RIGHT curvature and scoliosis. 3. Remote T8 and T11 compression fractures are similar to prior study from 09/18/2023. Hip CT 11/11/23 12:53 IMPRESSION: 1. Acute, nondisplaced, oblique fracture inferior LEFT pubic rami. 2. Tiny buckle involving the central superior pubic rami seen only on the coronal reformat may be an additional incomplete fracture. 3. No hip fracture. All radiology interpretation(s) finalized by discharge Discharge Plan Discharge Patient Disposition: Home Clinical Impression: Closed fracture of single pubic ramus of pelvis Qualifiers: Encounter type: initial encounter Laterality: left Qualified Code(s): S32.592A - Other specified fracture of left pubis, initial encounter for closed fracture Condition: Stable Prescriptions: New hydrocodone-acetaminophen 5-325 mg tablet 1 tab PO Q8H PRN (Reason: pain) Qty: 20 0RF No Action Eliquis 2.5 mg tablet 2.5 mg PO BID Qty: 90 3RF Hold Instructions: Resume on 04/02/22. May start taking it tomorrow furosemide 20 mg tablet 20 mg PO QAM rivastigmine 4.6 mg/24 hour patch 24 hour 1 patch transdermal DAILY@2030 (DME) TLSO Brace See Rx Instructions .Route .MEDSUPPLY Qty: 1 0RF Rx Instructions: As directed albuterol sulfate 90 mcg/actuation HFA aerosol inhaler 2 puff inhalation Q6H PRN (Reason: shortness of breath or wheezing) Qty: 8.5 5RF docusate sodium [Colace] 100 mg Capsule 100 mg PO BID ipratropium-albuterol 0.5 mg-3 mg(2.5 mg base)/3 mL solution for nebulization 3 ml INHALATION TID PRN (Reason: Shortness Of Breath) donepezil 5 mg Tablet 5 mg PO QPM potassium chloride 20 mEq tablet,ER particles/crystals 20 meq PO DAILY ibuprofen 200 mg Tablet 200 mg PO Q6H PRN (Reason: Pain) sertraline 25 mg tablet 25 mg PO QAM lovastatin 20 mg Tablet 20 mg PO QPM Flonase 50 mcg/actuation [place],Suspension 1 spray INTRANASAL DAILY PRN (Reason: ALLERGIES) Rx Instructions: administer into each nostril Xanax XR 1 mg Tablet Extended Release 24 Hr 1 mg PO DAILY nifedipine 20 mg capsule 20 mg PO TID amiodarone 200 mg tablet 200 mg PO BID cetirizine [Zyrtec] 10 mg Tablet 10 mg PO QAM levothyroxine 25 mcg tablet 25 mcg PO QAM budesonide 0.5 mg/2 mL suspension for nebulization 0.5 mg INHALATION BID PRN (Reason: Shortness Of Breath) Discharge Orders: Discharge ED (Routine); Ordered 11/11/23 Ordered By: Edson Lucio Referrals: Rosie Barnes DO [Primary Care Provider] - Discharge Diet: Usual diet Discharge Activity: Increase activity as tolerated and Use walker/crutches as instructed Patient Instructions: Opioid Safety, Pain Management Activity Restrictions/Additional Instructions: As we discussed you have a small crack in one of the bones of your pelvis on the left side. This does not require surgical treatment. We have provided a prescription for pain medicine to help you with your pain. We are making a referral for orthopedics to do a follow-up in 2 weeks. If you have any increas ing or worsening symptoms you are welcome to return to the emergency department for reevaluation. Coding Level of Care Code ED [employer] for Lance Cochran
[2023-11-11 10:25] VITALS: BP 113/72; PULSE 67; O2SAT 98
--- NOTE | 2023-11-11 10:47 | CT_ITS ---
WS: [id number] CT THORACIC SPINE HISTORY: fall TECHNIQUE: Contiguous 2.5 mm axial images are reviewed to thoracic spine. Images are reformatted in s agittal and coronal planes. All CT scans at [facility] use at least one of these dose optimiz ation techniques: automated exposure control; mA and/or kV adjustment per patient size (includes targ eted exams where dose is matched to clinical indication); or iterative reconstruction. DLP: 659.19 mGy.cm COMPARISON: None available. Thoracolumbar scoliosis. Moderate RIGHT curvature thoracic spine. Bones are markedly osteopenic. Prev iously described compression fractures are noted at T8 and T11 without obvious progression. No acute fracture. Disc spaces are mildly narrowed and desiccated. Transverse processes are intact. Facet join ts are normally aligned. No central disc protrusions or significant stenosis. Moderate atherosclerotic plaque thoracic aorta. CT/CT thoracic spin wo con* [id number] IMPRESSION: 1. No acute thoracic spine fracture. 2. Moderate RIGHT curvature and scoliosis. 3. Remote T8 and T11 compression fractures are similar to prior study from 09/07.
--- NOTE | 2023-11-11 10:47 | CT_ITS ---
WS: [id number] CT LUMBAR SPINE, noncontrast. HISTORY: fall TECHNIQUE: Contiguous 2.0 mm axial imaging are performed. Sagittal and coronal reformats are submitte d and reviewed. All CT scans at [facility] use at least one of these dose optimization techni ques: automated exposure control; mA and/or kV adjustment per patient size (includes targeted exams w here dose is matched to clinical indication); or iterative reconstruction. IV contrast: None DLP: 659.19 mGy.cm COMPARISON: None available. Bones are osteopenic. Posterior lumbar alignment is normal. No compression fracture. Pseudoarthrosis on the RIGHT at L5-S1. No sacral fracture. L1-2: Normal. L2-3: Normal. L3-4: Mild annular disc bulging encroaching upon the subarticular recesses and central canal. Shallow RIGHT foraminal disc protrusion. Mild central and bilateral subarticular recess encroachment. No for aminal stenosis. L4-5: Marked annular disc bulging with marked facet arthritis. There is a central disc protrusion wit h ligamentum flavum and facet arthritis. High-grade central with bilateral subarticular recess stenos is. Significant encroachment upon the traversing L5 nerve roots. Mild foraminal narrowing. L5-S1: Mild disc bulging. Mild facet arthritis. Very slight disc contact on the S1 nerve roots. Moderate atherosclerosis aorta and iliac arteries. Extensive chronic diverticulosis. The diverticular have retained barium contrast. CT/CT lumbar spine wo con* [id number] IMPRESSION: 1. No acute lumbar spine fracture. 2. L4-5: Severe central and bilateral subarticular recess stenosis with mild f oraminal stenosis. There is significant encroachment upon the traversing L5 ner ve roots. 3. L3-4: Mild central and bilateral subarticular recess stenosis. Shallow RIGH T foraminal disc protrusion. 4. Extensive chronic diverticulosis. 5. Bones are osteopenic. No sacral fracture identified.
--- NOTE | 2023-11-11 10:59 | PC.PHAR ---
PT HAS [facility] SET UP MEDICATIONS. [phone]. [facility] MED LIST 11/11/23 11AM
[2023-11-11 11:54] VITALS: PULSE 69; O2SAT 92
--- NOTE | 2023-11-11 12:53 | CT_ITS ---
WS: [id number] CT LEFT HIP, NONCONTRAST HISTORY: Prior fall. Technique: All CT scans at [facility] use at least one of these dose optimization techniques: automated exposure control; mA and/or kV adjustment per patient size (includes targeted exams where dose is matched to clinical indication); or iterative reconstruction. DLP: 293.40 mGy.cm COMPARISON: None available. Bones are osteopenic. No hip fracture. No displacement from the joint. Acute LEFT inferior pubic rami fracture without significant displacement. Acetabulum is intact. Mild soft tissue edema surrounding the pubic rami fracture. Seen only on the coronal reformat image is a slight buckle involving the superior pubic rami which co uld be an additional fracture which is incomplete. Extensive diverticular burden in the visualized pelvis. CT/CT hip LT wo con* [id number] IMPRESSION: 1. Acute, nondisplaced, oblique fracture inferior LEFT pubic rami. 2. Tiny buckle involving the central superior pubic rami seen only on the sandra nal reformat may be an additional incomplete fracture. 3. No hip fracture.
[2023-11-11 13:21] VITALS: BP 114/84; O2SAT 91
[2023-11-11 16:26] VITALS: BP 114/84; PULSE 69; RESP 20; TEMP 36.9; O2SAT 91
== END 2023-11-11 16:35 | disposition home or self-care (01) ==
PROVIDERS: Emergency Provider Emergency Medicine; PCP Family Medicine
DX: S32.592A Other specified fracture of left pubis, initial encounter for closed fracture (principal); Z79.01 Long term (current) use of anticoagulants; Z87.891 Personal history of nicotine dependence; E78.5 Hyperlipidemia, unspecified; J44.9 Chronic obstructive pulmonary disease, unspecified; W18.39XA Other fall on same level, initial encounter
CPT/HCPCS: 72128; 72131; 72170; 73552; 73700; 99284

== ENCOUNTER 2024-04-07 07:29 | Emergency (ER) | payer MEDICARE, MEDICAID, SELFPAY ==
[2024-04-07 07:32] VITALS: BP 155/47; PULSE 71; RESP 18; TEMP 37.1; O2SAT 93
--- NOTE | 2024-04-07 07:45 | ED_ITS ---
HPI - Fall 2 General: Chief Complaint: Fall Stated Complaint: FALL Time Seen by Provider: 04/07/24 07:34 History of Present Illness: 83-year-old female presents emergency ro om after a fall. Patient has a laceration above her left eye along the lateral supraorbital ridge. She denies consciousness no vomiting. It sounds as if she stumbled, but it is difficult to establish exactly how she fell. She denies any shortness of breath or chest pain at this time she does have a history of atrial fibrillation she is on Eliquis 2.5 mg twice daily which she continues to take. She had fallen a couple of days ago has a skin tear on her left hand that is heavily bandaged. She denies any chest or abdominal pain at this time. Associated symptoms-after fall: Denies abdominal pain, chest pain or neck pain Related Data Home Medications Medication Instructions Recorded Confirmed furosemide 20 mg tablet 20 mg PO QAM 07/02/21 04/07/24 cetirizine 10 mg tablet (Zyrtec) 10 mg PO QAM 11/01/22 04/07/24 levothyroxine 25 mcg tablet 25 mcg PO QAM 11/01/22 04/07/24 docusate sodium 100 mg capsule 100 mg PO BID 03/09/23 04/07/24 (Colace) budesonide 0.5 mg/2 mL suspension 0.5 mg inhalation BID PRN 03/24/23 04/07/24 for nebulization Shortness Of Breath amiodarone 200 mg tablet 200 mg PO BID 11/11/23 04/07/24 fluticasone propionate 50 1 spray intranasal DAILY PRN 11/11/23 04/07/24 mcg/actuation nasal ALLERGIES spray,suspension ibuprofen 200 mg tablet 200 mg PO Q6H PRN Pain 11/11/23 04/07/24 ipratropium 0.5 mg-albuterol 3 mg 3 ml inhalation TID PRN Shortness 11/11/23 04/07/24 (2.5 mg base)/3 mL nebulization Of Breath soln nifedipine 20 mg capsule 20 mg PO TID 11/11/23 04/07/24 potassium chloride 20 mEq 20 meq PO DAILY 11/11/23 04/07/24 tablet,extended release(part/cryst) sertraline 25 mg tablet 25 mg PO QAM 11/11/23 04/07/24 alprazolam 0.5 mg tablet 0.5 mg PO TID 04/07/24 04/07/24 hydrocodone 10 mg-acetaminophen 1 tab PO Q4H 04/07/24 04/07/24 325 mg tablet lorazepam 2 mg/mL oral concentrate 2 mg PO Q4H 04/07/24 04/07/24 (Lorazepam Intensol) Previous Rx's Medication Instructions Recorded apixaban 2.5 mg tablet (Eliquis) 2.5 mg PO BID #90 tabs 01/13/20 albuterol sulfate 90 mcg/actuation 2 puff inhalation Q6H PRN 10/30/21 aerosol inhaler shortness of breath or wheezing #8.5 grams TLSO Brace #1 ea 09/18/23 clindamycin HCl 300 mg capsule 300 mg PO TID 10 days #30 caps 04/07/24 hydrocodone 5 mg-acetaminophen 325 1 tab PO Q6H PRN pain #15 tabs 04/07/24 mg tablet mupirocin 2 % topical ointment 1 applic topical DAILY #22 grams 04/07/24 Allergies Allergy/AdvReac Type Severity Reaction Status Date / Time Penicillins Allergy rash Verified 03/09/23 12:20 Sulfa (Sulfonamide AdvReac didn't Verified 03/09/23 12:20 Antibiotics) feel good Review of Systems 2 Const: Denies: fever(s) or chills Card: Denies: chest pain Resp: Denies: dyspnea GI: Denies: abdominal pain : Denies: dysuria, urinary frequency or urinary urgency Musc: Denies: neck pain or back pain Skin/Breast: Denies: rash PFSH ED 2 PFSH: Medical History Cholelithiasis Cellulitis Bradyarrhythmia Chronic episodic atrial fibrillation Bifascicular block Atrial fibrillation Hyperlipidemia COPD (chronic obstructive pulmonary disease) Hypothyroidism Surgical History H/O foot surgery H/O bilateral salpingo-oophorectomy H/O: hysterectomy Family History Father CAD (coronary artery disease) Sister CAD (coronary artery disease) Dementia Son Diabetes Grandmother Diabetes Daughter Lung disease Other Alzheimer disease Cancer Parkinson disease Denies family history of Clotting disorder Chronic kidney disease (CKD) Suicide Anesthesia complication Bleeding disorder Stroke Social History Smoking and tobacco/nicotine status: former use of tobacco/nicotine Quit status (tobacco/nicotine): has quit using Year quit tobacco: 1994 Former quit date comment: 1 ppd X 37 years, started at age 13 Alcohol intake: never Substance/Drug Use: never Physical Exam 2 Const: COMMON NORMALS: no acute distress GENERAL APPEARANCE: cooperative and comfortable ORIENTATION/CONSCIOUSNESS: Yes awake HENMT: COMMON NORMALS: normocephalic and hearing grossly normal bilaterally HEAD & SCALP: normocephalic OTHER: Avulsion flap laceration above the left eye with hematoma. No active bleeding second laceration inferior along the midportion of the supraorbital ridge on the left Resp: COMMON NORMALS: normal respiratory effort, No retractions, No use of accessory muscles and clear to auscultation bilaterally AUSCULTATION: clear to auscultation bilaterally Cardio: COMMON NORMALS: regular rate, regular rhythm and No murmurs present (Cardio) RATE: regular rate RHYTHM: regular rhythm GI: COMMON NORMALS: Soft to palpation and No hepatosplenomegaly present A USCULTATION: Yes normoactive bowel sounds PALPATION: Yes Soft to palpation, No Tenderness to palpation present (GI), No Guarding due to palpation present (GI) and Yes No hepatosplenomegaly present Extremity: COMMON NORMALS: normal to inspection, capillary refill normal, no clubbing, cyanosis or edema, no calf tenderness and no pedal edema Skin: COMMON NORMALS: no rashes or lesions noted GENERAL SKIN EXAM: no rashes or lesions noted Procedures Laceration Laceration 1: Site: face Side (If applicable): left Size (cm): 2.5 Description: linear Depth: simple, single layer Local Anesthetic: lidocaine 1% and with epi Amount of anesthesia used (mL): 1.5 Pre-repair: wound explored and irrigated extensively Skin layer closed with: other (Prolene) Size (cm): 6-0 Number of sutures: 1 Technique: running Size: 6-0 Laceration 2: Site: face Side (If applicable): left Size (cm): 3.75 Description: flap Depth: simple, single layer Local Anesthetic: lidocaine 1% and with epi Amount of anesthesia used (mL): 3 Pre-repair: irrigated extensively and deep structures intact Skin layer closed with: other (Prolene) Size (cm): 6-0 (Prolene) Number of sutures: 1 Technique: running Course 2 Vital Signs: Vital signs: Vital Signs Temperature 98.7 F 04/07/24 07:32 Pulse Rate 83 04/07/24 12:41 Respiratory Rate 18 04/07/24 11:01 Blood Pressure 138/52 04/07/24 12:41 Pulse Oximetry 92 04/07/24 12:41 Oxygen Delivery Me thod Nasal Cannula 04/07/24 11:01 Oxygen Flow Rate 2 04/07/24 11:01 MDM - Fall Medical Decision Making 2 lacerations the avulsion injury descension a half the supraorbital ridge injury is an inch. Wounds were closed with running suture of 6-0 nylon patient tolerated well with local anesthesia. On imaging patient has a stable there [place] prostatic fracture fracture as well as a left maxillary sinus wall fracture. Neither require hospitalization we will set her up for orthopedic spine surgery to follow-up which she has seen before also set up for ENT for the maxillary sinus fracture. Started on clindamycin since she is allergic to penicillin avoid forceful blowing of the nose. Also apply topical antibiotic ointment to the wounds where they were closed and have the sutures removed in 5 to 7 days Medical Records I reviewed the patient's medical records. Lab Data I reviewed the patient's lab results. 04/07/24 08:11 04/07/24 08:11 Radiology Impressions Cervical Spine CT 04/07/24 07:52 IMPRESSION: 1. Marked increase in cervical lordosis. 2. No acute cervical spine fracture. 3. Bilateral facet arthropathy and foraminal stenosis. Similar to the study from 09/01/2023. Face CT 04/07/24 07:52 IMPRESSION: 1. Acute nondisplaced fracture anterior wall of the LEFT maxillary sinus. 2. Small air-fluid level in the LEFT maxillary sinus. 3. No additional fractures. Lumbar Spine CT 04/07/24 07:52 IMPRESSION: 1. New acute L1 compression fracture by 20% with 3 mm retropulsion of the posterior superior endplate. Fracture extends into the RIGHT pedicle. 2. Very minimal L1 encroachment upon the RIGHT subarticular recess. 3. Facet joint arthritis and stenosis throughout the remaining lumbar spine is similar to the study of 11/11/2023. Most significant stenosis at L4-5. Head CT 04/07/24 07:53 IMPRESSION: 1. No acute intracranial hemorrhage or edema. 2. Advanced volume loss with severe white matter disease. 3. No skull fracture. 4. Moderate size LEFT frontal scalp contusion. Wrist X-Ray 04/07/24 07:55 IMPRESSION: 1. Bony demineralization. 2. Widening of the scapholunate interspace suggesting a scapholunate ligament injury. This could be acute or chronic. Laboratory Results WBC 10.26 10^3/uL (3.29-11.43) 04/07/24 08:11 RBC 3.66 10^6/uL (3.85-5.65) L 04/07/24 08:11 Hgb 9.10 g/dL (11.27-16.99) L 04/07/24 08:11 Hct 31.0 % (36-47) L 04/07/24 08:11 MCV 84.7 fl (85-98) L 04/07/24 08:11 MCH 24.9 pg (27-33) L 04/07/24 08:11 MCHC 29.4 g/dL (30-55) L 04/07/24 08:11 RDW 17.2 % (12.1-15.1) H 04/07/24 08:11 Plt Count 368 10^3/cmm (157-399) 04/07/24 08:11 MPV 10.3 fL (7.4-10.4) 04/07/24 08:11 Neut % (Auto) 82.3 % 04/07/24 08:11 Lymph % (Auto) 4.9 % 04/07/24 08:11 [place] % (Auto) 10.3 % 04/07/24 08:11 Eos % (Auto) 1.5 % 04/07/24 08:11 Baso % (Auto) 0.6 % 04/07/24 08:11 Neut # (Auto) 8.45 10^3/uL (1.8-7.7) H 04/07/24 08:11 Lymph # (Auto) 0.5 10^3/uL (0.8-4.8) L 04/07/24 08:11 [place] # (Auto) 1.1 10^3/uL (0.2-0.9) H 04/07/24 08:11 Eos # (Auto) 0.2 10^3/uL (0.0-0.8) 04/07/24 08:11 Baso # (Auto) 0.1 10^3/uL (0.0-0.1) 04/07/24 08:11 Nucleated RBC % (auto) 0 % 04/07/24 08:11 Nucleated RBCs # 0.0 /100WBC 04/07/24 08:11 Sodium 142 mmol/L (136-145) 04/07/24 08:11 Potassium 4.3 mmol/L (3.5-5.1) 04/07/24 08:11 Chloride 103 mmol/L (98-107) 04/07/24 08:11 Carbon Dioxide 31 mmol/L (22-29) H 04/07/24 08:11 Anion Gap 12.3 (5-19) 04/07/24 08:11 BUN 13 mg/dL (8-23) 04/07/24 08:11 Creatinine 0.4 mg/dL (0.5-0.9) L 04/07/24 08:11 GFR Calculation Not Reportable 04/07/24 08:11 Glucose 104 mg/dL (65-115) 04/07/24 08:11 Calculated Osmolality 294 mOsm/kg (285-295) 04/07/24 08:11 Calcium 8.5 mg/dL (8.5-10.5) 04/07/24 08:11 Total Bilirubin 0.9 mg/dL (0.15-1.2) 04/07/24 08:11 AST 26 U/L (0-32) 04/07/24 08:11 ALT 17 U/L (0-33) 04/07/24 08:11 Alkaline Phosphatase 93 U/L (35-105) 04/07/24 08:11 Total Protein 5.8 g/dL (6.6-8.7) L 04/07/24 08:11 Albumin 3.5 g/dL (3.5-5.2) 04/07/24 08:11 Globulin 2.3 g/dL (1.3-4.6) 04/07/24 08:11 All radiology interpretation(s) finalized by discharge Discharge Plan Discharge Patient Disposition: Home Clinical Impression: Closed compression fracture of L1 vertebra, Closed fracture of left maxillary sinus, Facial laceration Condition: Stable Prescriptions: New mupirocin 2 % ointment 1 applic topical DAILY Qty: 22 0RF clindamycin HCl 300 mg capsule 300 mg PO TID 10 Days Qty: 30 0RF hydrocodone-acetaminophen 5-325 mg tablet 1 tab PO Q6H PRN (Reason: pain) Qty: 15 0RF No Action Eliquis 2.5 mg tablet 2.5 mg PO BID Qty: 90 3RF Hold Instructions: Resume on 04/02/22. May start taking it tomorrow furosemide 20 mg tablet 20 mg PO QAM (DME) TLSO Brace See Rx Instructions .Route .MEDSUPPLY Qty: 1 0RF Rx Instructions: As directed albuterol sulfate 90 mcg/actuation HFA aerosol inhaler 2 puff inhalation Q6H PRN (Reason: shortness of breath or wheezing) Qty: 8.5 5RF docusate sodium [Colace] 100 mg Capsule 100 mg PO BID ipratropium-albuterol 0.5 mg-3 mg(2.5 mg base)/3 mL solution for nebulization 3 ml INHALATION TID PRN (Reason: Shortness Of Breath) potassium chloride 20 mEq tablet,ER particles/crystals 20 meq PO DAILY ibuprofen 200 mg Tablet 200 mg PO Q6H PRN (Reason: Pain) sertraline 25 mg tablet 25 mg PO QAM fluticasone propionate [Flonase] 50 mcg/actuation [place],Suspension 1 spray INTRANASAL DAILY PRN (Reason: ALLERGIES) Rx Instructions: administer into each nostril nifedipine 20 mg capsule 20 mg PO TID amiodarone 200 mg tablet 200 mg PO BID hydrocodone-acetaminophen 10-325 mg tablet 1 tab PO Q4H alprazolam 0.5 mg tablet 0.5 mg PO TID lorazepam [Lorazepam Intensol] 2 mg/mL concentrate 2 mg PO Q4H cetirizine [Zyrtec] 10 mg Tablet 10 mg PO QAM levothyroxine 25 mcg tablet 25 mcg PO QAM budesonide 0.5 mg/2 mL suspension for nebulization 0.5 mg INHALATION BID PRN (Reason: Shortness Of Breath) Discharge Orders: Discharge ED (Routine); Ordered 04/07/24 Ordered By: Redd Charles Referrals: Rosie Barnes, [Primary Care Provider] - Discharge Diet: Usual diet Discharge Activity: Increase activity as tolerated Patient Instructions: Opioid Safety, Pain Management Activity Restrictions/Additional Instructions: Thank you for choosing [facility] for your healthcare needs today. It is very important that you follow up as instructed or that you return to the Emergency Department should you have concerns or if your condition changes or worsens in any way. You were seen in the emergency room after a fall. Imaging shows you have an L1 compression fracture. Radiology felt that this was stable you will be referred to Dr. Santoyo for follow-up regarding this fracture. You also had a nondisplaced maxillary sinus fracture. You should avoid blowing your nose forcefully over the next several weeks. You can rinse the nose with nasal saline and blow very gently. Recommend you start on oral antibiotics you are given a prescription for clindamycin take 1 3 times a day for 10 days. Coding Level of Care Code ED Starch Crab for Lance Cochran
--- NOTE | 2024-04-07 07:52 | CT_ITS ---
WS: [id number] CT CERVICAL SPINE HISTORY: Trauma TECHNIQUE: Contiguous 2.0 mm axial imaging performed through the entire cervical spine. Sagittal and coronal reformats also performed. All CT scans at [facility] use at least one of these dose o ptimization techniques: automated exposure control; mA and/or kV adjustment per patient size (include s targeted exams where dose is matched to clinical indication); or iterative reconstruction. DLP: 2580.84 mGy.cm COMPARISON: 09/01/2023 Marked increase in the cervical lordosis. Posterior alignment is normal. Disc spaces are narrowed wit h most significant narrowing at C5-6 and C6-7. No facet joint widening. Partial fusion LEFT C3-4 face t joints. Sclerotic bone island C7. Lateral masses of C1 and C2 are intact. Facet joint arthritis with multilevel mild to moderate foraminal stenosis. No acute disc protrusions. Lung apices are clear. CT/CT cervical spin wo con* [id number] IMPRESSION: 1. Marked increase in cervical lordosis. 2. No acute cervical spine fracture. 3. Bilateral facet arthropathy and foraminal stenosis. Similar to the study fr 09/01/2023.
--- NOTE | 2024-04-07 07:52 | CT_ITS ---
WS: [id number] CT LUMBAR SPINE, noncontrast. HISTORY: Trauma TECHNIQUE: Contiguous 2.0 mm axial imaging are performed. Sagittal and coronal reformats are submitte d and reviewed. All CT scans at [facility] use at least one of these dose optimization techni ques: automated exposure control; mA and/or kV adjustment per patient size (includes targeted exams w here dose is matched to clinical indication); or iterative reconstruction. IV contrast: None DLP: 331.84 mGy.cm COMPARISON: 11/11/2023 New acute compression fracture estimated at 20% involving the superior endplate of L1. 3 mm retropuls ion of the posterior superior endplate. Fracture extends into the RIGHT pedicle. No additional fractu res. Bones are diffusely osteopenic. New area of slight sclerosis involving the LEFT sacrum may be a healed insufficiency fracture. No acute fracture line is identified. Reidentified is a pseudoarthrosi s on the RIGHT at L5-S1. T12-L1:Retropulsion of the superior endplate of the L1 with minimal encroachment upon the RIGHT subar ticular recess. L1-2: No stenosis. L2-3: Normal. L3-4: Facet arthritis. No stenosis. Mild subarticular recess encroachment. L4-5: Marked annular disc bulging with facet arthritis. Central to LEFT paracentral disc protrusion. High-grade central and bilateral subarticular recess stenosis. L5-S1: Mild disc bulging. Advanced atherosclerosis aorta. Small bilateral pleural effusions. Small portion of the liver is visu alized and appears very dense, this can be related to medications. CT/CT lumbar spine wo con* [id number] IMPRESSION: 1. New acute L1 compression fracture by 20% with 3 mm retropulsion of the post erior superior endplate. Fracture extends into the RIGHT pedicle. 2. Very minimal L1 encroachment upon the RIGHT subarticular recess. 3. Facet joint arthritis and stenosis throughout the remaining lumbar spine is similar to the study of 11/11/2023. Most significant stenosis at L4-5.
--- NOTE | 2024-04-07 07:52 | CT_ITS ---
WS: [id number] CT FACIAL BONES HISTORY: Trauma TECHNIQUE: Images obtained from the supraorbital location through the mandible. Soft tissue and bone windows are reviewed. Coronal and sagittal reformats have also been submitted. DLP: 2580.[address] scans at [facility] use at least one of these dose optimization techniques: automated e xposure control; mA and/or kV adjustment per patient size (includes targeted exams where dose is matc hed to clinical indication); or iterative reconstruction. COMPARISON: None available. No nasal bone or zygomatic arch fracture. Acute nondisplaced fracture through the anterior LEFT maxil gaudencio sinus. No fracture in the mandible. Mandibular condyles are intact. Upper cervical spine demonst rates degenerative changes but no acute fracture. Small air-fluid level LEFT maxillary sinus is probably related to the fracture. CT/CT facial bones wo con* [id number] IMPRESSION: 1. Acute nondisplaced fracture anterior wall of the LEFT maxillary sinus. 2. Small air-fluid level in the LEFT maxillary sinus. 3. No additional fractures.
--- NOTE | 2024-04-07 07:53 | CT_ITS ---
WS: [id number] CT HEAD NONCONTRAST HISTORY: Trauma TECHNIQUE: Contiguous axial imaging performed through the brain. Bone and soft tissue windows. Sagitt al and coronal reformats reviewed. All CT scans at [facility] use at least one of these dose optimization techniques: automated exposure control; mA and/or kV adjustment per patient size (includ es targeted exams where dose is matched to clinical indication); or iterative reconstruction. DLP: 2580.84 mGy.cm COMPARISON: 03/24/2023 No acute intracranial hemorrhage, midline shift or mass effect. Marked bilateral symmetric atrophy and severe confluent white matter disease . No prior large territo ry infarct. Ventricles: Ventricles and extra-axial spaces are prominent on the basis of atrophy. Paranasal sinuses: Small air-fluid level LEFT maxillary sinus. Mastoid air cells: Well pneumatized. Calvarium and scalp: No skull fracture. Moderate size scalp contusion over the LEFT forehead. CT/CT head wo con* [id number] IMPRESSION: 1. No acute intracranial hemorrhage or edema. 2. Advanced volume loss with severe white matter disease. 3. No skull fracture. 4. Moderate size LEFT frontal scalp contusion.
--- NOTE | 2024-04-07 07:55 | XRR_ITS ---
PROCEDURE INFORMATION: Exam: XR Left Wrist Exam date and time: 04/07/2024 8:02 AM Age: 83 years old Clinical indication: Injury or trauma; Fall; Blunt trauma (contusions or hematomas); Wrist; Left TECHNIQUE: Imaging protocol: Radiologic exam of the left wrist. Views: 3 or more views. COMPARISON: No relevant prior studies available. FINDINGS: Bones/joints: Bones are diffusely demineralized. No fracture or dislocation is appreciated. There is slight widening of the scapholunate interspace suggesting a scapholunate ligament injury. Joint spaces are otherwise relatively well preserved. Soft tissues: Normal. XR/XR wrist LT min 3V* [id number] IMPRESSION: 1. Bony demineralization. 2. Widening of the scapholunate interspace suggesting a scapholunate ligament injury. This could be acute or chronic.
[2024-04-07 07:57] VITALS: BP 155/47; PULSE 61; RESP 16; O2SAT 99
[2024-04-07] MEDS: tetanus-dipt-pertussis 0.5 mL SDV IM (08:08)
[2024-04-07 08:36] LABS: Basophils # 0.1 10^3/uL (0.0-0.1); Basophils % 0.6 %; Eosinophils # 0.2 10^3/uL (0.0-0.8); Eosinophils % 1.5 %; Lymphocytes # 0.5 10^3/uL (0.8-4.8); Lymphocytes % 4.9 %; Mean Corpuscular HGB Conc 29.4 g/dL (30-55); Mean Corpuscular Hemoglobin 24.9 pg (27-33); Mean Corpuscular Volume 84.7 fl (85-98); Mean Platelet Volume 10.3 fL (7.4-10.4); Monocytes # 1.1 10^3/uL (0.2-0.9); Monocytes % 10.3 %; Neutrophils # 8.45 10^3/uL (1.8-7.7); Neutrophils % 82.3 %; Nucleated Red Blood Cells % 0 %; Platelet Count 368 10^3/cmm (157-399); Red Blood Count 3.66 10^6/uL (3.85-5.65); Red Cell Distribution Width 17.2 % (12.1-15.1); White Blood Count 10.26 10^3/uL (3.29-11.43)
[2024-04-07 09:18] LABS: Alanine Aminotransferase 17 U/L (0-33); Albumin Level 3.5 g/dL (3.5-5.2); Alkaline Phosphatase 93 U/L (35-105); Anion Gap 12.3 (5-19); Aspartate Amino Transferase 26 U/L (0-32); Blood Urea Nitrogen 13 mg/dL (8-23); Calcium 8.5 mg/dL (8.5-10.5); Carbon Dioxide 31 mmol/L (22-29); Chloride 103 mmol/L (98-107); Creatinine Clr Calc Pharmacy 42.6892; Globulin 2.3 g/dL (1.3-4.6); Glucose 104 mg/dL (65-115); Osmolality Calculated 294 mOsm/kg (285-295); Potassium 4.3 mmol/L (3.5-5.1); Sodium 142 mmol/L (136-145); Total Bilirubin 0.9 mg/dL (0.15-1.2); Total Protein 5.8 g/dL (6.6-8.7)
[2024-04-07] MEDS: lidocaine-epi 1% 20 mL INJ INJECTION (10:59)
[2024-04-07 11:01] VITALS: BP 144/67; PULSE 75; RESP 18; O2SAT 91
[2024-04-07] MEDS: bacitracin ointment Pkt 1 EACH TOPICAL (12:22)
[2024-04-07 12:41] VITALS: BP 138/52; PULSE 83; O2SAT 92
--- NOTE | 2024-04-09 01:38 | DCPLANNER ---
Message sent to Ortho/spine for follow up on compression fracture-lumbar
--- NOTE | 2024-04-09 03:04 | DCPLANNER ---
ENT referral sent to
== END 2024-04-07 12:43 | disposition home or self-care (01) ==
PROVIDERS: Emergency Provider Family Medicine; PCP Family Medicine
DX: S32.010A Wedge compression fracture of first lumbar vertebra, initial encounter for closed fracture (principal); S02.40DA Maxillary fracture, left side, initial encounter for closed fracture; S01.81XA Laceration without foreign body of other part of head, initial encounter; W19.XXXA Unspecified fall, initial encounter; J44.9 Chronic obstructive pulmonary disease, unspecified; Z87.891 Personal history of nicotine dependence; Z79.01 Long term (current) use of anticoagulants
CPT/HCPCS: 12011; 12013; 70450; 70486; 72125; 72131; 73110; 80053; 85025; 90471; 90715; 99284